=== PATIENT | female | born 1945 | race Caucasian/White ===

== ENCOUNTER 2019-12-10 08:24 | Outpatient (CLI) | payer MEDICARE, SELFPAY ==
--- NOTE | 2019-12-10 | XR_ITS ---
WS: [id number] SHOULDER LEFT TECHNIQUE: 3 views of the left shoulder CLINICAL INFORMATION: LEFT SHOULDER PAIN COMPARISON: None. FINDINGS: Postoperative changes left total shoulder arthroplasty. Normal AC joint. Osteopenia. Emphysematous ch anges left lung. Chronic healed left upper lateral rib fracture. XR/XR shoulder LT min 2V* [id number] IMPRESSION: Postoperative changes left total shoulder arthroplasty
== END 2019-12-10 08:25 | disposition home or self-care (01) ==
LOC: RADOUTREAD 09:12
PROVIDERS: Family Provider Internal Medicine; Visit Provider Internal Medicine
DX: Z01.89 Encounter for other specified special examinations (principal)

== ENCOUNTER 2020-10-14 10:13 | Inpatient (IN) | payer MEDICARE, SELFPAY ==
[2020-10-14] VITALS (7 sets, daily range): BP systolic 112–161; BP diastolic 71–100; PULSE 86–103; RESP 15–18; TEMP 37.1; O2SAT 89–98
--- NOTE | 2020-10-14 10:23 | CT_ITS ---
WS: [id number] CT CERVICAL SPINE HISTORY: fall, cervical spine point tenderness TECHNIQUE: Contiguous 2.5 mm axial imaging performed through the entire cervical spine. Sagittal and coronal reformats also performed. All CT scans at [facility] use at least one of these do se optimization techniques: automated exposure control; mA and/or kV adjustment per patient size (inc ludes targeted exams where dose is matched to clinical indication); or iterative reconstruction. DLP: 846.52 mGy.cm COMPARISON: No similar studies. Quality of this examination is limited by motion and body habitus. Age-indeterminate 50% burst fracture of C7 with retropulsion of the posterior superior endplate by 3 mm. Mild contact upon the ventral thecal sac. This is an age-indeterminate fracture. Odontoid is intact. Lateral masses of C1 and C2 are intact. Multilevel facet joint arthritis throughout the cervical spine. Lung apices are clear. CT/CT cervical spin wo con* [id number] IMPRESSION: 1. Age-indeterminate 50% fracture involving C7. 3 mm retropulsion of the poste rior superior endplate. Patient has numerous osteoporotic compression fractures throughout the thoracic spine. This cervical fracture has not been previously described are identified. 2. Multilevel facet joint arthritis. 3. Quality of this examination is limited by breathing and body habitus.
--- NOTE | 2020-10-14 10:23 | XR_ITS ---
WS: [id number] Portable AP upright chest, 10/14/2020 Clinical Data: syncope Comparison: PA and lateral chest, 07/12/2020. Findings: No nodules, masses or effusions are seen. The heart is normal. The pulmonary vascularity is not increased. No pneumonia or pneumothorax is seen. No new rib fractures are seen but there are old right rib fractures of the third through sixth ribs. There is an old fracture of the right humeral n luna. The aortic arch and descending aorta show tortuosity and calcification. There is a left shoulder prosthesis. XR/XR chest 1V portable [id number] Impression: 1. Atherosclerosis. 2. Negative for new right rib fractures.
--- NOTE | 2020-10-14 10:23 | CT_ITS ---
WS: [id number] CT HEAD NONCONTRAST HISTORY: syncope TECHNIQUE: Contiguous axial imaging performed through the brain in 2.5 mm imaging. Bone and soft tiss ue windows. Sagittal and coronal reformats reviewed. All CT scans at [facility] use at ast one of these dose optimization techniques: automated exposure control; mA and/or kV adjustment pe r patient size (includes targeted exams where dose is matched to clinical indication); or iterative r econstruction. DLP: 819.16 mGy.cm COMPARISON: 09/01/2019 No acute intracranial hemorrhage, midline shift or mass effect. Mild atrophy and mild chronic microvascular ischemic disease. Prior lacunar infarct in the anterior l imb of internal capsule on the LEFT. Ventricles: Normal size with no hydrocephalus. Extensive calcification and tortuosity involving the intracranial carotid arteries to the cavernous s inuses. Paranasal sinuses: As visualized are clear. Mastoid air cells: Well pneumatized. Calvarium and scalp: No skull fracture. There are numerous calvarial nodule with calcifications which are benign and present on prior studies. CT/CT head wo con* [id number] IMPRESSION: 1. No acute intracranial hemorrhage or edema. 2. Chronic small vessel ischemic disease and small lacunar infarct. No acute i nterval change.
--- NOTE | 2020-10-14 10:23 | XR_ITS ---
WS: [id number] Left shoulder, 3 views, 10/14/2020 Clinical Data: shoulder pain s/p fall Comparison: Left shoulder, 12/10/2019. Findings: There is a comminuted fracture of the distal left humerus adjacent to the distal tip of the long stem left shoulder prosthesis. The prosthesis is in good position. Soft tissues are not remarkable. XR/XR shoulder LT min 2V* [id number] Impression: Comminuted fracture of distal left humerus at the level of the distal tip of th e long stem left shoulder arthroplasty.
--- NOTE | 2020-10-14 10:24 | ECG_ITS ---
[facility] Test Date: 2020-10-14 Pat Name: Chip Guerrero Department: Room: Gender: Female Project Control Officer: : 1945 Requested By: Argelia Cuello Order Number: [id number] Charmaine MD: Esther Hampton M.D. Measurements Intervals [place] Rate: 92 P: 53 SD: 137 QRS: -37 QRSD: 103 T: 85 QT: 389 QTc: 482 Interpretive Statements SINUS RHYTHM LEFT AXIS DEVIATION [QRS AXIS < -30] PATTERN CONSISTENT WITH PULMONARY DISEASE NONSPECIFIC ST & T-WAVE ABNORMALITY Compared to ECG 10/14/2020 17:36:28 No significant changes Electronically Signed On 10-15-2020 13:47:55 APPLIED EXERCISE PHYSIOLOGIST by Esther Hampton M.D. [email or web address]
--- NOTE | 2020-10-14 10:33 | W.ED.FALL ---
Documented by User: ArgeliaARCELIA Oliva 10/16/20 19:56 HPI - Fall General: Chief Complaint: ER Hold Stated Complaint: FALL/ L HUMERUS DEFORMATION Time Seen by Provider: 10/14/20 10:14 Source: patient and EMS Mode of arrival: EMS Limitations: no limitations History of Present Illness: HPI Narrative: 74-year-old female patient presents to the emergency department status post fall. She was at home, experienced 3 falls today, she reports, blackout spells -reports became dizzy and fell, EMS states dresser was moved and suspects she hit the dresser. She is complaining of occipital head pain, neck pain and left shoulder pain. EMS reports deformity to the left shoulder. She reports history of dizzy spells that occur from time to time; however she has never fell. She was found lying on her back with her left arm externally rotated, previous ORIF with prosthesis placement to the left humerus in [facility] several years ago-previous fracture. MD complaint: fall Onset (ago): hour(s) (1) Fall from: standing Fall witnessed: no Place fall occurred: home Loss of consciousness: Unsure Prolonged down time: no Symptoms prior to fall: lightheadedness Location of injury: head Location of injury - extremities: Left: shoulder Severity: moderate Severity scale (1-10): 5 Quality: sharp and aching Associated symptoms-after fall: Reports headache(s), neck pain and weakness; Denies abdominal pain or chest pain Review of Systems General: Reports: 10 or more systems reviewed and unremarkable except in HPI and below Const: Denies: fever(s), chills or diaphoresis Eyes: Denies: blurry vision or eye redness ENMT: Denies: throat pain, dental pain or disequilibrium Card: Denies: chest pain, palpitations or irregular heart rhythm Resp: Denies: dyspnea, productive cough, non-productive cough or wheezing GI: Denies: abdominal pain, nausea, vomiting, heartburn, diarrhea or constipation : Denies: difficulty voiding or dysuria Musc: Reports: neck pain, joint pain and joint swelling; Denies: back pain Skin/Breast: Denies: rash or pruritus Neuro: Reports: headache(s), weakness in extremities, frequent falls (today) and dizziness; Denies: numbness in extremities, Slurred speech present or difficulty communicating thoughts Psych: Denies: anxiety or depression Chai/Lymph: Denies: easy bruising PFSH ED PFSH: Medical History Depression GERD (gastroesophageal reflux disease) Hypothyroidism Surgical History H/O rotator cuff surgery H/O: hysterectomy Family History Other No significant family history Social History Smoking and tobacco status: never smoked Alcohol intake: never Lives independently: Yes Household members: none Marital status: / Physical Exam Const: COMMON NORMALS: no acute distress, patient oriented x3, healthy appearing, alert and well nourished EXAM LIMITATIONS: no altered mental status GENERAL APPEARANCE: cooperative, well kempt, well developed, anxious and frail appearing NUTRITIONAL APPEARANCE: overweight ORIENTATION/CONSCIOUSNESS: Yes awake, Yes oriented to person, Yes oriented to place and Yes oriented to time; not confused and not patient obtunded HENMT: COMMON NORMALS: normocephalic, external ears normal, Normal external nose present and moist oral mucous membranes HEAD & SCALP: normal to inspection, normocephalic and scalp tenderness (Occipital); no Temporal artery tenderness present FACE & SINUS: normal facial exam, sinuses nontender and face symmetric; no erythema and no fluctuance NOSE: Normal external nose present and No nasal polyps present EXTERNAL EAR: Yes external ears normal Eye: COMMON NORMALS: Equal, round and reactive pupils present, EOMs intact bilaterally and conjunctivae normal GENERAL EYE: appearance normal, both eyes and all related structures EYELID: eyelids normal CONJUNCTIVA: Yes conjunctivae normal SCLERA: sclerae normal PUPIL: Yes Equal, round and reactive pupils present, Yes pupil size - right Right pupil size (mm): 3 and Yes pupil size - left Left pupil size (mm): 3 Neck/C-Spine: COMMON NORMALS: no lymphadenopathy and supple GENERAL: Yes normal visual inspection and Yes trachea midline CERVICAL SPINE: Yes cervical ROM normal, Yes Cervical spine tenderness C3, C4 and C5 and Yes collar present Lymph: LYMPHATIC: no lymphadenopathy noted Chest: COMMONS NORMALS: normal inspection of the chest and normal palpation of entire chest wall CHEST: Yes Symmetrical chest wall rise and No localized rib tenderness with anteroposterior compression Resp: COMMON NORMALS: normal respiratory effort, No retractions, No use of accessory muscles and clear to auscultation bilaterally EFFORT & INSPECTION: Yes able to speak in complete sentences AUSCULTATION: clear to auscultation bilaterally Cardio: COMMON NORMALS: regular rate, regular rhythm, S1 normal heart sound present, S2 normal heart sound present and Peripheral pulses 2+ throughout RATE: regular rate RHYTHM: regular rhythm HEART SOUNDS: S1 normal heart sound present and S2 normal heart sound present PERIPHERAL PULSES: Peripheral pulses 2+ throughout GI: COMMON NORMALS: Normal to inspection, nondistended, normoactive bowel sounds present, Soft to palpation and non-tender INSPECTION: Yes normal to inspection, No abdominal wall ecchymosis, No abdominal distension, Yes central obesity and No visible herniation PALPATION: Yes Soft to palpation : COMMON NORMALS: Yes no CVA tenderness BLADDER/KIDNEY EXAM: Yes no CVA tenderness Back/Pelvis: COMMON NORMALS: no CVA tenderness, thoracic and lumbar spine normal to inspection and no thoracic nor lumbar tenderness Extremity: COMMON NORMALS: normal to inspection, capillary refill normal, no clubbing, cyanosis or edema and no pedal edema GENERAL: Yes normal exam except as noted LEFT UPPER EXTREMITY: Yes shoulder joint Left shoulder joint: Yes inspection (deformity lateral, superior), Yes palpation (pain with palpation) and Yes neurovascular exam (distally intact) Neuro: COMMON NORMALS: patient oriented x3 and no focal motor deficits SENSORIUM/ORIENTATION: Yes alert, Yes oriented to person, Yes oriented to place and Yes oriented to time Psych: COMMON NORMALS: mental status grossly normal, Normal thought process present and cooperative APPEARANCE: Yes well kempt ACTIVITY/MOTOR BEHAVIOR: Yes appropriate eye contact THOUGHT PROCESS: Normal thought process present Skin: COMMON NORMALS: no rashes or lesions noted and turgor normal GENERAL SKIN EXAM: no rashes or lesions noted and turgor normal Procedures Orthopedic Splinting/Casting Injury #1: Side: left Upper Extremity Injury Location: upper arm Upper Extremity Immobilizer: sling/shoulder immobilizer, sugar tong splint and Refugio wrap Course Consultations: Consultation #1: Dr Cabrera - results of cervical spine CT discussed, advised need for MRI cervical spine without contrast to determine age of C7 burst fracture - if acute - will care for the patient - to call Dr Holt back with results of MRI - refers to Dr Castro regarding humerus fracture Time: 14:30 Consultation #2: Dr Castro - advised to place in sugar tong splint LUE with splint to the axilla - need additional views of elbow - pending discussion with Dr Cabrera in regards to cervical C7 - burst fracture, MRI results Dr. Barlow did call back and advised patient does not need hospitalization due to humeral fracture appreciated today. She reports will be happy to follow if she is admitted due to cervical spine findings. Time: 14:55 Vital Signs: Vital signs: Vital Signs Temperature 97.6 F 10/16/20 17:40 Pulse Rate 85 10/16/20 17:40 Respiratory Rate 16 10/16/20 17:40 Blood Pressure 129/76 10/16/20 17:40 Pulse Oximetry 92 10/16/20 17:40 MDM - Fall Lab Data: Labs: Lab Results 10/14/20 10/14/20 10/14/20 Range/Units 09:11 09:11 09:11 WBC 7.6 (4.0-10.0) 10^3/ uL RBC 4.08 L (4.1-5.3) 10^6/u L Hgb 11.9 (11.5-15.3) g/dL Hct 37.8 (37.0-47.0) % MCV 92.6 (81-99) fL MCH 29.2 (28.0-34.0) pg MCHC 31.5 (30.0-36.0) g/dL RDW 16.2 H (12.1-15.1) % Plt Count 303 (130-400) 10^3/c mm MPV 10.3 (7.4-10.4) fL Neut % (Auto) 80.4 % Lymph % (Auto) 12.2 % [place] % (Auto) 6.8 % Eos % (Auto) 0.1 % Baso % (Auto) 0.4 % Neut # (Auto) 6.10 (1.8-7.7) 10^3/u L Lymph # (Auto) 0.9 (0.8-4.8) 10^3/u L [place] # (Auto) 0.5 (0.2-0.9) 10^3/u L Eos # (Auto) 0.0 (0.0-0.8) 10^3/u L Baso # (Auto) 0.0 (0.0-0.1) 10^3/u L Nucleated RBC % (a uto) 0 % Nucleated RBCs # 0.0 /100WBC Sodium 140 (136-145) mmol/L Potassium 3.7 (3.5-5.1) mmol/L Chloride 102 (98-107) mmol/L Carbon Dioxide 22 (22-29) mmol/L Anion Gap 19.7 H (5-19) BUN 12 (8-23) mg/dL Creatinine 1.0 H (0.5-0.9) mg/dL GFR Calculation Not Reportable Glucose 127 H (65-115) mg/dL Calculated Osmolal ity 291 (285-295) mOsm/k g Calcium 9.5 (8.5-10.5) mg/dL Total Bilirubin 0.2 (0.15-1.2) mg/dL AST 10 (0-32) U/L ALT 6 (0-33) U/L Alkaline Phosphata se 106 H (35-105) IU/L Creatine Kinase (26-192) U/L Troponin T Baselin e 10 (0-10) ng/L Troponin T 120 Min [place] (0-10) ng/L Delta Troponin T (0-10) ABS# Troponin T Hi Sens 6Hr (0-10) ng/L Troponin T Hi Sens 6Hr Delta (0-12) ng/L Total Protein 7.5 (6.6-8.7) g/dL Albumin 4.6 (3.5-5.2) g/dL Globulin 2.9 (1.3-4.6) g/dL Vitamin B12 (232-1245) pg/mL Folate (4.8-37.3) ng/mL TSH (0.27-4.20) uIU/ mL SARS-CoV-2 Ag (Rap id) (Negative) 10/14/20 10/14/20 10/14/20 Range/Units 11:47 15:15 15:15 WBC (4.0-10.0) 10^3/ uL RBC (4.1-5.3) 10^6/u L Hgb (11.5-15.3) g/dL Hct (37.0-47.0) % MCV (81-99) fL MCH (28.0-34.0) pg MCHC (30.0-36.0) g/dL RDW (12.1-15.1) % Plt Count (130-400) 10^3/c mm MPV (7.4-10.4) fL Neut % (Auto) % Lymph % (Auto) % [place] % (Auto) % Eos % (Auto) % Baso % (Auto) % Neut # (Auto) (1.8-7.7) 10^3/u L Lymph # (Auto) (0.8-4.8) 10^3/u L [place] # (Auto) (0.2-0.9) 10^3/u L Eos # (Auto) (0.0-0.8) 10^3/u L Baso # (Auto) (0.0-0.1) 10^3/u L Nucleated RBC % (a uto) % Nucleated RBCs # /100WBC Sodium (136-145) mmol/L Potassium (3.5-5.1) mmol/L Chloride (98-107) mmol/L Carbon Dioxide (22-29) mmol/L Anion Gap (5-19) BUN (8-23) mg/dL Creatinine (0.5-0.9) mg/dL GFR Calculation Glucose (65-115) mg/dL Calculated Osmolal ity (285-295) mOsm/k g Calcium (8.5-10.5) mg/dL Total Bilirubin (0.15-1.2) mg/dL AST (0-32) U/L ALT (0-33) U/L Alkaline Phosphata se (35-105) IU/L Creatine Kinase 382 H* (26-192) U/L Troponin T Baselin e (0-10) ng/L Troponin T 120 Min [place] 9.19 (0-10) ng/L Delta Troponin T -0.81 L (0-10) ABS# Troponin T Hi Sens 6Hr 9.35 (0-10) ng/L Troponin T Hi Sens 6Hr Delta -0.65 L (0-12) ng/L Total Protein (6.6-8.7) g/dL Albumin (3.5-5.2) g/dL Globulin (1.3-4.6) g/dL Vitamin B12 (232-1245) pg/mL Folate (4.8-37.3) ng/mL TSH (0.27-4.20) uIU/ mL SARS-CoV-2 Ag (Rap id) (Negative) 10/14/20 10/15/20 10/15/20 Range/Units 22:38 05:00 05:00 WBC 5.9 (4.0-10.0) 10^3/ uL RBC 3.55 L (4.1-5.3) 10^6/u L Hgb 10.4 L (11.5-15.3) g/dL Hct 34.0 L (37.0-47.0) % MCV 95.8 (81-99) fL MCH 29.3 (28.0-34.0) pg MCHC 30.6 (30.0-36.0) g/dL RDW 16.6 H (12.1-15.1) % Plt Count 263 (130-400) 10^3/c mm MPV 10.0 (7.4-10.4) fL Neut % (Auto) 70.7 % Lymph % (Auto) 15.3 % [place] % (Auto) 13.1 % Eos % (Auto) 0.5 % Baso % (Auto) 0.2 % Neut # (Auto) 4.18 (1.8-7.7) 10^3/u L Lymph # (Auto) 0.9 (0.8-4.8) 10^3/u L [place] # (Auto) 0.8 (0.2-0.9) 10^3/u L Eos # (Auto) 0.0 (0.0-0.8) 10^3/u L Baso # (Auto) 0.0 (0.0-0.1) 10^3/u L Nucleated RBC % (a uto) 0 % Nucleated RBCs # 0.0 /100WBC Sodium 142 (136-145) mmol/L Potassium 3.5 (3.5-5.1) mmol/L Chloride 106 (98-107) mmol/L Carbon Dioxide 25 (22-29) mmol/L Anion Gap 14.5 (5-19) BUN 16 (8-23) mg/dL Creatinine 1.0 H (0.5-0.9) mg/dL GFR Calculation Not Reportable Glucose 114 (65-115) mg/dL Calculated Osmolal ity 296 H (285-295) mOsm/k g Calcium 8.9 (8.5-10.5) mg/dL Total Bilirubin 0.2 (0.15-1.2) mg/dL AST 13 (0-32) U/L ALT 6 (0-33) U/L Alkaline Phosphata se 91 (35-105) IU/L Creatine Kinase (26-192) U/L Troponin T Baselin e (0-10) ng/L Troponin T 120 Min [place] (0-10) ng/L Delta Troponin T (0-10) ABS# Troponin T Hi Sens 6Hr (0-10) ng/L Troponin T Hi Sens 6Hr Delta (0-12) ng/L Total Protein 7.0 (6.6-8.7) g/dL Albumin 4.1 (3.5-5.2) g/dL Globulin 2.9 (1.3-4.6) g/dL Vitamin B12 (232-1245) pg/mL Folate (4.8-37.3) ng/mL TSH 1.94 (0.27-4.20) uIU/ mL SARS-CoV-2 Ag (Rap id) Negative (Negative) 10/15/20 10/15/20 Range/Units 05:00 05:00 WBC (4.0-10.0) 10^3/ uL RBC (4.1-5.3) 10^6/u L Hgb (11.5-15.3) g/dL Hct (37.0-47.0) % MCV (81-99) fL MCH (28.0-34.0) pg MCHC (30.0-36.0) g/dL RDW (12.1-15.1) % Plt Count (130-400) 10^3/c mm MPV (7.4-10.4) fL Neut % (Auto) % Lymph % (Auto) % [place] % (Auto) % Eos % (Auto) % Baso % (Auto) % Neut # (Auto) (1.8-7.7) 10^3/u L Lymph # (Auto) (0.8-4.8) 10^3/u L [place] # (Auto) (0.2-0.9) 10^3/u L Eos # (Auto) (0.0-0.8) 10^3/u L Baso # (Auto) (0.0-0.1) 10^3/u L Nucleated RBC % (a uto) % Nucleated RBCs # /100WBC Sodium (136-145) mmol/L Potassium (3.5-5.1) mmol/L Chloride (98-107) mmol/L Carbon Dioxide (22-29) mmol/L Anion Gap (5-19) BUN (8-23) mg/dL Creatinine (0.5-0.9) mg/dL GFR Calculation Glucose (65-115) mg/dL Calculated Osmolal ity (285-295) mOsm/k g Calcium (8.5-10.5) mg/dL Total Bilirubin (0.15-1.2) mg/dL AST (0-32) U/L ALT (0-33) U/L Alkaline Phosphata se (35-105) IU/L Creatine Kinase (26-192) U/L Troponin T Baselin e (0-10) ng/L Troponin T 120 Min [place] (0-10) ng/L Delta Troponin T (0-10) ABS# Troponin T Hi Sens 6Hr (0-10) ng/L Troponin T Hi Sens 6Hr Delta (0-12) ng/L Total Protein (6.6-8.7) g/dL Albumin (3.5-5.2) g/dL Globulin (1.3-4.6) g/dL Vitamin B12 286 (232-1245) pg/mL Folate 6.0 (4.8-37.3) ng/mL TSH (0.27-4.20) uIU/ mL SARS-CoV-2 Ag (Rap id) (Negative) Imaging Data^: CT Head: Radiologist's impression: [address] [address] [address] Scan Report Signed Patient: Chip Guerrero Unit #: [id number] : 1945 Age/Sex: 74 / F ADM Date: 10/14/20 Loc: ER Room/Bed: Attending Dr: Ordering Provider/Ordering MD: Argelia Loo Date of Service: 10/14/20 Procedure(s): CT head wo con* [id number] Accession Number(s): [id number] Report Number: [id number] WS: [id number] CT HEAD NONCONTRAST HISTORY: syncope TECHNIQUE: Contiguous axial imaging performed through the brain in 2.5 mm imaging. Bone and soft tissue windows. Sagittal and coronal reformats reviewed. All CT scans at [facility] use at least one of these dose optimization techniques: automated exposure control; mA and/or kV adjustment per patient size (includes targeted exams where dose is matched to clinical indication); or iterative reconstruction. DLP: 819.16 mGy.cm COMPARISON: 09/01/2019 No acute intracranial hemorrhage, midline shift or mass effect. Mild atrophy and mild chronic microvascular ischemic disease. Prior lacunar infarct in the anterior limb of internal capsule on the LEFT. Ventricles: Normal size with no hydrocephalus. Extensive calcification and tortuosity involving the intracranial carotid arteries to the cavernous sinuses. Paranasal sinuses: As visualized are clear. Mastoid air cells: Well pneumatized. Calvarium and scalp: No skull fracture. There are numerous calvarial nodule with calcifications which are benign and present on prior studies. CT/CT head wo con* [id number] IMPRESSION: 1. No acute intracranial hemorrhage or edema. 2. Chronic small vessel ischemic disease and small lacunar infarct. No acute interval change. Dictated By: Kristi Waldron DO Signed By: Kristi Waldron DO Signed Date/Time: 10/14/20 1040 DD/ 1037 CXR: Radiologist's impression: [facility] [address] [place] [address] XRay Report Signed Patient: Chip Guerrero #: [id number] : 6Acct#:[id number] Age/Sex: 74 / FADM Date: 10/14/20 Loc: ERRoom/Bed: Attending Dr: Ordering Provider/Ordering MD: Argelia Loo Date of Service: 10/14/20 Procedure(s): XR chest 1V portable [id number] Accession Number(s): [id number] Report Number: [id number] WS: [id number] Portable AP upright chest, 10/14/2020 Clinical Data: syncope Comparison: PA and lateral chest, 07/12/2020. Findings: No nodules, masses or effusions are seen. The heart is normal. The pulmonary vascularity is not increased. No pneumonia or pneumothorax is seen. No new rib fractures are seen but there are old right rib fractures of the third through sixth ribs. There is an old fracture of the right humeral neck. The aortic arch and descending aorta show tortuosity and calcification. There is a left shoulder prosthesis. XR/XR chest 1V portable 10131 Impression: 1. Atherosclerosis. 2. Negative for new right rib fractures. Dictated By:Idania Luevano MD Signed By:Idania Luevanoigned Date/Time:10/14/205 DD/ 1043 Xray Ortho: Radiologist's impression: [address] [address] XRay Report Signed Patient: Chip Guerrero #: [id number] : 1946Acct#:[id number] Age/Sex: 74 / FADM Date: 10/14/20 Loc: ERRoom/Bed: Attending Dr: Ordering Provider/Ordering MD: Argelia Loo Date of Service: 10/14/20 Procedure(s): XR shoulder LT min 2V* [id number] Accession Number(s): [id number] Report Number: [id number] WS: [id number] Left shoulder, 3 views, 10/14/2020 Clinical Data: shoulder pain s/p fall Comparison: Left shoulder, 12/10/2019. Findings: There is a comminuted fracture of the distal left humerus adjacent to the distal tip of the long stem left shoulder prosthesis. The prosthesis is in good position. Soft tissues are not remarkable. XR/XR shoulder LT min 2V* [id number] Impression: Comminuted fracture of distal left humerus at the level of the distal tip of the long stem left shoulder arthroplasty. Dictated By:Idania Luevano MD Signed By:Bassem,Idania N MDSigned Date/Time:10/14/20 105 DD/ 1050 Other Imaging: Radiologist's impression: [facility] [address] [place] [address] CT Scan Report Signed Patient: Chip Guerrero #: [id number] : 1946Acct#:[id number] Age/Sex: 74 / FADM Date: 10/14/20 Loc: ERRoom/Bed: Attending Dr: Ordering Provider/Ordering MD: Argelia Loo Date of Service: 10/14/20 Procedure(s): CT cervical spin wo con* [id number] Accession Number(s): [id number] Report Number: [id number] WS: [id number] CT CERVICAL SPINE HISTORY: fall, cervical spine point tenderness TECHNIQUE: Contiguous 2.5 mm axial imaging performed through the entire cervical spine. Sagittal and coronal reformats also performed. All CT scans at [facility] use at least one of these dose optimization techniques: automated exposure control; mA and/or kV adjustment per patient size (includes targeted exams where dose is matched to clinical indication); or iterative reconstruction. DLP: 846.52 mGy.cm COMPARISON: No similar studies. Quality of this examination is limited by motion and body habitus. Age-indeterminate 50% burst fracture of C7 with retropulsion of the posterior superior endplate by 3 mm. Mild contact upon the ventral thecal sac. This is an age-indeterminate fracture. Odontoid is intact. Lateral masses of C1 and C2 are intact. Multilevel facet joint arthritis throughout the cervical spine. Lung apices are clear. CT/CT cervical spin wo con* [id number] IMPRESSION: 1. Age-indeterminate 50% fracture involving C7. 3 mm retropulsion of the posterior superior endplate. Patient has numerous osteoporotic compression fractures throughout the thoracic spine. This cervical fracture has not been previously described are identified. 2. Multilevel facet joint arthritis. 3. Quality of this examination is limited by breathing and body habitus. Dictated By:Kristi Waldron DO Signed By:Kristi Waldron DOSigned Date/Time:10/14/20 105 DD/ 1042 EKG Data^: EKG 2: EKG interpretation date: 10/14/20 EKG interpretation time: 14:25 Other EKG comments: Sinus rhythm, left ventricular hypertrophy, abnormal EKG Discharge Plan Discharge Patient Disposition: Placed in Observation Admit Provider: Raul Benavidez Clinical Impression: Syncope Qualifiers: Syncope type: unspecified Qualified Code(s): R55 - Syncope and collapse Fracture, humerus Qualifiers: Encounter type: initial encounter Humerus Location: distal Fracture type: closed Fracture morphology: other fracture Fracture alignment: displaced Laterality: unspecified laterality Qualified Code(s): S42.493A - Other displaced fracture of lower end of unspecified humerus, initial encounter for closed fracture C7 cervical fracture Qualifiers: Encounter type: initial encounter Fracture type: closed Fracture morphology: other fracture Fracture alignment: displaced Qualified Code(s): S12.690A - Other displaced fracture of seventh cervical vertebra, initial encounter for closed fracture Discharge Diet: Advance as tolerated and Regular Discharge Activity: Limit activity as instructed and As per PT/OT instructions Coding Level of Care Code ED Cottage Parent for Chg Fwd Exam Comprehensive Documented by User: Ganesh Segura MD 10/14/20 22:51 HPI - Fall General: Chief Complaint: ER Hold Stated Complaint: FALL/ L HUMERUS DEFORMATION Time Seen by Provider: 10/14/20 10:14 [facility] ED PFSH: Medical History Depression GERD (gastroesophageal reflux disease) Hypothyroidism Surgical History H/O rotator cuff surgery H/O: hysterectomy Family History Other No significant family history Social History Smoking and tobacco status: never smoked Alcohol intake: never Lives independently: Yes Household members: none Marital status: / Course Vital Signs: Vital signs: Vital Signs Temperature 97.6 F 10/16/20 17:40 Pulse Rate 85 10/16/20 17:40 Respiratory Rate 16 10/16/20 17:40 Blood Pressure 129/76 10/16/20 17:40 Pulse Oximetry 92 10/16/20 17:40 - Fall Lab Data: Labs: Lab Results 10/14/20 10/14/20 10/14/20 Range/Units 09:11 09:11 09:11 WBC 7.6 (4.0-10.0) 10^3/ uL RBC 4.08 L (4.1-5.3) 10^6/u L Hgb 11.9 (11.5-15.3) g/dL Hct 37.8 (37.0-47.0) % MCV 92.6 (81-99) fL MCH 29.2 (28.0-34.0) pg MCHC 31.5 (30.0-36.0) g/dL RDW 16.2 H (12.1-15.1) % Plt Count 303 (130-400) 10^3/c mm MPV 10.3 (7.4-10.4) fL Neut % (Auto) 80.4 % Lymph % (Auto) 12.2 % [place] % (Auto) 6.8 % Eos % (Auto) 0.1 % Baso % (Auto) 0.4 % Neut # (Auto) 6.10 (1.8-7.7) 10^3/u L Lymph # (Auto) 0.9 (0.8-4.8) 10^3/u L [place] # (Auto) 0.5 (0.2-0.9) 10^3/u L Eos # (Auto) 0.0 (0.0-0.8) 10^3/u L Baso # (Auto) 0.0 (0.0-0.1) 10^3/u L Nucleated RBC % (a uto) 0 % Nucleated RBCs # 0.0 /100WBC Sodium 140 (136-145) mmol/L Potassium 3.7 (3.5-5.1) mmol/L Chloride 102 (98-107) mmol/L Carbon Dioxide 22 (22-29) mmol/L Anion Gap 19.7 H (5-19) BUN 12 (8-23) mg/dL Creatinine 1.0 H (0.5-0.9) mg/dL GFR Calculation Not Reportable Glucose 127 H (65-115) mg/dL Calculated Osmolal ity 291 (285-295) mOsm/k g Calcium 9.5 (8.5-10.5) mg/dL Total Bilirubin 0.2 (0.15-1.2) mg/dL AST 10 (0-32) U/L ALT 6 (0-33) U/L Alkaline Phosphata se 106 H (35-105) IU/L Creatine Kinase (26-192) U/L Troponin T Baselin e 10 (0-10) ng/L Troponin T 120 Min [place] (0-10) ng/L Delta Troponin T (0-10) ABS# Troponin T Hi Sens 6Hr (0-10) ng/L Troponin T Hi Sens 6Hr Delta (0-12) ng/L Total Protein 7.5 (6.6-8.7) g/dL Albumin 4.6 (3.5-5.2) g/dL Globulin 2.9 (1.3-4.6) g/dL Vitamin B12 (232-1245) pg/mL Folate (4.8-37.3) ng/mL TSH (0.27-4.20) uIU/ mL SARS-CoV-2 Ag (Rap id) (Negative) 10/14/20 10/14/20 10/14/20 Range/Units 11:47 15:15 15:15 WBC (4.0-10.0) 10^3/ uL RBC (4.1-5.3) 10^6/u L Hgb (11.5-15.3) g/dL Hct (37.0-47.0) % MCV (81-99) fL MCH (28.0-34.0) pg MCHC (30.0-36.0) g/dL RDW (12.1-15.1) % Plt Count (130-400) 10^3/c mm MPV (7.4-10.4) fL Neut % (Auto) % Lymph % (Auto) % [place] % (Auto) % Eos % (Auto) % Baso % (Auto) % Neut # (Auto) (1.8-7.7) 10^3/u L Lymph # (Auto) (0.8-4.8) 10^3/u L [place] # (Auto) (0.2-0.9) 10^3/u L Eos # (Auto) (0.0-0.8) 10^3/u L Baso # (Auto) (0.0-0.1) 10^3/u L Nucleated RBC % (a uto) % Nucleated RBCs # /100WBC Sodium (136-145) mmol/L Potassium (3.5-5.1) mmol/L Chloride (98-107) mmol/L Carbon Dioxide (22-29) mmol/L Anion Gap (5-19) BUN (8-23) mg/dL Creatinine (0.5-0.9) mg/dL GFR Calculation Glucose (65-115) mg/dL Calculated Osmolal ity (285-295) mOsm/k g Calcium (8.5-10.5) mg/dL Total Bilirubin (0.15-1.2) mg/dL AST (0-32) U/L ALT (0-33) U/L Alkaline Phosphata se (35-105) IU/L Creatine Kinase 382 H* (26-192) U/L Troponin T Baselin e (0-10) ng/L Troponin T 120 Min [place] 9.19 (0-10) ng/L Delta Troponin T -0.81 L (0-10) ABS# Troponin T Hi Sens 6Hr 9.35 (0-10) ng/L Troponin T Hi Sens 6Hr Delta -0.65 L (0-12) ng/L Total Protein (6.6-8.7) g/dL Albumin (3.5-5.2) g/dL Globulin (1.3-4.6) g/dL Vitamin B12 (232-1245) pg/mL Folate (4.8-37.3) ng/mL TSH (0.27-4.20) uIU/ mL SARS-CoV-2 Ag (Rap id) (Negative) 10/14/20 10/15/20 10/15/20 Range/Units 22:38 05:00 05:00 WBC 5.9 (4.0-10.0) 10^3/ uL RBC 3.55 L (4.1-5.3) 10^6/u L Hgb 10.4 L (11.5-15.3) g/dL Hct 34.0 L (37.0-47.0) % MCV 95.8 (81-99) fL MCH 29.3 (28.0-34.0) pg MCHC 30.6 (30.0-36.0) g/dL RDW 16.6 H (12.1-15.1) % Plt Count 263 (130-400) 10^3/c mm MPV 10.0 (7.4-10.4) fL Neut % (Auto) 70.7 % Lymph % (Auto) 15.3 % [place] % (Auto) 13.1 % Eos % (Auto) 0.5 % Baso % (Auto) 0.2 % Neut # (Auto) 4.18 (1.8-7.7) 10^3/u L Lymph # (Auto) 0.9 (0.8-4.8) 10^3/u L [place] # (Auto) 0.8 (0.2-0.9) 10^3/u L Eos # (Auto) 0.0 (0.0-0.8) 10^3/u L Baso # (Auto) 0.0 (0.0-0.1) 10^3/u L Nucleated RBC % (a uto) 0 % Nucleated RBCs # 0.0 /100WBC Sodium 142 (136-145) mmol/L Potassium 3.5 (3.5-5.1) mmol/L Chloride 106 (98-107) mmol/L Carbon Dioxide 25 (22-29) mmol/L Anion Gap 14.5 (5-19) BUN 16 (8-23) mg/dL Creatinine 1.0 H (0.5-0.9) mg/dL GFR Calculation Not Reportable Glucose 114 (65-115) mg/dL Calculated Osmolal ity 296 H (285-295) mOsm/k g Calcium 8.9 (8.5-10.5) mg/dL Total Bilirubin 0.2 (0.15-1.2) mg/dL AST 13 (0-32) U/L ALT 6 (0-33) U/L Alkaline Phosphata se 91 (35-105) IU/L Creatine Kinase (26-192) U/L Troponin T Baselin e (0-10) ng/L Troponin T 120 Min [place] (0-10) ng/L Delta Troponin T (0-10) ABS# Troponin T Hi Sens 6Hr (0-10) ng/L Troponin T Hi Sens 6Hr Delta (0-12) ng/L Total Protein 7.0 (6.6-8.7) g/dL Albumin 4.1 (3.5-5.2) g/dL Globulin 2.9 (1.3-4.6) g/dL Vitamin B12 (232-1245) pg/mL Folate (4.8-37.3) ng/mL TSH 1.94 (0.27-4.20) uIU/ mL SARS-CoV-2 Ag (Rap id) Negative (Negative) 10/15/20 10/15/20 Range/Units 05:00 05:00 WBC (4.0-10.0) 10^3/ uL RBC (4.1-5.3) 10^6/u L Hgb (11.5-15.3) g/dL Hct (37.0-47.0) % MCV (81-99) fL MCH (28.0-34.0) pg MCHC (30.0-36.0) g/dL RDW (12.1-15.1) % Plt Count (130-400) 10^3/c mm MPV (7.4-10.4) fL Neut % (Auto) % Lymph % (Auto) % [place] % (Auto) % Eos % (Auto) % Baso % (Auto) % Neut # (Auto) (1.8-7.7) 10^3/u L Lymph # (Auto) (0.8-4.8) 10^3/u L [place] # (Auto) (0.2-0.9) 10^3/u L Eos # (Auto) (0.0-0.8) 10^3/u L Baso # (Auto) (0.0-0.1) 10^3/u L Nucleated RBC % (a uto) % Nucleated RBCs # /100WBC Sodium (136-145) mmol/L Potassium (3.5-5.1) mmol/L Chloride (98-107) mmol/L Carbon Dioxide (22-29) mmol/L Anion Gap (5-19) BUN (8-23) mg/dL Creatinine (0.5-0.9) mg/dL GFR Calculation Glucose (65-115) mg/dL Calculated Osmolal ity (285-295) mOsm/k g Calcium (8.5-10.5) mg/dL Total Bilirubin (0.15-1.2) mg/dL AST (0-32) U/L ALT (0-33) U/L Alkaline Phosphata se (35-105) IU/L Creatine Kinase (26-192) U/L Troponin T Baselin e (0-10) ng/L Troponin T 120 Min [place] (0-10) ng/L Delta Troponin T (0-10) ABS# Troponin T Hi Sens 6Hr (0-10) ng/L Troponin T Hi Sens 6Hr Delta (0-12) ng/L Total Protein (6.6-8.7) g/dL Albumin (3.5-5.2) g/dL Globulin (1.3-4.6) g/dL Vitamin B12 286 (232-1245) pg/mL Folate 6.0 (4.8-37.3) ng/mL TSH (0.27-4.20) uIU/ mL SARS-CoV-2 Ag (Rap id) (Negative) Discharge Plan Discharge Patient Disposition: Placed in Observation Admit Provider: Raul Benavidez Clinical Impression: Syncope Qualifiers: Syncope type: unspecified Qualified Code(s): R55 - Syncope and collapse Fracture, humerus Qualifiers: Encounter type: initial encounter Humerus Location: distal Fracture type: closed Fracture morphology: other fracture Fracture alignment: displaced Laterality: unspecified laterality Qualified Code(s): S42.493A - Other displaced fracture of lower end of unspecified humerus, initial encounter for closed fracture C7 cervical fracture Qualifiers: Encounter type: initial encounter Fracture type: closed Fracture morphology: other fracture Fracture alignment: displaced Qualified Code(s): S12.690A - Other displaced fracture of seventh cervical vertebra, initial encounter for closed fracture Discharge Diet: Advance as tolerated and Regular Discharge Activity: Limit activity as instructed and As per PT/OT instructions Coding Level of Care Code ED Cottage Parent for g Fwd Exam Comprehensive
[2020-10-14 10:59] LABS: Basophils % 0.4 %; Eosinophils % 0.1 %; Hematocrit 37.8 % (37.0-47.0); Hemoglobin 11.9 g/dL (11.5-15.3); Lymphocytes # 0.9 10^3/uL (0.8-4.8); Lymphocytes % 12.2 %; Mean Corpuscular HGB Conc 31.5 g/dL (30.0-36.0); Mean Corpuscular Hemoglobin 29.2 pg (28.0-34.0); Mean Corpuscular Volume 92.6 fL (81-99); Mean Platelet Volume 10.3 fL (7.4-10.4); Monocytes # 0.5 10^3/uL (0.2-0.9); Monocytes % 6.8 %; Neutrophils % 80.4 %; Nucleated Red Blood Cells % 0 %; Platelet Count 303 10^3/cmm (130-400); Red Blood Count 4.08 10^6/uL (4.1-5.3); Red Cell Distribution Width 16.2 % (12.1-15.1); White Blood Count 7.6 10^3/uL (4.0-10.0)
[2020-10-14 11:39] LABS: Alanine Aminotransferase 6 U/L (0-33); Albumin Level 4.6 g/dL (3.5-5.2); Alkaline Phosphatase 106 IU/L (35-105); Anion Gap 19.7 (5-19); Aspartate Amino Transferase 10 U/L (0-32); Blood Urea Nitrogen 12 mg/dL (8-23); Calcium 9.5 mg/dL (8.5-10.5); Carbon Dioxide 22 mmol/L (22-29); Chloride 102 mmol/L (98-107); Globulin 2.9 g/dL (1.3-4.6); Glucose 127 mg/dL (65-115); Osmolality Calculated 291 mOsm/kg (285-295); Potassium 3.7 mmol/L (3.5-5.1); Sodium 140 mmol/L (136-145); Total Bilirubin 0.2 mg/dL (0.15-1.2); Total Protein 7.5 g/dL (6.6-8.7)
[2020-10-14] MEDS: morphine 4 mg/mL SDV 1 mL IVP ×4 (11:40→19:16)
[2020-10-14 11:44] LABS: Troponin(5th) Baseline 10 ng/L (0-10)
--- NOTE | 2020-10-14 12:24 | ECG_ITS ---
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 Measurements Intervals [place] Rate: 97 P: 50 IL: 136 QRS: -27 QRSD: 101 T: 85 QT: 388 QTc: 494 Interpretive Statements SINUS RHYTHM LEFT VENTRICULAR HYPERTROPHY AND ST-T CHANGE [VOLTAGE CRITERIA PLUS ST/T ABNORMALITY] POSSIBLE ANTERIOR MYOCARDIAL INFARCTION , OF INDETERMINATE AGE [30 ms Q WAVE IN V3/V4, OR R < 0.2 mV IN V4] Compared to ECG 09/01/2019 14:34:17 ST (T wave) deviation now present Myocardial infarct finding now present Electronically Signed On 10-14-2020 20:56:49 SCRUM PROJECT MANAGER by Esther Hampton M.D. [id number]
--- NOTE | 2020-10-14 12:35 | PC.PHAR ---
pt states she takes care of her own medications-pt states she takes 200mcg po daily of euthyrox-last filled on 10/07/2020 to take with 88mcg daily to equal 288mcg-cassandra at dr longoria office states the last time they checked her blood for this medication was in april 2020 and they sent in 300mcg daily which was last filled on 05/16/2020 30d/s-mj states the rx they filled on 10/07/2020 was written on 01/01/2020
[2020-10-14] MEDS: sodium chloride 0.9% 1,000 ML 150 ML IV ×2 (12:42→19:16)
[2020-10-14 12:44] LABS: Troponin 5 2HR 9.19 ng/L (0-10)
[2020-10-14 12:46] LABS: Troponin 5 2HR Delta -0.81 ABS# (0-10)
--- NOTE | 2020-10-14 14:27 | MRR_ITS ---
PROCEDURE INFORMATION: Exam: MR Cervical Spine Without Contrast Exam date and time: 10/14/2020 4:10 PM Age: 74 years old Clinical indication: Injury or trauma; Fall; Blunt trauma; Additional info: C7 fracture TECHNIQUE: Imaging protocol: Multiplanar magnetic resonance images of the cervical spine without contrast. Total images: 311 COMPARISON: CT cervical spin wo con* [id number] 10/14/2020 10:26 AM FINDINGS: Vertebrae: Antecedent burst fracture C7 with approximately 60% anterior height loss and 40% posterior height loss. Retropulsion of the posterior column of the vertebral body approximately 4.2 mm. Old compression wedge superior endplate deformity T3. Spinal cord: No grossly visible evidence of cord edema, contusion, hemorrhage, demyelination, or myelomalacia. No evidence of cord effacement or compression. C2-C3: No significant disc disease. No significant spinal stenosis. C3-C4: No significant disc disease. No significant spinal stenosis. C4-C5: No significant disc disease. No significant spinal stenosis. C5-C6: No significant disc disease. No significant spinal stenosis. C6-C7: No significant disc disease. No significant spinal stenosis. C7-T1: No significant disc disease. No significant spinal stenosis. Vertebral arteries: Expected flow voids in the vertebral arteries. Soft tissues: Obesity. Other findings: Diminished signal to noise secondary to patient's body habitus which degrades image quality in detail. Wraparound artifact. MR/MR cervical spin wo con* [id number] IMPRESSION: 1. Antecedent burst fracture C7 with approximately 60% anterior height loss and 40% posterior height loss. Retropulsion of the posterior column of the vertebral body approximately 4.2 mm. 2. No grossly visible evidence of cord edema, contusion, hemorrhage, demyelination, or myelomalacia. 3. No evidence of cord effacement or compression. 4. Old compression wedge superior endplate deformity T3.
--- NOTE | 2020-10-14 14:38 | PC.NURSE ---
First EKG done at 1427, initial time was missed.
--- NOTE | 2020-10-14 14:52 | XR_ITS ---
WS: [id number] Left elbow, 3 views, 10/14/2020 Clinical Data: distal humeral fracture Comparison: None. Findings: There is a comminuted fracture of the distal left humerus at the level of the distal stem of the long intramedullary susanne. The distal portion humerus is displaced posteriorly. The elbow itself is intact. XR/XR elbow LT 2V [id number] Impression: Comminuted displaced fracture of distal left humerus.
--- NOTE | 2020-10-14 15:50 | PC.NURSE ---
pt to MRI by ambulance.
[2020-10-14 16:00] LABS: Troponin 5 6HR 9.35 ng/L (0-10)
[2020-10-14 16:11] LABS: Troponin 5 6HR Delta -0.65 ng/L (0-12)
--- NOTE | 2020-10-14 16:24 | ECG_ITS ---
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 Measurements Intervals [place] Rate: 89 P: 57 [place]: 138 QRS: -25 QRSD: 96 T: 79 QT: 397 QTc: 484 Interpretive Statements SINUS RHYTHM BORDERLINE LEFT AXIS DEVIATION [QRS AXIS < -20] NONSPECIFIC T-WAVE ABNORMALITY Compared to ECG 10/14/2020 14:25:22 T-wave abnormality now present Left ventricular hypertrophy no longer present ST (T wave) deviation no longer present Myocardial infarct finding no longer present Electronically Signed On 10-14-2020 20:52:04 TANK FARM OPERATOR by Esther Hampton M.D. [id number]
--- NOTE | 2020-10-14 18:05 | CTR_ITS ---
PROCEDURE INFORMATION: Exam: CT Lumbar Spine Without Contrast Exam date and time: 10/14/2020 6:18 PM Age: 74 years old Clinical indication: Injury or trauma; Fall; Blunt trauma (contusions or hematomas); Prior surgery; Additional info: Fall, lumbar spine pain TECHNIQUE: Imaging protocol: Computed tomography images of the lumbar spine without contrast. Total images: 399 Radiation optimization: All CT scans at this facility use at least one of these dose optimization techniques: automated exposure control; mA and/or kV adjustment per patient size (includes targeted exams where dose is matched to clinical indication); or iterative reconstruction. COMPARISON: No relevant prior studies available. RADIATION DOSE METRICS: Total DLP (mGy-cm): FINDINGS: Vertebrae: Bilateral spondylolysis L5/S1 with grade 1 spondylolisthesis. Old burst fracture L1. Mild 5 mm retropulsion fragment off the posterior column of the vertebral body without resulting significant central canal stenosis. Interpedicle screw and side bar fixation L4-L5. Osteopenia/osteoporosis. Discs/Spinal canal/Neural foramina: Mild central canal stenosis L3/L4 secondary to a mild posterior disc bulge but primarily secondary to ligamentum flavum hypertrophy and facet arthrosis. Degenerative disc disease L5/S1 with intervertebral disc prosthesis. 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 Kidneys and ureters: Parapelvic cyst left kidney measuring approximately 20 mm in diameter. Soft tissues: Paraspinal muscle atrophy distal to L5. Other findings: Obesity. Increased quantum mottle artifact which degrades image quality in detail. CT/CT lumbar spine wo con* [id number] IMPRESSION: Nonacute. COMMENTS: Consistent with the [place] [employer]'s Incidental Findings Committee white paper (J Am Jeremías Radiol 2018): Any incidental renal lesion less than 1 cm or classified as too small to characterize, or any incidental cystic renal lesion characterized as simple-appearing, is likely benign. No follow-up imaging is recommended for these lesions per consensus recommendations based on imaging criteria. Radiation Dose CTDIVOL = (mGy): DLP = 2013.7 (mGy-cm)
--- NOTE | 2020-10-14 18:05 | CTR_ITS ---
PROCEDURE INFORMATION: Exam: CT Thoracic Spine Without Contrast Exam date and time: 10/14/2020 6:18 PM Age: 74 years old Clinical indication: Injury or trauma; Fall; Fracture, traumatic; Closed; Additional info: C 7 FX TECHNIQUE: Imaging protocol: Computed tomography images of the thoracic spine without contrast. Total images: 498 Radiation optimization: All CT scans at this facility use at least one of these dose optimization techniques: automated exposure control; mA and/or kV adjustment per patient size (includes targeted exams where dose is matched to clinical indication); or iterative reconstruction. COMPARISON: CR Thoracic Spine 3+ views* [id number] 04/19/2018 10:26 AM RADIATION DOSE METRICS: Total DLP (mGy-cm): 2278.7 FINDINGS: Vertebrae: Dextroscoliosis. Old burst fractures of T10 and T12 which appear stable since 04/19/2018. Antecedent appearing superior endplate deformity T3. No definite visible evidence of acute osseous abnormality. Again note of the antecedent burst fracture C7. Please review separate MRIs cervical spine examination report. Discs/Spinal canal/Neural foramina: No significant disc protrusion. No severe spinal canal stenosis. No significant neural foraminal narrowing. Other bones/joints: Osteoporosis. Soft tissues: Unremarkable. Other findings: Obesity. Increased quantum mottle artifact which degrades image quality in detail. Motion artifact. CT/CT thoracic spin wo con* [id number] IMPRESSION: 1. No visible acute osseous abnormality. 2. Dextroscoliosis. 3. Old fractures as detailed in text above. Radiation Dose CTDIVOL = (mGy): DLP = 2278.7 (mGy-cm)
[2020-10-14 23:03] LABS: SARS Covid-2 Antigen Negative (Negative)
--- NOTE | 2020-10-14 23:13 | P.HP_ITS ---
Providers/Chief Complaint Admitting Physician: Raul Benavidez Chief Complaint: FALL/ L HUMERUS DEFORMATION S12.600A [id number] History of Present Illness Very pleasant 74-year-old lady who lives at home independently has been having some intermittent blackout spells over the last several years for which she says has had some work-up with her primary care provider. She says that he was not sure what the cause was. She reports that yesterday she blacked out 3 times, fell down. In ER she is noted with pain in her left upper extremity. Also has some chronic pain in the neck which currently has been worse. On imaging is noted to have prior burst fracture of C7 with approximately 60% anterior height loss and 40% posterior height loss, retropulsion of posterior column of the vertebral body approximately 4.2 mm. No grossly visible evidence of cord edema, contusion, hemorrhage, demyelination or myelomalacia. No evidence of cord effacement or compression. Old compression wedge superior endplate deformity T3. She reports a prior known cervical fracture. MRI was requested as per orthopedic surgery Dr. Cabrera who is going to see her in the morning. Orthopedic surgeon Dr. aSnches was also consulted for comminuted fracture of distal left humerus. Currently she is doing all right. She is in a soft neck collar. Dr. Castro recommended that left upper extremity be placed in splint. She cannot give a whole lot of information regarding her episodes of passing out. She does state that she has been somewhat more short of breath last several weeks. She denies any chronic lung condition, although transiently was requiring 4 L of oxygen in ER. Chest x-ray without suggestion of pneumonia. Negative for any rib fractures. Negative for pneumothorax. EKG with sinus rhythm. Troponin normal. She is afebrile, without leukocytosis. Creatinine is noted as 1. Alk phos 106. Rapid COVID-19 is negative. She reports having some fatigue chronically, but overall otherwise has not had any fever, chills, headache, nausea vomiting, diarrhea, or muscle aches. Review of Systems Const: Denies: fever(s), chills, body aches or malaise Eyes: Denies: change in vision or eye redness ENMT: Denies: throat pain, oral sores or ear or mastoid pain Card: Denies: chest pain, edema, pre-syncope or dyspnea on exertion Resp: Denies: dyspnea, productive cough, change in phlegm color or hemoptysis GI: Denies: abdominal pain, nausea, vomiting, diarrhea, constipation, hematochezia or melena : Denies: flank pain, urinary frequency or hematuria Musc: Reports: other (neck pain, LUE pain); Denies: joint swelling or joint redness Skin/Breast: Denies: rash, sores or new lesions Neuro: Reports: other ( blacking out episodes ); Denies: headache(s), numbness in extremities, weakness in extremities, dizziness, confusion or seizure-like activity Endo: Denies: polyuria or polydipsia Chai/Lymph: Denies: easy bleeding or purpura All/Imm: Denies: urticaria, throat swelling or tongue swelling Medications/Allergies Home Medications Medication Instructions Recorded Confirmed Last Taken Type atorvastatin 80 mg PO DAILY 10/14/20 10/14/20 10/13/20 History bupropion HCl 150 mg PO BEDTIME 10/14/20 10/14/20 10/13/20 History citalopram 20 mg PO BEDTIME 10/14/20 10/14/20 10/13/20 History fluticasone propionate 2 spray INTRANASAL DAILY 10/14/20 10/14/20 10/13/20 History levothyroxine [Euthyrox] 200 mcg PO QAM 10/14/20 10/14/20 10/14/20 History see pharmacy comment omeprazole 20 mg PO QPM 10/14/20 10/14/20 10/13/20 History Allergies Allergy/AdvReac Type Severity Reaction Status Date / Time No Known Allergies Allergy Verified 10/14/20 12:35 PFSH Acute PFSH: Medical History Depression GERD (gastroesophageal reflux disease) Hypothyroidism Surgical History H/O rotator cuff surgery H/O: hysterectomy Family History Other No significant family history Social History Smoking and tobacco status: never smoked Alcohol intake: never Substance/Drug Use: never Lives independently: Yes Household members: none Marital status: / Vitals/I&O/Wt Last Vital Signs Temp 98.7 F 10/14/20 10:57 Pulse 86 10/14/20 22:41 Resp 18 10/14/20 22:41 BP 142/78 10/14/20 22:41 Pulse Ox 98 10/14/20 22:41 10/14/20 10/14/20 10/15/20 14:59 22:59 06:59 Intake Total 985 / 985 Balance 985 / 985 Weight last 48 hrs Weight 79.379 kg Physical Exam Const: COMMON NORMALS: no acute distress and patient oriented x3 HENMT: COMMON NORMALS: oropharynx normal OTHER: Soft cervical collar Neck/C-Spine: COMMON NORMALS: no JVD Resp: COMMON NORMALS: normal respiratory effort and clear to auscultation bilaterally AUSCULTATION: clear to auscultation bilaterally Cardio: COMMON NORMALS: no JVD, regular rhythm, S1 normal heart sound present, S2 normal heart sound present and No murmurs present (Cardio) RHYTHM: regular rhythm HEART SOUNDS: S1 normal heart sound present and S2 normal heart sound present GI: COMMON NORMALS: Normal to inspection, nondistended, normoactive bowel sounds present, Soft to palpation and non-tender PALPATION: Yes Soft to palpation Extremity: COMMON NORMALS: no joint enlargement and no pedal edema OTHER: L arm in a sling Neuro: COMMON NORMALS: patient oriented x3 and moves all extremities Skin: COMMON NORMALS: no rashes or lesions noted GENERAL SKIN EXAM: no rashes or lesions noted Data : 10/14/20 09:11 10/14/20 09:11 A&P Assessment and plan (1) Syncope: Recurrent syncopal episodes she says episodically over several years. Had 3 episodes yesterday with resulting trauma. Denies significant prodromal symptoms. EKG unremarkable. Troponin normal. Denies that any of the episodes were witnessed. Denies history of seizures. At this time will monitor on telemetry. Assess TTE. TSH. B12, folic acid. MRI brain. Please assess for orthostasis when able to. Noted to have saturation down to 89% on room air. Does report some occasional shortness of breath. X-ray without pneumonia. Perhaps may have some undiagnosed chronically advancing lung disease/hypoxia contributing to the episodes. Please monitor for recurrence of hypoxia. Consider assessment for home O2 evaluation, PFT. Consider outpatient EEG. Consider contribution from medications, although does not appear to have signs of serotonin syndrome. Bupropion in some instances can lead to seizures, although would not necessarily have suspicion that that is what is going on here. Check CK. With multiple recent falls, with resulting trauma, with recurrent syncopal episodes, patient living alone, she may have difficulty managing things on her own currently. Will request case management to assist with disposition planning. PT, OT once safe per orthopedics. Status: Acute Qualifiers: Syncope type: unspecified Qualified Code(s): R55 - Syncope and collapse (2) C7 cervical fracture: Orthopedic consultation, will be seen in the morning (Dr. Francisco). At this time continue bedrest. Soft collar in place. Treat symptomatically. This appears perhaps not new fracture, but has been having some more pain there with 3 falls yesterday. No sign of cord compression at this time. Status: Acute Qualifiers: Encounter type: initial encounter Fracture alignment: displaced Fracture morphology: other fracture Fracture type: closed Qualified Code(s): S12.690A - Other displaced fracture of seventh cervical vertebra, initial encounter for closed fracture (3) Fracture, humerus: Pending assessment by orthopedics. Splint requested (Dr. Barlow). Status: Acute Qualifiers: Encounter type: initial encounter Fracture alignment: displaced Fracture morphology: other fracture Fracture type: closed Humerus Location: distal Laterality: unspecified laterality Qualified Code(s): S42.493A - Other displaced fracture of lower end of unspecified humerus, initial encounter for closed fracture Additional A&P Information Hypothyroidism GERD Depression Attestations Medical Necessity Statement*: Admission of over 2 midnights is needed for assessment of management of recurrent syncopal episodes with so far unsuccessful outpatient evaluation, resulting in multiple trauma including cervical vertebral fracture, humeral fracture in an elderly lady. Coding Level of Care Code Acute Admin Assistant for Chg Fwd Diagnoses Syncope R55 Syncope type: unspecified C7 cervical fracture S12.690A Encounter type: initial encounter Fracture alignment: displaced Fracture morphology: other fracture Fracture type: closed Fracture, humerus S42.493A Encounter type: initial encounter Fracture alignment: displaced Fracture morphology: other fracture Fracture type: closed Humerus Location: distal Laterality: unspecified laterality
[2020-10-15] VITALS (11 sets, daily range): BP systolic 106–144; BP diastolic 69–84; PULSE 84–96; RESP 13–20; TEMP 37.1–37.2; O2SAT 91–97
[2020-10-15 00:15] LABS: Creatine Phosphokinase 382 U/L (26-192)
[2020-10-15] MEDS: sodium chloride 0.9% 1,000 ML 150 ML IV ×2 (01:38→16:21)
[2020-10-15] MEDS: morphine 4 mg/mL SDV 1 mL 2 MG IVP ×3 (03:34→17:00)
[2020-10-15 05:10] LABS: Basophils % 0.2 %; Eosinophils % 0.5 %; Hemoglobin 10.4 g/dL (11.5-15.3); Lymphocytes # 0.9 10^3/uL (0.8-4.8); Lymphocytes % 15.3 %; Mean Corpuscular HGB Conc 30.6 g/dL (30.0-36.0); Mean Corpuscular Hemoglobin 29.3 pg (28.0-34.0); Mean Corpuscular Volume 95.8 fL (81-99); Monocytes # 0.8 10^3/uL (0.2-0.9); Monocytes % 13.1 %; Neutrophils # 4.18 10^3/uL (1.8-7.7); Neutrophils % 70.7 %; Nucleated Red Blood Cells % 0 %; Platelet Count 263 10^3/cmm (130-400); Red Blood Count 3.55 10^6/uL (4.1-5.3); Red Cell Distribution Width 16.6 % (12.1-15.1); White Blood Count 5.9 10^3/uL (4.0-10.0)
[2020-10-15] MEDS: levothyroxine 100 mcg Tablet 200 MCG PO (05:48)
[2020-10-15 05:55] LABS: Alanine Aminotransferase 6 U/L (0-33); Albumin Level 4.1 g/dL (3.5-5.2); Alkaline Phosphatase 91 IU/L (35-105); Aspartate Amino Transferase 13 U/L (0-32); Blood Urea Nitrogen 16 mg/dL (8-23); Calcium 8.9 mg/dL (8.5-10.5); Carbon Dioxide 25 mmol/L (22-29); Chloride 106 mmol/L (98-107); Globulin 2.9 g/dL (1.3-4.6); Glucose 114 mg/dL (65-115); Osmolality Calculated 296 mOsm/kg (285-295); Sodium 142 mmol/L (136-145); Thyroid Stimulating Hormone 1.94 uIU/mL (0.27-4.20); Total Bilirubin 0.2 mg/dL (0.15-1.2)
[2020-10-15 06:06] LABS: Anion Gap 14.5 (5-19); Potassium 3.5 mmol/L (3.5-5.1); Vitamin B12 286 pg/mL (232-1245)
--- NOTE | 2020-10-15 07:05 | PM.CONSULT ---
Providers/Reason For Consult Consulting Physican/Specialty*: spine Reason for Consult*: C7 fx Attending Physician: Raul Benavidez History of Present Illness History of Present Illness Chip Guerrero is a 74 year old female MRI reviewed of cervical spine. The MRI whitt not show an acute fracture. Will treat in cervical collar for now. Will evaluate when she gets to floor. full consult to follow when she gets to the floor. Meds/Allergies Home Medications and Allergies Home Medications Medication Instructions Recorded Confirmed Last Taken Type atorvastatin 80 mg PO DAILY 10/14/20 10/14/20 10/13/20 History bupropion HCl 150 mg PO BEDTIME 10/14/20 10/14/20 10/13/20 History citalopram 20 mg PO BEDTIME 10/14/20 10/14/20 10/13/20 History fluticasone propionate 2 spray INTRANASAL DAILY 10/14/20 10/14/20 10/13/20 History levothyroxine [Euthyrox] 200 mcg PO QAM 10/14/20 10/14/20 10/14/20 History see pharmacy comment omeprazole 20 mg PO QPM 10/14/20 10/14/20 10/13/20 History Allergies Allergy/AdvReac Type Severity Reaction Status Date / Time No Known Allergies Allergy Verified 10/14/20 12:35 Current Medications Current Medications Generic Name Dose Route Start Last Admin Trade Name Freq PRN Reason Stop Dose Admin Sodium Chloride 1,000 mls @ 150 mls/hr 10/14/20 12:00 10/15/20 01:38 Sodium Chloride 0.9% IV 150 mls/hr .[id number] JUAN ANTONIO Administration Levothyroxine Sodium 200 mcg 10/15/20 06:00 10/15/20 05:48 Levothyroxine 100 Mcg Tablet PO 200 mcg QAM JUAN ANTONIO Administration Morphine Sulfate 2 mg 10/15/20 01:56 10/15/20 03:34 Morphine 4 Mg/Ml Sdv 1 Ml IVP 2 mg Q4H PRN Administration PAIN PFSH Acute PFSH: Medical History Depression GERD (gastroesophageal reflux disease) Hypothyroidism Surgical History H/O rotator cuff surgery H/O: hysterectomy Family History Other No significant family history Social History Smoking and tobacco status: never smoked Alcohol intake: never Substance/Drug Use: never Lives independently: Yes Household members: none Marital status: / Vitals/I&O/Wt Last Vital Signs Temp 98.7 F 10/14/20 10:57 Pulse 96 10/15/20 00:20 Resp 16 10/15/20 00:20 BP 106/84 10/15/20 00:20 Pulse Ox 96 10/15/20 00:20 10/14/20 10/15/20 10/15/20 22:59 06:59 14:59 Intake Total 985 / 985 955 / 1940 Balance 985 / 985 955 / 1940 Weight last 48 hrs Weight 175 lb Coding Level of Care Code Acute Numerical Control Machine Machinist for Chg Debra
--- NOTE | 2020-10-15 08:46 | CT_ITS ---
WS: [id number] CT LEFT ELBOW with 3-D reconstructions. HISTORY: Fracture evaluation , distal humerus and intercondylar area Technique: All CT scans at [facility] use at least one of these dose optimization techniq ues: automated exposure control; mA and/or kV adjustment per patient size (includes targeted exams wh ere dose is matched to clinical indication); or iterative reconstruction. DLP: 2350.01 mGy.cm COMPARISON: LEFT elbow radiograph 10/14/2020. Status post LEFT humeral head replacement. There is a long intramedullary susanne extending to the juncti on of the middle and distal third of the humerus. There is an acute fracture with comminution involvi ng the humerus at the distal hardware. There is anterior and medial displacement of the distal fragme nt. The intramedullary susanne is posteriorly positioned by the width of the humerus. There are multiple small osseous fragments along the fracture site. No fracture fragments or displacement noted at the e lbow joint. There is no intracondylar fragments or fracture identified. Normal alignment of the radiu s and ulna with respect to the condyles. CT/CT elbow LT wo con* [id number] IMPRESSION: 1. No LEFT elbow fracture. There is no intercondylar fracture. 2. Comminuted fracture with displacement involving the junction of the mid and distal third of the humerus. Fracture is through the bone at the distal intram edullary susanne. There is anterior and medial displacement of the distal fracture fragment with respect to the intramedullary susanne.
--- NOTE | 2020-10-15 10:02 | PC.OT ---
OT EVALUATION ATTEMPTED. PER LAUREN WHO IS IN DISCUSSION WITH DR. AJ, HOLD AT THIS TIME; [facility] TO FIT WITH A SPECIALIZED HUMERAL BRACE. EVALUATION TO BE ATTEMPTED TOMORROW.
--- NOTE | 2020-10-15 10:15 | MR_ITS ---
WS: [id number] MRI BRAIN WITHOUT CONTRAST HISTORY: syncopal episodes COMPARISON: CT head 10/14/2020 TECHNIQUE: Diffusion imaging, multiplanar T1, T2 and FLAIR imaging obtained. No evidence for acute infarct or hemorrhage. Pete-white matter differentiation is normal. Moderate to severe T2 and FLAIR signal hyperintensities in the subcortical and deep white matter from prior microvascular disease. No prior large territory infarcts. Ventricles and extra-axial spaces are normal. No inferior displacement of cerebellar tonsils. The sella turcica and pituitary gland are unremarkabl e. Posterior fossa is also unremarkable. Dural venous sinuses and duck[place] of [place] demonstrate no abnormality on this unenhanced studies. Paranasal sinuses: Clear. Mastoid air cells: Normal. Calvarium and scalp: No fracture. There are numerous scalp nodules present bilaterally. These are pre dominantly low signal on all sequences and corresponding to chronic calcifications in the scalp as se en on prior studies. MR/MR head wo con* [id number] IMPRESSION: 1. No evidence for an acute infarct or hemorrhage. 2. Moderate chronic microvascular ischemic disease.
--- NOTE | 2020-10-15 11:00 | PC.NURSE ---
Telephone order from Dr. Lombardi to retime IV fluids when patient gets to floor from MRI
--- NOTE | 2020-10-15 12:42 | P.PN_ITS ---
Subjective Subjective: Interval history: Chart reviewed, case discussed briefly with Dr. Castro. Normotensive, afebrile, on 2 L NC. Labs reviewed. Soft neck collar in place but seems ill-fitting, LUE splinted. Seen after returning from MRI. Does not appear to be in any distress currently. Remains on isolation precautions pending COVID results. Medications: Reviewed: Yes Medication Review Details: Active Medications Generic Name Dose Route Start Last Admin Trade Name Freq PRN Reason Stop Dose Admin Acetaminophen 650 mg 10/14/20 23:57 Acetaminophen 32 5 Mg Tablet PO Q6H PRN Mild/Mod Pain Or Temp >/= 101 Atorvastatin Calci um 80 mg 10/15/20 09:00 10/15/20 08:41 Atorvastatin 40 Mg Tablet PO Not Given DAILY JUAN ANTONIO Bupropion HCl 150 mg 10/15/20 21:00 Bupropion Xl (24 Hr) 150 Mg Tablet PO BEDTIME JUAN ANTONIO Sodium Chloride 1,000 mls @ 150 m ls/hr 10/14/20 12:00 10/15/20 01:38 Sodium Chloride 0.9% IV 150 mls/hr .Q6H40M JUAN ANTONIO Administration Levothyroxine Sodi um 200 mcg 10/15/20 06:00 10/15/20 05:48 Levothyroxine 10 0 Mcg Tablet PO 200 mcg QAM JUAN ANTONIO Administration Morphine Sulfate 2 mg 10/15/20 01:56 10/15/20 12:29 Morphine 4 Mg/Ml Sdv 1 Ml IVP 2 mg Q4H PRN Administration PAIN Pantoprazole Sodiu m 40 mg 10/15/20 18:[address] 40 Mg Tablet PO QPM JUAN ANTONIO No Known Allergies Allergy (Verified 10/14/20 12:35) Vitals/I&O/Wt Last Vital Signs Temp 98.7 F 10/14/20 10:57 Pulse 96 10/15/20 00:20 Resp 18 10/15/20 12:29 BP 106/84 10/15/20 00:20 Pulse Ox 97 10/15/20 12:29 10/14/20 10/15/20 10/15/20 22:59 06:59 14:59 Intake Total 985 / 985 955 / 1940 Balance 985 / 985 955 / 1940 Weight last 48 hrs Weight 79.379 kg Physical Exam Const: COMMON NORMALS: no acute distress, patient oriented x3 and alert GENERAL APPEARANCE: cooperative and comfortable NUTRITIONAL APPEARANCE: obese ORIENTATION/CONSCIOUSNESS: Yes awake OTHER: -looks appropriate for age HENMT: COMMON NORMALS: normocephalic, atraumatic, hearing grossly normal bilaterally and moist oral mucous membranes HEAD & SCALP: normocephalic and atraumatic Eye: COMMON NORMALS: Equal, round and reactive pupils present, EOMs intact bilaterally and conjunctivae normal CONJUNCTIVA: Yes conjunctivae normal PUPIL: Yes Equal, round and reactive pupils present Neck/C-Spine: GENERAL: Yes trachea midline OTHER: -ill-fitting soft neck C- collar in place Resp: COMMON NORMALS: normal respiratory effort, No retractions, No use of accessory muscles and clear to auscultation bilaterally EFFORT & INSPECTION: Yes able to speak in complete sentences, Yes symmetric chest movement and No tachypneic AUSCULTATION: clear to auscultation bilaterally OTHER: -on RA Cardio: COMMON NORMALS: regular rate, regular rhythm, S1 normal heart sound present, S2 normal heart sound present and No murmurs present (Cardio) RATE: regular rate RHYTHM: regular rhythm HEART SOUNDS: S1 normal heart sound present and S2 normal heart sound present GI: COMMON NORMALS: Normal to inspection, nondistended, normoactive bowel sounds present, Soft to palpation and non-tender INSPECTION: Yes central obesity PALPATION: Yes Soft to palpation Extremity: COMMON NORMALS: no clubbing, cyanosis or edema; negative for no pedal edema NARRATIVE EXTREMITY EXAM: -LUE splinted; neurovascularly intact Neuro: COMMON NORMALS: patient oriented x3, moves all extremities, no focal motor deficits and no sensory deficits noted SENSORIUM/ORIENTATION: Yes alert Psych: COMMON NORMALS: mental status grossly normal, Normal thought process present, cooperative, normal affect and speech normal SPEECH: Yes normal speech THOUGHT PROCESS: Normal thought process present Skin: COMMON NORMALS: no rashes or lesions noted, no jaundice, no petechiae and no mottling GENERAL SKIN EXAM: no rashes or lesions noted Data : 10/15/20 05:00 10/15/20 05:00 A&P Assessment and plan (1) Humerus distal fracture: -Noted comminuted fracture with displacement involving the junction of the mid and distal third of the humerus on CT -splinted per Dr. Castro; custom splint and brace to be placed tomorrow -pain control as needed -PT/OT evaluations when appropriate -Ortho consult by Dr. Castro appreciated; non-surgical management Status: Acute Qualifiers: Encounter type: initial encounter Fracture alignment: displaced Fracture morphology: other fracture Fracture type: closed Laterality: left Qualified Code(s): S42.492A - Other displaced fracture of lower end of left humerus, initial encounter for closed fracture (2) Syncope: -appears to have had recurrent syncopal episodes, unclear etiology, unwitnessed -fall precautions -check orthostatics if possible -telemetry monitoring -CT head with no acute findings; MRI with noted chronic ischemic changes -close monitoring of vital signs -IVF hydration -cautions use of narcotics -Echo ordered -no overt neuro deficits -rapid COVID-19 negative, PCR pending -currently requiring supplemental oxygen, wean as tolerated; not oxygen dependent at baseline; no overt abnormalities on CXR Status: Acute Qualifiers: Syncope type: unspecified Qualified Code(s): R55 - Syncope and collapse (3) C7 cervical fracture: -soft C-collar in place -imaging reviewed including MRI showing C7 burst fracture with approximately 60% anterior height loss and 40% posterior height loss, retropulsion of the posterior column of the vertebral body approximately 4.2 mm. No gross evidence of edema, contusion, hemorrhage, demyelination, myelomalacia, cord effacement -consult by Dr. Cabrera appreciated -pain control as needed -neurologically intact Status: Acute Qualifiers: Encounter type: initial encounter Fracture alignment: displaced Fracture morphology: other fracture Fracture type: closed Qualified Code(s): S12.690A - Other displaced fracture of seventh cervical vertebra, initial encounter for closed fracture Additional A&P Information -hypothyroidism, TSH wnl, continue levothyroxine -dyslipidemia; continue statin, CPK wnl -depression, celexa on hold -diet when appropriate -GI ppx with PPI -DVT ppx with SCDs, pending surgical intervention -Dispo: patient prefers to return home, has family support; will need PT/OT -Code status: FULL code Attestations Medical Necessity Statement*: Patient requires hospitalization for continued management of acute displaced L humeral fracture, continued workup for syncope, pain control. Time Spent in Patient Care: 16 - 35 minutes (>than 50% of time spent in counselling and/or direct pt care on unit) . Coding Level of Care Code Acute Director Of Extension Work for Chg Fwd Exam Comprehensive Diagnoses Humerus distal fracture S42.492A Encounter type: initial encounter Fracture alignment: displaced Fracture morphology: other fracture Fracture type: closed Laterality: left Syncope R55 Syncope type: unspecified C7 cervical fracture S12.690A Encounter type: initial encounter Fracture alignment: displaced Fracture morphology: other fracture Fracture type: closed
--- NOTE | 2020-10-15 13:30 | PC.NURSE ---
Patient to CSU from ER. Patient A&Ox4. VSS. Patient reports pain to left arm 10/10. See physical assessment.
--- NOTE | 2020-10-15 14:35 | PC.NURSE ---
Patient to MRI at this time. VSS, A&Ox4
--- NOTE | 2020-10-15 16:50 | PM.CONSULT ---
Providers/Reason For Consult Consulting Physican/Specialty*: Dr. Marie Castro - Orthopedics Reason for Consult*: Left periprosthetic distal humerus fracture Requesting Physcian: Argelia Villa -emergency department Dr. Nat Lombardi -hospitalist Attending Physician: Nat Lombardi MD History of Present Illness History of Present Illness Chip Guerrero is a 74 year old female who was admitted through the emergency department late yesterday. By history, the patient lives at home independently, but over the past several years, she has had intermittent blackout spells . She states that this has been worked up by her primary care physician. She states, however, they were not able to determine the cause of her spells. The day prior to admission, reportedly, she blacked out 3 times and fell down. She then presented to the emergency room complaining of neck pain as well as pain in the left upper extremity. Chronically, she has neck pain but this is worsened recently. The neck will be evaluated by Dr. Rubio Cabrera, spine. The patient had a previous long humeral stem placed for a proximal and midshaft humerus fracture. This was done 6 to 7 years ago in [place]. Upon presentation, she was found to have a fracture but low this stem which was angulated. She was neurologically intact. Of increasing concern, the patient has been somewhat short of breath over the past several weeks, but she denies any chronic lung condition. At times, she requires up to 4 L of oxygen while in the emergency department. There was no evidence of rib fracture or pneumothorax. She was evaluated by the hospitalist team and admitted for telemetry monitoring. She was also admitted for definitive evaluation of her neck issues as well as the left humeral issues. Review of Systems General: Reports: 10 or more systems reviewed and unremarkable except in HPI and below Const: Denies: fever(s), chills, body aches, malaise or diaphoresis Eyes: Denies: change in vision, blurry vision or eye redness ENMT: Denies: throat pain, oral sores, dental pain, ear or mastoid pain or disequilibrium Card: Denies: chest pain, palpitations, irregular heart rhythm, edema, pre-syncope or dyspnea on exertion Resp: Denies: dyspnea, productive cough, non-productive cough, wheezing, change in phlegm color or hemoptysis GI: Denies: abdominal pain, nausea, vomiting, heartburn, diarrhea, constipation, hematochezia or melena : Denies: flank pain, difficulty voiding, dysuria, urinary frequency or hematuria Musc: Reports: neck pain, joint pain and other (neck pain, LUE pain); Denies: back pain, joint swelling or joint redness Skin/Breast: Denies: rash, pruritus, sores or new lesions Neuro: Reports: frequent falls (today) and other ( blacking out episodes ); Denies: headache(s), numbness in extremities, weakness in extremities, dizziness, confusion, Slurred speech present, difficulty communicating thoughts or seizure-like activity Psych: Denies: anxiety or depression Endo: Denies: polyuria or polydipsia Chai/Lymph: Denies: easy bruising, easy bleeding or purpura All/Imm: Denies: urticaria, throat swelling or tongue swelling Meds/Allergies Home Medications and Allergies Home Medications Medication Instructions Recorded Confirmed Last Taken Type atorvastatin 80 mg PO DAILY 10/14/20 10/14/20 10/13/20 History bupropion HCl 150 mg PO BEDTIME 10/14/20 10/14/20 10/13/20 History citalopram 20 mg PO BEDTIME 10/14/20 10/14/20 10/13/20 History fluticasone propionate 2 spray INTRANASAL DAILY 10/14/20 10/14/20 10/13/20 History levothyroxine [Euthyrox] 200 mcg PO QAM 10/14/20 10/14/20 10/14/20 History see pharmacy comment omeprazole 20 mg PO QPM 10/14/20 10/14/20 10/13/20 History Allergies Allergy/AdvReac Type Severity Reaction Status Date / Time No Known Allergies Allergy Verified 10/14/20 12:35 Current Medications Current Medications Generic Name Dose Route Start Last Admin Trade Name Freq PRN Reason Stop Dose Admin Atorvastatin Calcium 80 mg 10/15/20 09:00 10/15/20 08:41 Atorvastatin 40 Mg Tablet PO Not Given DAILY JUAN ANTONIO Sodium Chloride 1,000 mls @ 150 mls/hr 10/15/20 16:00 10/15/20 16:21 Sodium Chloride 0.9% IV 150 mls/hr .Q6H40M JUAN ANTONIO Administration Levothyroxine Sodium 200 mcg 10/15/20 06:00 10/15/20 05:48 Levothyroxine 100 Mcg Tablet PO 200 mcg QAM JUAN ANTONIO Administration Morphine Sulfate 2 mg 10/15/20 01:56 10/15/20 12:29 Morphine 4 Mg/Ml Sdv 1 Ml IVP 2 mg Q4H PRN Administration PAIN Additional Medication Information Active Medications Generic Name Dose Route Start Last Admin Trade Name Freq PRN Reason Stop Dose Admin Acetaminophen 650 mg 10/14/20 23:57 Acetaminophen 325 Mg Tablet PO Q6H PRN Mild/Mod Pain Or Temp >/= 101 Atorvastatin Calcium 80 mg 10/15/20 09:00 10/15/20 08:41 Atorvastatin 40 Mg Tablet PO Not Given DAILY JUAN ANTONIO Bupropion HCl 150 mg 10/15/20 21:00 Bupropion Xl (24 Hr) 150 Mg Tablet PO BEDTIME JUAN ANTONIO Sodium Chloride 1,000 mls @ 150 mls/hr 10/14/20 12:00 10/15/20 01:38 Sodium Chloride 0.9% IV 150 mls/hr .Q6H40M JUAN ANTONIO Administration Levothyroxine Sodium 200 mcg 10/15/20 06:00 10/15/20 05:48 Levothyroxine 100 Mcg Tablet PO 200 mcg QAM JUAN ANTONIO Administration Morphine Sulfate 2 mg 10/15/20 01:56 10/15/20 12:29 Morphine 4 Mg/Ml Sdv 1 Ml IVP 2 mg Q4H PRN Administration PAIN Pantoprazole Sodium 40 mg 10/15/20 18:[address] 40 Mg Tablet PO QPM JUAN ANTONIO No Known Allergies Allergy (Verified 10/14/20 12:35) PFSH Acute PFSH: Medical History Depression GERD (gastroesophageal reflux disease) Hypothyroidism Surgical History H/O rotator cuff surgery H/O: hysterectomy Family History Other No significant family history Social History Smoking and tobacco status: never smoked Alcohol intake: never Lives independently: Yes Household members: none Marital status: / Vitals/I&O/Wt Last Vital Signs Temp 98.7 F 10/14/20 10:57 Pulse 88 10/15/20 13:30 Resp 19 H 10/15/20 13:30 BP 135/73 10/15/20 13:30 Pulse Ox 96 10/15/20 13:30 10/15/20 10/15/20 10/15/20 06:59 14:59 22:59 Intake Total 955 / 1940 1000 / 1000 Balance 955 / 1940 1000 / 1000 Weight last 48 hrs Weight 175 lb Physical Exam Const: COMMON NORMALS: no acute distress, patient oriented x3 and alert GENERAL APPEARANCE: cooperative and comfortable NUTRITIONAL APPEARANCE: obese ORIENTATION/CONSCIOUSNESS: Yes awake HENMT: COMMON NORMALS: normocephalic and atraumatic HEAD & SCALP: normocephalic and atraumatic Eye: GENERAL EYE: appearance normal, both eyes and all related structures Chest: COMMONS NORMALS: normal inspection of the chest Resp: COMMON NORMALS: normal respiratory effort EFFORT & INSPECTION: Yes able to speak in complete sentences and Yes symmetric chest movement Extremity: LEFT UPPER EXTREMITY: Yes upper arm Left upper arm: Yes inspection (Patient is in a splint at this time.), Yes palpation (Not performed secondary to splint), Yes neurovascular exam (Radial nerve function is intact as is hand intrinsic function) and Yes other (Patient appears comfortable in her current splint) Neuro: COMMON NORMALS: patient oriented x3 SENSORIUM/ORIENTATION: Yes alert Psych: COMMON NORMALS: mental status grossly normal APPEARANCE: Yes grossly normal ATTITUDE: Yes calm and Yes engaged ATTENTION/CONCENTRATION: Yes attention grossly intact Skin: COMMON NORMALS: no rashes or lesions noted GENERAL SKIN EXAM: no rashes or lesions noted Data Imaging^: Other CT: I personally reviewed and interpreted this imaging study as follows: My impression: Elbow CT was obtained to determine whether or not there is intra-articular involvement of the distal humerus fracture. According to the CT scan with 3D reconstructions, there is no evidence of intra-articular involvement. The fracture of the distal third of the humerus is comminuted and is at the level of the distal portion of the prosthesis. There is angulation and displacement of the distal fragment. Xray Ortho: My impression: Patient has a periprosthetic distal humerus fracture. The fracture is at the tip of a longstem humeral prosthesis with angulation of the distal fragment with comminution. CT scan is evaluated to determine whether or not there is intra-articular involvement. A&P Assessment and plan (1) Periprosthetic fracture around internal prosthetic left elbow joint, initial encounter: I have evaluated the patient as well as her CT and imaging studies. The patient has a comminuted fracture which begins at the distal aspect of a long humeral prosthesis. There is comminution at the fracture site, but there is no extension into the elbow joint itself. Currently, the patient is in a splint placed in the emergency department. Consideration was given for open reduction internal fixation, hanging arm cast, and custom splint. Today, I contacted [employer] here in [place]. They will be custom making a splint which will have a clamshell for the humerus a clamshell for the forearm. This will include the wrist and a hinged at the elbow. After discussion with the patient, she is not particularly interested in surgery. She actually queried what would happen if she had no surgery. I advised her that we will attempt nonoperative intervention using a hinged elbow brace, custom made as noted above. She is advised that this may take some manipulation under x-ray to determine appropriate position for the fracture. She would prefer this over any sort of surgical intervention. I have advised her that I am not certain that if we did perform open reduction internal fixation that it would hold in her very osteopenic bone. She understands and agrees with the plan. Status: Acute (2) Humerus distal fracture: Status: Acute Qualifiers: Encounter type: initial encounter Fracture type: closed Fracture morphology: other fracture Fracture alignment: displaced Laterality: left Qualified Code(s): S42.492A - Other displaced fracture of lower end of left humerus, initial encounter for closed fracture (3) Osteopenia of left upper arm: Status: Acute Consult Attestations Medical Necessity Statement: Patient requires ongoing medical evaluation secondary to syncopal episodes. Coding Level of Care Code Acute Web User Experience Strategist for 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 Diagnoses Periprosthetic fracture around internal prosthetic left elbow joint, initial encounter M97.42XA Humerus distal fracture S42.492A Encounter type: initial encounter Fracture type: closed Fracture morphology: other fracture Fracture alignment: displaced Laterality: left Osteopenia of left upper arm M85.822
[2020-10-15] MEDS: pantoprazole DR 40 mg Tablet PO (17:01)
--- NOTE | 2020-10-15 17:05 | PM.CONSULT ---
Providers/Reason For Consult Consulting Physican/Specialty*: spine Reason for Consult*: C7 fracture Attending Physician: Nat Lombardi MD History of Present Illness History of Present Illness Chip Guerrero is a 74 year old female who was admitted through the emergency department late yesterday. By history, the patient lives at home independently, but over the past several years, she has had intermittent blackout spells . She states that this has been worked up by her primary care physician. She states, however, they were not able to determine the cause of her spells. The day prior to admission, reportedly, she blacked out 3 times and fell down. She then presented to the emergency room complaining of neck pain as well as pain in the left upper extremity. Chronically, she has neck pain but this is worsened recently. Patient stated she thought she had fractured her neck 4-6 months ago when she fell in bath tub. Review of Systems General: Reports: 10 or more systems reviewed and unremarkable except in HPI and below Const: Denies: fever(s), chills, body aches, malaise or diaphoresis Eyes: Denies: change in vision, blurry vision or eye redness ENMT: Denies: throat pain, oral sores, dental pain, ear or mastoid pain or disequilibrium Card: Denies: chest pain, palpitations, irregular heart rhythm, edema, pre-syncope or dyspnea on exertion Resp: Denies: dyspnea, productive cough, non-productive cough, wheezing, change in phlegm color or hemoptysis GI: Denies: abdominal pain, nausea, vomiting, heartburn, diarrhea, constipation, hematochezia or melena : Denies: flank pain, difficulty voiding, dysuria, urinary frequency or hematuria Musc: Reports: neck pain, joint pain and other (neck pain, LUE pain); Denies: back pain, joint swelling or joint redness Skin/Breast: Denies: rash, pruritus, sores or new lesions Neuro: Reports: frequent falls (today) and other ( blacking out episodes ); Denies: headache(s), numbness in extremities, weakness in extremities, dizziness, confusion, Slurred speech present, difficulty communicating thoughts or seizure-like activity Psych: Denies: anxiety or depression Endo: Denies: polyuria or polydipsia Chai/Lymph: Denies: easy bruising, easy bleeding or purpura All/Imm: Denies: urticaria, throat swelling or tongue swelling Meds/Allergies Home Medications and Allergies Home Medications Medication Instructions Recorded Confirmed Last Taken Type atorvastatin 80 mg PO DAILY 10/14/20 10/14/20 10/13/20 History bupropion HCl 150 mg PO BEDTIME 10/14/20 10/14/20 10/13/20 History citalopram 20 mg PO BEDTIME 10/14/20 10/14/20 10/13/20 History fluticasone propionate 2 spray INTRANASAL DAILY 10/14/20 10/14/20 10/13/20 History levothyroxine [Euthyrox] 200 mcg PO QAM 10/14/20 10/14/20 10/14/20 History see pharmacy comment omeprazole 20 mg PO QPM 10/14/20 10/14/20 10/13/20 History Allergies Allergy/AdvReac Type Severity Reaction Status Date / Time No Known Allergies Allergy Verified 10/14/20 12:35 Current Medications Current Medications Generic Name Dose Route Start Last Admin Trade Name Lula PRN Reason Stop Dose Admin Atorvastatin Calcium 80 mg 10/15/20 09:00 10/15/20 08:41 Atorvastatin 40 Mg Tablet PO Not Given DAILY JUAN ANTONIO Sodium Chloride 1,000 mls @ 150 mls/hr 10/15/20 16:00 10/15/20 16:21 Sodium Chloride 0.9% IV 150 mls/hr .Q6H40M JUAN ANTONIO Administration Levothyroxine Sodium 200 mcg 10/15/20 06:00 10/15/20 05:48 Levothyroxine 100 Mcg Tablet PO 200 mcg QAM JUAN ANTONIO Administration Morphine Sulfate 2 mg 10/15/20 01:56 10/15/20 17:00 Morphine 4 Mg/Ml Sdv 1 Ml IVP 2 mg Q4H PRN Administration PAIN Pantoprazole Sodium 40 mg 10/15/20 18:00 10/15/20 17:[address] 40 Mg Tablet PO 40 mg QPM JUAN ANTONIO Administration Additional Medication Information Active Medications Generic Name Dose Route Start Last Admin Trade Name Freq PRN Reason Stop Dose Admin Acetaminophen 650 mg 10/14/20 23:57 Acetaminophen 325 Mg Tablet PO Q6H PRN Mild/Mod Pain Or Temp >/= 101 Atorvastatin Calcium 80 mg 10/15/20 09:00 10/15/20 08:41 Atorvastatin 40 Mg Tablet PO Not Given DAILY JUAN ANTONIO Bupropion HCl 150 mg 10/15/20 21:00 Bupropion Xl (24 Hr) 150 Mg Tablet PO BEDTIME JUAN ANTONIO Sodium Chloride 1,000 mls @ 150 mls/hr 10/14/20 12:00 10/15/20 01:38 Sodium Chloride 0.9% IV 150 mls/hr .Q6H40M JUAN ANTONIO Administration Levothyroxine Sodium 200 mcg 10/15/20 06:00 10/15/20 05:48 Levothyroxine 100 Mcg Tablet PO 200 mcg QAM JUAN ANTONIO Administration Morphine Sulfate 2 mg 10/15/20 01:56 10/15/20 12:29 Morphine 4 Mg/Ml Sdv 1 Ml IVP 2 mg Q4H PRN Administration PAIN Pantoprazole Sodium 40 mg 10/15/20 18:[address] 40 Mg Tablet PO QPM JUAN ANTONIO No Known Allergies Allergy (Verified 10/14/20 12:35) PFSH Acute PFSH: Medical History Depression GERD (gastroesophageal reflux disease) Hypothyroidism Surgical History H/O rotator cuff surgery H/O: hysterectomy Family History Other No significant family history Social History Smoking and tobacco status: never smoked Alcohol intake: never Lives independently: Yes Household members: none Marital status: / Vitals/I&O/Wt Last Vital Signs Temp 98.7 F 10/14/20 10:57 Pulse 88 10/15/20 13:30 Resp 19 H 10/15/20 17:00 BP 135/73 10/15/20 13:30 Pulse Ox 96 10/15/20 13:30 10/15/20 10/15/20 10/15/20 06:59 14:59 22:59 Intake Total 955 / 1940 1000 / 1000 Balance 955 / 1940 1000 / 1000 Weight last 48 hrs Weight 175 lb Physical Exam Narrative: EXAM NARRATIVE: CONSTITUTIONAL: The patient is a normal appearing [] in no apparent distress. GENERAL: Patient in no acute distress. CARDIAC: Regular rate and rhythm. CHEST: Normal inspiratory effort, normal respiratory rate. ABDOMEN: Soft and nontender. SKIN: Clear, warm and intact. NEURO?PSYCH: The patient is alert and oriented to person, place and time. Sensorv /SILT Motor StrengthShoulder abduction C5 5/5Wrist extension C6 5/5Elbow extension C7 5/5Hand Channel Rougher C8 5/5Finger abduction T15/5 Radial/ Ulnar/ Median n intact LowerSensory (SILT)Motor StrengthHin flexion L2/3Ant/inner thigh 5/5Hip adduction L2/3 5/5Knee extension L4 Lat thigh, 5/5Toe dorsiflexion L5 5/5Ankle dorsiflexion L5/ D50Ncuunll flexion S1 5/5 DTRBleeps 2+Triceps 2+Brachioradialis 2+Patellar 2+Achilles 2+ MUSCULOSKELETAL: [] UPPEREXTREMITIES: The patient had full active ROM in fingers, wrist, elbow, and shoulder. The patient demonstrated ability to fully flex/extend/abduct/adduct fingers, make ok sign, cross 2nd/3rd digits, extend 1st digit fully.. Radial pulse 2+, CR<2 seconds. LOWER EXTREMITIES: Pt has full, active ROM of toes, ankle, knee, and hip. Dorsalis pedis/posterior tibialis pulses 2+, CR<2 seconds. SPINE: Skin warm, dry, intact. cervical spine arom minimal pain collar over her face. A&P Assessment and plan (1) Periprosthetic fracture around internal prosthetic left elbow joint, initial encounter: I have evaluated the patient as well as her CT and imaging studies. The patient has a comminuted fracture which begins at the distal aspect of a long humeral prosthesis. There is comminution at the fracture site, but there is no extension into the elbow joint itself. Currently, the patient is in a splint placed in the emergency department. Consideration was given for open reduction internal fixation, hanging arm cast, and custom splint. Today, I contacted [employer] here in [place]. They will be custom making a splint which will have a clamshell for the humerus a clamshell for the forearm. This will include the wrist and a hinged at the elbow. After discussion with the patient, she is not particularly interested in surgery. She actually queried what would happen if she had no surgery. I advised her that we will attempt nonoperative intervention using a hinged elbow brace, custom made as noted above. She is advised that this may take some manipulation under x-ray to determine appropriate position for the fracture. She would prefer this over any sort of surgical intervention. I have advised her that I am not certain that if we did perform open reduction internal fixation that it would hold in her very osteopenic bone. She understands and agrees with the plan. Status: Acute (2) Humerus distal fracture: Status: Acute Qualifiers: Encounter type: initial encounter Fracture type: closed Fracture morphology: other fracture Fracture alignment: displaced Laterality: left Qualified Code(s): S42.492A - Other displaced fracture of lower end of left humerus, initial encounter for closed fracture (3) Osteopenia of left upper arm: Status: Acute (4) C7 cervical fracture: Patient has a C7 burst fracture. It does not look acute in appearance on the MRI. Patient has no neurologic deficits at all. At this point I would like to get her fitted for a neck brace that fits. She can sit up in bed she can eat from my standpoint. 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
--- NOTE | 2020-10-15 18:38 | PC.NURSE ---
Custom c collar and arm brace to be placed tomorrow at [phone] by Tate from [facility]. confirmed via telephone. .
[2020-10-15] MEDS: enoxaparin 40 mg/0.4 mL Syringe SUBCUT (20:28)
[2020-10-15] MEDS: buPROPion XL (24 HR) 150 mg Tablet PO (20:29)
--- NOTE | 2020-10-15 22:56 | PC.NURSE ---
Patient laying in bed with eyes closed. Oxygen in use at 2 L per NC. VS WNL. Report called to Deidra [facility] on [facility]. Patient to be transported to room 258. Patient is Covid PCR rule out for surgery that patient has declined to have done. Patient to recieve special brace for neck due to C7 reinjury after break approx 7 months ago resulted from another fall. Patient also to be fitted for special Elbow hinge brace for L arm. Patient has extreme pain with movement so patient on bedrest at this time.
--- NOTE | 2020-10-15 23:57 | USCV_ITS ---
Chip Guerrero Age: 74 Gender: F : 1945 Exam Date: 10/15/2020 05:52 Ordering Phys: Raul Benavidez MD Technologist: Chyna Main Exam Location: [facility] [place] Indication: FX HUMERUS AND SYNCOPE EPISODE BP: 106 / 84 HR: 87 Rhythm: Sinus Technical Quality: TDS MEASUREMENTS (Male / Female) Normal Values 2D ECHO LV Chamber Size 3.6 cm RV Chamber Size 2.5 cm LVOT Diameter 2.0 cm LA Diameter 3.4 cm LA Width 3.8 cm LA Height 5.0 cm RA Width 3.0 cm RA Height 3.0 cm Aorta at Sinotubular Diameter 3.3 cm M-MODE Aortic Annulus Diameter 3.2 cm LA Ao Ratio MM 1.3 MV E Point Septal Separation 1.0 cm DOPPLER AV Peak Velocity 143.7 cm/s LVOT Peak Velocity 81.3 cm/s AV Area Cont Eq vti 2.1 cm squared AV Area Cont Eq pk 1.8 cm squared MV Area PHT 5.6 cm squared Mitral E to A Ratio 0.9 MV E' Velocity 54.0 cm/s Mitral E to MV E' Ratio 14.5 Mitral E to LV E' Lateral Ratio 16.9 Mitral E to LV E' Septal Ratio 12.9 TR Peak Velocity 109.0 cm/s TR Peak Gradient 4.8 mmHg TR Mean Velocity 43.1 cm/s TR Mean Gradient 1.3 mmHg TR Velocity Time Integral 17.9 cm TV Peak E Velocity 51.0 cm/s Right Atrial Pressure 5.0 mmHg Pulmonary Artery Systolic Pressu 9.8 mmHg PV Peak Velocity 84.3 cm/s RV Acceleration Time 0.1 s RV Ejection Time 0.3 s RV AcT/ET 0.4 FINDINGS Left Ventricle Possibly low normal left ventricular systolic function. This study is inadequate for estimation of regional wall motion abnormality. Right Ventricle Probably normal right ventricular systolic function. Right Atrium Right atrium not well visualized. Left Atrium Left atrium not well visualized. Mitral Valve Mild mitral annular calcification. Thickened mitral valve. Aortic Valve Aortic valve not well visualized. Tricuspid Valve Tricuspid valve not well visualized. Pulmonic Valve Pulmonic valve not well visualized. Pericardium No pericardial effusion. Aorta Aorta not well visualized. CONCLUSIONS 1. This is a technically very difficult study with poor windows. 2. Possibly low normal left ventricular systolic function. This study is inadequate for estimation of regional wall motion abnormality. 3. Probably normal right ventricular systolic function. Esther Hampton MD (Electronically Signed) Final Date: 18 October 2020 20:59 S
[2020-10-16] VITALS (9 sets, daily range): BP systolic 108–138; BP diastolic 68–76; PULSE 82–92; RESP 16–20; TEMP 35.9–37.3; O2SAT 92–95
[2020-10-16] MEDS: sodium chloride 0.9% 1,000 ML 150 ML IV (01:44)
[2020-10-16] MEDS: levothyroxine 100 mcg Tablet 200 MCG PO (05:49)
[2020-10-16 06:03] LABS: Basophils % 0.2 %; Eosinophils # 0.1 10^3/uL (0.0-0.8); Eosinophils % 1.4 %; Hematocrit 32.1 % (37.0-47.0); Hemoglobin 9.8 g/dL (11.5-15.3); Lymphocytes % 16.7 %; Mean Corpuscular HGB Conc 30.5 g/dL (30.0-36.0); Mean Corpuscular Hemoglobin 29.7 pg (28.0-34.0); Mean Corpuscular Volume 97.3 fL (81-99); Monocytes # 0.6 10^3/uL (0.2-0.9); Monocytes % 10.5 %; Neutrophils # 4.18 10^3/uL (1.8-7.7); Nucleated Red Blood Cells % 0 %; Platelet Count 211 10^3/cmm (130-400); Red Cell Distribution Width 16.5 % (12.1-15.1); White Blood Count 5.9 10^3/uL (4.0-10.0)
[2020-10-16 06:20] LABS: Alanine Aminotransferase 6 U/L (0-33); Albumin Level 3.4 g/dL (3.5-5.2); Alkaline Phosphatase 81 IU/L (35-105); Anion Gap 11.5 (5-19); Aspartate Amino Transferase 11 U/L (0-32); Blood Urea Nitrogen 15 mg/dL (8-23); Calcium 8.4 mg/dL (8.5-10.5); Carbon Dioxide 26 mmol/L (22-29); Chloride 106 mmol/L (98-107); Globulin 2.9 g/dL (1.3-4.6); Glucose 111 mg/dL (65-115); Osmolality Calculated 292 mOsm/kg (285-295); Potassium 3.5 mmol/L (3.5-5.1); Sodium 140 mmol/L (136-145); Total Bilirubin 0.2 mg/dL (0.15-1.2); Total Protein 6.3 g/dL (6.6-8.7)
[2020-10-16] MEDS: atorvastatin 40 mg Tablet 80 MG PO (10:41)
[2020-10-16] MEDS: pneumococcal (23 valent) SDV 0.5 mL IM (10:41)
[2020-10-16] MEDS: morphine 4 mg/mL SDV 1 mL 2 MG IVP ×2 (11:06→14:02)
--- NOTE | 2020-10-16 12:03 | P.DS_ITS ---
Discharge Providers Date of Admission: 10/15/20 08:05 Date of Discharge: October 16, 2020 Attending Provider at Admission: Raul Benavidez Attending Provider at Discharge: Nat Lombardi MD Consults: Orthopedic surgery, Ortho-spine surgery Primary Care Provider: Dr. Simons Diagnoses at Discharge Discharge Diagnosis (1) Humerus distal fracture: Status: Acute Permanent problem details: -Noted comminuted fracture with displacement involving the junction of the mid and distal third of the humerus on CT -splinted per Dr. Castro; custom splint and brace placed -pain control as needed -PT/OT evaluations when appropriate -Ortho consult by Dr. Castro appreciated; non-surgical management per patient preference Qualifiers: Encounter type: initial encounter Fracture alignment: displaced Fracture morphology: other fracture Fracture type: closed Laterality: left Qualified Code(s): S42.492A - Other displaced fracture of lower end of left humerus, initial encounter for closed fracture (2) Syncope: Status: Acute Permanent problem details: -appears to have had recurrent syncopal episodes, unclear etiology, unwitnessed -VSS -telemetry monitoring: no events -CT head with no acute findings; MRI with noted chronic ischemic changes -close monitoring of vital signs -IVF hydration -cautions use of narcotics -Echo pending report -no overt neuro deficits -rapid COVID-19 negative, PCR pending (done in case of need for surgery) -on RA, not oxygen dependent at baseline; no overt abnormalities on CXR Qualifiers: Syncope type: unspecified Qualified Code(s): R55 - Syncope and collapse (3) C7 cervical fracture: Status: Acute Permanent problem details: -imaging reviewed including MRI showing C7 burst fracture with approximately 60% anterior height loss and 40% posterior height loss, retropulsion of the posterior column of the vertebral body approximately 4.2 mm. No gross evidence of edema, contusion, hemorrhage, demyelination, myelomalacia, cord effacement -consult by Dr. Cabrera (Ortho-spine) appreciated -pain control as needed -neurologically intact Qualifiers: Encounter type: initial encounter Fracture alignment: displaced Fracture morphology: other fracture Fracture type: closed Qualified Code(s): S12.690A - Other displaced fracture of seventh cervical vertebra, initial encounter for closed fracture Other Information Additional DC diagnoses/information: -hypothyroidism, TSH wnl, continue levothyroxine -dyslipidemia; continue statin, CPK wnl -depression, celexa Reason for Visit Reason for Visit: FALL/ L HUMERUS DEFORMATION S12.600A [id number] Hospital Course Hospital Course Patient was admitted after having been found to have comminuted and displaced left humeral fracture as well as a C7 fracture on imaging sustained after multiple syncopal episodes. Work-up for syncope part of which had ready been done by her primary care provider was completed here with no apparent etiology. She was evaluated by orthopedic surgery (for humeral fracture) and orthopedic spine surgery (for C7 fracture), C7 fracture does not appear to be acute and she is currently not exhibiting any neurological deficits so does not require any intervention at this time other than a neck brace. Patient is opted for nonsurgical management of her left humeral fracture at this time and has been fitted with a custom made brace. She will need appropriate follow-up with orthopedics as an outpatient. She has opted to return home with home health services and additional support from family. She has not had any syncopal episodes while hospitalized. She was tested for COVID-19, as initial impression was that she would require surgical intervention. Rapid testing was negative and PCR is pending, she has been on isolation precautions; low suspicion overall clinically for infection. She did initially require some supplemental oxygen support and has not been weaned to room air. She has been hemodynamically stable and afebrile consistently during her hospital stay. She will also need to follow-up with her primary care physician within 1 week. Physical Exam Const: COMMON NORMALS: no acute distress, patient oriented x3 and alert GENERAL APPEARANCE: cooperative and comfortable NUTRITIONAL APPEARANCE: obese ORIENTATION/CONSCIOUSNESS: Yes awake OTHER: -looks appropriate for age HENMT: COMMON NORMALS: normocephalic, atraumatic, hearing grossly normal bilaterally and moist oral mucous membranes HEAD & SCALP: normocephalic and atraumatic Eye: COMMON NORMALS: Equal, round and reactive pupils present, EOMs intact bilaterally and conjunctivae normal CONJUNCTIVA: Yes conjunctivae normal PUPIL: Yes Equal, round and reactive pupils present Neck/C-Spine: COMMON NORMALS: full ROM GENERAL: Yes trachea midline OTHER: -ill-fitting soft neck C-collar in place Resp: COMMON NORMALS: normal respiratory effort, No retractions, No use of accessory muscles and clear to auscultation bilaterally EFFORT & INSPECTION: Yes able to speak in complete sentences, Yes symmetric chest movement and No tachypneic AUSCULTATION: clear to auscultation bilaterally OTHER: -on RA Cardio: COMMON NORMALS: regular rate, regular rhythm, S1 normal heart sound present, S2 normal heart sound present and No murmurs present (Cardio) RATE: regular rate RHYTHM: regular rhythm HEART SOUNDS: S1 normal heart sound present and S2 normal heart sound present GI: COMMON NORMALS: Normal to inspection, nondistended, normoactive bowel sounds present, Soft to palpation and non-tender INSPECTION: Yes central obesity PALPATION: Yes Soft to palpation Extremity: COMMON NORMALS: no clubbing, cyanosis or edema; negative for no pedal edema NARRATIVE EXTREMITY EXAM: -LUE splinted; neurovascularly intact Neuro: COMMON NORMALS: patient oriented x3, moves all extremities, no focal motor deficits and no sensory deficits noted SENSORIUM/ORIENTATION: Yes alert Psych: COMMON NORMALS: mental status grossly normal, Normal thought process present, cooperative, normal affect and speech normal SPEECH: Yes normal speech THOUGHT PROCESS: Normal thought process present Skin: COMMON NORMALS: no rashes or lesions noted, no jaundice, no petechiae and no mottling GENERAL SKIN EXAM: no rashes or lesions noted Discharge Data Data Completed and Pending: Completed Studies During Hospitalization Category Date Time Status CT cervical spin wo con* [id number] Urge nt Cat Scan 10/14/20 10:[address] elbow LT wo co n* [id number] Routine Cat Scan 10/15/20 08:[address] head wo con* 7 0450 Stat Cat Scan 10/14/20 10:[address] lumbar spine w o con* [id number] Urgen t Cat Scan 10/14/20 18:[address] thoracic spin wo con* [id number] Urge nt Cat Scan 10/14/20 18:05 Completed XR chest 1V nicole ble [id number] Stat Exams 10/14/20 10:23 Completed XR elbow LT 2V 73 070 Urgent Exams 10/14/20 14:52 Completed XR shoulder LT mi n 2V* [id number] Urgent Exams 10/14/20 10:23 Completed MR cervical spin wo con* [id number] Urge nt MRI 10/14/20 14:27 Completed MR head wo con* 7 0551 Routine MRI 10/15/20 10:15 Completed Pending at discharge Category Date Time Status Coronavirus Test [facility] Lab 10/15/20 09:37 Received Creatine Phosphok inase Routine Lab 10/16/20 11:57 [place] [address]/25 Routin e Ultrasound 10/15/20 23:57 Taken Labs from last 24 hours 10/16/20 10/16/20 04:53 04:53 WBC 5.9 RBC 3.30 L Hgb 9.8 L Hct 32.1 L MCV 97.3 MCH 29.7 MCHC 30.5 RDW 16.5 H Plt Count 211 MPV 10.0 Neut % (Auto) 71.0 Lymph % (Auto) 16.7 [place] % (Auto) 10.5 Eos % (Auto) 1.4 Baso % (Auto) 0.2 Neut # (Auto) 4.18 Lymph # (Auto) 1.0 [place] # (Auto) 0.6 Eos # (Auto) 0.1 Baso # (Auto) 0.0 Nucleated RBC % (a uto) 0 Nucleated RBCs # 0.0 Sodium 140 Potassium 3.5 Chloride 106 Carbon Dioxide 26 Anion Gap 11.5 BUN 15 Creatinine 0.8 GFR Calculation Not Reportable Glucose 111 Calculated Osmolal ity 292 Calcium 8.4 L Total Bilirubin 0.2 AST 11 ALT 6 Alkaline Phosphata se 81 Total Protein 6.3 L Albumin 3.4 L Globulin 2.9 Vitals: Last Vital Signs Temp 96.6 F L 10/16/20 11:08 Pulse 89 10/16/20 11:08 Resp 16 10/16/20 11:08 BP 123/74 10/16/20 11:08 Pulse Ox 93 10/16/20 11:08 Discharge Plan Discharge Patient Disposition: Home Health Service Condition: Stable Prescriptions: New hydrocodone-acetaminophen 5-325 mg tablet 1 tab PO Q6H PRN (Reason: pain, severe) Qty: 30 RF: 0 tramadol 50 mg tablet 50 mg PO Q12H PRN (Reason: mild to moderate pain) Qty: 30 RF: 0 Continued atorvastatin 80 mg tablet 80 mg PO DAILY RF: 0 citalopram 20 mg tablet 20 mg PO BEDTIME RF: 0 omeprazole 20 mg capsule,delayed release(DR/EC) 20 mg PO QPM RF: 0 Euthyrox 200 mcg tablet 200 mcg PO QAM RF: 0 fluticasone propionate 50 mcg/actuation spray,suspension 2 spray INTRANASAL DAILY RF: 0 bupropion HCl 150 mg tablet extended release 24 hr 150 mg PO BEDTIME RF: 0 Discharge Orders: Discharge Order (Routine); Ordered 10/16/20 Ordered By: Nat Lombardi Other Ambulatory Orders: DME: Miscellaneous (Order) Timeframe: 20201015 Location: None Selected Ordered By: Marie Castro Referrals: Marie Castro MD [Physician] - 1-3 days (Please follow up with Dr. Castro as discussed on Sunday (10/18/20) or Sunday (10/20/20) for x-rays and evaluation of brace. ) Chon Simons MD [Physician] - 4-7 days Discharge Diet: Advance as tolerated and Regular Discharge Activity: Limit activity as instructed and As per PT/OT instructions Discharge Attestations Time Spent in Discharge Care*: greater than 30 min Specific Discharge Activities: educating patient, discussing with outsole caser/social workers/dc planners, documenting/other paperwork and evaluating patient/reviewing data Status at Discharge: Cognitive status at discharge: cognitively intact , Behavioral status at discharge: cooperative and dependent in ADL's (because of recent humeral fracture) , Overall status at discharge: patient has a new baseline Quality Metrics Clinical Quality Measures During this hospital stay, did patient experience: None Coding Level of Care Code Acute Regional Production Manager for [facility] Fwd Exam Comprehensive Diagnoses Humerus distal fracture S42.492A Encounter type: initial encounter Fracture alignment: displaced Fracture morphology: other fracture Fracture type: closed Laterality: left Syncope R55 Syncope type: unspecified C7 cervical fracture S12.690A Encounter type: initial encounter Fracture alignment: displaced Fracture morphology: other fracture Fracture type: closed
--- NOTE | 2020-10-16 12:27 | PM.PN ---
Subjective Subjective: Interval history: Patient is comfortable, and she remains neurologically intact. She is ready for discharge. She states her neck pain has diminished. Medications: Reviewed: Yes Medication Review Details: Active Medications Generic Name Dose Route Start Last Admin Trade Name Freq PRN Reason Stop Dose Admin Acetaminophen 650 mg 10/14/20 23:57 Acetaminophen 32 5 Mg Tablet PO Q6H PRN Mild/Mod Pain Or Temp >/= 101 Atorvastatin Calci um 80 mg 10/15/20 09:00 10/15/20 08:41 Atorvastatin 40 Mg Tablet PO Not Given DAILY JUAN ANTONIO Bupropion HCl 150 mg 10/15/20 21:00 Bupropion Xl (24 Hr) 150 Mg Tablet PO BEDTIME JUAN ANTONIO Sodium Chloride 1,000 mls @ 150 m ls/hr 10/14/20 12:00 10/15/20 01:38 Sodium Chloride 0.9% IV 150 mls/hr .Q6H40M JUAN ANTONIO Administration Levothyroxine Sodi um 200 mcg 10/15/20 06:00 10/15/20 05:48 Levothyroxine 10 0 Mcg Tablet PO 200 mcg QAM JUAN ANTONIO Administration Morphine Sulfate 2 mg 10/15/20 01:56 10/15/20 12:29 Morphine 4 Mg/Ml Sdv 1 Ml IVP 2 mg Q4H PRN Administration PAIN Pantoprazole Sodiu m 40 mg 10/15/20 18:[address] 40 Mg Tablet PO QPM JUAN ANTONIO No Known Allergies Allergy (Verified 10/14/20 12:35) Vitals/I&O/Wt Last Vital Signs Temp 96.6 F L 10/16/20 11:08 Pulse 89 10/16/20 11:08 Resp 16 10/16/20 11:08 BP 123/74 10/16/20 11:08 Pulse Ox 93 10/16/20 11:08 10/15/20 10/16/20 10/16/20 22:59 06:59 14:59 Intake Total 1100 / 1100 1242.5 / 2342.5 120 / 120 Balance 1100 / 1100 1242.5 / 2342.5 120 / 120 Weight last 48 hrs Weight 197 lb 14.4 oz Physical Exam Const: COMMON NORMALS: no acute distress, patient oriented x3 and alert GENERAL APPEARANCE: cooperative and comfortable NUTRITIONAL APPEARANCE: obese ORIENTATION/CONSCIOUSNESS: Yes awake HENMT: COMMON NORMALS: normocephalic and atraumatic HEAD & SCALP: normocephalic and atraumatic Eye: GENERAL EYE: appearance normal, both eyes and all related structures Chest: COMMONS NORMALS: normal inspection of the chest Resp: COMMON NORMALS: normal respiratory effort EFFORT & INSPECTION: Yes able to speak in complete sentences and Yes symmetric chest movement Extremity: NARRATIVE EXTREMITY EXAM: Patient continues with active extension of the wrist and thumb consistent with intact radial nerve. She remains in her splint. According to the orthotic company, the patient's brace is in town and will be fitted this afternoon. Neuro: COMMON NORMALS: patient oriented x3 SENSORIUM/ORIENTATION: Yes alert Psych: COMMON NORMALS: mental status grossly normal APPEARANCE: Yes grossly normal ATTITUDE: Yes calm and Yes engaged ATTENTION/CONCENTRATION: Yes attention grossly intact Skin: COMMON NORMALS: no rashes or lesions noted GENERAL SKIN EXAM: no rashes or lesions noted Data : 10/16/20 04:53 10/16/20 04:53 A&P Assessment and plan (1) Periprosthetic fracture around internal prosthetic left elbow joint, initial encounter: Patient is seen today for evaluation of her periprosthetic left distal humerus fracture. The brace which was custom made for her is in town and will be placed today. She will be discharged after brace placement. Discussion with the patient and family regarding radial nerve function is undertaken in the room. I have asked them to come to my office next week either Sunday or Sunday so that we can obtain x-rays and change position of the brace if necessary. They understand and are agreement with the plan. Status: Acute (2) Humerus distal fracture: Status: Acute Qualifiers: Encounter type: initial encounter Fracture type: closed Fracture morphology: other fracture Fracture alignment: displaced Laterality: left Qualified Code(s): S42.492A - Other displaced fracture of lower end of left humerus, initial encounter for closed fracture (3) Osteopenia of left upper arm: Status: Acute (4) C7 cervical fracture: The patient has no pain with range of motion of her neck according to physical therapy. The physical therapist notes that he spoke with Dr. Cabrera and no neck brace is necessary. Status: Acute Qualifiers: Encounter type: initial encounter Fracture alignment: displaced Fracture morphology: other fracture Fracture type: closed Qualified Code(s): S12.690A - Other displaced fracture of seventh cervical vertebra, initial encounter for closed fracture Attestations Medical Necessity Statement*: No surgical intervention is planned at this time. Medical necessity per hospitalist team. Coding Level of Care Code Acute Property And Supply Officer for [facility] Fwd Diagnoses Periprosthetic fracture around internal prosthetic left elbow joint, initial encounter M97.42XA Humerus distal fracture S42.492A Encounter type: initial encounter Fracture type: closed Fracture morphology: other fracture Fracture alignment: displaced Laterality: left Osteopenia of left upper arm M85.822 C7 cervical fracture S12.690A Encounter type: initial encounter Fracture alignment: displaced Fracture morphology: other fracture Fracture type: closed
[2020-10-16 12:56] LABS: Creatine Phosphokinase 390 U/L (26-192)
[2020-10-16] MEDS: acetaminophen 325 mg Tablet 650 MG PO (13:10)
[2020-10-16 17:43] LABS: Coronavirus Test Green County Not Detected
== END 2020-10-16 17:45 | disposition home health service (06) | DRG 563 ==
LOC: ER 22:51 → ER IP 10-15 08:06 → CSU 10-15 12:04 → MEDSURG 10-16 12:03 → CSU 10-21 13:36
PROVIDERS: Family Medicine; Nurse Practitioner Family; Admitting Provider Internal Medicine; Emergency Provider Family Medicine; Visit Provider Family Medicine
DX: S42.492A Other displaced fracture of lower end of left humerus, initial encounter for closed fracture (principal); M97.42XA Periprosthetic fracture around internal prosthetic left elbow joint, initial encounter; R55 Syncope and collapse; G89.29 Other chronic pain; S12.690D Other displaced fracture of seventh cervical vertebra, subsequent encounter for fracture with routine healing; W19.XXXD Unspecified fall, subsequent encounter; F32.9 Major depressive disorder, single episode, unspecified; K21.9 Gastro-esophageal reflux disease without esophagitis; E03.9 Hypothyroidism, unspecified; R29.6 Repeated falls; M85.822 Other specified disorders of bone density and structure, left upper arm
CPT/HCPCS: 12345; 36415; 70450; 70551; 71045; 72125; 72128; 72131; 72141; 73030; 73070; 73080; 73200; 80053; 82550; 82607; 82746; 84443; 84484; 85025; 87426; 87635; 90471; 90686; 90732; 93005; 93308; 93325; 94664; 96372; 97161; 97166; 97535; 99283; J0131; J1650; J2270; J7030

== ENCOUNTER → 2021-01-26 08:23 | Outpatient (BNVA) | payer MEDICARE, SELFPAY | PROVIDERS: PCP Internal Medicine; Referring Provider Internal Medicine; Visit Provider Specialist | DX: M17.12 Unilateral primary osteoarthritis, left knee (principal) | CPT/HCPCS: 73560; 73565 ==

== ENCOUNTER → 2023-11-01 09:17 | Outpatient (BNVA) | payer MEDICARE, MEDICAID, SELFPAY | PROVIDERS: PCP Family Medicine; Visit Provider Family Medicine | DX: I10 Essential (primary) hypertension (principal); I25.10 Atherosclerotic heart disease of native coronary artery without angina pectoris; E78.5 Hyperlipidemia, unspecified; E03.9 Hypothyroidism, unspecified; R73.9 Hyperglycemia, unspecified | CPT/HCPCS: 80053; 80061; 83036; 84443; 85025 ==

== ENCOUNTER 2023-11-29 16:53 | Emergency (ER) | payer MEDICARE, MEDICAID, SELFPAY ==
[2023-11-29 16:55] VITALS: BP 134/111; PULSE 118; RESP 19; TEMP 37; O2SAT 95; BMI 30.4
--- NOTE | 2023-11-29 17:04 | XRR_ITS ---
PROCEDURE INFORMATION: Exam: XR Chest Exam date and time: 11/29/2023 5:34 PM Age: 77 years old Clinical indication: Injury or trauma; Fall; Other: Unknown TECHNIQUE: Imaging protocol: Radiologic exam of the chest. Views: 1 view. COMPARISON: CR XR chest 1V portable [id number] 10/14/2020 10:33 AM FINDINGS: Lungs: No focal consolidation. Atelectatic changes in the left lung base. Pleural spaces: Unremarkable. No pleural effusion. No pneumothorax. Heart/Mediastinum: Unremarkable. No cardiomegaly. Bones/joints: Old healed fracture deformity right femoral head. Abnormal widening of the right acromioclavicular joint measuring up to 25 mm consistent with prior surgical resection of the distal right clavicle versus bony remodeling status post trauma. Partially visualized total left shoulder arthroplasty. No acute fracture identified. XR/XR chest 1V portable [id number] IMPRESSION: 1. No acute fracture identified. 2. No focal consolidation.
--- NOTE | 2023-11-29 17:04 | XRR_ITS ---
PROCEDURE INFORMATION: Exam: XR Lumbosacral Spine Exam date and time: 11/29/2023 5:34 PM Age: 77 years old Clinical indication: Low back pain; Additional info: Fall pain TECHNIQUE: Imaging protocol: Radiologic exam of the lumbosacral spine. Views: 2 or 3 views. COMPARISON: CT lumbar spine wo con* [id number] 10/14/2020 6:46 PM FINDINGS: Bones/joints: This dictation will use the prior lumbar spine numbering to maintain continuity with the prior examination. Note that the L1 vertebral body -based on the prior numbering - contains bilateral ribs. Severe compression fracture of the L1 vertebral body is redemonstrated and similar. Prior posterior fusion at L5-S1 is redemonstrated without evidence of hardware failure or loosening. Soft tissues: Unremarkable. XR/XR lumbar spine 2-3V* [id number] IMPRESSION: 1. This dictation will use the prior lumbar spine numbering based on the lumbar spine CT dated 10/14/2020 to maintain continuity with the prior examination. Note that the L1 vertebral body - based on the prior numbering - contains bilateral ribs. 2. Severe compression fracture of the L1 vertebral body is redemonstrated and similar. 3. Prior posterior fusion at L5-S1 is redemonstrated without evidence of hardware failure or loosening.
--- NOTE | 2023-11-29 17:04 | XRR_ITS ---
PROCEDURE INFORMATION: Exam: XR Left Shoulder Exam date and time: 11/29/2023 5:34 PM Age: 77 years old Clinical indication: Injury or trauma; Fall; Swelling (edema); Shoulder; Left; Additional info: Fall shoulder TECHNIQUE: Imaging protocol: Radiologic exam of the left shoulder. Views: 2 or more views. COMPARISON: CR XR chest 1V portable [id number] 11/29/2023 5:34 PM FINDINGS: Bones/joints: Total left shoulder arthroplasty without evidence of hardware failure or loosening. Old healed fracture deformity of the distal left humerus. It is unclear on this study whether there is an acute on chronic fracture of the distal humerus. Soft tissues: Normal. XR/XR shoulder LT min 2V* [id number] IMPRESSION: 1. Total left shoulder arthroplasty without evidence of hardware failure or loosening. 2. Old healed fracture deformity of the distal left humerus. It is unclear on this study whether there is an acute on chronic fracture of the distal humerus.
--- NOTE | 2023-11-29 17:11 | CTR_ITS ---
PROCEDURE INFORMATION: Exam: CT Head Without Contrast Exam date and time: 11/29/2023 5:21 PM Age: 77 years old Clinical indication: Injury or trauma; Fall; Blunt trauma (contusions or hematomas); Additional info: Fall trauma TECHNIQUE: Imaging protocol: Computed tomography of the head without contrast. Radiation optimization: All CT scans at this facility use at least one of these dose optimization techniques: automated exposure control; mA and/or kV adjustment per patient size (includes targeted exams where dose is matched to clinical indication); or iterative reconstruction. COMPARISON: MR head wo con* [id number] 10/15/2020 2:48 PM RADIATION DOSE METRICS: Total DLP (mGy-cm): 1016 FINDINGS: Brain: No intracranial hemorrhage. There is global parenchymal volume loss. Periventricular white matter hypoattenuation is nonspecific but most likely due to small vessel disease. No evidence of acute territorial infarct or cerebral edema. No mass effect or midline shift. Cerebral ventricles: Prominent ventricles likely secondary to volume loss. Paranasal sinuses: Visualized sinuses are unremarkable. No fluid levels. Mastoid air cells: Visualized mastoid air cells are well aerated. Bones/joints: Unremarkable. No acute fracture. Soft tissues: Several calcified scalp nodules. CT/CT head wo con* [id number] IMPRESSION: No acute intracranial findings.
--- NOTE | 2023-11-29 17:11 | ED_ITS ---
HPI - Fall 2 General: Chief Complaint: Fall Stated Complaint: fall Time Seen by Provider: 11/29/23 17:00 History of Present Illness: Patient arrives to the ER by EMS with complaints of fall. Patient has fell multiple times in the past several weeks including twice today. Patient said there was no loss of consciousness but she did hit her head. Patient states she felt like her heart was racing she called EMS. Patient says she does have a cardiac history. Upon arrival to the EMS patient was tachycardic and hypertensive. Patient also reports dizziness when she gets up. She is complaining of low back sacral pain as well as left shoulder pain. Review of Systems 2 General: Reports: 10 or more systems reviewed and unremarkable except in HPI and below PFSH ED 2 PFSH: Medical History Hyperlipidemia Hypertension Coronary artery disease GERD (gastroesophageal reflux disease) Depression Hypothyroidism Syncope -appears to have had recurrent syncopal episodes, unclear etiology, unwitnessed -VSS -telemetry monitoring: no events -CT head with no acute findings; MRI with noted chronic ischemic changes -close monitoring of vital signs -IVF hydration -cautions use of narcotics -Echo pending report -no overt neuro deficits -rapid COVID-19 negative, PCR pending (done in case of need for surgery) -on RA, not oxygen dependent at baseline; no overt abnormalities on CXR Surgical History H/O rotator cuff surgery H/O: hysterectomy Family History Other No significant family history Social History Smoking and tobacco/nicotine status: never used tobacco/nicotine Alcohol intake: never Substance/Drug Use: never Lives independently: Yes Household members: none Marital status: / Physical Exam 2 Const: COMMON NORMALS: no acute distress, average body habitus, patient oriented x3, no limitations, healthy appearing, alert and well nourished HENMT: COMMON NORMALS: normocephalic, hearing grossly normal bilaterally, external ears normal, Normal external nose present, moist oral mucous membranes and oropharynx normal; head/scalp not atraumatic (Bruise on upper forehead area) HEAD & SCALP: n ormocephalic; not atraumatic (Bruise on upper forehead area) NOSE: Normal external nose present EXTERNAL EAR: Yes external ears normal Eye: COMMON NORMALS: Equal, round and reactive pupils present, EOMs intact bilaterally, conjunctivae normal and no scleral icterus CONJUNCTIVA: Yes conjunctivae normal PUPIL: Yes Equal, round and reactive pupils present Neck/C-Spine: COMMON NORMALS: full ROM, no lymphadenopathy, supple, no meningeal signs, no JVD and Thyroid normal THYROID: Thyroid normal Chest: COMMONS NORMALS: normal inspection of the chest and normal palpation of entire chest wall Resp: COMMON NORMALS: normal respiratory effort, No retractions, No use of accessory muscles and clear to auscultation bilaterally AUSCULTATION: clear to auscultation bilaterally Cardio: COMMON NORMALS: no JVD, regular rate, regular rhythm, S1 normal heart sound present, S2 normal heart sound present, No gallops present (Cardio), No clicks present (Cardio), No murmurs present (Cardio) and No rub (Cardio) R ATE: regular rate RHYTHM: regular rhythm HEART SOUNDS: S1 normal heart sound present and S2 normal heart sound present GI: COMMON NORMALS: Normal to inspection, nondistended, normoactive bowel sounds present, Soft to palpation, non-tender, No hepatosplenomegaly present and no masses PALPATION: Yes Soft to palpation and Yes No hepatosplenomegaly present Extremity: NARRATIVE EXTREMITY EXAM: Negative bilateral lower extremity edema, tenderness with palpation over left anterior shoulder region. Neuro: COMMON NORMALS: patient oriented x3 SENSORIUM/ORIENTATION: Yes alert MENINGEAL SIGNS: Yes no meningeal signs Course 2 Vital Signs: Vital signs: Vital Signs Temperature 98.6 F 11/29/23 16:55 Pulse Rate 103 H 11/29/23 20:05 Respiratory Rate 17 11/29/23 22:24 Blood Pressure 138/83 11/29/23 20:05 Pulse Oximetry 95 11/29/23 22:24 Oxygen Delivery Me thod Room Air 11/29/23 20:05 MDM - Fall Medical Decision Making Patient had lab work EKGs and multiple x-rays. X-rays initially showed a acute on chronic comminuted displaced angulated fracture of the left distal humerus otherwise the chest x-ray, lumbar spine x-ray head CT and other x-rays did not show any other acute findings. Patient had lab work done with serial EKGs EKGs showed nonspecific ST segment changes. Patient did not denied chest pain however her troponin was elevated initially at 82 and then 2-hour later at 95 [address] [place] of 13. [address] Flynn and Dr. IVAN were consulted and agreed that we probably do not have the hardware here to fix distal humerus fracture since she already had a shoulder replacement as needed and therefore she needs to be transferred out. Upon talk to the patient again she remembered she had her left shoulder repair done in [place] and has never been anywhere here local. Lo was consulted Ortho said they can take care of her fracture from an orthopedic standpoint however they want her admitted to the hospitalist. Dr. Pitts hospitalist was consulted who agreed to take the patient for further evaluation and treatment for her elevated troponin and tachycardia. Patient be transferred. Differential Diagnosis Unlikely syncope, dislocation of shoulder region, fracture of wrist, compression fracture, concussion with loss of consciousness or concussion without loss of consciousness Medical Records I reviewed the patient's medical records. Lab Data I reviewed the patient's lab results. 11/29/23 16:42 11/29/23 16:42 Radiology Impressions Chest X-Ray 11/29/23 17:04 IMPRESSION: 1. No acute fracture identified. 2. No focal consolidation. Lumbar Spine X-Ray 11/29/23 17:04 IMPRESSION: 1. This dictation will use the prior lumbar spine numbering based on the lumbar spine CT dated 10/14/2020 to maintain continuity with the prior examination. Note that the L1 vertebral body - based on the prior numbering - contains bilateral ribs. 2. Severe compression fracture of the L1 vertebral body is redemonstrated and similar. 3. Prior posterior fusion at L5-S1 is redemonstrated without evidence of hardware failure or loosening. Shoulder X-Ray 11/29/23 17:04 IMPRESSION: 1. Total left shoulder arthroplasty without evidence of hardware failure or loosening. 2. Old healed fracture deformity of the distal left humerus. It is unclear on this study whether there is an acute on chronic fracture of the distal humerus. Head CT 11/29/23 17:11 IMPRESSION: No acute intracranial findings. Elbow X-Ray 11/29/23 18:09 IMPRESSION: 1. Acute on chronic comminuted displaced and angulated fracture of the distal left humerus. 2. Partially visualized long stem left shoulder arthroplasty. Forearm X-Ray 11/29/23 18:59 IMPRESSION: 1. Acute on chronic comminuted displaced and angulated fracture of the distal left humerus. 2. No left forearm fracture. Laboratory Results WBC 8.92 10^3/uL (3.29-11.43) 11/29/23 16:42 RBC 3.30 10^6/uL (3.85-5.65) L 11/29/23 16:42 Hgb 9.90 g/dL (11.27-16.99) L 11/29/23 16:42 Hct 30.5 % (36-47) L 11/29/23 16:42 MCV 92.4 fl (85-98) 11/29/23 16:42 MCH 30.0 pg (27-33) 11/29/23 16:42 MCHC 32.5 g/dL (30-55) 11/29/23 16:42 RDW 16.1 % (12.1-15.1) H 11/29/23 16:42 Plt Count 304 10^3/cmm (157-399) 11/29/23 16:42 MPV 10.2 fL (7.4-10.4) 11/29/23 16:42 Neut % (Auto) 77.4 % 11/29/23 16:42 Lymph % (Auto) 10.3 % 11/29/23 16:42 Pepin % (Auto) 10.1 % 11/29/23 16:42 Eos % (Auto) 1.6 % 11/29/23 16:42 Baso % (Auto) 0.3 % 11/29/23 16:42 Neut # (Auto) 6.90 10^3/uL (1.8-7.7) 11/29/23 16:42 Lymph # (Auto) 0.9 10^3/uL (0.8-4.8) 11/29/23 16:42 Pepin # (Auto) 0.9 10^3/uL (0.2-0.9) 11/29/23 16:42 Eos # (Auto) 0.1 10^3/uL (0.0-0.8) 11/29/23 16:42 Baso # (Auto) 0.0 10^3/uL (0.0-0.1) 11/29/23 16:42 Nucleated RBC % (auto) 0 % 11/29/23 16:42 Nucleated RBCs # 0.0 /100WBC 11/29/23 16:42 Sodium 140 mmol/L (136-145) 11/29/23 16:42 Potassium 3.9 mmol/L (3.5-5.1) 11/29/23 16:42 Chloride 102 mmol/L (98-107) 11/29/23 16:42 Carbon Dioxide 26 mmol/L (22-29) 11/29/23 16:42 Anion Gap 15.9 (5-19) 11/29/23 16:42 BUN 17 mg/dL (8-23) 11/29/23 16:42 Creatinine 0.9 mg/dL (0.5-0.9) 11/29/23 16:42 GFR Calculation Not Reportable 11/29/23 16:42 Glucose 151 mg/dL (65-115) H 11/29/23 16:42 Calculated Osmolality 294 mOsm/kg (285-295) 11/29/23 16:42 Calcium 9.0 mg/dL (8.5-10.5) 11/29/23 16:42 Total Bilirubin 0.3 mg/dL (0.15-1.2) 11/29/23 16:42 AST 17 U/L (0-32) 11/29/23 16:42 ALT 10 U/L (0-33) 11/29/23 16:42 Alkaline Phosphatase 100 U/L (35-105) 11/29/23 16:42 Troponin T Baseline 82 ng/L (0-10) H 11/29/23 16:42 Troponin T 120 Minute 95.11 ng/L (0-10) H 11/29/23 19:04 Delta Troponin T 13.11 ABS# (0-10) H* 11/29/23 19:04 Total Protein 7.5 g/dL (6.6-8.7) 11/29/23 16:42 Albumin 4.2 g/dL (3.5-5.2) 11/29/23 16:42 Globulin 3.3 g/dL (1.3-4.6) 11/29/23 16:42 Urine Color Yellow (Yellow) 11/29/23 19:18 Urine Appearance Sl hazy (CLEAR) A 11/29/23 19:18 Urine pH 5 (5-7) 11/29/23 19:18 Ur Specific [place] 1.020 (1.005-1.030) 11/29/23 19:18 Urine Protein Neg (Negative) 11/29/23 19:18 Urine Glucose (UA) Norm (Normal) 11/29/23 19:18 Urine Ketones Negative (Negative) 11/29/23 19:18 Urine Blood Neg (Negative) 11/29/23 19:18 Urine Nitrate Positive (Negative) H 11/29/23 19:18 Urine Bilirubin Neg (Negative) 11/29/23 19:18 Urine Urobilinogen Norm mg/dL (Negative) 11/29/23 19:18 Ur Leukocyte Esterase Negative (Negative) 11/29/23 19:18 Urine RBC 0-4 /hpf (0-2) H 11/29/23 19:18 Urine WBC 5-10 /hpf (0-5) H 11/29/23 19:18 Ur Squamous Epith Cells 0-4 /hpf (0-5) H 11/29/23 19:18 Amorphous Sediment Not Reportable 11/29/23 19:18 Urine Bacteria 4+ /hpf (NONE) H 11/29/23 19:18 Urine Mucus None /hpf 11/29/23 19:18 All radiology interpretation(s) finalized by discharge Discharge Plan Discharge Patient Disposition: Xfer Short-Term Hosp Clinical Impression: Elevated troponin Closed fracture of distal end of left humerus Qualifiers: Encounter type: initial encounter Fracture morphology: unspecified fracture morphology Qualified Code(s): S42.402A - Unspecified fracture of lower end of left humerus, initial encounter for closed fracture Fall Qualifiers: Encounter type: initial encounter Qualified Code(s): W19.XXXA - Unspecified fall, initial encounter Condition: Stable Referrals: David Hannah MD [Primary Care Provider] - Coding Level of Care Code ED Flotation Tender Helper for 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
--- NOTE | 2023-11-29 17:17 | ECG_ITS ---
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 Measurements Intervals [place] Rate: 113 P: 70 KS: 141 QRS: -21 QRSD: 98 T: 83 QT: 340 QTc: 467 Interpretive Statements SINUS TACHYCARDIA BORDERLINE LEFT AXIS DEVIATION [QRS AXIS < -20] LOW QRS VOLTAGE IN PRECORDIAL LEADS [QRS DEFLECTION < 1.0 mV IN CHEST LEADS] NONSPECIFIC ST & T-WAVE ABNORMALITY ABNORMAL RHYTHM ECG Compared to ECG 10/14/2020 21:15:02 Low QRS voltage now present Sinus rhythm no longer present T-wave abnormality still present Electronically Signed On 11-29-2023 20:08:14 WEBSITE DESIGNER by Jesenia Fischer M.D. [id number]
[2023-11-29 17:24] LABS: Basophils % 0.3 %; Eosinophils # 0.1 10^3/uL (0.0-0.8); Eosinophils % 1.6 %; Hematocrit 30.5 % (36-47); Lymphocytes # 0.9 10^3/uL (0.8-4.8); Lymphocytes % 10.3 %; Mean Corpuscular HGB Conc 32.5 g/dL (30-55); Mean Corpuscular Volume 92.4 fl (85-98); Mean Platelet Volume 10.2 fL (7.4-10.4); Monocytes # 0.9 10^3/uL (0.2-0.9); Monocytes % 10.1 %; Neutrophils % 77.4 %; Nucleated Red Blood Cells % 0 %; Platelet Count 304 10^3/cmm (157-399); Red Cell Distribution Width 16.1 % (12.1-15.1); White Blood Count 8.92 10^3/uL (3.29-11.43)
[2023-11-29 17:41] LABS: Alanine Aminotransferase 10 U/L (0-33); Albumin Level 4.2 g/dL (3.5-5.2); Alkaline Phosphatase 100 U/L (35-105); Anion Gap 15.9 (5-19); Aspartate Amino Transferase 17 U/L (0-32); Blood Urea Nitrogen 17 mg/dL (8-23); Carbon Dioxide 26 mmol/L (22-29); Chloride 102 mmol/L (98-107); Globulin 3.3 g/dL (1.3-4.6); Glucose 151 mg/dL (65-115); Osmolality Calculated 294 mOsm/kg (285-295); Potassium 3.9 mmol/L (3.5-5.1); Sodium 140 mmol/L (136-145); Total Bilirubin 0.3 mg/dL (0.15-1.2); Total Protein 7.5 g/dL (6.6-8.7)
[2023-11-29 17:55] LABS: Troponin(5th) Baseline 82 ng/L (0-10)
[2023-11-29 18:00] VITALS: BP 146/91; PULSE 111; O2SAT 92
--- NOTE | 2023-11-29 18:09 | XRR_ITS ---
PROCEDURE INFORMATION: Exam: XR Left Elbow Exam date and time: 11/29/2023 6:46 PM Age: 77 years old Clinical indication: Injury or trauma; Fall; Other: Unknown TECHNIQUE: Imaging protocol: Radiologic exam of the left elbow. Views: 3 or more views. COMPARISON: CR (CHEST, ) 11/29/2023 5:34 PM FINDINGS: Bones/joints: Acute on chronic comminuted displaced and angulated fracture of the distal left humerus. Partially visualized long stem left shoulder arthroplasty. Soft tissues: Normal. XR/XR elbow LT min 3V* [id number] IMPRESSION: 1. Acute on chronic comminuted displaced and angulated fracture of the distal left humerus. 2. Partially visualized long stem left shoulder arthroplasty.
[2023-11-29 18:30] VITALS: BP 164/87; PULSE 108; O2SAT 92
--- NOTE | 2023-11-29 18:59 | XRR_ITS ---
PROCEDURE INFORMATION: Exam: XR Left Forearm Exam date and time: 11/29/2023 7:00 PM Age: 77 years old Clinical indication: Injury or trauma; Fall; Other: Unknown TECHNIQUE: Imaging protocol: Radiologic exam of the left forearm. Views: 2 views. COMPARISON: CR (UP EX, ) 11/29/2023 6:46 PM FINDINGS: Bones/joints: Acute on chronic comminuted displaced and angulated fracture of the distal left humerus. No left forearm fracture. Soft tissues: Soft tissue swelling along the distal aspect of the left humerus. XR/XR forearm LT 2V [id number] IMPRESSION: 1. Acute on chronic comminuted displaced and angulated fracture of the distal left humerus. 2. No left forearm fracture.
--- NOTE | 2023-11-29 19:12 | ECG_ITS ---
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 Measurements Intervals [place] Rate: 108 P: 79 AR: 148 QRS: -18 QRSD: 96 T: 82 QT: 339 QTc: 455 Interpretive Statements SINUS TACHYCARDIA SEPTAL MYOCARDIAL INFARCTION , PROBABLY OLD [40+ ms Q WAVE IN V1/V2] Compared to ECG 11/29/2023 17:17:36 Myocardial infarct finding now present T-wave abnormality no longer present Electronically Signed On 11-29-2023 20:26:22 MILLING MACHINE SET UP OPERATOR by Jesenia Fischer M.D. [id number]
[2023-11-29] MEDS: morphine 4 mg/mL SDV 1 mL 2 MG IVP ×2 (19:18→20:52)
[2023-11-29] MEDS: ondansetron 2 mg/ML SDV 2 mL 4 MG IVP (19:18)
[2023-11-29 19:38] LABS: Troponin 5 2HR 95.11 ng/L (0-10)
[2023-11-29 19:43] LABS: Troponin 5 2HR Delta 13.11 ABS# (0-10)
[2023-11-29 19:51] LABS: Urine Appearance SL Hazy (CLEAR); Urine Color Yellow (Yellow); pH Urine 5 (5-7)
[2023-11-29 19:52] LABS: Add Urine Microscopic? YES; Bilirubin Urine Neg (Negative); Blood Urine Neg (Negative); Glucose Urine UA Norm (Normal); Ketones Urine Negative (Negative); Leukocyte Esterase Urine Negative (Negative); Nitrate Urine Positive (Negative); Protein Urine Neg (Negative); Urobilinogen Urine Norm (Negative)
[2023-11-29 19:56] LABS: Add Urine Culture? Yes; Bacteria Urine 4+ /hpf; RBC Urine 0-4 /hpf (0-2); Squamous Epithelial Cell Urine 0-4 /hpf (0-5)
[2023-11-29 20:05] VITALS: BP 138/83; PULSE 103; RESP 16; O2SAT 91
[2023-11-29 22:24] VITALS: RESP 17; O2SAT 95
[2023-11-29] MEDS: morphine 4 mg/mL SDV 1 mL IVP (22:24)
[2023-11-29 22:52] LABS: Troponin 5 6HR 96.05 ng/L (0-10)
[2023-11-29 22:56] LABS: Troponin 5 6HR Delta 14.05 ng/L (0-12)
[2023-11-29] MEDS: diphenhydrAMINE 25 mg Capsule PO (23:13)
--- NOTE | 2023-11-29 23:26 | ECG_ITS ---
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 Measurements Intervals [place] Rate: 99 P: 59 NC: 136 QRS: -20 QRSD: 91 T: 71 QT: 363 QTc: 467 Interpretive Statements SINUS RHYTHM NONSPECIFIC T-WAVE ABNORMALITY Compared to ECG 11/29/2023 19:25:45 T-wave abnormality now present Sinus tachycardia no longer present Myocardial infarct finding no longer present Electronically Signed On 11-30-2023 10:48:21 NURSE LEADER by Phuc Moran M.D. [id number]
[2023-11-30 00:03] VITALS: BP 125/73; PULSE 94; RESP 16; O2SAT 95
[2023-11-30 01:16] VITALS: BP 125/73; PULSE 94; RESP 16; TEMP 37; O2SAT 95
== END 2023-11-30 01:10 | disposition short-term general hospital (02) ==
PROVIDERS: Emergency Provider Emergency Medicine; PCP Family Medicine
DX: S42.492A Other displaced fracture of lower end of left humerus, initial encounter for closed fracture (principal); R79.89 Other specified abnormal findings of blood chemistry; E78.5 Hyperlipidemia, unspecified; I10 Essential (primary) hypertension; I25.10 Atherosclerotic heart disease of native coronary artery without angina pectoris; W19.XXXA Unspecified fall, initial encounter
CPT/HCPCS: 36415; 70450; 71045; 72100; 73030; 73080; 73090; 80053; 81001; 84484; 85025; 87077; 87086; 87186; 93005; 96374; 96375; 96376; 99285; J2270; J2405

== ENCOUNTER 2024-01-21 16:46 | Inpatient (IN) | payer MEDICARE, MEDICAID, SELFPAY ==
[2024-01-21] VITALS (8 sets, daily range): BP systolic 125–152; BP diastolic 68–77; PULSE 85–98; RESP 16–20; TEMP 36.9–37.2; O2SAT 95–97
--- NOTE | 2024-01-21 16:49 | XRR_ITS ---
PROCEDURE INFORMATION: Exam: XR Chest Exam date and time: 01/21/2024 5:07 PM Age: 78 years old Clinical indication: Other: AMS TECHNIQUE: Imaging protocol: Radiologic exam of the chest. Views: 1 view. COMPARISON: CR XR chest 1V portable [id number] 11/29/2023 5:34 PM FINDINGS: Lungs: No focal consolidation. 8 mm opacity in the mid right lung, possibly a calcified granuloma. Consider correlation with CT to exclude a noncalcified nodule. Pleural spaces: No evidence of pneumothorax. No evidence of pleural effusion. Heart/Mediastinum: Cardiomediastinal silhouette is within normal limits. Bones/joints: No evidence of acute osseous abnormality. Left humeral prosthesis. Multiple chronic appearing right-sided rib fractures. XR/XR chest 1V portable [id number] IMPRESSION: 1. No acute cardiopulmonary abnormality. 2. 8 mm opacity in the mid right lung, possibly a calcified granuloma. Consider correlation with CT to exclude a noncalcified nodule.
--- NOTE | 2024-01-21 16:49 | CTR_ITS ---
PROCEDURE INFORMATION: Exam: CT Head Without Contrast Exam date and time: 01/21/2024 5:05 PM Age: 78 years old Clinical indication: Altered mental status/memory loss; Additional info: AMS TECHNIQUE: Imaging protocol: Computed tomography of the head without contrast. Radiation optimization: All CT scans at this facility use at least one of these dose optimization techniques: automated exposure control; mA and/or kV adjustment per patient size (includes targeted exams where dose is matched to clinical indication); or iterative reconstruction. COMPARISON: CT head wo con* [id number] 11/29/2023 5:21 PM RADIATION DOSE METRICS: Total DLP (mGy-cm): 1066.93 FINDINGS: Brain: Sequela of moderate chronic microvascular ischemic changes with periventricular and deep white matter hypoattenuation. There are multifocal subacute-chronic cerebellar infarcts, new since November 29, 2023. No evidence of intra-axial or extra-axial hemorrhage. No mass effect or midline shift. Basilar cisterns are patent. Cerebral ventricles: No hydrocephalus. Paranasal sinuses: The visualized paranasal sinuses are well aerated. Mastoid air cells: The visualized mastoids and middle ears are clear. Bones/joints: The visualized calvarium and bony orbits are intact. Soft tissues: No gross soft tissue abnormality. CT/CT head wo con* [id number] IMPRESSION: 1. Multiple subacute-chronic cerebellar infarcts, new since November 29, 2023. Consider correlation with MRI for further detail. 2 no intracranial hemorrhage.
--- NOTE | 2024-01-21 16:50 | ECG_ITS ---
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 Measurements Intervals [place] Rate: 92 P: 66 CT: 124 QRS: -26 QRSD: 90 T: 108 QT: 365 QTc: 453 Interpretive Statements SINUS RHYTHM BORDERLINE LEFT AXIS DEVIATION [QRS AXIS < -20] LEFT VENTRICULAR HYPERTROPHY AND ST-T CHANGE [VOLTAGE CRITERIA PLUS ST/T ABNORMALITY] Compared to ECG 11/29/2023 23:26:40 Left ventricular hypertrophy now present ST (T wave) deviation now present T-wave abnormality no longer present Electronically Signed On 01-21-2024 19:30:14 CDT by Jesenia Fischer M.D. [id number]
--- NOTE | 2024-01-21 16:55 | ED_ITS ---
HPI - Altered Mental Status 2 General: Chief Complaint: Altered Mental Status Stated Complaint: AMS Time Seen by Provider: 01/21/24 16:46 Source: patient and EMS Mode of arrival: EMS Limitations: altered mental status History of Present Illness: 78-year-old female who lives home alone neighbors had called EMS because she had increasing confusion over the last 4 days she had a possible fall 4 days ago but unsure EMS and the neighbor said that she usually is able answer questions properly but has been extremely confused and they have spoke to her recently here she is able to tell me her name but does appear confused and is not answering some questions appropriately does not know the year. She denies any pain at this time Review of Systems 2 General: Reports: ROS unobtainable due to mental status PFSH ED 2 PFSH: Medical History Hyperlipidemia Hypertension Coronary artery disease GERD (gastroesophageal reflux disease) Depression Hypothyroidism Syncope -appears to have had recurrent syncopal episodes, unclear etiology, unwitnessed -VSS -telemetry monitoring: no events -CT head with no acute findings; MRI with noted chronic ischemic changes -close monitoring of vital signs -IVF hydration -cautions use of narcotics -Echo pending report -no overt neuro deficits -rapid COVID-19 negative, PCR pending (done in case of need for surgery) -on RA, not oxygen dependent at baseline; no overt abnormalities on CXR Surgical History H/O rotator cuff surgery H/O: hysterectomy Family History Other No significant family history Social History Smoking and tobacco/nicotine status: never used tobacco/nicotine Alcohol intake: never Substance/Drug Use: never Lives independently: Yes Household members: none Marital status: / Physical Exam 2 Const: COMMON NORMALS: alert; negative for patient oriented x3 EXAM LIMITATIONS: altered mental status O RIENTATION/CONSCIOUSNESS: Yes oriented to person and Yes oriented to place; not oriented to time HENMT: COMMON NORMALS: normocephalic and atraumatic HEAD & SCALP: n ormocephalic and atraumatic Eye: COMMON NORMALS: Equal, round and reactive pupils present and EOMs intact bilaterally PUPIL: Yes Equal, round and reactive pupils present Neck/C-Spine: COMMON NORMALS: full ROM and supple Chest: COMMONS NORMALS: normal inspection of the chest and normal palpation of entire chest wall Resp: COMMON NORMALS: normal respiratory effort, No retractions, No use of accessory muscles and clear to auscultation bilaterally AUSCULTATION: clear to auscultation bilaterally Cardio: COMMON NORMALS: regular rate, regular rhythm and No murmurs present (Cardio) RATE: regular rate RHYTHM: regular rhythm GI: COMMON NORMALS: Normal to inspection, nondistended, normoactive bowel sounds present, Soft to palpation, non-tender and no masses PALPATION: Yes Soft to palpation Extremity: COMMON NORMALS: normal to inspection and full ROM Neuro: COMMON NORMALS: moves all extremities and no focal motor deficits; negative for patient oriented x3 SENSORIUM/ORIENTATION: Yes alert, Yes oriented to person, Yes oriented to place and No oriented to time Psych: COMMON NORMALS: cooperative Skin: COMMON NORMALS: no rashes or lesions noted and no wounds GENERAL SKIN EXAM: no rashes or lesions noted Course 2 Vital Signs: Vital signs: Vital Signs Temperature 98.9 F 01/21/24 16:48 Pulse Rate 90 01/21/24 16:48 Respiratory Rate 16 01/21/24 16:48 Blood Pressure 152/74 01/21/24 16:48 Pulse Oximetry 97 01/21/24 16:48 Oxygen Delivery Me thod Room Air 01/21/24 16:48 MDM - Altered Mental Status Medical Decision Making Patient presents here with confusion along with frequent falls over the last [address] here shows likely cerebellar infarcts she is not a tPA candidate last known normal was 4 days ago spoke to the hospitalist will admit at this time Medical Records I reviewed the patient's medical records. Lab Data I reviewed the patient's lab results. 01/21/24 16:58 01/21/24 16:58 Radiology Impressions Chest X-Ray 01/21/24 16:49 IMPRESSION: 1. No acute cardiopulmonary abnormality. 2. 8 mm opacity in the mid right lung, possibly a calcified granuloma. Consider correlation with CT to exclude a noncalcified nodule. Head CT 01/21/24 16:49 IMPRESSION: 1. Multiple subacute-chronic cerebellar infarcts, new since November 29, 2023. Consider correlation with MRI for further detail. 2 no intracranial hemorrhage. ADDENDUM: 01/21/24 [id number] The findings were verbally communicated by telephone with Dr. THOMAS at 5:28 PM CDT on 01/21/2024. Laboratory Results WBC 7.94 10^3/uL (3.29-11.43) 01/21/24 16:58 RBC 3.91 10^6/uL (3.85-5.65) 01/21/24 16:58 Hgb 11.10 g/dL (11.27-16.99) L 01/21/24 16:58 Hct 36.0 % (36-47) 01/21/24 16:58 MCV 92.1 fl (85-98) 01/21/24 16:58 MCH 28.4 pg (27-33) 01/21/24 16:58 MCHC 30.8 g/dL (30-55) 01/21/24 16:58 RDW 15.5 % (12.1-15.1) H 01/21/24 16:58 Plt Count 322 10^3/cmm (157-399) 01/21/24 16:58 MPV 9.8 fL (7.4-10.4) 01/21/24 16:58 Neut % (Auto) 75.8 % 01/21/24 16:58 Lymph % (Auto) 16.0 % 01/21/24 16:58 [place] % (Auto) 7.4 % 01/21/24 16:58 Eos % (Auto) 0.1 % 01/21/24 16:58 Baso % (Auto) 0.4 % 01/21/24 16:58 Neut # (Auto) 6.02 10^3/uL (1.8-7.7) 01/21/24 16:58 Lymph # (Auto) 1.3 10^3/uL (0.8-4.8) 01/21/24 16:58 [place] # (Auto) 0.6 10^3/uL (0.2-0.9) 01/21/24 16:58 Eos # (Auto) 0.0 10^3/uL (0.0-0.8) 01/21/24 16:58 Baso # (Auto) 0.0 10^3/uL (0.0-0.1) 01/21/24 16:58 Nucleated RBC % (auto) 0 % 01/21/24 16:58 Nucleated RBCs # 0.0 /100WBC 01/21/24 16:58 PT 13.80 SECONDS (12.1-14.9) 01/21/24 16:58 INR 1.03 (0.8-1.2) 01/21/24 16:58 Sodium 142 mmol/L (136-145) 01/21/24 16:58 Potassium 3.7 mmol/L (3.5-5.1) 01/21/24 16:58 Chloride 98 mmol/L (98-107) 01/21/24 16:58 Carbon Dioxide 30 mmol/L (22-29) H 01/21/24 16:58 Anion Gap 17.7 (5-19) 01/21/24 16:58 BUN 37 mg/dL (8-23) H 01/21/24 16:58 Creatinine 1.0 mg/dL (0.5-0.9) H 01/21/24 16:58 GFR Calculation Not Reportable 01/21/24 16:58 Glucose 131 mg/dL (65-115) H 01/21/24 16:58 Calculated Osmolality 304 mOsm/kg (285-295) H 01/21/24 16:58 Calcium 9.7 mg/dL (8.5-10.5) 01/21/24 16:58 Magnesium 2.5 mg/dL (1.7-2.3) H 01/21/24 16:58 Total Bilirubin 0.3 mg/dL (0.15-1.2) 01/21/24 16:58 AST 24 U/L (0-32) 01/21/24 16:58 ALT 11 U/L (0-33) 01/21/24 16:58 Alkaline Phosphatase 261 U/L (35-105) H 01/21/24 16:58 Creatine Kinase 162 U/L (26-192) 01/21/24 16:58 Total Protein 8.3 g/dL (6.6-8.7) 01/21/24 16:58 Albumin 4.6 g/dL (3.5-5.2) 01/21/24 16:58 Globulin 3.7 g/dL (1.3-4.6) 01/21/24 16:58 All radiology interpretation(s) finalized by discharge EKG Data EKG 1: I personally reviewed and interpreted this EKG as follows: EKG interpretation date: 01/21/24 EKG interpretation time: 17:31 Interpretation: nsr hr [address] or t wave abnormalities qrs 90 qtc 415 Discharge Plan Discharge Patient Disposition: Admitted As Inpatient Clinical Impression: CVA (cerebral vascular accident) Condition: Stable Prescriptions: No Action triamterene-hydrochlorothiazid [Maxzide-25mg] 37.5-25 mg tablet 1 tab PO DAILY Qty: 30 11RF meloxicam 15 mg tablet See Rx Instructions .ROUTE .COMPLEX Qty: 30 11RF Dose Instruction: Take 1 tablet by mouth once daily Rx Instructions: Take 1 tablet by mouth once daily- atorvastatin 80 mg tablet 80 mg PO DAILY Qty: 90 3RF bupropion HCl 150 mg tablet extended release 24 hr 150 mg PO BEDTIME Qty: 30 11RF citalopram 20 mg tablet 20 mg PO BEDTIME Qty: 30 11RF Euthyrox 200 mcg tablet 200 mcg PO QAM Qty: 30 11RF omeprazole 20 mg capsule,delayed release(DR/EC) 20 mg PO QPM Qty: 30 11RF fluticasone propionate 50 mcg/actuation spray,suspension 2 spray INTRANASAL DAILY Referrals: David Hannah MD [Primary Care Provider] - Patient Instructions: Altered Mental Status (ED) Coding Level of Care Code ED 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
[2024-01-21 17:04] LABS: Basophils % 0.4 %; Eosinophils % 0.1 %; Lymphocytes # 1.3 10^3/uL (0.8-4.8); Mean Corpuscular HGB Conc 30.8 g/dL (30-55); Mean Corpuscular Hemoglobin 28.4 pg (27-33); Mean Corpuscular Volume 92.1 fl (85-98); Mean Platelet Volume 9.8 fL (7.4-10.4); Monocytes # 0.6 10^3/uL (0.2-0.9); Monocytes % 7.4 %; Neutrophils # 6.02 10^3/uL (1.8-7.7); Neutrophils % 75.8 %; Nucleated Red Blood Cells % 0 %; Platelet Count 322 10^3/cmm (157-399); Red Blood Count 3.91 10^6/uL (3.85-5.65); Red Cell Distribution Width 15.5 % (12.1-15.1); White Blood Count 7.94 10^3/uL (3.29-11.43)
[2024-01-21 17:27] LABS: INR 1.03 (0.8-1.2)
[2024-01-21 17:28] LABS: Alanine Aminotransferase 11 U/L (0-33); Albumin Level 4.6 g/dL (3.5-5.2); Alkaline Phosphatase 261 U/L (35-105); Anion Gap 17.7 (5-19); Aspartate Amino Transferase 24 U/L (0-32); Blood Urea Nitrogen 37 mg/dL (8-23); Calcium 9.7 mg/dL (8.5-10.5); Carbon Dioxide 30 mmol/L (22-29); Chloride 98 mmol/L (98-107); Creatine Phosphokinase 162 U/L (26-192); Creatinine Clr Calc Pharmacy 47.3955; Globulin 3.7 g/dL (1.3-4.6); Glucose 131 mg/dL (65-115); Magnesium 2.5 mg/dL (1.7-2.3); Osmolality Calculated 304 mOsm/kg (285-295); Potassium 3.7 mmol/L (3.5-5.1); Sodium 142 mmol/L (136-145); Total Bilirubin 0.3 mg/dL (0.15-1.2); Total Protein 8.3 g/dL (6.6-8.7)
[2024-01-21 17:39] LABS: Glucose Point of Care 125 mg/dL (70-110)
--- NOTE | 2024-01-21 18:11 | ECG_ITS ---
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 Measurements Intervals [place] Rate: 87 P: 65 OR: 122 QRS: -26 QRSD: 94 T: 90 QT: 378 QTc: 455 Interpretive Statements SINUS RHYTHM BORDERLINE LEFT AXIS DEVIATION [QRS AXIS < -20] LEFT VENTRICULAR HYPERTROPHY AND ST-T CHANGE [VOLTAGE CRITERIA PLUS ST/T ABNORMALITY] Compared to ECG 01/21/2024 17:31:46 No significant changes Electronically Signed On 01-21-2024 19:32:21 CDT by Jesenia Fischer M.D. [id number]
--- NOTE | 2024-01-21 18:11 | XRR_ITS ---
PROCEDURE INFORMATION: Exam: XR Bilateral Hips Exam date and time: 01/21/2024 6:24 PM Age: 78 years old Clinical indication: Pelvic pain TECHNIQUE: Imaging protocol: Radiologic exam of the bilateral hips. Views: 2 views of hips with pelvis when performed. COMPARISON: CT abdomen pelvis w con* [id number] 04/20/2018 6:37 PM FINDINGS: Bones/joints: Mild osteoarthritis without evidence of fracture or subluxation of either hip. Subacute minimally displaced fractures of the inferior pubic ramus and left acetabulum. Correlation with CT is recommended. Sacrum and coccyx are partially obscured by bowel gas/stool. Bony demineralization compatible with osteopenia or osteoporosis. Lumbosacral fusion hardware noted. Soft tissues: No gross soft tissue abnormality. XR/XR hip BI 2V wo/w pel [id number] IMPRESSION: 1. Subacute minimally displaced fractures of the inferior pubic ramus and left acetabulum. Correlation with CT is recommended.
--- NOTE | 2024-01-21 18:11 | CTR_ITS ---
PROCEDURE INFORMATION: Exam: CT Cervical Spine Without Contrast Exam date and time: 01/21/2024 7:50 PM Age: 78 years old Clinical indication: Injury or trauma; Fall; Other: AMS; Additional info: Pain TECHNIQUE: Imaging protocol: Computed tomography of the cervical spine without contrast. Radiation optimization: All CT scans at this facility use at least one of these dose optimization techniques: automated exposure control; mA and/or kV adjustment per patient size (includes targeted exams where dose is matched to clinical indication); or iterative reconstruction. COMPARISON: MR cervical spin wo con* [id number] 10/14/2020 4:13 PM RADIATION DOSE METRICS: Total DLP (mGy-cm): 213 FINDINGS: Bones/joints: Chronic C7 vertebral body compression/burst fracture as previously described with 3-4 mm bony retropulsion. No evidence of acute fracture or subluxation of the cervical spine. 2 mm degenerative anterolisthesis of C3 on C4 and C4 on C5. The craniocervical junction including the atlantoaxial and atlantooccipital articulations are intact. C2-C3: No central or foraminal stenosis. C3-C4: Uncovertebral hypertrophy and facet arthrosis results in moderate right-sided foraminal stenosis. Posterior disc protrusion results in moderate central stenosis. C4-C5: Uncovertebral hypertrophy and facet arthrosis without central or foraminal stenosis. C5-C6: Uncovertebral hypertrophy and facet arthrosis results in moderate bilateral foraminal stenosis. No central stenosis. C6-C7: Chronic bony retropulsion of C7 results in moderate central stenosis. No foraminal stenosis. C7-T1: No central or foraminal stenosis. Lungs: The visualized lung apices are clear. Soft tissues: No gross soft tissue abnormality. No significant prevertebral edema. No evidence of fluid collection or hematoma. CT/CT cervical spin wo con* [id number] IMPRESSION: 1. No evidence of acute fracture or subluxation of the cervical spine. 2. Chronic C7 vertebral body compression/burst fracture.
--- NOTE | 2024-01-21 18:11 | USCV_ITS ---
Chip Guerrero Age: 78 Gender: F : 1945 Exam Date: 01/21/2024 20:34 Ordering Phys: Carlos Alberto [place] MD Technologist: AROLDO [place] [facility] [place]: cva Patient is confused, not oriented to time or place. BP: 130 / 68 HR: 85 Rhythm: Sinus Technical Quality: Adequate MEASUREMENTS (Male / Female) Normal Values 2D ECHO LV Diastolic Diameter PLAX 3.1 cm 4.2 - 5.9 / 3.9 - 5.3 cm IVS Diastolic Thickness 1.5 cm 0.6 - 1.0 / 0.6 - 0.9 cm IVS Systolic Thickness 1.3 cm LVPW Diastolic Thickness 1.2 cm 0.6 - 1.0 / 0.6 - 0.9 cm LVPW Systolic Thickness 1.5 cm LVOT Diameter 1.6 cm LV Ejection Fraction 2D Teich 57.7 % LV Ejection Fraction MOD 2C 51.8 % LV Ejection Fraction 2C AL 52.8 % LA Diameter 3.7 cm LA Sys Volume AL 25.4 cm cubed LA Sys Volume Index AL 13.2 cm cubed/m squared Aorta at Sinotubular Diameter 2.7 cm IVC Diameter 1.2 cm M-MODE LA Ao Ratio MM 1.2 AV Cusp Separation MM 1.8 cm DOPPLER MV Peak Velocity 124.0 cm/s MV Area PHT 2.6 cm squared Mitral E to A Ratio 0.6 TR Peak Velocity 229.0 cm/s TR Peak Gradient 21.0 mmHg TV Peak E Velocity 52.0 cm/s Right Atrial Pressure 3.0 mmHg Pulmonary Artery Systolic Pressu 24.0 mmHg PV Peak Velocity 107.0 cm/s FINDINGS Left Ventricle Left ventricle is normal size. LV systolic function is normal with EF of 55 to 60%. No regional wall motion abnormalities are seen. Grade 1 diastolic dysfunction. Right Ventricle Normal in size and function. Right Atrium Normal in size Left Atrium Normal in size Mitral Valve Moderate mitral annular calcification. Aortic Valve Not well visualized Tricuspid Valve Trace tricuspid regurgitation. Pulmonary artery systolic pressure is normal. Pulmonic Valve Not well-visualized. Pericardium Normal Aorta Normal in size IVC Appears to be normal CONCLUSIONS Technically limited quality echocardiogram. because of limited ultrasonic windows. Left ventricle is normal in size with EF 55 to 60%. Grade 1 diastolic dysfunction. Limited visualization of valvular stuctures. Phuc Moran MD (Electronically Signed) Final Date: 22 January 2024 07:16 S
--- NOTE | 2024-01-21 18:11 | USCV_ITS ---
Chip Guerrero Age: 78 Gender: F : 1945 Exam Date: 01/21/2024 20:05 Ordering Phys: Carlos Alberto [place] MD Technologist: AROLDO [place] [facility] [place]: cva confusion, not oriented to time or place. Risk Factors: unknown Previous Vascular Surgery: unknown Right Brachial BP: 130 / 68 Left Brachial BP: / Right Left Velocity (cm/s) Spectral Plaque Velocity (cm/s) Spectral Plaque Syst/Diast Broadening Syst/Diast Broadening 89.50/ 11.60 Min Homo Prox CCA 103.70/ 14.60 Min Homo 112.60/23.20 Min Homo Mid CCA 84.70 / 14.60 Mod Homo 90.60/ 19.30 Min Homo Distal CCA 78.30 / 10.40 Mod Hetro 69.80/ 19.30 Min Fernando Prox ICA 68.50 / 20.70 Mod Fernando 70.60/ 17.90 Min Hetro Mid ICA 64.00 / 19.80 Min Hetro 78.30/ 28.20 Min Hetro Distal ICA 51.00 / 16.40 Min Hetro 98.30 Min Hetro ECA 103.70 Mod Hetro 0.90 ICA/CCA 1.00 Antegrade Vertebral Antegrade 35.80/ 10.10 cm/s 21.00/ 6.20 cm/s Tri Subclavian Tri 142.7 147.7 0 0 CONCLUSIONS Right ICA stenosis <50%. Mild atheromatous plaque right carotid bulb/ICA. Left ICA stenosis <50%. Moderate calcified atheromatous plaque left carotid bulb/ICA. Normal antegrade Doppler flow noted in the right vertebral artery. Normal antegrade Doppler flow noted in the left vertebral artery. Nikolai Sterling MD (Electronically Signed) Final Date: 22 January 2024 09:18 S
--- NOTE | 2024-01-21 18:11 | XRR_ITS ---
PROCEDURE INFORMATION: Exam: XR Left Elbow Exam date and time: 01/21/2024 6:23 PM Age: 78 years old Clinical indication: Injury or trauma; Fall; Blunt trauma (contusions or hematomas); Elbow; Left; Additional info: Pain TECHNIQUE: Imaging protocol: Radiologic exam of the left elbow. Views: 1 or 2 views. COMPARISON: CR (CHEST, ) 01/21/2024 6:20 PM FINDINGS: Bones/joints: Deformity of the distal humerus, at least a component of which is chronic though an acute on chronic fracture is difficult to exclude. Soft tissues: Soft tissue edema of the upper arm. XR/XR elbow LT 2V [id number] IMPRESSION: 1. Deformity of the distal humerus, at least a component of which is chronic though an acute on chronic fracture is difficult to exclude. Consider correlation with CT for further detail.
--- NOTE | 2024-01-21 18:11 | XRR_ITS ---
PROCEDURE INFORMATION: Exam: XR Left Shoulder Exam date and time: 01/21/2024 6:20 PM Age: 78 years old Clinical indication: Injury or trauma; Fall; Blunt trauma (contusions or hematomas); Shoulder; Left; Prior surgery; Surgery date: 6+ months; Surgery type: Lt humerus TECHNIQUE: Imaging protocol: Radiologic exam of the left shoulder. Views: 2 or more views. COMPARISON: CR (CHEST, ) 01/21/2024 5:07 PM FINDINGS: Bones/joints: Acute comminuted displaced fracture of the distal left humerus. Multiple left-sided rib fractures. Left humeral prosthesis noted. Soft tissues: No gross soft tissue abnormality. XR/XR shoulder LT min 2V* [id number] IMPRESSION: 1. Acute comminuted displaced fracture of the distal left humerus. 2. Multiple left-sided rib fractures, age-indeterminate. Acute fractures would be difficult to exclude.
--- NOTE | 2024-01-21 18:14 | P.HP_ITS ---
Providers/Chief Complaint 2 Primary Care Provider: David Hannah MD Chief Complaint: AMS History of Present Illness Chip Guerrero is a 78 year old female With a past medical history of hypertension hyperlipidemia hypothyroidism, who presents to [facility] status, current falls due to altered altered mental status, recurrent falls, currently patient is alert to person, not to place, to time she can follow commands I cannot see any facial droop no slurring her words she does not have any focal neurologic deficits no focal weakness but does have gross positive cerebellar signs and has a significant bruising and hematoma over the left shoulder. When asked her why she is here in the hospital she tells me because her neighbor brought her in here, because she fell 4 days ago. She does not remember the events of the last few days, but tells me she fell 4 days ago does not remember how she fell or why she fell she does not think she hit her head but denies any headache, no blurry vision no neck pain her left shoulder and left elbow do as hurt her. No neck pain, no back pain no hip pain. positive cerbellar sign on left, she prefers not to move left elbow and shoulder due to pain She tells me that she is fallen a lot, her neighbor Leti, checked up on her and found her on the floor she tells me. She does not have any family, her daughter lives in [facility], and they have not talked in years, I cannot notice any slurring of words, no facial droop, she does at times have word finding difficulty, her NIH stroke scale is 2, she is out of the tPA window her last known well normal is unknown potentially 4 days ago she has received aspirin in the emergency room, she denies any dysuria, she denies a prior history of strokes, patient did present to the emergency room in November with complaints of multiple falls had a humeral fracture which was medically managed, Review of Systems 2 Const: Denies: fever(s) Card: Denies: chest pain Resp: Denies: dyspnea GI: Denies: abdominal pain : Denies: flank pain Neuro: Denies: headache(s) Medications/Allergies Home Medications Medication Instructions Recorded Confirmed Last Taken Type fluticasone propionate 50 2 spray intranasal DAILY 10/14/20 11/01/23 10/13/20 History mcg/actuation nasal spray,suspension atorvastatin 80 mg tablet 80 mg PO DAILY #90 tabs 08/02/23 11/01/23 Unknown Rx bupropion HCl 150 mg 24 hr tablet, 150 mg PO BEDTIME #30 tabs 08/02/23 11/01/23 Unknown Rx extended release citalopram 20 mg tablet 20 mg PO BEDTIME #30 tabs 08/02/23 11/01/23 Unknown Rx levothyroxine 200 mcg tablet 200 mcg PO QAM #30 tabs 08/02/23 11/01/23 Unknown Rx (Euthyrox) meloxicam 15 mg tablet See Rx Instructions .Route 08/02/23 11/01/23 Unknown Rx .COMPLEX #30 tabs omeprazole 20 mg capsule,delayed 20 mg PO QPM #30 caps 08/02/23 11/01/23 Unknown Rx release triamterene 37.5 1 tab PO DAILY #30 tabs 11/01/23 11/01/23 Unknown Rx mg-hydrochlorothiazide 25 mg tablet (Maxzide-25mg) Allergies Allergy/AdvReac Type Severity Reaction Status Date / Time No Known Allergies Allergy Verified 01/26/21 08:36 PFSH Acute 2 PFSH: Medical History Hyperlipidemia Hypertension Coronary artery disease GERD (gastroesophageal reflux disease) Depression Hypothyroidism Syncope -appears to have had recurrent syncopal episodes, unclear etiology, unwitnessed -VSS -telemetry monitoring: no events -CT head with no acute findings; MRI with noted chronic ischemic changes -close monitoring of vital signs -IVF hydration -cautions use of narcotics -Echo pending report -no overt neuro deficits -rapid COVID-19 negative, PCR pending (done in case of need for surgery) -on RA, not oxygen dependent at baseline; no overt abnormalities on CXR Surgical History H/O rotator cuff surgery H/O: hysterectomy Family History Other No significant family history Social History Smoking and tobacco/nicotine status: never used tobacco/nicotine Alcohol intake: never Substance/Drug Use: never Lives independently: Yes Household members: none Marital status: / Vitals/I&O/Wt Last Vital Signs Temp 98.9 F 01/21/24 16:48 Pulse 90 01/21/24 16:48 Resp 16 01/21/24 16:48 BP 152/74 01/21/24 16:48 Pulse Ox 97 01/21/24 16:48 O2 Del Method Room Air 01/21/24 16:48 Weight last 48 hrs Weight 79.832 kg Physical Exam 2 Const: COMMON NORMALS: no acute distress EXAM LIMITATIONS: altered mental status ORIENTATION/CONSCIOUSNESS: Yes awake, Yes oriented to person and Yes confused; not oriented to place and not oriented to time HENMT: COMMON NORMALS: normocephalic HEAD & SCALP: normocephalic Eye: COMMON NORMALS: Equal, round and reactive pupils present and EOMs intact bilaterally Neck/C-Spine: COMMON NORMALS: no JVD CERVICAL SPINE: No Cervical spine tenderness, No Paracervical muscle tenderness and No Paracervical spasm Lymph: LYMPHATIC: no lymphadenopathy noted Resp: COMMON NORMALS: normal respiratory effort, No retractions, No use of accessory muscles and clear to auscultation bilaterally AUSCULTATION: clear to auscultation bilaterally Cardio: COMMON NORMALS: no JVD, regular rate, regular rhythm, S1 normal heart sound present and S2 normal heart sound present RATE: regular rate RHYTHM: regular rhythm HEART SOUNDS: S1 normal heart sound present and S2 normal heart sound present GI: COMMON NORMALS: Normal to inspection, nondistended, normoactive bowel sounds present, Soft to palpation and non-tender Extremity: COMMON NORMALS: no calf tenderness and no pedal edema Neuro: COMMON NORMALS: CN's II-XII intact bilaterally, moves all extremities and no focal motor deficits OTHER: positive cerbellar sign on left, she prefers not to move left elbow and shoulder due to pain Has evidence of muscle wasting bilateral temporal muscle wasting, bilateral arms, Psych: COMMON NORMALS: mental status grossly normal Data 01/21/24 16:58 01/21/24 16:58 A&P Assessment and plan (1) Acute encephalopathy: (2) Acute CVA (cerebrovascular accident): (3) Left shoulder pain: (4) Left elbow pain: (5) CHRISTIANO (acute kidney injury): (6) Physical deconditioning: (7) Multiple falls: (8) Muscle wasting: (9) Protein calorie malnutrition: Plan Acute CVA, posterior circulation CT/CT head wo con* [id number] IMPRESSION: 1. Multiple subacute-chronic cerebellar infarcts, new since November 29, 2023. Consider correlation with MRI for further detail. 2 no intracranial hemorrhage. -NIH stroke scale 2, last known well normal potentially 4 days ago, out of window for tPA, ? Reviewed prior history she has had multiple falls in the last few months, recent ER visit in November for multiple falls and fracture of distal left humerus ? Positive cerebellar signs, multiple falls ? Plan ? Aspirin, Plavix, statin ? Telemetry monitoring ? Will allow for permissive hypertension monitor blood pressure closely ? Carotid artery ultrasound ? Cardiac echo ? Troponin series ivf Full code ? Lovenox for DVT prophylaxis Acute encephalopathy ? Obtain UA, ammonia levels Left shoulder bruising, left elbow pain ? History of left distal humeral fracture, placed in a sling will repeat x-ray, left shoulder x-ray Multiple unwitnessed falls ? CT cervical spine, x-ray of bilateral hips Multiple falls ? PT OT, speech therapy eval, dietary eval, will keep n.p.o. until nurse dysphagia eval or speech therapy eval ? Will keep n.p.o. Hypothyroidism check TSH levothyroxine Protein calorie malnutrition, muscle wasting, physical deconditioning, PT OT likely will require nursing placement next Full code Lovenox for DVT prophylaxis Attestations 2 Medical Necessity Statement*: patient requires hospitalization, inpatient, greater than 2 midnights, for multiple falls, acute encephalopathy, acute CVA, CHRISTIANO, Diagnoses Acute encephalopathy G93.40 Acute CVA (cerebrovascular accident) I63.9 Left shoulder pain M25.512 Left elbow pain M25.522 CHRISTIANO (acute kidney injury) N17.9 Physical deconditioning R53.81 Multiple falls R29.6 Muscle wasting M62.50 Protein calorie malnutrition E46
[2024-01-21 18:25] LABS: Add Urine Culture? Yes; Add Urine Microscopic? YES; Bacteria Urine 3+ /hpf; Bilirubin Urine Neg (Negative); Blood Urine Neg (Negative); Glucose Urine UA Norm (Normal); Ketones Urine 1+ (Negative); Leukocyte Esterase Urine Negative (Negative); Nitrate Urine Positive (Negative); Protein Urine Neg (Negative); Urine Appearance SL Hazy (CLEAR); Urine Color Straw (Yellow); Urobilinogen Urine Norm (Negative); pH Urine 5 (5-7)
[2024-01-21] MEDS: aspirin 81 mg Chew Tablet 324 MG PO (18:32)
--- NOTE | 2024-01-21 19:25 | PC.NURSE ---
attempted to call report to darby at 1925, told nurse will call back for report.
--- NOTE | 2024-01-21 20:08 | ECG_ITS ---
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 Measurements Intervals [place] Rate: 80 P: 53 UT: 104 QRS: -24 QRSD: 109 T: 93 QT: 398 QTc: 460 Interpretive Statements SINUS RHYTHM WITH SHORT UT INTERVAL BORDERLINE LEFT AXIS DEVIATION [QRS AXIS < -20] LEFT VENTRICULAR HYPERTROPHY AND ST-T CHANGE [VOLTAGE CRITERIA PLUS ST/T ABNORMALITY] Compared to ECG 01/21/2024 19:07:27 Short UT interval now present ST (T wave) deviation still present Electronically Signed On 01-22-2024 12:31:31 CDT by Phuc Moran M.D. [id number]
[2024-01-21 20:16] LABS: Ammonia 19 umol/L (11-51)
[2024-01-21 20:23] LABS: Troponin(5th) Baseline 115 ng/L (0-10)
[2024-01-21 20:30] LABS: NT Pro B Type Natriuretic Pept 371 pg/mL (0-450); Procalcitonin 0.06 ng/mL (0-0.5); Thyroid Stimulating Hormone 1.71 uIU/mL (0.27-4.20)
[2024-01-21 21:46] LABS: Glucose Point of Care 110 mg/dL (70-110)
--- NOTE | 2024-01-21 22:30 | PC.NURSE ---
Unable to complete parts of admission assessment. Patient is only oriented to person. Patient is able to tell me that she is at the hospital, but says the name of the [facility] is [facility]. Patient states the year is 1978.
--- NOTE | 2024-01-21 22:48 | PC.NURSE ---
Patient has pain to left arm upon movement. Difficult to assess left arm drift on stroke scale. Patient is able to almond blancher hand with left hand well. Bruise noted to left shoulder.
[2024-01-21] MEDS: sodium chloride 0.9% 1,000 ML 75 ML IV (22:56)
[2024-01-21] MEDS: pantoprazole 40 mg SDV IVP (22:56)
[2024-01-21] MEDS: buPROPion XL (24 HR) 150 mg Tablet PO (22:57)
[2024-01-21] MEDS: citalopram 20 mg Tablet PO (22:57)
[2024-01-21] MEDS: enoxaparin 40 mg/0.4 mL Syringe SUBCUT (22:57)
[2024-01-22] VITALS (9 sets, daily range): BP systolic 99–135; BP diastolic 62–74; PULSE 69–93; RESP 17–20; TEMP 36.4–36.9; O2SAT 94–97
--- NOTE | 2024-01-22 00:08 | ECG_ITS ---
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 Measurements Intervals [place] Rate: 70 P: 86 NV: 122 QRS: -15 QRSD: 111 T: 120 QT: 422 QTc: 457 Interpretive Statements SINUS RHYTHM MODERATE INTRAVENTRICULAR CONDUCTION DELAY [110+ ms QRS DURATION] NONSPECIFIC ST & T-WAVE ABNORMALITY Compared to ECG 01/21/2024 21:33:13 Intraventricular conduction delay now present T-wave abnormality now present Short NV interval no longer present Left ventricular hypertrophy no longer present ST (T wave) deviation no longer present Electronically Signed On 01-22-2024 12:30:25 CDT by Phuc Moran M.D. [id number]
[2024-01-22 01:44] LABS: Basophils % 0.4 %; Eosinophils % 0.6 %; Hematocrit 32.4 % (36-47); Lymphocytes # 1.5 10^3/uL (0.8-4.8); Lymphocytes % 20.5 %; Mean Corpuscular HGB Conc 31.5 g/dL (30-55); Mean Corpuscular Hemoglobin 28.8 pg (27-33); Mean Corpuscular Volume 91.5 fl (85-98); Mean Platelet Volume 10.3 fL (7.4-10.4); Monocytes # 0.7 10^3/uL (0.2-0.9); Monocytes % 9.3 %; Neutrophils # 4.91 10^3/uL (1.8-7.7); Neutrophils % 68.9 %; Nucleated Red Blood Cells % 0 %; Platelet Count 276 10^3/cmm (157-399); Red Blood Count 3.54 10^6/uL (3.85-5.65); Red Cell Distribution Width 15.4 % (12.1-15.1); White Blood Count 7.12 10^3/uL (3.29-11.43)
[2024-01-22 01:55] LABS: Estmated Average Glucose 131; Hemoglobin A1C 6.2 % (4.0-6.0)
[2024-01-22 01:56] LABS: INR 1.03 (0.8-1.2)
[2024-01-22 02:03] LABS: Alanine Aminotransferase 11 U/L (0-33); Albumin Level 4.2 g/dL (3.5-5.2); Alkaline Phosphatase 222 U/L (35-105); Anion Gap 17.9 (5-19); Aspartate Amino Transferase 17 U/L (0-32); Blood Urea Nitrogen 33 mg/dL (8-23); Carbon Dioxide 28 mmol/L (22-29); Chloride 96 mmol/L (98-107); Cholesterol 198 mg/dL (0-200); Creatinine Clr Calc Pharmacy 49.0097; Globulin 3.3 g/dL (1.3-4.6); Glucose 102 mg/dL (65-115); HDL Cholesterol 36 mg/dL (60-100); LDL Cholesterol Calculated 121 mg/dL (50-129); LDL HDL Ratio 3.36 RATIO (0.00-3.22); Magnesium 2.2 mg/dL (1.7-2.3); Osmolality Calculated 295 mOsm/kg (285-295); Phosphorus 3.7 mg/dL (2.5-4.5); Sodium 139 mmol/L (136-145); Total Bilirubin 0.3 mg/dL (0.15-1.2); Total Protein 7.5 g/dL (6.6-8.7); Triglycerides 205 mg/dL (0-150)
[2024-01-22 02:20] LABS: Potassium 2.9 mmol/L (3.5-5.1); Troponin 5 6HR 130.8 ng/L (0-10); Troponin 5 6HR Delta 15.8 ng/L (0-12)
[2024-01-22] MEDS: lidocaine 1% 5 ML in potassium chloride premix 100 ML 50 ML IV (03:23)
--- NOTE | 2024-01-22 04:42 | PC.NURSE ---
pt is incontinent was not able to get output on her. but pt did void in brief and pt was changed and clean brief put on
[2024-01-22] MEDS: levothyroxine 200 mcg Tablet PO (05:09)
[2024-01-22] MEDS: lidocaine 1% 5 ML in potassium chloride premix 100 ML 52.5 ML IV (05:09)
[2024-01-22 06:27] LABS: Glucose Point of Care 103 mg/dL (70-110)
[2024-01-22] MEDS: atorvastatin 40 mg Tablet 80 MG PO (08:44)
[2024-01-22] MEDS: aspirin 81 mg EC Tablet PO (08:44)
[2024-01-22] MEDS: clopidogrel 75 mg Tablet PO (08:44)
--- NOTE | 2024-01-22 09:07 | CT_ITS ---
WS: [id number] CT pelvis TECHNIQUE: Noncontrast CT of the pelvis with coronal and sagittal reformatted images. CLINICAL INFORMATION: pubic ramus fracture COMPARISON: None. DLP: 341.[address] scans at [facility] use at least one of these dose optimization techniques: automated e xposure control; mA and/or kV adjustment per patient size (includes targeted exams where dose is matc hed to clinical indication); or iterative reconstruction. FINDINGS: LEFT inferior pubic ramus fracture with some evidence of callus formation. This appears subacute. Add itional subacute appearing fractures involving the anterior acetabulum with some evidence of healing. Additional tiny subacute fracture at the pubic symphysis. Chronic appearing LEFT greater than RIGHT sacral sufficiency fractures with sclerosis. Osteopenia. Postoperative changes pedicle screw fixation lower lumbar spine. 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 Bilateral spondylolysis. Normal sacrococcygeal juncti on. IMPRESSION: 1. LEFT inferior pubic ramus fracture with some evidence of callus formation. This appears subacut e. 2. Additional subacute appearing fractures involving the anterior acetabulum with some evidence of h ealing. Additional tiny subacute fracture at the pubic symphysis. 3. Chronic appearing LEFT greater than RIGHT sacral sufficiency fractures with sclerosis.
[2024-01-22] MEDS: cefTRIAXone 1,000 MG in sodium chloride 0.9% (plus) 50 ML 100 MG IV (09:33)
--- NOTE | 2024-01-22 09:33 | PC.CHAP ---
Pastoral Care Encounter/Spiritual Assessment Type of Contact [] Declined diamond selector visit [] Patient/Family/Request visit [] Outpatient visit [] Follow-up visit [] Physician referral [] Code/Alert [] Routine visit [] Staff referral [] Actively dying [x] Patient sleeping [] Family support [] [] Out of room [] Palliative care [] [] Receiving care in room [] Pre-surgical visit [] Trauma [] Long length of stay [] ICU visit [] Other: Relational/Emotional Strength [] Patient feels connected with others/family/visitors/staff [] Distress [] Loneliness/isolation [] Abandonment Spirituality of Patient [] Person of Ciara [] Attends Shinto of their Ciara [] Believes in Prayer [] Reads Bible or Methodist materials [] There are Spiritual issues to be addressed Lab Aid Interventions [] Prayer [] Active listening [] Non-anxious presence [] Spiritual/emotional support [] Crisis/trauma care [] Spiritual counseling [] Bereavement support [] Provided bereavement packet [] Provided Bible/devotional materials [] Provided toy/stuffed animal, coloring book to patient or family member [] Provided Communion [] Anointing/[place] [] Salvation [] Completed spiritual assessment [] Other: Impact on Illness or Injury [] Angry [] Fearful [] Anxious [] Often cries [] Exhaustion [] Unable to work [] Unable to attend jehovah's witness [] Unable to walk/stand [] Unable to read [] Unable to drive [] Unable to eat/drink [] Unable to sleep [] Unable to be with family [] Patient intubated [] Other: Summary Time spent with patient
[2024-01-22 11:20] LABS: Glucose Point of Care 108 mg/dL (70-110)
[2024-01-22] MEDS: sodium chloride 0.9% 1,000 ML 75 ML IV (13:17)
--- NOTE | 2024-01-22 14:22 | P.PN_ITS ---
Subjective 2 Subjective: Patient was seen this morning, she is alert to person, place, not to time she does have word finding difficulty, continues to have unsteadiness on her feet, positive cerebellar signs, no facial droop no slurring of her words, she continues to have current plaints of pain in her left shoulder left elbow, denies any pain in her bottom, no hip pain, I did detailed discussion with her about her fracture her left humeral fracture she was transferred up to [facility] 2 months ago she is not exactly sure what happened there, we discussed her sacral insufficiency fractures, her pubic rami fracture, also involving the left acetabulum will do a CT of the pelvis to make sure that the left hip joint is not involved, we also discussed her elevated troponins, she denies any chest pain, discussed her stroke will continue PT OT, blood pressure management now and monitor closely she also has a UTI Vitals/I&O/Wt Last Vital Signs Temp 97.5 F L 01/22/24 12:12 Pulse 69 01/22/24 12:12 Resp 17 01/22/24 12:12 BP 118/64 01/22/24 12:12 Pulse Ox 94 01/22/24 12:12 O2 Del Method Room Air 01/22/24 12:12 01/21/24 01/22/24 01/22/24 22:59 06:59 14:59 Intake Total 60 / 60 450 / 510 1050 / 1050 Balance 60 / 60 450 / 510 1050 / 1050 Weight last 48 hrs Weight 76.742 kg Weight 68.606 kg Weight 79.832 kg Physical Exam 2 Const: COMMON NORMALS: no acute distress EXAM LIMITATIONS: altered mental status ORIENTATION/CONSCIOUSNESS: Yes awake, Yes oriented to person, Yes oriented to place and Yes confused; not oriented to time Resp: COMMON NORMALS: normal respiratory effort, No retractions, No use of accessory muscles and clear to auscultation bilaterally AUSCULTATION: clear to auscultation bilaterally Cardio: COMMON NORMALS: regular rate, regular rhythm, S1 normal heart sound present and S2 normal heart sound present RATE: regular rate RHYTHM: r egular rhythm HEART SOUNDS: S1 normal heart sound present and S2 normal heart sound present GI: COMMON NORMALS: Normal to inspection, nondistended, normoactive bowel sounds present and non-tender Extremity: COMMON NORMALS: no pedal edema Neuro: SENSORIUM/ORIENTATION: Yes oriented to person, Yes oriented to place and No oriented to time Psych: COMMON NORMALS: mental status grossly normal Skin: NARRATIVE SKIN EXAM: Left shoulder bruising Data 01/22/24 01:10 01/22/24 01:10 A&P Assessment and plan (1) Acute encephalopathy: (2) Acute CVA (cerebrovascular accident): (3) Left shoulder pain: (4) Left elbow pain: (5) CHRISTIANO (acute kidney injury): (6) Physical deconditioning: (7) Multiple falls: (8) Muscle wasting: (9) Protein calorie malnutrition: (10) NSTEMI (non-ST elevated myocardial infarction): (11) Hypokalemia: (12) UTI (urinary tract infection): (13) Humerus distal fracture: Qualifiers: Encounter type: initial encounter Fracture type: closed Fracture morphology: other fracture Fracture alignment: displaced Laterality: left Qualified Code(s): S42.492A - Other displaced fracture of lower end of left humerus, initial encounter for closed fracture (14) Pubic ramus fracture: (15) Sacral insufficiency fracture: (16) Closed fracture of symphysis pubis: (17) Fracture of anterior column of acetabulum: (18) Coronary artery disease: (19) Hypothyroidism: Plan Acute CVA, posterior circulation CT/CT head wo con* [id number] IMPRESSION: 1. Multiple subacute-chronic cerebellar infarcts, new since November 29, 2023. Consider correlation with MRI for further detail. 2 no intracranial hemorrhage. -NIH stroke scale 2, last known well normal potentially 4 days ago, out of window for tPA, ? Reviewed prior history she has had multiple falls in the last few months, recent ER visit in November for multiple falls and fracture of distal left humerus ? Positive cerebellar signs, multiple falls ? Plan ? Aspirin, Plavix, statin ? Telemetry monitoring ? Will allow for permissive hypertension monitor blood pressure closely ? Carotid artery ultrasound ? Does have a UTI, Rocephin ? Troponin series ivf Full code ? Lovenox for DVT prophylaxis Acute encephalopathy ? Secondary to acute CVA as above, also has UTI continue Rocephin Left shoulder bruising, left elbow pain ? History of left distal humeral fracture, back in November 2023, she was transferred to [facility] for surgical consideration after she sustained a fall, but I do not see that it was ever fixed or hardware was placed ? Spoke to Dr. Castro, continue medical management placed in a sling next?will request records from [facility] Multiple unwitnessed falls ? IMPRESSION: 1. LEFT inferior pubic ramus fracture with some evidence of callus formation. This appears subacute. 2. Additional subacute appearing fractures involving the anterior acetabulum with some evidence of healing. Additional tiny subacute fracture at the pubic symphysis. 3. Chronic appearing LEFT greater than RIGHT sacral sufficiency fractures with sclerosis. -Multiple fractures as above ? Plan ? PT OT ? Morphine for pain control Multiple falls ? PT OT, speech therapy eval, dietary eval, will keep n.p.o. until nurse dysphagia eval or speech therapy eval ? Will keep n.p.o. Hypothyroidism check TSH levothyroxine Protein calorie malnutrition, muscle wasting, physical deconditioning, PT OT likely will require nursing placement next Full code Lovenox for DVT prophylaxis Plan for today, ordered CT of the pelvis to rule out fracture involving the left hip, spoke to Dr. Barlow, spoke to nursing staff, spoke to patient, allowing for permissive hypertension, aspirin, Plavix, statin UTI on Rocephin Attestations 2 Medical Necessity Statement*: Patient requires hospitalization for acute CVA, cerebellar CVA, multiple falls multiple fractures sacral insufficiency fracture pubic rami fracture, pubic symphysis fracture, left distal humeral fracture acute encephalopathy UTI Diagnoses Acute encephalopathy G93.40 Acute CVA (cerebrovascular accident) I63.9 Left shoulder pain M25.512 Left elbow pain M25.522 CHRISTIANO (acute kidney injury) N17.9 Physical deconditioning R53.81 Multiple falls R29.6 Muscle wasting M62.50 Protein calorie malnutrition E46 NSTEMI (non-ST elevated myocardial infarction) I21.4 Hypokalemia E87.6 UTI (urinary tract infection) N39.0 Other closed displaced fracture of distal end of left humerus, initial encounter S42.492A Encounter type: initial encounter Fracture type: closed Fracture morphology: other fracture Fracture alignment: displaced Laterality: left Pubic ramus fracture S32.599A Sacral insufficiency fracture M84.48XA Closed fracture of symphysis pubis S32.599A Fracture of anterior column of acetabulum S32.433A Coronary artery disease I25.10 Hypothyroidism E03.9
[2024-01-22] MEDS: enoxaparin 40 mg/0.4 mL Syringe SUBCUT (20:27)
[2024-01-22] MEDS: pantoprazole 40 mg SDV IVP (20:28)
[2024-01-22] MEDS: citalopram 20 mg Tablet PO (20:30)
[2024-01-22] MEDS: buPROPion XL (24 HR) 150 mg Tablet PO (20:30)
[2024-01-22 20:38] LABS: Glucose Point of Care 128 mg/dL (70-110)
[2024-01-23] VITALS (10 sets, daily range): BP systolic 110–137; BP diastolic 60–72; PULSE 66–96; RESP 16–19; TEMP 36.6–36.8; O2SAT 92–97
[2024-01-23] MEDS: sodium chloride 0.9% 1,000 ML 75 ML IV ×2 (02:20→16:42)
--- NOTE | 2024-01-23 02:27 | PC.NURSE ---
Patient has removed arm sling x2. Arm sling has been reapplied. Patient educated to leave arm sling on.
[2024-01-23] MEDS: morphine 4 mg/mL SDV 1 mL 2 MG IVP (02:30)
[2024-01-23] MEDS: acetaminophen 325 mg Tablet 650 MG PO ×2 (03:34→16:45)
[2024-01-23 05:36] LABS: Anion Gap 16.6 (5-19); Blood Urea Nitrogen 20 mg/dL (8-23); Calcium 8.3 mg/dL (8.5-10.5); Carbon Dioxide 26 mmol/L (22-29); Chloride 99 mmol/L (98-107); Creatinine Clr Calc Pharmacy 58.3001; Glucose 114 mg/dL (65-115); Osmolality Calculated 289 mOsm/kg (285-295); Potassium 3.6 mmol/L (3.5-5.1); Sodium 138 mmol/L (136-145)
[2024-01-23] MEDS: levothyroxine 200 mcg Tablet PO (06:17)
[2024-01-23 06:27] LABS: Glucose Point of Care 107 mg/dL (70-110)
--- NOTE | 2024-01-23 08:21 | PC.SOCIAL ---
Pg 2 IMM. Explained to pt Pg 2 IMM. No questions voiced. Provided pt a copy. Initialed, dated, & timed a copy & placed in chart.
[2024-01-23] MEDS: cefTRIAXone 1,000 MG in sodium chloride 0.9% (plus) 50 ML 100 MG IV (08:41)
[2024-01-23] MEDS: clopidogrel 75 mg Tablet PO (08:42)
[2024-01-23] MEDS: aspirin 81 mg EC Tablet PO (08:42)
[2024-01-23] MEDS: atorvastatin 40 mg Tablet 80 MG PO (08:42)
[2024-01-23 11:10] LABS: Glucose Point of Care 129 mg/dL (70-110)
--- NOTE | 2024-01-23 13:27 | P.PN_ITS ---
Subjective 2 Subjective: Patient was seen this morning she is alert to person, to place and not to time, we discussed going to a prison facility she is agreeable, however she is worried about her cats at home, she continues to be very unsteady on her feet continues to have intermittent word finding difficulty but does follow commands, today cannot discern any focal weakness, no slurring words no facial droop Vitals/I&O/Wt Last Vital Signs Temp 98.1 F 01/23/24 11:54 Pulse 84 01/23/24 11:54 Resp 16 01/23/24 11:54 BP 121/60 01/23/24 11:54 Pulse Ox 96 01/23/24 11:54 O2 Del Method Room Air 01/23/24 11:54 01/22/24 01/23/24 01/23/24 22:59 06:59 14:59 Intake Total 1218.75 / 2268.75 50 / 50 Balance 1218.75 / 2268.75 50 / 50 Weight last 48 hrs Weight 77.252 kg Weight 76.742 kg Weight 68.606 kg Weight 79.832 kg Physical Exam 2 Const: COMMON NORMALS: no acute distress ORIENTATION/CONSCIOUSNESS: Yes awake, Yes oriented to person and Yes oriented to place; not oriented to time Resp: COMMON NORMALS: normal respiratory effort, No retractions, No use of accessory muscles and clear to auscultation bilaterally AUSCULTATION: clear to auscultation bilaterally Cardio: COMMON NORMALS: regular rate, regular rhythm, S1 normal heart sound present and S2 normal heart sound present RATE: regular rate RHYTHM: r egular rhythm HEART SOUNDS: S1 normal heart sound present and S2 normal heart sound present GI: COMMON NORMALS: Normal to inspection, nondistended, normoactive bowel sounds present and non-tender Extremity: COMMON NORMALS: no pedal edema Neuro: SENSORIUM/ORIENTATION: Yes oriented to person, Yes oriented to place and No oriented to time Data 01/22/24 01:10 01/23/24 04:48 Micro: Microbiology 01/21/24 17:50 Urine Culture - Preliminary Urine,Clean Catch Gram Negative Rods A&P Assessment and plan (1) Acute encephalopathy: (2) Acute CVA (cerebrovascular accident): (3) Left shoulder pain: (4) Left elbow pain: (5) CHRISTIANO (acute kidney injury): (6) Physical deconditioning: (7) Multiple falls: (8) Muscle wasting: (9) Protein calorie malnutrition: (10) NSTEMI (non-ST elevated myocardial infarction): (11) Hypokalemia: (12) UTI (urinary tract infection): (13) Humerus distal fracture: Qualifiers: Encounter type: initial encounter Fracture type: closed Fracture morphology: other fracture Fracture alignment: displaced Laterality: left Qualified Code(s): S42.492A - Other displaced fracture of lower end of left humerus, initial encounter for closed fracture (14) Pubic ramus fracture: (15) Sacral insufficiency fracture: (16) Closed fracture of symphysis pubis: (17) Fracture of anterior column of acetabulum: (18) Coronary artery disease: (19) Hypothyroidism: Plan Acute CVA, posterior circulation CT/CT head wo con* [id number] IMPRESSION: 1. Multiple subacute-chronic cerebellar infarcts, new since November 29, 2023. Consider correlation with MRI for further detail. 2 no intracranial hemorrhage. -NIH stroke scale 2, last known well normal potentially 4 days ago, out of window for tPA, ? Reviewed prior history she has had multiple falls in the last few months, recent ER visit in November for multiple falls and fracture of distal left humerus ? Positive cerebellar signs, multiple falls ? Plan ? Aspirin, Plavix, statin ? Telemetry monitoring ? monitor blood pressure closely ? Carotid artery ultrasound within normal limits ? Does have a UTI, Rocephin Full code ? Lovenox for DVT prophylaxis Acute encephalopathy ? Secondary to acute CVA as above, also has UTI continue Rocephin Left shoulder bruising, left elbow pain ? History of left distal humeral fracture, back in November 2023, she was transferred to [facility] for surgical consideration after she sustained a fall, but I do not see that it was ever fixed or hardware was placed ? Spoke to Dr. Castro, continue medical management placed in a sling next?will request records from [facility] Multiple unwitnessed falls ? IMPRESSION: 1. LEFT inferior pubic ramus fracture with some evidence of callus formation. This appears subacute. 2. Additional subacute appearing fractures involving the anterior acetabulum with some evidence of healing. Additional tiny subacute fracture at the pubic symphysis. 3. Chronic appearing LEFT greater than RIGHT sacral sufficiency fractures with sclerosis. -Multiple fractures as above ? Plan ? PT OT ? Morphine for pain control Multiple falls ? PT OT, speech therapy eval, dietary eval, will keep n.p.o. until nurse dysphagia eval or speech therapy eval ? Will keep n.p.o. Hypothyroidism check TSH levothyroxine Protein calorie malnutrition, muscle wasting, physical deconditioning, PT OT likely will require nursing placement next Full code Lovenox for DVT prophylaxis Plan for today, continue PT OT, continue to monitor clinically, aspirin, statin, Plavix, continue Rocephin for UTI, pain control Attestations 2 Medical Necessity Statement*: Patient requires hospitalization for acute CVA cerebellar stroke with multiple fractures, UTI severe deconditioning Diagnoses Acute encephalopathy G93.40 Acute CVA (cerebrovascular accident) I63.9 Left shoulder pain M25.512 Left elbow pain M25.522 CHRISTIANO (acute kidney injury) N17.9 Physical deconditioning R53.81 Multiple falls R29.6 Muscle wasting M62.50 Protein calorie malnutrition E46 NSTEMI (non-ST elevated myocardial infarction) I21.4 Hypokalemia E87.6 UTI (urinary tract infection) N39.0 Other closed displaced fracture of distal end of left humerus, initial encounter S42.492A Encounter type: initial encounter Fracture type: closed Fracture morphology: other fracture Fracture alignment: displaced Laterality: left Pubic ramus fracture S32.599A Sacral insufficiency fracture M84.48XA Closed fracture of symphysis pubis S32.599A Fracture of anterior column of acetabulum S32.433A Coronary artery disease I25.10 Hypothyroidism E03.9
[2024-01-23 17:02] LABS: Glucose Point of Care 124 mg/dL (70-110)
[2024-01-23 20:28] LABS: Glucose Point of Care 140 mg/dL (70-110)
[2024-01-23] MEDS: citalopram 20 mg Tablet PO (20:43)
[2024-01-23] MEDS: enoxaparin 40 mg/0.4 mL Syringe SUBCUT (20:43)
[2024-01-23] MEDS: buPROPion XL (24 HR) 150 mg Tablet PO (20:43)
[2024-01-23] MEDS: pantoprazole 40 mg SDV IVP (20:43)
[2024-01-24 04:00] VITALS: BP 127/81; PULSE 72; RESP 18; TEMP 36.7; O2SAT 96
[2024-01-24 05:35] LABS: Anion Gap 13.9 (5-19); Blood Urea Nitrogen 14 mg/dL (8-23); Calcium 8.2 mg/dL (8.5-10.5); Carbon Dioxide 25 mmol/L (22-29); Chloride 104 mmol/L (98-107); Creatinine Clr Calc Pharmacy 58.3001; Glucose 118 mg/dL (65-115); Osmolality Calculated 292 mOsm/kg (285-295); Sodium 140 mmol/L (136-145)
[2024-01-24 05:46] LABS: Potassium 2.9 mmol/L (3.5-5.1)
[2024-01-24] MEDS: sodium chloride 0.9% 1,000 ML 75 ML IV (05:59)
[2024-01-24] MEDS: levothyroxine 200 mcg Tablet PO (06:00)
[2024-01-24] MEDS: potassium chloride ER 20 mEq Tablet 60 MEQ PO (06:30)
[2024-01-24 06:32] LABS: Glucose Point of Care 126 mg/dL (70-110)
[2024-01-24 08:00] VITALS: BP 156/66; PULSE 80; RESP 16; TEMP 36.9; O2SAT 94
[2024-01-24] MEDS: aspirin 81 mg EC Tablet PO (08:15)
[2024-01-24] MEDS: clopidogrel 75 mg Tablet PO (08:15)
[2024-01-24] MEDS: acetaminophen 325 mg Tablet 650 MG PO (08:15)
[2024-01-24] MEDS: atorvastatin 40 mg Tablet 80 MG PO (08:15)
[2024-01-24 09:02] LABS: SARS Covid-2 Antigen negative (Negative)
[2024-01-24] MEDS: cefTRIAXone 1,000 MG in sodium chloride 0.9% (plus) 50 ML 100 MG IV (09:04)
--- NOTE | 2024-01-24 10:34 | CT_ITS ---
WS: [id number] CT HEAD TECHNIQUE: Noncontrast CT of the head obtained from the skullbase to the vertex. CLINICAL INFORMATION: recent cva COMPARISON: CT 01/21/2024 DLP: 1047.[address] scans at [facility] use at least one of these dose optimization techniques: automated e xposure control; mA and/or kV adjustment per patient size (includes targeted exams where dose is matc hed to clinical indication); or iterative reconstruction. FINDINGS: No evidence of intracranial hemorrhage. Multiple subacute to chronic bilateral cerebellar infarcts wi th low-attenuation changes similar in appearance to 01/21/2024 without significant change. Fourth vent ricle remains patent. Mild small vessel changes. Mild parenchymal volume loss. Intracranial vascular calcification. Mucosal thickening in the ethmoid air cells. No other significant changes. IMPRESSION: 1. No evidence of intracranial hemorrhage. 2. Similar-appearing numerous subacute to early chronic bilateral cerebellar infarcts appear stable compared to previous. This could be followed up with MRI. 3. Mild small vessel changes. Mild parenchymal volume loss. 4. Intracranial vascular calcification..
[2024-01-24 11:18] LABS: Glucose Point of Care 113 mg/dL (70-110)
[2024-01-24 12:00] VITALS: BP 134/75; PULSE 87; RESP 18; TEMP 36.6; O2SAT 98
--- NOTE | 2024-01-24 14:34 | P.PN_ITS ---
Subjective 2 Subjective: Patient was seen this morning, she is alert to person, to place, not to time, at times she does have word finding difficulty, intermittent slurring her words, slightly more pronounced today, she can answer most questions appropriately she is worried about her cats at home, if she goes to halfway facility, on examination I cannot discern any focal weakness, her left hand is in a sling, [id number] is about the same compared to when she came in, pupils equal round reactive to light, no facial droop no facial numbness no lower extremity or upper extremity numbness, Vitals/I&O/Wt Last Vital Signs Temp 97.8 F 01/24/24 12:00 Pulse 87 01/24/24 12:00 Resp 18 01/24/24 12:00 BP 134/75 01/24/24 12:00 Pulse Ox 98 01/24/24 12:00 O2 Del Method Room Air 01/24/24 04:00 01/23/24 01/24/24 01/24/24 22:59 06:59 14:59 Intake Total 1000 / 1050 996.25 / 2046.25 980 / 980 Balance 1000 / 1050 996.25 / 2046.25 980 / 980 Weight last 48 hrs Weight 79.407 kg Weight 77.252 kg Physical Exam 2 Const: COMMON NORMALS: no acute distress ORIENTATION/CONSCIOUSNESS: Yes awake, Yes oriented to person and Yes oriented to place; not oriented to time Resp: COMMON NORMALS: normal respiratory effort, No retractions, No use of accessory muscles and clear to auscultation bilaterally AUSCULTATION: clear to auscultation bilaterally Cardio: COMMON NORMALS: regular rate, regular rhythm, S1 normal heart sound present and S2 normal heart sound present RATE: regular rate RHYTHM: r egular rhythm HEART SOUNDS: S1 normal heart sound present and S2 normal heart sound present GI: COMMON NORMALS: Normal to inspection, nondistended, normoactive bowel sounds present and non-tender Extremity: COMMON NORMALS: no pedal edema Neuro: COMMON NORMALS: CN's II-XII intact bilaterally, moves all extremities and no focal motor deficits SENSORIUM/ORIENTATION: Yes oriented to person, Yes oriented to place and No oriented to time OTHER: No facial droop, does have word finding difficulty at times, intermittent slurring of words, does have positive cerebellar signs, Psych: COMMON NORMALS: mental status grossly normal Data 01/22/24 01:10 01/24/24 04:47 Micro: Microbiology 01/21/24 17:50 Urine Culture - Preliminary Urine,Clean Catch Escherichia coli A&P Assessment and plan (1) Acute encephalopathy: (2) Acute CVA (cerebrovascular accident): (3) Left shoulder pain: (4) Left elbow pain: (5) CHRISTIANO (acute kidney injury): (6) Physical deconditioning: (7) Multiple falls: (8) Muscle wasting: (9) Protein calorie malnutrition: (10) NSTEMI (non-ST elevated myocardial infarction): (11) Hypokalemia: (12) UTI (urinary tract infection): (13) Humerus distal fracture: Qualifiers: Encounter type: initial encounter Fracture type: closed Fracture morphology: other fracture Fracture alignment: displaced Laterality: left Qualified Code(s): S42.492A - Other displaced fracture of lower end of left humerus, initial encounter for closed fracture (14) Pubic ramus fracture: (15) Sacral insufficiency fracture: (16) Closed fracture of symphysis pubis: (17) Fracture of anterior column of acetabulum: (18) Coronary artery disease: (19) Hypothyroidism: Plan Acute CVA, posterior circulation CT/CT head wo con* [id number] IMPRESSION: 1. Multiple subacute-chronic cerebellar infarcts, new since November 29, 2023. Consider correlation with MRI for further detail. 2 no intracranial hemorrhage. -NIH stroke scale 2, last known well normal potentially 4 days ago, out of window for tPA, ? Reviewed prior history she has had multiple falls in the last few months, recent ER visit in November for multiple falls and fracture of distal left humerus ? Positive cerebellar signs, multiple falls ? Plan ? Aspirin, Plavix, statin ? Telemetry monitoring ? monitor blood pressure closely ? Carotid artery ultrasound within normal limits ? Does have a UTI, Rocephin -Today has more word finding difficulties, slight slurring of words, no facial droop, no focal weakness, will repeat head CT order MRI of the brain Full code ? Lovenox for DVT prophylaxis Acute encephalopathy ? Secondary to acute CVA as above, also has UTI continue Rocephin Left shoulder bruising, left elbow pain ? History of left distal humeral fracture, back in November 2023, she was transferred to [facility] for surgical consideration after she sustained a fall, but I do not see that it was ever fixed or hardware was placed ? Spoke to Dr. Castro, continue medical management placed in a sling next?will request records from [facility] Multiple unwitnessed falls ? IMPRESSION: 1. LEFT inferior pubic ramus fracture with some evidence of callus formation. This appears subacute. 2. Additional subacute appearing fractures involving the anterior acetabulum with some evidence of healing. Additional tiny subacute fracture at the pubic symphysis. 3. Chronic appearing LEFT greater than RIGHT sacral sufficiency fractures with sclerosis. -Multiple fractures as above ? Plan ? PT OT ? Morphine for pain control Multiple falls ? PT OT, speech therapy eval, dietary eval, will keep n.p.o. until nurse dysphagia eval or speech therapy eval ? Will keep n.p.o. Hypothyroidism check TSH levothyroxine Protein calorie malnutrition, muscle wasting, physical deconditioning, PT OT likely will require nursing placement next Full code Lovenox for DVT prophylaxis Plan for today, patient does have more word finding difficulty, slight slurring of her words, no facial droop or focal weakness, continues to have cerebellar signs, her NIH stroke scale compared to prior would probably be 1 today, does not meet criteria for tPA, but will do repeat head CT, MRI of the brain Attestations 2 Medical Necessity Statement*: Patient requires hospitalization for CVA, worsening of some of her stroke symptoms, requiring further head CT, MRI of the brain, inpatient monitoring Diagnoses Acute encephalopathy G93.40 Acute CVA (cerebrovascular accident) I63.9 Left shoulder pain M25.512 Left elbow pain M25.522 CHRISTIANO (acute kidney injury) N17.9 Physical deconditioning R53.81 Multiple falls R29.6 Muscle wasting M62.50 Protein calorie malnutrition E46 NSTEMI (non-ST elevated myocardial infarction) I21.4 Hypokalemia E87.6 UTI (urinary tract infection) N39.0 Other closed displaced fracture of distal end of left humerus, initial encounter S42.492A Encounter type: initial encounter Fracture type: closed Fracture morphology: other fracture Fracture alignment: displaced Laterality: left Pubic ramus fracture S32.599A Sacral insufficiency fracture M84.48XA Closed fracture of symphysis pubis S32.599A Fracture of anterior column of acetabulum S32.433A Coronary artery disease I25.10 Hypothyroidism E03.9
[2024-01-24 16:00] VITALS: BP 131/75; PULSE 78; RESP 16; TEMP 36.8; O2SAT 94
[2024-01-24 16:38] LABS: Glucose Point of Care 136 mg/dL (70-110)
[2024-01-24 20:00] VITALS: BP 132/74; PULSE 77; RESP 17; TEMP 36.9; O2SAT 96
[2024-01-24] MEDS: enoxaparin 40 mg/0.4 mL Syringe SUBCUT (20:07)
[2024-01-24] MEDS: citalopram 20 mg Tablet PO (20:07)
[2024-01-24] MEDS: pantoprazole 40 mg SDV IVP (20:07)
[2024-01-24] MEDS: buPROPion XL (24 HR) 150 mg Tablet PO (20:07)
[2024-01-24 21:13] LABS: Glucose Point of Care 139 mg/dL (70-110)
[2024-01-24 22:29] VITALS: PULSE 75
[2024-01-25] VITALS: BP 134/73; PULSE 76; RESP 18; TEMP 36.8; O2SAT 96
[2024-01-25 04:00] VITALS: BP 134/66; PULSE 70; RESP 17; TEMP 36.8; O2SAT 97
[2024-01-25 05:10] VITALS: PULSE 67
[2024-01-25] MEDS: levothyroxine 200 mcg Tablet PO (05:44)
[2024-01-25 06:02] LABS: Anion Gap 13.9 (5-19); Blood Urea Nitrogen 8 mg/dL (8-23); Calcium 8.5 mg/dL (8.5-10.5); Carbon Dioxide 25 mmol/L (22-29); Chloride 106 mmol/L (98-107); Creatinine Clr Calc Pharmacy 58.8191; Glucose 118 mg/dL (65-115); Osmolality Calculated 293 mOsm/kg (285-295); Sodium 142 mmol/L (136-145)
[2024-01-25 06:21] LABS: Potassium 2.9 mmol/L (3.5-5.1)
[2024-01-25 06:31] LABS: Glucose Point of Care 135 mg/dL (70-110)
[2024-01-25] MEDS: haloperidol inj 5 mg/mL INJ 1 mL 1 MG IM (08:06)
[2024-01-25] MEDS: cefTRIAXone 1,000 MG in sodium chloride 0.9% (plus) 50 ML 100 MG IV (09:10)
--- NOTE | 2024-01-25 09:24 | PC.SOCIAL ---
IMM Updated Updated pt on IMM. No questions voiced. Provided pt a copy. Initialed, dated, & timed copy in chart.
--- NOTE | 2024-01-25 09:25 | PC.CHAP ---
Pastoral Care Encounter/Spiritual Assessment Type of Contact [] Declined manager leadership development visit [] Patient/Family/Request visit [] Outpatient visit [] Follow-up visit [] Physician referral [] Code/Alert [x] Routine visit [] Staff referral [] Actively dying [] Patient sleeping [] Family support [] [] Out of room [] Palliative care [] [] Receiving care in room [] Pre-surgical visit [] Trauma [] Long length of stay [] ICU visit [] Other: Relational/Emotional Strength [] Patient feels connected with others/family/visitors/staff [x] Distress [x] Loneliness/isolation [] Abandonment Spirituality of Patient [] Person of Ciara [] Attends Moravian of their Ciara [x] Believes in Prayer [] Reads Bible or Jew materials [] There are Spiritual issues to be addressed Draw String Knotter Interventions [x] Prayer [x] Active listening [x] Non-anxious presence x[x] Spiritual/emotional support [] Crisis/trauma care [] Spiritual counseling [] Bereavement support [] Provided bereavement packet [] Provided Bible/devotional materials [] Provided toy/stuffed animal, coloring book to patient or family member [] Provided Communion [] Anointing/[place] [] Salvation [x] Completed spiritual assessment [] Other: Impact on Illness or Injury [] Angry [] Fearful [] Anxious [] Often cries [] Exhaustion [] Unable to work [] Unable to attend nondenominational [] Unable to walk/stand [] Unable to read [] Unable to drive [] Unable to eat/drink [] Unable to sleep [] Unable to be with family [] Patient intubated [] Other: Summary Time spent with patient 5 min
[2024-01-25] MEDS: lidocaine 1% 5 ML in potassium chloride premix 100 ML 22 ML IV (10:33)
[2024-01-25] MEDS: quetiapine 25 mg Tablet 50 MG PO (10:34)
[2024-01-25 11:14] LABS: Glucose Point of Care 130 mg/dL (70-110)
--- NOTE | 2024-01-25 11:37 | PM.DCS ---
Discharge Providers Date of Admission: 01/21/24 19:46 Date of Discharge: January 25, 2024 Attending Provider at Admission: Carlos Alberto Birmingham MD Attending Provider at Discharge: Carlos Alberto Birmingham MD Primary Care Provider: David Hannah MD Diagnoses at Discharge Discharge Diagnosis (1) Acute encephalopathy: Status: Acute (2) Acute CVA (cerebrovascular accident): Status: Acute (3) Left shoulder pain: Status: Acute (4) Left elbow pain: Status: Acute (5) CHRISTIANO (acute kidney injury): Status: Acute (6) Physical deconditioning: Status: Acute (7) Multiple falls: Status: Acute (8) Muscle wasting: Status: Acute (9) Protein calorie malnutrition: Status: Acute (10) NSTEMI (non-ST elevated myocardial infarction): Status: Acute (11) Hypokalemia: Status: Acute (12) UTI (urinary tract infection): Status: Acute (13) Humerus distal fracture: Status: Acute Qualifiers: Encounter type: initial encounter Fracture alignment: displaced Fracture morphology: other fracture Fracture type: closed Laterality: left Qualified Code(s): S42.492A - Other displaced fracture of lower end of left humerus, initial encounter for closed fracture Permanent problem details: -Noted comminuted fracture with displacement involving the junction of the mid and distal third of the humerus on CT -splinted per Dr. Castro; custom splint and brace placed -pain control as needed -PT/OT evaluations when appropriate -Ortho consult by Dr. Castro appreciated; non-surgical management per patient preference (14) Pubic ramus fracture: Status: Acute (15) Sacral insufficiency fracture: Status: Acute (16) Closed fracture of symphysis pubis: Status: Acute (17) Fracture of anterior column of acetabulum: Status: Acute (18) Coronary artery disease: Status: Acute (19) Hypothyroidism: Status: Acute Reason for Visit Reason for Visit: AMS Hospital Course Hospital Course Chip Guerrero is a 78 year old female With a past medical history of hypertension hyperlipidemia hypothyroidism, who presents to [facility] status, current falls due to altered altered mental status, recurrent falls, currently patient is alert to person, not to place, to time she can follow commands I cannot see any facial droop no slurring her words she does not have any focal neurologic deficits no focal weakness but does have gross positive cerebellar signs and has a significant bruising and hematoma over the left shoulder. When asked her why she is here in the hospital she tells me because her neighbor brought her in here, because she fell 4 days ago. She does not remember the events of the last few days, but tells me she fell 4 days ago does not remember how she fell or why she fell she does not think she hit her head but denies any headache, no blurry vision no neck pain her left shoulder and left elbow do as hurt her. No neck pain, no back pain no hip pain. positive cerbellar sign on left, she prefers not to move left elbow and shoulder due to pain She tells me that she is fallen a lot, her neighbor Leti, checked up on her and found her on the floor she tells me. She does not have any family, her daughter lives in [facility], and they have not talked in years, I cannot notice any slurring of words, no facial droop, she does at times have word finding difficulty, her NIH stroke scale is 2, she is out of the tPA window her last known well normal is unknown potentially 4 days ago she has received aspirin in the emergency room, she denies any dysuria, she denies a prior history of strokes, patient did present to the emergency room in November with complaints of multiple falls had a humeral fracture which was medically managed, Patient was admitted to [facility] for acute CVA, posterior circulation stroke, with multiple subacute to chronic cerebellar infarcts, NIH stroke scale 2, out of tPA window, she patient has had multiple ER visits for multiple falls, on examination multiple cerebellar signs, multiple to pull fall history, with intermittent word finding difficulty admitted for acute CVA status post aspirin, Plavix, statin, carotid artery ultrasound within normal limits, during her hospitalization her word finding difficulty did worsen at times she had intermittent slurring of her words, repeat head CT was within normal limits. She will be discharged to alf facility on aspirin, Plavix, statin, on discharge she is alert to person, to place, not to time she follows all commands has intermittent word finding difficulty, continues to have significant unsteadiness on her feet, can ambulate 5 steps, discharged with close follow-up with neurology On discharge patient is alert to person, to place, not to time she follows all commands no focal neurologic deficits, no visual field deficits, no facial droop, continues to have positive cerebellar signs bilaterally, intermittent word finding difficulty, no slurring of words that I can ascertain Acute encephalopathy multifactorial from acute CVA UTI completed Rocephin as inpatient Patient had multiple unwitnessed falls Left shoulder bruising, left elbow pain ? History of left distal humeral fracture, back in November 2023, she was transferred to [facility] for surgical consideration after she sustained a fall, but I do not see that it was ever fixed or hardware was placed, placed in a sling ? Spoke to Dr. Castro, continue medical management placed in a sling next ?will request records from [facility],Patient did not have the capacity to sign for medical release for records from [facility], no immediate family members, I also spoke to [facility] to see if they were willing to at least tell me what had happened or the orthopedic physician that patient saw wall she was hospitalized in [place] in November however he would not release that information to me thus for now I will just continue to medically manage, keep patient in a sling until patient can give us consent to release medical records so we can get some information from [facility] Multiple unwitnessed falls ? IMPRESSION: 1. LEFT inferior pubic ramus fracture with some evidence of callus formation. This appears subacute. 2. Additional subacute appearing fractures involving the anterior acetabulum with some evidence of healing. Additional tiny subacute fracture at the pubic symphysis. 3. Chronic appearing LEFT greater than RIGHT sacral sufficiency fractures with sclerosis. -Multiple fractures as above -Continue PT OT, hydrocodone for pain control, discharge to alf facility Physical Exam Const: COMMON NORMALS: no acute distress and patient oriented x3 Resp: COMMON NORMALS: normal respiratory effort, No retractions, No use of accessory muscles and clear to auscultation bilaterally AUSCULTATION: clear to auscultation bilaterally Cardio: COMMON NORMALS: regular rate, regular rhythm, S1 normal heart sound present and S2 normal heart sound present RATE: regular rate RHYTHM: regular rhythm HEART SOUNDS: S1 normal heart sound present and S2 normal heart sound present GI: COMMON NORMALS: Normal to inspection, nondistended, normoactive bowel sounds present and non-tender Extremity: COMMON NORMALS: no pedal edema Neuro: COMMON NORMALS: patient oriented x3 Psych: COMMON NORMALS: mental status grossly normal Discharge Data Studies Completed and Pending Completed Studies During Hospitalization Category Date Time Status CT cervical spin wo con* [id number] Stat Cat Scan 01/21/24 18:[address] head wo con* [id number] Stat Cat Scan 01/21/24 16:[address] head wo con* [id number] Stat Cat Scan 01/24/24 10:[address] pelvis wo con [id number] Routine Cat Scan 01/22/24 09:07 Completed XR chest 1V portable [id number] Stat Exams 01/21/24 16:49 Completed XR elbow LT 2V [id number] Stat Exams 01/21/24 18:11 Completed XR hip BI 2V wo/w pel [id number] Stat Exams 01/21/24 18:11 Completed XR shoulder LT min 2V* [id number] Stat Exams 01/21/24 18:11 Completed CV carotid duplex BI* [id number] Stat Ultrasound 01/21/24 18:11 Completed CV. echo complete* [id number] Stat Ultrasound 01/21/24 18:11 Completed Pending at discharge Category Date Time Status MR head wo con* [id number] Routine MRI 01/25/24 09:30 Ordered Radiology Impressions Chest X-Ray 01/21/24 16:49 IMPRESSION: 1. No acute cardiopulmonary abnormality. 2. 8 mm opacity in the mid right lung, possibly a calcified granuloma. Consider correlation with CT to exclude a noncalcified nodule. Cervical Spine CT 01/21/24 18:11 IMPRESSION: 1. No evidence of acute fracture or subluxation of the cervical spine. 2. Chronic C7 vertebral body compression/burst fracture. Elbow X-Ray 01/21/24 18:11 IMPRESSION: 1. Deformity of the distal humerus, at least a component of which is chronic though an acute on chronic fracture is difficult to exclude. Consider correlation with CT for further detail. Hip/Pelvis X-Ray 01/21/24 18:11 IMPRESSION: 1. Subacute minimally displaced fractures of the inferior pubic ramus and left acetabulum. Correlation with CT is recommended. Shoulder X-Ray 01/21/24 18:11 IMPRESSION: 1. Acute comminuted displaced fracture of the distal left humerus. 2. Multiple left-sided rib fractures, age-indeterminate. Acute fractures would be difficult to exclude. Laboratory Results WBC 7.12 10^3/uL (3.29-11.43) 01/22/24 01:10 RBC 3.54 10^6/uL (3.85-5.65) L 01/22/24 01:10 Hgb 10.20 g/dL (11.27-16.99) L 01/22/24 01:10 Hct 32.4 % (36-47) L 01/22/24 01:10 MCV 91.5 fl (85-98) 01/22/24 01:10 MCH 28.8 pg (27-33) 01/22/24 01:10 MCHC 31.5 g/dL (30-55) 01/22/24 01:10 RDW 15.4 % (12.1-15.1) H 01/22/24 01:10 Plt Count 276 10^3/cmm (157-399) 01/22/24 01:10 MPV 10.3 fL (7.4-10.4) 01/22/24 01:10 Neut % (Auto) 68.9 % 01/22/24 01:10 Lymph % (Auto) 20.5 % 01/22/24 01:10 [place] % (Auto) 9.3 % 01/22/24 01:10 Eos % (Auto) 0.6 % 01/22/24 01:10 Baso % (Auto) 0.4 % 01/22/24 01:10 Neut # (Auto) 4.91 10^3/uL (1.8-7.7) 01/22/24 01:10 Lymph # (Auto) 1.5 10^3/uL (0.8-4.8) 01/22/24 01:10 [place] # (Auto) 0.7 10^3/uL (0.2-0.9) 01/22/24 01:10 Eos # (Auto) 0.0 10^3/uL (0.0-0.8) 01/22/24 01:10 Baso # (Auto) 0.0 10^3/uL (0.0-0.1) 01/22/24 01:10 Nucleated RBC % (auto) 0 % 01/22/24 01:10 Nucleated RBCs # 0.0 /100WBC 01/22/24 01:10 PT 13.80 SECONDS (12.1-14.9) 01/22/24 01:10 INR 1.03 (0.8-1.2) 01/22/24 01:10 Sodium 142 mmol/L (136-145) 01/25/24 04:50 Potassium 2.9 mmol/L (3.5-5.1) L 01/25/24 04:50 Chloride 106 mmol/L (98-107) 01/25/24 04:50 Carbon Dioxide 25 mmol/L (22-29) 01/25/24 04:50 Anion Gap 13.9 (5-19) 01/25/24 04:50 BUN 8 mg/dL (8-23) 01/25/24 04:50 Creatinine 0.7 mg/dL (0.5-0.9) 01/25/24 04:50 GFR Calculation Not Reportable 01/25/24 04:50 Glucose 118 mg/dL (65-115) H 01/25/24 04:50 POC Glucose 130 mg/dL (70-110) H 01/25/24 11:08 Estimat Average Glucose 131 01/22/24 01:10 Hemoglobin A1c 6.2 % (4.0-6.0) H 01/22/24 01:10 Calculated Osmolality 293 mOsm/kg (285-295) 01/25/24 04:50 Calcium 8.5 mg/dL (8.5-10.5) 01/25/24 04:50 Phosphorus 3.7 mg/dL (2.5-4.5) 01/22/24 01:10 Magnesium 2.2 mg/dL (1.7-2.3) 01/22/24 01:10 Total Bilirubin 0.3 mg/dL (0.15-1.2) 01/22/24 01:10 AST 17 U/L (0-32) 01/22/24 01:10 ALT 11 U/L (0-33) 01/22/24 01:10 Alkaline Phosphatase 222 U/L (35-105) H 01/22/24 01:10 Ammonia 19 umol/L (11-51) 01/21/24 19:43 Creatine Kinase 162 U/L (26-192) 01/21/24 16:58 Troponin T Baseline 115 ng/L (0-10) H* 01/21/24 19:43 Troponin T 120 Minute 125.0 ng/L (0-10) H 01/21/24 20:50 Delta Troponin T 10.0 ABS# (0-10) 01/21/24 20:50 Troponin T Hi Sens 6Hr 130.8 ng/L (0-10) H 01/22/24 01:10 Troponin T Hi Sens 6Hr Delta 15.8 ng/L (0-12) H* 01/22/24 01:10 NT-Pro-B Natriuret Pep 371 pg/mL (0-450) 01/21/24 19:43 Total Protein 7.5 g/dL (6.6-8.7) 01/22/24 01:10 Albumin 4.2 g/dL (3.5-5.2) 01/22/24 01:10 Globulin 3.3 g/dL (1.3-4.6) 01/22/24 01:10 Triglycerides 205 mg/dL (0-150) H 01/22/24 01:10 Cholesterol 198 mg/dL (0-200) 01/22/24 01:10 LDL Cholesterol, Calc 121 mg/dL (50-129) 01/22/24 01:10 HDL Cholesterol 36 mg/dL (60-100) L 01/22/24 01:10 LDL/HDL Ratio 3.36 RATIO (0.00-3.22) H 01/22/24 01:10 Cholesterol/HDL Ratio 5.50 mg/dL (0.0-4.40) H 01/22/24 01:10 Procalcitonin 0.06 ng/mL (0-0.5) 01/21/24 19:43 TSH 1.71 uIU/mL (0.27-4.20) 01/21/24 19:43 Urine Color Straw (Yellow) 01/21/24 17:50 Urine Appearance Sl hazy (CLEAR) A 01/21/24 17:50 Urine pH 5 (5-7) 01/21/24 17:50 Ur Specific [place] 1.020 (1.005-1.030) 01/21/24 17:50 Urine Protein Neg (Negative) 01/21/24 17:50 Urine Glucose (UA) Norm (Normal) 01/21/24 17:50 Urine Ketones 1+ (Negative) H 01/21/24 17:50 Urine Blood Neg (Negative) 01/21/24 17:50 Urine Nitrate Positive (Negative) H 01/21/24 17:50 Urine Bilirubin Neg (Negative) 01/21/24 17:50 Urine Urobilinogen Norm mg/dL (Negative) 01/21/24 17:50 Ur Leukocyte Esterase Negative (Negative) 01/21/24 17:50 Urine RBC None /hpf (0-2) 01/21/24 17:50 Urine WBC 5-10 /hpf (0-5) H 01/21/24 17:50 Ur Squamous Epith Cells 5-10 /hpf (0-5) H 01/21/24 17:50 Amorphous Sediment Not Reportable 01/21/24 17:50 Urine Bacteria 3+ /hpf (NONE) H 01/21/24 17:50 SARS-CoV-2 Ag (Rapid) negative (Negative) 01/24/24 08:35 Vitals Last Vital Signs Temp 98.2 F 01/25/24 04:00 Pulse 67 01/25/24 05:10 Resp 17 01/25/24 04:00 BP 134/66 01/25/24 04:00 Pulse Ox 97 01/25/24 04:00 O2 Del Method Room Air 01/25/24 04:00 Discharge Plan Discharge Patient Disposition: Xfer SNF Condition: Stable Prescriptions: New aspirin 81 mg Tablet,Delayed Release (Dr/Ec) 81 mg PO DAILY 30 Days Qty: 30 0RF quetiapine 25 mg Tablet 25 mg PO BID 30 Days Qty: 60 0RF clopidogrel 75 mg Tablet 75 mg PO DAILY 21 Days Qty: 21 0RF hydrocodone-acetaminophen 5-325 mg tablet 1 tab PO Q8H PRN (Reason: pain) 7 Days Qty: 21 0RF Continued triamterene-hydrochlorothiazid [Maxzide-25mg] 37.5-25 mg tablet 1 tab PO DAILY Qty: 30 11RF bupropion HCl 150 mg tablet extended release 24 hr 150 mg PO BEDTIME Qty: 30 11RF citalopram 20 mg tablet 20 mg PO BEDTIME Qty: 30 11RF Euthyrox 200 mcg tablet 200 mcg PO QAM Qty: 30 11RF omeprazole 20 mg capsule,delayed release(DR/EC) 20 mg PO QPM Qty: 30 11RF fluticasone propionate 50 mcg/actuation spray,suspension 2 spray INTRANASAL DAILY atorvastatin 40 mg tablet 40 mg PO BEDTIME lisinopril 2.5 mg tablet 2.5 mg PO DAILY Discontinued meloxicam 15 mg tablet See Rx Instructions .ROUTE .COMPLEX Qty: 30 11RF Dose Instruction: Take 1 tablet by mouth once daily Rx Instructions: Take 1 tablet by mouth once daily- atenolol 25 mg tablet 25 mg PO DAILY Discharge Orders: Discharge Order (Routine); Ordered 01/25/24 Ordered By: Carlos Alberto Birmingham Referrals: [facility] [Outside] Justino Celestin MD [Physician] - 1 week (We have notified your physician's clinic of the need for a follow-up appointment to be scheduled. If you have not heard from them within the next 2 business days, please call them directly. ) Marie Castro MD [Physician] - 2 weeks (We have notified your physician's clinic of the need for a follow-up appointment to be scheduled. If you have not heard from them within the next 2 business days, please call them directly. ) David Hannah MD [Primary Care Provider] - Discharge Diet: Cardiac Discharge Activity: Increase activity as tolerated Patient Instructions: Altered Mental Status (ED), Opioid Safety Activity Restrictions/Additional Instructions: - Continue in the sling for left elbow Discharge Attestations Time Spent in Discharge Care*: greater than 30 min Status at Discharge: Cognitive status at discharge: cognitively intact, Behavioral status at discharge: cooperative and dependent in ADL's (because of recent humeral fracture), Quality Metrics Clinical Quality Measures [ Cerebrovascular Accident { Contraindication to Antithrombotic: None; antithrombotic prescribed; Contraindication to Anticoagulation: Overlap treatment not indicated; Contraindication to Statin: None; Statin prescribed;}] Coding Level of Care Code 40948 Total time (in minutes) for Discharge: 45 Diagnoses Acute encephalopathy G93.40 Acute CVA (cerebrovascular accident) I63.9 Left shoulder pain M25.512 Left elbow pain M25.522 CHRISTIANO (acute kidney injury) N17.9 Physical deconditioning R53.81 Multiple falls R29.6 Muscle wasting M62.50 Protein calorie malnutrition E46 NSTEMI (non-ST elevated myocardial infarction) I21.4 Hypokalemia E87.6 UTI (urinary tract infection) N39.0 Other closed displaced fracture of distal end of left humerus, initial encounter S42.492A Encounter type: initial encounter Fracture alignment: displaced Fracture morphology: other fracture Fracture type: closed Laterality: left Pubic ramus fracture S32.599A Sacral insufficiency fracture M84.48XA Closed fracture of symphysis pubis S32.599A Fracture of anterior column of acetabulum S32.433A Coronary artery disease I25.10 Hypothyroidism E03.9
[2024-01-25 12:00] VITALS: BP 128/69; PULSE 79; RESP 18; TEMP 36.8; O2SAT 95
[2024-01-25] MEDS: potassium chloride ER 20 mEq Tablet PO (12:15)
[2024-01-25 14:11] VITALS: BP 128/69; PULSE 79; RESP 18; TEMP 36.8; O2SAT 95
== END 2024-01-25 14:11 | disposition skilled nursing facility (03) | DRG 64 ==
LOC: ER 18:11 → MEDSURG 01-22 04:16
PROVIDERS: Admitting Provider Family Medicine; Emergency Provider Emergency Medicine; PCP Family Medicine; Visit Provider Family Medicine
DX: I63.9 Cerebral infarction, unspecified (principal); S32.432A Displaced fracture of anterior column [iliopubic] of left acetabulum, initial encounter for closed fracture; S42.492A Other displaced fracture of lower end of left humerus, initial encounter for closed fracture; S32.502A Unspecified fracture of left pubis, initial encounter for closed fracture; S32.19XA Other fracture of sacrum, initial encounter for closed fracture; E46 Unspecified protein-calorie malnutrition; G93.49 Other encephalopathy; N17.9 Acute kidney failure, unspecified; N39.0 Urinary tract infection, site not specified; R53.81 Other malaise; R29.6 Repeated falls; M62.50 Muscle wasting and atrophy, not elsewhere classified, unspecified site; E87.6 Hypokalemia; E78.5 Hyperlipidemia, unspecified; E03.9 Hypothyroidism, unspecified; K21.9 Gastro-esophageal reflux disease without esophagitis; F32.A Depression, unspecified; S40.012A Contusion of left shoulder, initial encounter; W19.XXXA Unspecified fall, initial encounter; M25.522 Pain in left elbow
CPT/HCPCS: 36415; 36416; 70450; 71045; 72125; 72192; 73030; 73070; 73521; 80048; 80053; 80061; 81001; 82140; 82550; 82962; 83036; 83735; 83880; 84100; 84145; 84443; 84484; 85025; 85610; 87077; 87086; 87186; 87426; 92507; 92523; 92610; 93005; 93306; 93880; 94664; 96372; 97116; 97162; 97167; 97530; 97535; 99285; A4565; C9113; J0696; J1630; J1650; J2270; J3480; J7030

== ENCOUNTER 2024-02-25 10:34 | Inpatient (IN) | payer MEDICARE, MEDICAID, SELFPAY ==
[2024-02-25] VITALS (88 sets, daily range): BP systolic 70–142; BP diastolic 37–121; PULSE 104–170; RESP 16–47; TEMP 34.4–37; O2SAT 86–100; BMI 29.5
--- NOTE | 2024-02-25 10:43 | XRR_ITS ---
PROCEDURE INFORMATION: Exam: XR Chest Exam date and time: 02/25/2024 10:58 AM Age: 78 years old Clinical indication: Cough and dyspnea; Patient HX: AMS; Additional info: Dyspnea/cough TECHNIQUE: Imaging protocol: Radiologic exam of the chest. Views: 1 view. COMPARISON: CR (CHEST, ) 01/21/2024 5:07 PM FINDINGS: Lungs: There is a calcified granuloma in the right midlung zone. There is scarring and/or atelectasis in the left lung base without definite infiltrate. There is chronic left lateral pleural thickening Pleural spaces: Unremarkable. No pleural effusion. No pneumothorax. Heart/Mediastinum: The heart size is within normal limits. Vasculature: There are atherosclerotic changes in the aorta. Bones/joints: There is an old fracture deformity of the right humeral head. The distal aspect of the right clavicle appears to have been resected. There is a left shoulder prosthesis in place. XR/XR chest 1V portable [id number] IMPRESSION: 1. Calcified granuloma right lung 2. Scarring left lung without acute infiltrate.
--- NOTE | 2024-02-25 10:44 | ECG_ITS ---
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 Measurements Intervals [place] Rate: 109 P: 80 NV: 114 QRS: -37 QRSD: 106 T: 98 QT: 315 QTc: 425 Interpretive Statements SINUS TACHYCARDIA WITH SHORT NV INTERVAL WITH OCCASIONAL SUPRAVENTRICULAR PREMATURE COMPLEXES LEFT AXIS DEVIATION [QRS AXIS < -30] NONSPECIFIC T-WAVE ABNORMALITY Compared to ECG 01/22/2024 02:15:48 Short NV interval now present Left-axis deviation now present Sinus rhythm no longer present Intraventricular conduction delay no longer present T-wave abnormality still present Electronically Signed On 02-25-2024 12:51:11 CDT by Phuc Moran M.D. [email or web address]
--- NOTE | 2024-02-25 10:47 | ED_ITS ---
HPI - Altered Mental Status 2 General: Chief Complaint: Altered Mental Status Stated Complaint: ams Time Seen by Provider: 02/25/24 10:41 Source: patient Mode of arrival: ambulatory History of Present Illness: 78-year-old female brought in by EMS fro m [facility] reportedly woke up this morning with altered poorly responsive. On arrival here is hypotensive tachypneic is on 15 L. She is unable to give any verbal response does not follow any simple commands. She does not appear to be in severe respiratory distress based on initial observation and brief exam of the bedside suspect that she is in septic shock MD complaint: altered mental status Onset (ago): unknown Timing confirmed by: caregiver Severity: severe Consistency of symptoms: Getting Worse Treatments prior to arrival: oxygen Review of Systems 2 General: Reports: ROS unobtainable due to mental status PFSH ED 2 PFSH: Medical History Hyperlipidemia Hypertension Coronary artery disease GERD (gastroesophageal reflux disease) Depression Hypothyroidism Syncope Surgical History H/O rotator cuff surgery H/O: hysterectomy Family History Other No significant family history Social History Smoking and tobacco/nicotine status: never used tobacco/nicotine Alcohol intake: never Substance/Drug Use: never Housing: Long-Term Marital status: / Physical Exam 2 Const: NUTRITIONAL APPEARANCE: obese ORIENTATION/CONSCIOUSNESS: Yes patient obtunded HENMT: COMMON NORMALS: normocephalic, atraumatic and hearing grossly normal bilaterally HEAD & SCALP: normocephalic and atraumatic Resp: COMMON NORMALS: normal respiratory effort, No retractions and No use of accessory muscles AUSCULTATION: diminished lung sounds Cardio: COMMON NORMALS: regular rhythm and No murmurs present (Cardio) R ATE: tachycardic RHYTHM: regular rhythm GI: COMMON NORMALS: Soft to palpation and No hepatosplenomegaly present A USCULTATION: Yes normoactive bowel sounds PALPATION: Yes Soft to palpation, No Tenderness to palpation present (GI), No Guarding due to palpation present (GI) and Yes No hepatosplenomegaly present Extremity: COMMON NORMALS: normal to inspection, capillary refill normal, no clubbing, cyanosis or edema, no calf tenderness and no pedal edema Skin: COMMON NORMALS: no rashes or lesions noted GENERAL SKIN EXAM: no rashes or lesions noted Procedures Central Line Placement Right IJ: Time Out Performed: Yes Patient Placed on Monitor/Pulse Ox: Yes MD Prep: mask, gown and gloves Central Line Prep: Chlorhexidine scrub Local Anesthetic: lidocaine 1% Amount of anesthesia used (mL): 5 Ultrasound Used for Placement: Yes Central Line Lumen Inserted: triple Post Procedure: sutured in place, good blood return, all ports aspirated, flushed, capped and sterile dressing applied Post Procedure X-Ray: tip of catheter in good position and no pneumothorax seen Patient Tolerated Procedure: well Complications: none Additional Comments: Central line placed with assistance of sterile nurse to restrain patient she is obtunded but still actively grabbing out at things. We did get good blood return and the wire had advance but when he tried to advance the catheter we did not get blood return after the wire was pulled catheter was removed. Reintroduced the needle into the right IJ second attempt point without complication. Course 2 Vital Signs: Vital signs: Vital Signs Temperature 96.0 F L 02/25/24 13:20 Pulse Rate 170 H 02/25/24 13:20 Respiratory Rate 20 H 02/25/24 13:20 Blood Pressure 84/50 02/25/24 13:20 Pulse Oximetry 96 02/25/24 13:20 Oxygen Delivery Me thod Room Air 02/25/24 13:03 Oxygen Flow Rate 15 02/25/24 11:11 MDM - Altered Mental Status Medical Decision Making Patient in septic shock. Patient is a Do Not Recussitate I talked with her daughter who is listed as her first contact she is from [place] she was okay with us treating with IV antibiotics placing a central line and giving Levophed but did not want any aggressive treatments beyond that. She did wanted to remain a Do Not Recussitate. Central line was placed patient had been given initially 2 L fluid bolus which was just below her actual weight 30 mL/kg bolus she did not have much improvement with that. We did rebolus at a full 30 to 30 mL/kg she is admitted empirically started on Vanco and Zosyn. Suspect urinary as the source of her infection chest x-ray was normal. Central line was placed see the note within the body of the report. Will admit to the ICU. We have also initiated treatments for hypernatremia including calcium chloride IV sodium bicarb albuterol and insulin. Also have initiated baseline fluids including D5W to support her blood sugars. Discussed with hospitalist orders written Medical Records I reviewed the patient's medical records. Lab Data I reviewed the patient's lab results. 02/25/24 10:40 02/25/24 10:40 Laboratory Results WBC 22.04 10^3/uL (3.29-11.43) H 02/25/24 10:40 RBC 4.09 10^6/uL (3.85-5.65) 02/25/24 10:40 Hgb 11.10 g/dL (11.27-16.99) L 02/25/24 10:40 Hct 36.7 % (36-47) 02/25/24 10:40 MCV 89.7 fl (85-98) 02/25/24 10:40 MCH 27.1 pg (27-33) 02/25/24 10:40 MCHC 30.2 g/dL (30-55) 02/25/24 10:40 RDW 17.1 % (12.1-15.1) H 02/25/24 10:40 Plt Count 247 10^3/cmm (157-399) 02/25/24 10:40 MPV 14.4 fL (7.4-10.4) H 02/25/24 10:40 Neut % (Auto) 91.8 % 02/25/24 10:40 Lymph % (Auto) 2.8 % 02/25/24 10:40 [place] % (Auto) 4.7 % 02/25/24 10:40 Eos % (Auto) 0.0 % 02/25/24 10:40 Baso % (Auto) 0.1 % 02/25/24 10:40 Neut # (Auto) 20.23 10^3/uL (1.8-7.7) H 02/25/24 10:40 Lymph # (Auto) 0.6 10^3/uL (0.8-4.8) L 02/25/24 10:40 [place] # (Auto) 1.0 10^3/uL (0.2-0.9) H 02/25/24 10:40 Eos # (Auto) 0.0 10^3/uL (0.0-0.8) 02/25/24 10:40 Baso # (Auto) 0.0 10^3/uL (0.0-0.1) 02/25/24 10:40 Nucleated RBC % (auto) 0 % 02/25/24 10:40 Nucleated RBCs # 0.0 /100WBC 02/25/24 10:40 Specimen Type Arterial 02/25/24 11:12 Sample Site Radial, right 02/25/24 11:12 ABG pH 7.27 (7.35-7.45) L 02/25/24 11:12 ABG pCO2 27.5 mmHg (35-45) L 02/25/24 11:12 ABG pO2 284.0 mmHg (80.0-100.0) H 02/25/24 11:12 ABG HCO3 12.5 mmol/L (22-26) L 02/25/24 11:12 ABG O2 Saturation > 100.0 02/25/24 11:12 ABG Base Excess -13.1 mmol/L (-2.0-2.0) L 02/25/24 11:12 Ruben Test Pos 02/25/24 11:12 A-a O2 Gradient Not Reportable 02/25/24 11:12 Hematocrit 30.1 % (37-47) L 02/25/24 11:12 Hgb O2 Saturation 98.8 % (95-100) 02/25/24 11:12 Carboxyhemoglobin 0.7 %THgb (0.4-20.1) 02/25/24 11:12 Methemoglobin 0.8 % (0.4-1.5) 02/25/24 11:12 Total Hemoglobin 9.8 g/dL (12-16) L 02/25/24 11:12 Sodium 158.0 mmol/L (131-143) H 02/25/24 11:12 Potassium 5.5 mmol/L (3.5-5.0) H 02/25/24 11:12 Glucose 186.0 mg/dL (70-115) H 02/25/24 11:12 Ionized Calcium 1.2 mmol/L (1.1-1.4) 02/25/24 11:12 O2 Delivery Device Nrb 02/25/24 11:12 O2 Liters/Min 14.0 % 02/25/24 11:12 Orchestra Conductor ID Tolu 02/25/24 11:12 Sodium 154 mmol/L (136-145) H 02/25/24 10:40 Potassium 7.2 mmol/L (3.5-5.1) H* 02/25/24 10:40 Chloride 113 mmol/L (98-107) H 02/25/24 10:40 Carbon Dioxide 12 mmol/L (22-29) L 02/25/24 10:40 Anion Gap 36.2 (5-19) H 02/25/24 10:40 BUN 212 mg/dL (8-23) H* D 02/25/24 10:40 Creatinine 8.8 mg/dL (0.5-0.9) H* 02/25/24 10:40 GFR Calculation Not Reportable 02/25/24 10:40 Glucose 195 mg/dL (65-115) H 02/25/24 10:40 Calculated Osmolality 395 mOsm/kg (285-295) H 02/25/24 10:40 Lactic Acid 4.5 mmol/L (0.5-2.2) H* 02/25/24 10:40 Calcium 10.2 mg/dL (8.5-10.5) 02/25/24 10:40 Magnesium 3.0 mg/dL (1.7-2.3) H 02/25/24 10:40 Total Bilirubin 0.4 mg/dL (0.15-1.2) 02/25/24 10:40 AST 50 U/L (0-32) H 02/25/24 10:40 ALT 48 U/L (0-33) H 02/25/24 10:40 Alkaline Phosphatase 226 U/L (35-105) H 02/25/24 10:40 Ammonia 26 umol/L (11-51) 02/25/24 10:40 Creatine Kinase 210 U/L (26-192) H 02/25/24 10:40 Troponin T Baseline 107 ng/L (0-10) H* 02/25/24 10:40 Troponin T 120 Minute 98.31 ng/L (0-10) H 02/25/24 12:32 Delta Troponin T -8.69 ABS# (0-10) L 02/25/24 12:32 NT-Pro-B Natriuret Pep 2719 pg/mL (0-450) H 02/25/24 10:40 Total Protein 7.5 g/dL (6.6-8.7) 02/25/24 10:40 Albumin 4.0 g/dL (3.5-5.2) 02/25/24 10:40 Globulin 3.5 g/dL (1.3-4.6) 02/25/24 10:40 Lipase 93 U/L (13-60) H 02/25/24 10:40 All radiology interpretation(s) finalized by discharge Critical Care Time 2 Critical Care Time: Critical Care Time: Yes Total Critical Care Time: 45 Attestation: The high probability of a clinically significant, sudden or life threatening deterioration of the patient's cardiovascular renal system(s) required my full and direct attention, intervention and personal management. The critical care time is as shown. 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
[2024-02-25 11:00] LABS: Basophils % 0.1 %; Hematocrit 36.7 % (36-47); Lymphocytes # 0.6 10^3/uL (0.8-4.8); Lymphocytes % 2.8 %; Mean Corpuscular HGB Conc 30.2 g/dL (30-55); Mean Corpuscular Hemoglobin 27.1 pg (27-33); Mean Corpuscular Volume 89.7 fl (85-98); Mean Platelet Volume 14.4 fL (7.4-10.4); Monocytes % 4.7 %; Neutrophils # 20.23 10^3/uL (1.8-7.7); Neutrophils % 91.8 %; Nucleated Red Blood Cells % 0 %; Platelet Count 247 10^3/cmm (157-399); Red Blood Count 4.09 10^6/uL (3.85-5.65); Red Cell Distribution Width 17.1 % (12.1-15.1); White Blood Count 22.04 10^3/uL (3.29-11.43)
--- NOTE | 2024-02-25 11:09 | PC.NURSE ---
reported BP of 84/[address] parry. patient is DNR. per dr. parry, verbalized to continue pressure bags 2 L sepsis bolus for patient.
[2024-02-25] MEDS: sodium chloride 0.9% 1,000 ML 999 ML IV ×4 (11:12→16:41)
[2024-02-25 11:21] LABS: Ammonia 26 umol/L (11-51)
--- NOTE | 2024-02-25 11:22 | PC.PHAR ---
PT IS FROM [facility]
[2024-02-25 11:23] LABS: ABG PCO2 27.5 mmHg (35-45); ABG PH Result 7.27 (7.35-7.45); Arterial Blood Gas Hematocrit 30.1 % (37-47); Base Excess ABG -13.1 mmol/L (-2.0-2.0); Blood Gas Allen Test Pos; Blood Gas Operator Identificat WALCI; Blood Gas Sample Site Radial, right; Blood Gas Sample Type Arterial; Carboxyhemoglobin 0.7 %THgb (0.4-20.1); HCO3 ABG 12.5 mmol/L (22-26); HGB O2 Sat 98.8 % (95-100); Ionized Calcium Level - ABG 1.2 mmol/L (1.1-1.4); Methemoglobin 0.8 % (0.4-1.5); Oxygen Device NRB; Oxygen Saturation ABG > 100.0; Potassium Level - ABG 5.5 mmol/L (3.5-5.0); Total Hemoglobin 9.8 g/dL (12-16)
[2024-02-25 11:37] LABS: Alanine Aminotransferase 48 U/L (0-33); Alkaline Phosphatase 226 U/L (35-105); Calcium 10.2 mg/dL (8.5-10.5); Carbon Dioxide 12 mmol/L (22-29); Chloride 113 mmol/L (98-107); Creatine Phosphokinase 210 U/L (26-192); Creatinine Clr Calc Pharmacy 5.3255; Globulin 3.5 g/dL (1.3-4.6); Glucose 195 mg/dL (65-115); Lipase 93 U/L (13-60); NT Pro B Type Natriuretic Pept 2719 pg/mL (0-450); Sodium 154 mmol/L (136-145); Total Bilirubin 0.4 mg/dL (0.15-1.2); Total Protein 7.5 g/dL (6.6-8.7)
[2024-02-25 11:46] LABS: Lactic Sepsis W/Reflex 4.5 mmol/L (0.5-2.2); Troponin(5th) Baseline 107 ng/L (0-10)
[2024-02-25 11:47] LABS: Blood Urea Nitrogen 212 mg/dL (8-23); Osmolality Calculated 395 mOsm/kg (285-295)
[2024-02-25 11:48] LABS: Anion Gap 36.2 (5-19); Aspartate Amino Transferase 50 U/L (0-32); Potassium 7.2 mmol/L (3.5-5.1)
--- NOTE | 2024-02-25 12:39 | XRR_ITS ---
PROCEDURE INFORMATION: Exam: XR Chest Exam date and time: 02/25/2024 12:46 PM Age: 78 years old Clinical indication: Device placement; Other: Central line placement TECHNIQUE: Imaging protocol: Radiologic exam of the chest. Views: 1 view. COMPARISON: CR XR chest 1V portable [id number] 02/25/2024 10:58 AM FINDINGS: Tubes, catheters and devices: There is a right jugular central venous catheter with its tip projecting in the region of the right atrium. Recommend retracting this catheter 4-5 cm. Lungs: There are no acute infiltrates detected. There is a calcified granuloma in the right lung. Pleural spaces: There is no detectable pneumothorax Heart/Mediastinum: Unremarkable. No cardiomegaly. Bones/joints: There is a left shoulder prosthesis. There is an old fracture deformity involving the right humerus. There is an old fracture deformity of the distal right clavicle. There are old healed rib fractures. XR/XR chest 1V portable [id number] IMPRESSION: 1. Central venous catheter. No pneumothorax. Tip of the catheter appears to be in the right atrium. Recommend retracting this catheter 4-5 cm 2. No acute infiltrates.
--- NOTE | 2024-02-25 12:44 | ECG_ITS ---
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 Measurements Intervals [place] Rate: 158 P: 0 ME: 0 QRS: -42 QRSD: 100 T: 120 QT: 275 QTc: 447 Interpretive Statements ATRIAL FIBRILLATION WITH RAPID VENTRICULAR RESPONSE LEFT AXIS DEVIATION [QRS AXIS < -30] ST DEVIATION AND MODERATE T-WAVE ABNORMALITY, CONSIDER LATERAL ISCHEMIA [-0.1+ mV T-WAVE IN I/aVL/V5/V6] Compared to ECG 02/25/2024 10:40:29 Possible ischemia now present Sinus tachycardia no longer present Short ME interval no longer present T-wave abnormality still present Electronically Signed On 02-25-2024 18:11:07 CDT by Phuc Moarn M.D. [email or web address]
[2024-02-25 12:53] LABS: Reflex Lactate Order REFLEX LACTIC ORDERD
[2024-02-25] MEDS: piperacillin-tazobactam 3.375 GM in sodium chloride 0.9% (plus) 50 ML IV (12:53)
[2024-02-25] MEDS: vancomycin 1,000 MG in sodium chloride 0.9% 250 ML 250 MG IV (12:53)
--- NOTE | 2024-02-25 12:56 | P.HP_ITS ---
Providers/Chief Complaint 2 Admitting Physician: Samia Gutierrez MD Primary Care Provider: David Hannah MD Chief Complaint: ams History of Present Illness Chip Guerrero is a 78 year old female who presented from senior living facility today with alteration of mental status. I am unable to get any information from her due to obtundation. According to the facility she was in her usual state of health yesterday. Vital signs from last evening showed a temperature of 97.3, pulse 84, respirations 17, blood pressure 122/66 with oxygen saturation of 93%. She was on a dysphagia 1 with nectar thick liquid diet. Medications were administered last evening as scheduled. On arrival to the emergency room today, she was hypothermic with a temperature of 96, tachycardic with pulse of 110, hypotensive with blood pressure 70/40. She was on a nonrebreather with oxygen saturation 100%. Respirations were in the mid 20s. Mrs. Guerrero was here a few weeks ago also with alteration of mental status. At that time she was found to have an acute CVA, posterior circulation stroke. There were multiple subacute and chronic cerebellar infarcts also noted. She presented outside of the tPA window. She had some word finding difficulty in addition to gait instability associated with her stroke according to available records. She had had multiple falls prior to admission and was found to have several fractures. These appeared to be subacute or chronic rather than acute including an inferior pubic rami fracture with some evidence of callus formation, an anterior acetabulum fracture with some evidence of healing, a tiny subacute fracture at the pubic symphysis and chronic appearing left greater than right sacral insufficiency fractures with sclerosis. She had a UTI with E. coli resistant to ampicillin and intermediate to ampicillin/sulbactam but sensitive to other antibiotics. She was treated with Rocephin while in the hospital. Baseline troponin at that admission was also found to be elevated at 115 without a significant elevation on second check. At discharge on January 24 (or within a couple of days of that date) patient had a BUN and creatinine of 8/0.7, low potassium at 2.9 , a normal white blood count and a hemoglobin of 10. She was discharged with addition of daily aspirin and Plavix, hydrocodone for pain control and addition of Seroquel. Further home medications to note that may have contributed to current abnormalities include lisinopril and triamterene/hydrochlorothiazide. Today, in addition to hypotension that has improved some initially with fluids, she has significant acute kidney injury associated with hyperkalemia, elevation in liver enzymes, elevation in lipase, white count with left shift. Presumptive source of infection is urinary at this time based on prior history. Dr. Walton spoke with Mrs. Guerrero's daughter Jenae Avalos who lives in [place] ([phone]) regarding clinical condition at presentation. Mrs. Guerrero has an out of hospital DO NOT RESUSCITATE order but currently okay with ICU admission, central line placement and pressor support. Central line was placed in the emergency room by Dr. Walton. He did move the line back 2 to 3 cm after reviewing chest x-ray. 30 mill per KG fluid bolus has already been administered in the ER. Vancomycin and Zosyn were initiated empirically. Blood cultures were collected. An order is written for urinalysis pending urine production. Patient is being admitted to the intensive care unit in critical condition. Review of Systems 2 General: Reports: ROS unobtainable due to medical condition Medications/Allergies Home Medications Medication Instructions Recorded Confirmed Last Taken Type fluticasone propionate 50 2 spray intranasal DAILY 10/14/20 02/25/24 02/24/24 History mcg/actuation nasal spray,suspension bupropion HCl 150 mg 24 hr tablet, 150 mg PO BEDTIME #30 tabs 08/02/23 02/25/24 02/23/24 Rx extended release citalopram 20 mg tablet 20 mg PO BEDTIME #30 tabs 08/02/23 02/25/24 02/23/24 Rx levothyroxine 200 mcg tablet 200 mcg PO QAM #30 tabs 08/02/23 02/25/24 02/24/24 Rx (Euthyrox) omeprazole 20 mg capsule,delayed 20 mg PO QPM #30 caps 08/02/23 02/25/24 02/24/24 Rx release triamterene 37.5 1 tab PO DAILY #30 tabs 11/01/23 02/25/24 02/24/24 Rx mg-hydrochlorothiazide 25 mg tablet (Maxzide-25mg) atorvastatin 40 mg tablet 40 mg PO BEDTIME 01/23/24 02/25/24 02/23/24 History lisinopril 2.5 mg tablet 2.5 mg PO DAILY 01/23/24 02/25/24 02/24/24 History aspirin 81 mg tablet,delayed 81 mg PO DAILY 02/25/24 02/25/24 02/24/24 History release bisacodyl 10 mg rectal suppository 10 mg [place] DAILY PRN Constipation 02/25/24 02/25/24 01/29/24 History hydrocodone 5 mg-acetaminophen 325 1 tab PO Q8H PRN Pain 02/25/24 02/25/24 02/16/24 History mg tablet lactobacillus combination no.4 3 3,000 mmu cells PO DAILY PRN 02/25/24 02/25/24 Unknown History billion cell capsule (Probiotic) ANTIBIOTICS loperamide 2 mg tablet (Imodium 2 mg PO ONCE PRN Loose Stool 02/25/24 02/25/24 Unknown History A-D) magnesium hydroxide 400 mg/5 mL 30 ml PO DAILY PRN Constipation 02/25/24 02/25/24 Unknown History oral suspension (Milk of Magnesia) quetiapine 25 mg tablet 25 mg PO BID 02/25/24 02/25/24 02/24/24 History sodium phosphates 19 gram-7 118 ml [place] DAILY PRN Constipation 02/25/24 02/25/24 Unknown History gram/118 mL enema (Fleet Enema) Allergies Allergy/AdvReac Type Severity Reaction Status Date / Time No Known Allergies Allergy Verified 01/26/21 08:36 PFSH Acute 2 PFSH: Medical History (Updated 02/25/24 @ 15:20 by Samia Gutierrez MD) C7 cervical fracture (10/2020) CVA (cerebral vascular accident) 01/2024 Hyperlipidemia Hypertension Coronary artery disease GERD (gastroesophageal reflux disease) Depression Hypothyroidism Syncope Surgical History H/O rotator cuff surgery H/O: hysterectomy Family History Other No significant family history Social History (Updated 02/25/24 @ 13:24 by Samia Gutierrez MD) Smoking and tobacco/nicotine status: never used tobacco/nicotine Alcohol intake: never Substance/Drug Use: never Housing: [facility] Marital status: / Vitals/I&O/Wt Last Vital Signs Temp 96.0 F L 05/20/24 10:45 Pulse 141 H 02/25/24 12:13 BP 84/50 02/25/24 11:11 Pulse Ox 86 L 02/25/24 12:13 O2 Del Method Non-Rebreather 02/25/24 11:11 O2 Flow Rate 15 02/25/24 11:11 02/24/24 02/25/24 02/25/24 22:59 06:59 14:59 Intake Total 1999 Balance 1999 Weight last 48 hrs Weight 78.018 kg Physical Exam 2 Quick SOFA Score: Respiratory Rate: 19 Blood Pressure: 122/42 [place] Coma Scale: 6 qSOFA Score: 1 If qSOFA score 2 or greater, continue: PaO2/FiO2 Ratio (mmHg): 1 Blood Pressure Mean: 68 Norepinephrine Current Rate (?g/kg/min): 20 Bilirubin (mg/dl): 0.4 Platelets (x10?/ml): 247 Creatinine (mg/dl): 8.8 SOFA Score: 15 Evaluation: Current stage of sepsis: septic shock Sepsis stage criteria used: CMS Sep-1 and Sepsis-3 Crystalloid fluids: 30 mL/kg crystalloid fluids ordered and initiated within 3 hours Blood cultures ordered: Yes Possible source: GI tract/intra-abdominal, genitourinary, unknown and other Focused Exam: Vital signs: Temp Pulse BP Pulse Ox O2 Del Method O2 Flow Rate 02/25/24 12:13 141 H 86 L 02/25/24 11:11 104 H 84/50 100 Non-Rebreather 15 02/25/24 11:02 105 H 77/37 100 02/25/24 10:45 96.0 F L 110 H 70/40 100 Non-Rebreather 15 Respiratory exam: Yes diminished lung sounds and Yes uses accessory muscles Cardiovascular exam: Yes tachycardic Capillary refill: > 3 Seconds P eripheral pulse strength: 1+ Faint Peripheral pulse location: Radial and Pedal Skin exam: Yes pallor and Yes mottling (feet and knees, shins spared) Details: Initial qSOFA score was 3 with my initial sofa score being 11 at 13:26. Repeat sofa score at 15:47 is 15 despite sepsis management initiated. Date exam was performed: 02/25/24 Time exam was performed: 15:44 2 Sepsis Screen No Definite Risk 02/25/24 12:13 Respiratory Rate 19 breaths/min H (12 - 18) 02/25/24 13:50 Blood Pressure 122/42 mmHg 02/25/24 13:50 [place] Coma Scale Score 6 02/25/24 13:55 Quick SOFA Score 3 02/25/24 13:26 SOFA Score: 2 Luci Coma Scale Score 6 02/25/24 13:55 Blood Pressure Mean 68 mmHg 02/25/24 13:50 Total Bilirubin 0.4 mg/dL (0.15-1.2) 02/25/24 10:40 Platelet Count 247 10^3/cmm (157-399) 02/25/24 10:40 Creatinine 8.8 mg/dL (0.5-0.9) H* 02/25/24 10:40 SOFA Score 11 02/25/24 13:26 Data 02/25/24 10:40 02/25/24 10:40 Other Labs: Laboratory Results WBC 22.04 10^3/uL (3.29-11.43) H 02/25/24 10:40 RBC 4.09 10^6/uL (3.85-5.65) 02/25/24 10:40 Hgb 11.10 g/dL (11.27-16.99) L 02/25/24 10:40 Hct 36.7 % (36-47) 02/25/24 10:40 MCV 89.7 fl (85-98) 02/25/24 10:40 MCH 27.1 pg (27-33) 02/25/24 10:40 MCHC 30.2 g/dL (30-55) 02/25/24 10:40 RDW 17.1 % (12.1-15.1) H 02/25/24 10:40 Plt Count 247 10^3/cmm (157-399) 02/25/24 10:40 MPV 14.4 fL (7.4-10.4) H 02/25/24 10:40 Neut % (Auto) 91.8 % 02/25/24 10:40 Lymph % (Auto) 2.8 % 02/25/24 10:40 [place] % (Auto) 4.7 % 02/25/24 10:40 Eos % (Auto) 0.0 % 02/25/24 10:40 Baso % (Auto) 0.1 % 02/25/24 10:40 Neut # (Auto) 20.23 10^3/uL (1.8-7.7) H 02/25/24 10:40 Lymph # (Auto) 0.6 10^3/uL (0.8-4.8) L 02/25/24 10:40 [place] # (Auto) 1.0 10^3/uL (0.2-0.9) H 02/25/24 10:40 Eos # (Auto) 0.0 10^3/uL (0.0-0.8) 02/25/24 10:40 Baso # (Auto) 0.0 10^3/uL (0.0-0.1) 02/25/24 10:40 Nucleated RBC % (auto) 0 % 02/25/24 10:40 Nucleated RBCs # 0.0 /100WBC 02/25/24 10:40 Specimen Type Arterial 02/25/24 11:12 Sample Site Radial, right 02/25/24 11:12 ABG pH 7.27 (7.35-7.45) L 02/25/24 11:12 ABG pCO2 27.5 mmHg (35-45) L 02/25/24 11:12 ABG pO2 284.0 mmHg (80.0-100.0) H 02/25/24 11:12 ABG HCO3 12.5 mmol/L (22-26) L 02/25/24 11:12 ABG O2 Saturation > 100.0 02/25/24 11:12 ABG Base Excess -13.1 mmol/L (-2.0-2.0) L 02/25/24 11:12 Ruben Test Pos 02/25/24 11:12 A-a O2 Gradient Not Reportable 02/25/24 11:12 Hematocrit 30.1 % (37-47) L 02/25/24 11:12 Hgb O2 Saturation 98.8 % (95-100) 02/25/24 11:12 Carboxyhemoglobin 0.7 %THgb (0.4-20.1) 02/25/24 11:12 Methemoglobin 0.8 % (0.4-1.5) 02/25/24 11:12 Total Hemoglobin 9.8 g/dL (12-16) L 02/25/24 11:12 Sodium 158.0 mmol/L (131-143) H 02/25/24 11:12 Potassium 5.5 mmol/L (3.5-5.0) H 02/25/24 11:12 Glucose 186.0 mg/dL (70-115) H 02/25/24 11:12 Ionized Calcium 1.2 mmol/L (1.1-1.4) 02/25/24 11:12 O2 Delivery Device Nrb 02/25/24 11:12 O2 Liters/Min 14.0 % 02/25/24 11:12 [employer] ID [employer] 02/25/24 11:12 Sodium 154 mmol/L (136-145) H 02/25/24 10:40 Potassium 7.2 mmol/L (3.5-5.1) H* 02/25/24 10:40 Chloride 113 mmol/L (98-107) H 02/25/24 10:40 Carbon Dioxide 12 mmol/L (22-29) L 02/25/24 10:40 Anion Gap 36.2 (5-19) H 02/25/24 10:40 BUN 212 mg/dL (8-23) H* D 02/25/24 10:40 Creatinine 8.8 mg/dL (0.5-0.9) H* 02/25/24 10:40 GFR Calculation Not Reportable 02/25/24 10:40 Glucose 195 mg/dL (65-115) H 02/25/24 10:40 Calculated Osmolality 395 mOsm/kg (285-295) H 02/25/24 10:40 Lactic Acid 4.5 mmol/L (0.5-2.2) H* 02/25/24 10:40 Calcium 10.2 mg/dL (8.5-10.5) 02/25/24 10:40 Magnesium 3.0 mg/dL (1.7-2.3) H 02/25/24 10:40 Total Bilirubin 0.4 mg/dL (0.15-1.2) 02/25/24 10:40 AST 50 U/L (0-32) H 02/25/24 10:40 ALT 48 U/L (0-33) H 02/25/24 10:40 Alkaline Phosphatase 226 U/L (35-105) H 02/25/24 10:40 Ammonia 26 umol/L (11-51) 02/25/24 10:40 Creatine Kinase 210 U/L (26-192) H 02/25/24 10:40 Troponin T Baseline 107 ng/L (0-10) H* 02/25/24 10:40 NT-Pro-B Natriuret Pep 2719 pg/mL (0-450) H 02/25/24 10:40 Total Protein 7.5 g/dL (6.6-8.7) 02/25/24 10:40 Albumin 4.0 g/dL (3.5-5.2) 02/25/24 10:40 Globulin 3.5 g/dL (1.3-4.6) 02/25/24 10:40 Lipase 93 U/L (13-60) H 02/25/24 10:40 XR chest 1V portable [id number] Exam date and time: 02/25/2024 10:58 AM FINDINGS: Lungs: There is a calcified granuloma in the right midlung zone. There is scarring and/or atelectasis in the left lung base without definite infiltrate. There is chronic left lateral pleural thickening Pleural spaces: Unremarkable. No pleural effusion. No pneumothorax. Heart/Mediastinum: The heart size is within normal limits. Vasculature: There are atherosclerotic changes in the aorta. Bones/joints: There is an old fracture deformity of the right humeral head. The distal aspect of the right clavicle appears to have been resected. There is a left shoulder prosthesis in place. IMPRESSION: 1. Calcified granuloma right lung 2. Scarring left lung without acute infiltrate. Micro: Microbiology 02/25/24 12:45 Blood Culture - Preliminary Blood SPECIMEN COLLECTED 02/25/24 12:32 Blood Culture - Preliminary Blood SPECIMEN COLLECTED A&P Assessment and plan (1) Septic shock: Severe sepsis with septic shock. Initially responded to fluids but has more recently required initiation of pressor support. Has multiorgan involvement. She is hypothermic with leukocytosis and left shift. Lactic acidosis noted. She has acute kidney injury, elevation in liver enzymes, acute encephalopathy, significant tachycardia with arrhythmia, elevation in troponin, elevation in blood sugars without a known diagnosis of diabetes, hypernatremia and hyperkalemia, among other abnormalities. Current source felt to likely be urinary in nature based on recent available history but other foci of infection could also be contributing. No gross wounds noted. No obvious abnormalities on chest x-ray. She has started to have some loose stools, but no reports of GI issues noted and available information. Was recently on antibiotics for UTI. Cannot completely rule out at this exact moment in time a vascular component to shock but seems less likely based on available information. Patient is not currently cooperative for performance of noninvasive hemodynamics that might offer more focused information. (2) Acute kidney injury: Severe currently with oliguria. Has associated hyperkalemia. CK of 210 noted. Home medications include joanne inhibitor and diuretic. Combination of pre-renal acute kidney injury and ATN at this time. Cannot fully rule out an obstructive process but not stable enough in the ER for more focused imaging. (3) Atrial fibrillation with rapid ventricular response: New finding, currently feel secondary to effects of severe sepsis and septic shock. No known to have prior arrhythmia, though I did fins where she had previously been on atenolol, though specifics of when and why are not known. Was started on amiodarone in the ER. (4) Elevated troponin: Baseline troponin at 107. This is in fact lower than baseline troponin last hospital stay which was 115. She did not have a significant 2 hour delta last stay. Known to have CAD diagnosis from records, though details not known. Echo last hospital stay showed EF 55-60%. With significant tachycardia and current arrhythmia a type 2 process probable. 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 Recovery hindered by multiple fractures related to recurrent falls. (6) Multiple fractures: Multiple fractures were identified at last hospital stay including a left inferior pubic rami fracture with callus formation, subacute appearing anterior acetabulum fracture, tiny fracture of the pubic symphysis and a chronic appearing left greater than right sacral insufficiency fractures with sclerosis. Also identified was a left distal humeral fracture. This fracture originally occurred in October 2020 and was refractured in November 2023. Managed with splinting/sling and nonsurgical management. Pain medication was added for pain control at last hospital stay. No reported repeat falls since she was last here though information limited. (7) Hypertension: Currently with significant hypotension related to severe sepsis and septic shock. Chronically on lisinopril and triamterene/hydrochlorothiazide. May have previously been on atenolol but looks to have been discontinued last hospital stay versus correction to home medication list. (8) Hyperlipidemia: Chronically on statin therapy with atorvastatin. Lipid panel in January showed triglycerides of 205, cholesterol 198, LDL 121 and HDL of 36. (9) Coronary artery disease: Chronic diagnosis, details unknown (10) Hypothyroidism: Acquired hypothyroidism, chronically on levothyroxine. TSH in January was 1.71. (11) Depression: Chronically on citalopram and bupropion Plan ICU admission Continue IV fluids, adjusting as indicated based on chemistries and clinical status Will add pressors initially with Levophed and vasopressin, monitoring response Broad-spectrum antibiotics to include vancomycin and cefepime Blood cultures were collected Check coagulation studies Will send stool studies for C. difficile and Hemoccult Urinalysis has been ordered pending production of urine Harper catheter for close monitoring of urine output Received insulin and glucose, calcium chloride and bicarbonate for hyperkalemia Will repeat laboratory studies in a couple of hours Did discuss with patient's daughter severity of kidney dysfunction and hyperkalemia including management options such as medical management, dialysis if she could tolerate and nephrology felt there would be benefit and at this time we will see how she responds to above measures before considering any alternatives Second lactic acid has improved to 3.0 For now we will continue amiodarone drip initiated in the emergency room If at any point in time we are able to do bedside hemodynamics with patient cooperating with procedure will attempt Patient is not to be resuscitated, no CPR, no emergency ACLS protocols, no intubation or mechanical ventilation per discussion with daughter. Management in the ICU with fluids, pressors and close monitoring along with antibiotics and other focus treatment as ordered or okay at this time. Continue serial cardiac enzymes though patient is not an ideal candidate for any form of intervention currently given severe sepsis Neuroexams given patient's recent stroke that involve posterior circulation; at recent baseline has had word finding difficulties/dysarthria/dysphasia along with gait instability and frequent falls Currently holding pain control Currently holding home antihypertensives of lisinopril and triamterene/hydrochlorothiazide Currently holding home atorvastatin, aspirin, Plavix Currently holding home levothyroxine Currently not continuing home quetiapine Currently holding home bupropion and citalopram If survives will need to restart citalopram when able to decrease risk of additional symptoms from withdrawal All home as needed medications presently held as is scheduled PPI and Flonase VTE prophylaxis: Subcu heparin at renal dosing GI Prophylaxis: PPI IV currently secondary to clinical condition Antibiotics: Status post Zosyn x 1 dose on 02/24; cefepime and vancomycin initiated 02/25/2024 for empiric coverage of sepsis Pending studies: Blood cultures, urinalysis, C. difficile, Hemoccult, repeat labs this evening and tomorrow morning Telemetry: Ordered for monitoring of critically ill patient Harper: Ordered for monitoring of critically ill patient with acute kidney injury Line(s): Central venous line in the right IJ placed on 02/25/2024 from the ED Disposition plan: Will ultimately depend on clinical course. If she survives anticipate disposition back to skilled facility. Daughter has expressed desire to get her mother to [place] to be closer to her if possible. Code Status: Patient is to be allowed natural . Okay for ICU admission, pressor support, critical care monitoring and fluid administration, antibiotics. Patient is not to be intubated or mechanically ventilated. She is not to receive chest compressions, defibrillation or emergency ACLS protocol management. Patient is currently in critical condition with a very high risk of continued clinical decline up to and including the possibility of even with care as outlined Findings, concerns and plans were discussed with patient's daughter Jenae and she was given an opportunity to ask questions. I will update her as future labs come back and clinical condition changes. Attestations 2 Medical Necessity Statement*: Anticipated stay greater than 2 midnights in this critically ill patient presenting with severe sepsis/septic shock currently requiring high-volume IV fluids, pressor support, antibiotics and other care as outlined. She has multiple comorbidities both acutely and chronically as described. Coding Level of Care Code 79033 High MDM includes number and complexity of problems actively addressed during encounter, amount and/or complexity of data reviewed/ordered [ previous or external records, resulted lab(s)/test(s), ordered lab(s)/test(s), independent historian (Daughter) and other healthcare professional discussion (ER provider several times along with nursing staff)] and described risk of complication, morbidity or mortality of management (Discussion around CODE STATUS and goals of care in critically ill patient) as documented Diagnoses Septic shock A41.9; R65.21 Hypertension I10 Acute kidney injury N17.9 Atrial fibrillation with rapid ventricular response I48.91 Elevated troponin R79.89 CVA (cerebral vascular accident) I63.9 Hyperlipidemia E78.5 Coronary artery disease I25.10 Depression F32.9 Hypothyroidism E03.9 Multiple fractures T07.XXXA
[2024-02-25] MEDS: sodium bicarbonate 150 MEQ in dextrose 5% 250 ML 500 MEQ IV (13:02)
[2024-02-25] MEDS: insulin regular-human 100 units/1 mL 10 UNIT IVP (13:03)
[2024-02-25] MEDS: SODIUM CHLORIDE 0.9% 2340.53999999999996 ML IV (13:04)
[2024-02-25 13:09] LABS: Troponin 5 2HR 98.31 ng/L (0-10)
[2024-02-25] MEDS: albuterol 2.5 mg/3 mL Neb 10 MG INHALATION (13:09)
[2024-02-25 13:10] LABS: Troponin 5 2HR Delta -8.69 ABS# (0-10)
[2024-02-25] MEDS: calcium chloride 10% Syr 10 mL 1 GM IVP (13:17)
[2024-02-25] MEDS: dextrose 5%-sod chloride 0.9% 1,000 ML 125 ML IV (13:17)
[2024-02-25] MEDS: amiodarone 150 MG/100 ML PREMIX 400 MG IV (13:44)
[2024-02-25] MEDS: sodium chloride 0.9% 1,000 ML 100 ML IV (14:06)
[2024-02-25] MEDS: heparin 5,000 unit/mL INJ 1 mL 5000 UNIT SUBCUT (14:11)
[2024-02-25] MEDS: norepinephrine 4 MG/250 ML BAG 30 MG IV (14:18)
--- NOTE | 2024-02-25 14:45 | XRR_ITS ---
PROCEDURE INFORMATION: Exam: XR Chest Exam date and time: 02/25/2024 2:53 PM Age: 78 years old Clinical indication: Device placement; Other: Central line adjustment TECHNIQUE: Imaging protocol: Radiologic exam of the chest. Views: 1 view. COMPARISON: CR XR chest 1V portable [id number] 02/25/2024 12:46 PM FINDINGS: Tubes, catheters and devices: Right central line is in the SVC. This line has been retracted since prior examination. Lungs: Low lung volumes seen. The lungs are otherwise clear No consolidation. Pleural spaces: Unremarkable. No pleural effusion. No pneumothorax. Heart/Mediastinum: Unremarkable. No cardiomegaly. Bones/joints: Metallic arthroplasty is seen in the left shoulder. Multiple left rib fractures XR/XR chest 1V portable [id number] IMPRESSION: 1. No acute findings. 2. Right central line in the SVC 3. Left shoulder arthroplasty in good position 4. No lung volumes. 5. Multiple left rib fractures
[2024-02-25] MEDS: vasopressin 40 UNIT/100 ML PREMIX 0.0299999999999999989 UNIT IV (15:01)
[2024-02-25] MEDS: cefepime 1,000 MG in sodium chloride 0.9% (plus) 50 ML 100 MG IV (15:20)
[2024-02-25 15:25] LABS: Blood Urine 3+ (Negative); Glucose Urine UA 1+ (Normal); Ketones Urine 1+ (Negative); Nitrate Urine Negative (Negative); Protein Urine 1+ (Negative); Urine Appearance Cloudy (CLEAR); Urine Color Yellow (Yellow); pH Urine 5 (5-7)
[2024-02-25 15:26] LABS: Add Urine Microscopic? YES; Bacteria Urine 3+ /hpf; Bilirubin Urine 2+ (Negative); Leukocyte Esterase Urine Trace (Negative); RBC Urine 15-25 /hpf (0-2); Squamous Epithelial Cell Urine 25-40 /hpf (0-5); Urobilinogen Urine Neg (Negative); WBC Urine 15-25 /hpf (0-5)
[2024-02-25 15:27] LABS: Add Urine Culture? No
--- NOTE | 2024-02-25 15:52 | W.SEPSIS ---
Sepsis Event Note Inpt Quick SOFA Score Sepsis Screen No Definite Risk 02/25/24 12:13 Respiratory Rate 19 breaths/min H (12 - 18) 02/25/24 13:50 Blood Pressure 122/42 mmHg 02/25/24 13:50 Luci Coma Scale Score 6 02/25/24 13:55 Quick SOFA Score 1 02/25/24 15:52 Respiratory Rate: 19 Blood Pressure: 122/42 Luci Coma Scale: 6 qSOFA Score: 1 If qSOFA score 2 or greater, continue SOFA Score: Luci Coma Scale Score 6 02/25/24 13:55 Blood Pressure Mean 68 mmHg 02/25/24 13:50 Norepinephrine Current Rate 20 02/25/24 15:52 Total Bilirubin 0.4 mg/dL (0.15-1.2) 02/25/24 10:40 Platelet Count 247 10^3/cmm (157-399) 02/25/24 10:40 Creatinine 8.8 mg/dL (0.5-0.9) H* 02/25/24 10:40 SOFA Score 15 02/25/24 15:52 PaO2/FiO2 Ratio (mmHg): 1 Blood Pressure Mean: 68 Norepinephrine Current Rate (?g/kg/min): 20 Bilirubin (mg/dl): 0.4 Platelets (x10?/ml): 247 Creatinine (mg/dl): 8.8 SOFA Score: 15 Evaluation Current stage of sepsis: septic shock Sepsis stage criteria used: [facility] Sep-1 and Sepsis-3 Crystalloid fluids: 30 mL/kg crystalloid fluids ordered and initiated within 3 hours Blood cultures ordered: Yes Possible source: genitourinary, unknown and other Focused Exam Vital signs: Temp Pulse Resp BP Pulse Ox O2 Del Method O2 Flow Rate 02/25/24 13:50 160 H 19 H 122/42 100 02/25/24 13:45 161 H 32 H 105/39 100 02/25/24 13:40 143 H 35 H 105/39 96 02/25/24 13:35 94.0 F L 152 H 21 H 105/39 94 02/25/24 13:31 155 H 35 H 100 02/25/24 13:20 96.0 F L 170 H 20 H 84/50 96 02/25/24 13:03 170 H 20 H 96 Room Air 02/25/24 12:13 141 H 86 L 02/25/24 11:11 104 H 84/50 100 Non-Rebreather 15 02/25/24 11:02 105 H 77/37 100 02/25/24 10:45 96.0 F L 110 H 70/40 100 Non-Rebreather 15 Respiratory exam: Yes diminished lung sounds and Yes uses accessory muscles Cardiovascular exam: Yes tachycardic Capillary refill: > 3 Seconds Peripheral pulse strength: 1+ Faint Peripheral pulse location: Radial and Pedal Skin exam: Yes mottling (feet) Details: Patient restless, tries to pull at lines and moves around at times. Not still enough to be able to perform noninvasive hemodynamic evalution. Currently on 20 levophed and 0.03 vasopression. Additional fluid bolus given. We have a small amount of urine now that has been sent to lab as well. Date exam was performed: 02/25/24 Time exam was performed: 15:54 Problem List (1) Septic shock: (2) Acute kidney injury: (3) Atrial fibrillation with rapid ventricular response: (4) Elevated troponin: (5) CVA (cerebral vascular accident): (6) Multiple fractures: (7) Hypertension: (8) Hyperlipidemia: (9) Coronary artery disease: (10) Hypothyroidism: (11) Depression:
--- NOTE | 2024-02-25 16:21 | PC.NURSE ---
Late entry admission: Patient arrived from ER approximately 1330, AMS, Patient attempting to pull out R side central line needed for life saving intervention, restraints applied. Dr. Gutierrez to bedside. Urine sample collected and sent. Stool sample collected and sent, patient is having frequent loose stool, small amount of blood visible. See documented vitals, See MAR for administered medications. Patients family member, Ann updated on condition. Patient wearing gold colored ring on right hand, no other belongings arrived from ER.
--- NOTE | 2024-02-25 16:44 | ECG_ITS ---
[facility] Test Date: 2024-02-25 Pat Name: Chip Guerrero Department: Room: ICU11 Gender: Female Pmo Lead: : 1945 Requested By: Bill Enamorado Order Number: [id number] Reading MD: Phuc Moran M.D. Measurements Intervals [place] Rate: 143 P: 0 TX: 0 QRS: -21 QRSD: 94 T: 111 QT: 306 QTc: 472 Interpretive Statements ATRIAL FIBRILLATION WITH RAPID VENTRICULAR RESPONSE BORDERLINE LEFT AXIS DEVIATION [QRS AXIS < -20] MODERATE ST DEPRESSION [0.05+ mV ST DEPRESSION] ABNORMAL QRS-T ANGLE [QRS-T AXIS DIFFERENCE > 60] Compared to ECG 02/25/2024 12:59:33 ST (T wave) deviation now present T-wave abnormality no longer present Possible ischemia no longer present Electronically Signed On 02-25-2024 18:09:25 CDT by Phuc Moran M.D. [id number]
[2024-02-25 17:07] LABS: ABG PCO2 26.6 mmHg (35-45); ABG PH Result 7.24 (7.35-7.45); Arterial Blood Gas Hematocrit 32.1 % (37-47); Base Excess ABG -14.5 mmol/L (-2.0-2.0); Blood Gas Allen Test Pos; Blood Gas Operator Identificat GD; Blood Gas Sample Site Radial, right; Blood Gas Sample Type Arterial; HCO3 ABG 11.4 mmol/L (22-26); Oxygen Device ROOM AIR; PO2 ABG 98.4 mmHg (80.0-100.0); PO2 FiO2 Ratio Arterial Blood 0
[2024-02-25 17:23] LABS: Glucose Point of Care 397 mg/dL (70-110)
[2024-02-25 17:35] LABS: Basophils % 0.2 %; Hematocrit 28.9 % (36-47); Lymphocytes # 0.4 10^3/uL (0.8-4.8); Mean Corpuscular HGB Conc 29.1 g/dL (30-55); Mean Corpuscular Volume 96.3 fl (85-98); Mean Platelet Volume 14.1 fL (7.4-10.4); Monocytes # 1.3 10^3/uL (0.2-0.9); Monocytes % 6.2 %; Neutrophils # 19.85 10^3/uL (1.8-7.7); Neutrophils % 91.1 %; Nucleated Red Blood Cells % 0 %; Platelet Count 167 10^3/cmm (157-399); Red Cell Distribution Width 17.2 % (12.1-15.1); White Blood Count 21.77 10^3/uL (3.29-11.43)
[2024-02-25] MEDS: norepinephrine 4 MG/250 ML BAG 75 MG IV ×2 (17:37→20:53)
[2024-02-25 17:57] LABS: Anion Gap 33.3 (5-19); Calcium 8.1 mg/dL (8.5-10.5); Carbon Dioxide 11 mmol/L (22-29); Chloride 118 mmol/L (98-107); Creatinine Clr Calc Pharmacy 6.9947; Glucose 463 mg/dL (65-115); Phosphorus 7.4 mg/dL (2.5-4.5); Potassium 5.3 mmol/L (3.5-5.1); Sodium 157 mmol/L (136-145)
[2024-02-25] MEDS: insulin lispro 100 unit/1 mL SUBCUT ×2 (18:03→20:57)
[2024-02-25 18:07] LABS: Osmolality Calculated 402 mOsm/kg (285-295)
[2024-02-25 18:08] LABS: Troponin 5 6HR Delta -6.3 ng/L (0-12)
[2024-02-25 18:09] LABS: Blood Urea Nitrogen 174 mg/dL (8-23); Troponin 5 6HR 100.7 ng/L (0-10)
[2024-02-25 18:11] LABS: C.Diff PCR (Lab) NEGATIVE (Negative)
[2024-02-25 18:23] LABS: INR 1.34 (0.8-1.2); Partial Thromboplastin Time 30.8 SECONDS (23.9-36.7)
--- NOTE | 2024-02-25 18:40 | PM.MISC ---
Miscellaneous Note Note: Laboratory Last Values WBC 21.77 10^3/uL (3. 29-11.43) H 02/25/24 17:22 RBC 3.00 10^6/uL (3.8 5-5.65) L 02/25/24 17:22 Hgb 8.40 g/dL (11.27- 16.99) L 02/25/24 17:22 Hct 28.9 % (36-47) L 02/25/24 17:22 MCV 96.3 fl (85-98) D 02/25/24 17:22 MCH 28.0 pg (27-33) 02/25/24 17:22 MCHC 29.1 g/dL (30-55) L 02/25/24 17:22 RDW 17.2 % (12.1-15.1 ) H 02/25/24 17:22 Plt Count 167 10^3/cmm (157 -399) D 02/25/24 17:22 MPV 14.1 fL (7.4-10.4 ) H 02/25/24 17:22 Neut % (Auto) 91.1 % 02/25/24 17:22 Lymph % (Auto) 2.0 % 02/25/24 17:22 [place] % (Auto) 6.2 % 02/25/24 17:22 Eos % (Auto) 0.0 % 02/25/24 17:22 Baso % (Auto) 0.2 % 02/25/24 17:22 Neut # (Auto) 19.85 10^3/uL (1. 8-7.7) H 02/25/24 17:22 Lymph # (Auto) 0.4 10^3/uL (0.8- 4.8) L 02/25/24 17:22 [place] # (Auto) 1.3 10^3/uL (0.2- 0.9) H 02/25/24 17:22 Eos # (Auto) 0.0 10^3/uL (0.0- 0.8) 02/25/24 17:22 Baso # (Auto) 0.0 10^3/uL (0.0- 0.1) 02/25/24 17:22 Nucleated RBC % (a uto) 0 % 02/25/24 17: Nucleated RBCs # 0.0 /100WBC 02/25/24 17:22 PT 17.00 SECONDS (12 .1-14.9) H 02/25/24 17:22 INR 1.34 (0.8-1.2) H 02/25/24 17:22 APTT 30.8 SECONDS (23. 9-36.7) 02/25/24 17:22 Specimen Type Arterial 02/25/24 16:51 Sample Site Radial, right 02/25/24 16:51 ABG pH 7.24 (7.35-7.45) L 02/25/24 16:51 ABG pCO2 26.6 mmHg (35-45) L 02/25/24 16:51 ABG pO2 98.4 mmHg (80.0-1 00.0) 02/25/24 16:51 ABG PO2/FiO2 Ratio 0 02/25/24 16:51 ABG HCO3 11.4 mmol/L (22-2 6) L 02/25/24 16:51 ABG Base Excess -14.5 mmol/L (-2. 0-2.0) L 02/25/24 16:51 Ruben Test Pos 02/25/24 16:51 Hematocrit 32.1 % (37-47) L 02/25/24 16:51 O2 Delivery Device Room air 02/25/24 16:51 FiO2 21.0 % 02/25/24 16:51 Molder Floor ID Gd 02/25/24 16:51 Sodium 157 mmol/L (136-1 45) H 02/25/24 17:22 Potassium 5.3 mmol/L (3.5-5 .1) H 02/25/24 17:22 Chloride 118 mmol/L (98-10 7) H 02/25/24 17:22 Carbon Dioxide 11 mmol/L (22-29) L 02/25/24 17:22 Anion Gap 33.3 (5-19) H 02/25/24 17:22 BUN 174 mg/dL (8-23) H* 02/25/24 17:22 Creatinine 6.7 mg/dL (0.5-0. 9) H* 02/25/24 17:22 GFR Calculation Not Reportable 02/25/24 17:22 Glucose 463 mg/dL (65-115 ) H 02/25/24 17:22 POC Glucose 397 mg/dL (70-110 ) H 02/25/24 17:21 Calculated Osmolal ity 402 mOsm/kg (285- 295) H 02/25/24 17:22 Calcium 8.1 mg/dL (8.5-10 .5) L 02/25/24 17:22 Phosphorus 7.4 mg/dL (2.5-4. 5) H 02/25/24 17:22 Magnesium 2.0 mg/dL (1.7-2. 3) 02/25/24 17:22 Troponin T Hi Sens 6Hr 100.7 ng/L (0-10) H 02/25/24 17:22 Troponin T Hi Sens 6Hr Delta -6.3 ng/L (0-12) L 02/25/24 17:22 C. difficile (PCR) Negative (Negati ve) 02/25/24 15:57 Has had 450ml UOP 4L fluid boluses with total intake ~5500 ml today CK is nearly double from prior values. BUN/Cr and potassium are improved though still critical. Sodium is higher. Blood sugars however are increased over 400, even when checked at a peripheral site. Amiodarone is infusion in D5 in central line. With high anion gap acidosis present on admission, metabolic acidosis from lactic acidosis and acute renal failure/severe uremia primary consideration. Could have a component of ketoacidosis as a contributing factor evolving. Not a known diabetic. A1c last month was 6.2. Insulin naive. Will start with low dose insulin, checked ketones. Current blood pressure 113/63 on 20 levophed and 0.03 vasopressin, HR remains 130s-140s. Sats are still stable but breath sounds with more prominent upper airway noise presently, maybe with some rales at bases. Breathing remains tachypneic and shallow with some accessory muscle use. Color overall is better. With drop in hemoglobin with fluids, will add a type and screen to labs. Coags are up some. Had bloody tinged mucus mixed in stool noted earlier. For now will continue to the sq heparin bid but if further drop or signs of gross bleeding will need to hold. SCDs are on. C diff was checked an negative 6hr troponin delta remains negative With above findings, changing fluids to 0.45% NS with 2 amps bicarb for potassium protection x one more liter. Hopefully potassium continue to improve. THis shold also help with increasing CK level, although values not Will recheck lytes in a few hours. Her urine is more yellow. Updated Jenae, patients daughter regarding slight improvement or lack of worsening and labs and that blood pressures have been stable on current pressor regimen for the last couple of hours. Jenae is aware of the continued critical nature of Mrs. Guerrero illness and potential that she may not survive. Continuing with care as outlined to include ICU care and monitoring, IV fluids, pressor support, antibiotics. Not considering more invasive management at this time. She is not to be resuscitated for acute cardiopulmonary arrest. Spoke with oncoming physician Dr. Canchola as well as night nurse Sherlyn regarding plan of care for this evening. Additional care 45 minutes following up clinical condition, laboratory studies, updating orders and discussing with family, nursing staff and overnight physician. This is on top of 95 minutes of care performed earlier during performance of admission history and physical exam.
[2024-02-25 18:45] LABS: Creatine Phosphokinase 405 U/L (26-192)
[2024-02-25 19:49] LABS: Ketone (Acetest) Serum Negative (Negative)
[2024-02-25 20:31] LABS: Glucose Point of Care 364 mg/dL (70-110)
[2024-02-25 20:57] LABS: Anion Gap 28.6 (5-19); Carbon Dioxide 12 mmol/L (22-29); Chloride 117 mmol/L (98-107); Glucose 407 mg/dL (65-115); Magnesium 2.1 mg/dL (1.7-2.3); Potassium 4.6 mmol/L (3.5-5.1); Sodium 153 mmol/L (136-145)
[2024-02-25 21:03] LABS: Osmolality Calculated 389 mOsm/kg (285-295)
[2024-02-25 21:05] LABS: Blood Urea Nitrogen 168 mg/dL (8-23); Creatinine Clr Calc Pharmacy 7.5588
[2024-02-25 21:06] LABS: Lactate (Lactic Acid level) 6.3 mmol/L (0.5-2.2)
--- NOTE | 2024-02-25 22:00 | PC.NURSE ---
Patient has had 2 liquid dark brown stools. Patient cleansed. moisture management.
[2024-02-26] VITALS (88 sets, daily range): BP systolic 83–160; BP diastolic 40–109; PULSE 87–143; RESP 15–31; TEMP 36.1–37.7; O2SAT 89–100
[2024-02-26 00:12] LABS: Glucose Point of Care 187 mg/dL (70-110)
[2024-02-26] MEDS: norepinephrine 4 MG/250 ML BAG 75 MG IV (00:21)
[2024-02-26] MEDS: heparin 5,000 unit/mL INJ 1 mL 5000 UNIT SUBCUT ×2 (02:19→12:50)
[2024-02-26] MEDS: cefepime 1,000 MG in sodium chloride 0.9% (plus) 50 ML 100 MG IV ×2 (02:23→15:30)
[2024-02-26] MEDS: norepinephrine 4 MG/250 ML BAG 52.5 MG IV (04:02)
[2024-02-26 04:06] LABS: ABG PCO2 28.4 mmHg (35-45); ABG PH Result 7.42 (7.35-7.45); Arterial Blood Gas Hematocrit 29.1 % (37-47); Blood Gas Allen Test Pos; Blood Gas Sample Site Radial, left; Blood Gas Sample Type Arterial; HCO3 ABG 18.5 mmol/L (22-26); PO2 ABG 68.3 mmHg (80.0-100.0); PO2 FiO2 Ratio Arterial Blood 0
[2024-02-26] MEDS: morphine 4 mg/mL SDV 1 mL 2 MG IVP ×3 (05:41→15:11)
[2024-02-26 05:43] LABS: Basophils % 0.2 %; Eosinophils % 0.1 %; Hematocrit 27.5 % (36-47); Lymphocytes # 0.9 10^3/uL (0.8-4.8); Lymphocytes % 6.4 %; Mean Corpuscular HGB Conc 30.9 g/dL (30-55); Mean Corpuscular Hemoglobin 27.5 pg (27-33); Monocytes # 1.2 10^3/uL (0.2-0.9); Monocytes % 9.2 %; Neutrophils # 11.13 10^3/uL (1.8-7.7); Neutrophils % 83.7 %; Nucleated Red Blood Cells % 0 %; Platelet Count 169 10^3/cmm (157-399); Red Blood Count 3.09 10^6/uL (3.85-5.65); Red Cell Distribution Width 17.2 % (12.1-15.1); White Blood Count 13.29 10^3/uL (3.29-11.43)
[2024-02-26 06:05] LABS: Alanine Aminotransferase 77 U/L (0-33); Albumin Level 2.8 g/dL (3.5-5.2); Alkaline Phosphatase 156 U/L (35-105); Anion Gap 22.2 (5-19); Aspartate Amino Transferase 74 U/L (0-32); Calcium 8.3 mg/dL (8.5-10.5); Carbon Dioxide 19 mmol/L (22-29); Chloride 116 mmol/L (98-107); Globulin 3.1 g/dL (1.3-4.6); Glucose 361 mg/dL (65-115); Lipase 24 U/L (13-60); Magnesium 1.7 mg/dL (1.7-2.3); Phosphorus 4.5 mg/dL (2.5-4.5); Potassium 4.2 mmol/L (3.5-5.1); Sodium 153 mmol/L (136-145); Total Bilirubin 0.2 mg/dL (0.15-1.2); Total Protein 5.9 g/dL (6.6-8.7)
[2024-02-26 06:06] LABS: Lactate (Lactic Acid level) 1.8 mmol/L (0.5-2.2)
[2024-02-26 06:10] LABS: Uric Acid 11.8 mg/dL (2.4-5.7)
[2024-02-26 06:14] LABS: Slide Review Slide Review Perform
[2024-02-26 06:22] LABS: Creatinine Clr Calc Pharmacy 9.5642; Osmolality Calculated 378 mOsm/kg (285-295)
[2024-02-26 06:25] LABS: Blood Urea Nitrogen 145 mg/dL (8-23); Creatine Phosphokinase 693 U/L (26-192)
[2024-02-26 07:27] LABS: Glucose Point of Care 313 mg/dL (70-110)
--- NOTE | 2024-02-26 07:28 | PC.NURSE ---
Patient has received muliple fluid boluses and continues to received more fluids for treatment of uti and acidosis. Due to concern for future swelling, nurse removed ring from right hand, placed in bio bag with patient label and put into the pyxis.
[2024-02-26] MEDS: vasopressin 40 UNIT/100 ML PREMIX 0.0299999999999999989 UNIT IV (07:34)
[2024-02-26] MEDS: norepinephrine 4 MG/250 ML BAG 37.5 MG IV (07:35)
[2024-02-26] MEDS: insulin lispro 100 unit/1 mL SUBCUT ×2 (07:42→12:50)
[2024-02-26] MEDS: pantoprazole 40 mg SDV IVP (08:52)
--- NOTE | 2024-02-26 09:52 | CT_ITS ---
WS: [id number] CT ABDOMEN AND PELVIS NONCONTRAST HISTORY: CHRISTIANO, recurrent UTI TECHNIQUE: Imaging performed through the abdomen and pelvis. Coronal and sagittal reformats are submi tted. All CT scans at [facility] use at least one of these dose optimization techniques: auto mated exposure control; mA and/or kV adjustment per patient size (includes targeted exams where dose is matched to clinical indication); or iterative reconstruction. DLP: 810.44 mGy.cm COMPARISON: 04/20/2018 Study is limited by significant breathing motion artifact. Lower thorax: Dependent changes and pleural thickening at the lung bases. Normal size heart. Liver: Limited evaluation of the liver due to the motion artifact. Liver is normal size. Small masses would be easily obscured. Granulomata. Gallbladder: Minimally hydropic gallbladder with no adjacent inflammation. Pancreas: Moderate atrophy. Spleen: Normal size with granulomata. Adrenal glands: Normal. No mass. Right kidney: Normal size kidney with no mass or hydronephrosis. Left kidney: Normal size kidney with no mass or hydronephrosis. Aorta: Mild atherosclerosis abdominal aorta with no aneurysm. Focal area of fluid in the central mesentery. Small amount of fluid in the pelvis. No adenopathy. GI tract: Nondistended stomach. Increased fluid in the small bowel. Small bowel loops measure just ov er 3 cm in the mid abdomen. No obstructive pattern. There is additional wall thickening involving the distal colon towards the rectum. The remaining colon mucosa appears prominent also but more difficul t to evaluate due to motion and lack of IV contrast. No obstructive pattern. Abdominal wall: Negative. No hernia. Pelvis: Small amount of free fluid in the pelvis. No adenopathy. Harper catheter in the urinary bladde r. Osseous structures: Prior fusion L5-S1 with L5 anterolisthesis. T11 and L1 severe compression fractur es are stable. Bones are osteopenic. LEFT pubic rami fractures are unchanged. CT/CT kidney stone [id number] IMPRESSION: 1. Mild diffuse fluid throughout the small bowel and colon. Suspect there is m ild colonic wall thickening. There is no obstructive pattern. These findings ar e probably related to colitis or mild ileus. 2. There is a small amount of free fluid in the central mesentery and pelvis. 3. No free air. 4. Very minimally hydropic gallbladder with no changes of acute cholecystitis. 5. Remote, unchanged T11 and L1 compression fractures and LEFT pubic rami frac tures.
[2024-02-26] MEDS: sodium chloride 0.9% 1,000 ML 75 ML IV ×2 (09:59→23:08)
--- NOTE | 2024-02-26 10:43 | CT_ITS ---
WS: [id number] CT HEAD NONCONTRAST HISTORY: AMS TECHNIQUE: Contiguous axial imaging performed through the brain in 2.5 mm imaging. Bone and soft tiss ue windows. Sagittal and coronal reformats reviewed. All CT scans at [facility] use at least one of these dose optimization techniques: automated exposure control; mA and/or kV adjustment per pa tient size (includes targeted exams where dose is matched to clinical indication); or iterative recon struction. DLP: 1085.97 mGy.cm COMPARISON: 01/24/2024 No acute intracranial hemorrhage, midline shift or mass effect. Moderate volume loss and small vessel ischemic disease. Several bilateral cerebellar infarcts are lamont dentified. These are very similar to the prior study without obvious progression. Ventricles: Normal size with no hydrocephalus. No inferior displacement of the cerebellar tonsils. Paranasal sinuses: Mild ethmoid air cell disease. No air-fluid levels. Mastoid air cells: Well pneumatized. Calvarium and scalp: Numerous small partially calcified scalp masses towards the vertex. CT/CT head wo con* [id number] IMPRESSION: 1. No acute intracranial hemorrhage or edema. 2. Stable noncontrast head CT since 01/24/2024. 3. Numerous remote bilateral cerebellar infarcts.
[2024-02-26 12:46] LABS: Glucose Point of Care 181 mg/dL (70-110)
[2024-02-26 17:42] LABS: Glucose Point of Care 101 mg/dL (70-110)
--- NOTE | 2024-02-26 17:46 | P.PN_ITS ---
Subjective 2 Subjective: patient continues to be obtunded. Attempts to squeeze fingers, but overall remains non verbal. Pressor requirements coming down, on vasopressin 0.03 and levophed at 4mcg . had diarrheal BM overnight with blood streaking Medications: Reviewed: Yes Vitals/I&O/Wt Last Vital Signs Temp 98.5 F 02/26/24 12:15 Pulse 96 02/26/24 14:45 Resp 22 H 02/26/24 15:11 BP 101/54 02/26/24 14:45 Pulse Ox 97 02/26/24 15:11 O2 Del Method Nasal Cannula 02/26/24 14:45 O2 Flow Rate 2 02/26/24 14:45 02/26/24 02/26/24 02/26/24 06:59 14:59 22:59 Intake Total 1544.750 / 8120.750 3856.988 / 3856.988 50 / 3906.988 Output Total 1050 / 1500 1400 / 1400 Balance 494.750 / 6620.750 2456.988 / 2456.988 50 / 2506.988 Weight last 48 hrs Weight 74.48 kg Weight 78.018 kg Weight 78.018 kg Physical Exam 2 Narrative: General: lethargic, non verbal HEENT: PERRLA, pupils bilaterally equal and reactive, pallors not present Chest: Normal vesicular breath sounds, no added sounds, equal good air entry bilaterally CVS: S1-S2 regular, no murmurs, no tachycardia, no gallops, no rubs Abdomen: Soft, nontender, no organomegaly, bowel sounds present Neuro: non tender Urinary Catheter Management: Harper: Cath Placed During This Visit: yes Reason for Continuing Indwelling Catheter: Accurate Measurement of Urinary Output in Critically Ill Patients Urinary Catheter Date of Insertion: 02/25/24 Urinary Catheter Time of Insertion: 12:00 Data 02/26/24 05:30 02/26/24 05:30 Micro: Microbiology 02/25/24 12:45 Blood Culture - Preliminary Blood NEGATIVE TO DATE 02/25/24 12:32 Blood Culture - Preliminary Blood NEGATIVE TO DATE 02/25/24 15:57 Occult Blood (FIT) - Final Stool A&P Assessment and plan (1) Septic shock: Severe sepsis with septic shock. Initially responded to fluids but has more recently required initiation of pressor support. Has multiorgan involvement. She is hypothermic with leukocytosis and left shift. Lactic acidosis noted. She has acute kidney injury, elevation in liver enzymes, acute encephalopathy, significant tachycardia with arrhythmia, elevation in troponin, elevation in blood sugars without a known diagnosis of diabetes, hypernatremia and hyperkalemia, among other abnormalities. Current source felt to likely be urinary in nature based on recent available history but other foci of infection could also be contributing. No gross wounds noted. No obvious abnormalities on chest x-ray. She has started to have some loose stools, but no reports of GI issues noted and available information. Was recently on antibiotics for UTI. Cannot completely rule out at this exact moment in time a vascular component to shock but seems less likely based on available information. Patient is not currently cooperative for performance of noninvasive hemodynamics that might offer more focused information. (2) Acute kidney injury: Severe currently with oliguria. Has associated hyperkalemia. CK of 210 noted. Home medications include joanne inhibitor and diuretic. Combination of pre-renal acute kidney injury and ATN at this time. Cannot fully rule out an obstructive process but not stable enough in the ER for more focused imaging. (3) Atrial fibrillation with rapid ventricular response: New finding, currently feel secondary to effects of severe sepsis and septic shock. No known to have prior arrhythmia, though I did fins where she had previously been on atenolol, though specifics of when and why are not known. Was started on amiodarone in the ER. (4) Elevated troponin: Baseline troponin at 107. This is in fact lower than baseline troponin last hospital stay which was 115. She did not have a significant 2 hour delta last stay. Known to have CAD diagnosis from records, though details not known. Echo last hospital stay showed EF 55-60%. With significant tachycardia and current arrhythmia a type 2 process probable. 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 Recovery hindered by multiple fractures related to recurrent falls. (6) Multiple fractures: Multiple fractures were identified at last hospital stay including a left inferior pubic rami fracture with callus formation, subacute appearing anterior acetabulum fracture, tiny fracture of the pubic symphysis and a chronic appearing left greater than right sacral insufficiency fractures with sclerosis. Also identified was a left distal humeral fracture. This fracture originally occurred in October 2020 and was refractured in November 2023. Managed with splinting/sling and nonsurgical management. Pain medication was added for pain control at last hospital stay. No reported repeat falls since she was last here though information limited. (7) Hypertension: Currently with significant hypotension related to severe sepsis and septic shock. Chronically on lisinopril and triamterene/hydrochlorothiazide. May have previously been on atenolol but looks to have been discontinued last hospital stay versus correction to home medication list. (8) Hyperlipidemia: Chronically on statin therapy with atorvastatin. Lipid panel in January showed triglycerides of 205, cholesterol 198, LDL 121 and HDL of 36. (9) Coronary artery disease: Chronic diagnosis, details unknown (10) Hypothyroidism: Acquired hypothyroidism, chronically on levothyroxine. TSH in January was 1.71. (11) Depression: Chronically on citalopram and bupropion Plan ICU admission Continue IV fluids, adjusting as indicated based on chemistries and clinical status Will add pressors initially with Levophed and vasopressin, monitoring response Broad-spectrum antibiotics to include vancomycin and cefepime Blood cultures were collected Check coagulation studies Will send stool studies for C. difficile and Hemoccult Urinalysis has been ordered pending production of urine Harper catheter for close monitoring of urine output Received insulin and glucose, calcium chloride and bicarbonate for hyperkalemia Will repeat laboratory studies in a couple of hours Did discuss with patient's daughter severity of kidney dysfunction and hyperkalemia including management options such as medical management, dialysis if she could tolerate and nephrology felt there would be benefit and at this time we will see how she responds to above measures before considering any alternatives Second lactic acid has improved to 3.0 For now we will continue amiodarone drip initiated in the emergency room If at any point in time we are able to do bedside hemodynamics with patient cooperating with procedure will attempt Patient is not to be resuscitated, no CPR, no emergency ACLS protocols, no intubation or mechanical ventilation per discussion with daughter. Management in the ICU with fluids, pressors and close monitoring along with antibiotics and other focus treatment as ordered or okay at this time. Continue serial cardiac enzymes though patient is not an ideal candidate for any form of intervention currently given severe sepsis Neuroexams given patient's recent stroke that involve posterior circulation; at recent baseline has had word finding difficulties/dysarthria/dysphasia along with gait instability and frequent falls Currently holding pain control Currently holding home antihypertensives of lisinopril and triamterene/hydrochlorothiazide Currently holding home atorvastatin, aspirin, Plavix Currently holding home levothyroxine Currently not continuing home quetiapine Currently holding home bupropion and citalopram If survives will need to restart citalopram when able to decrease risk of additional symptoms from withdrawal All home as needed medications presently held as is scheduled PPI and Flonase VTE prophylaxis: Subcu heparin at renal dosing GI Prophylaxis: PPI IV currently secondary to clinical condition Antibiotics: Status post Zosyn x 1 dose on 02/24; cefepime and vancomycin initiated 02/25/2024 for empiric coverage of sepsis Pending studies: Blood cultures, urinalysis, C. difficile, Hemoccult, repeat labs this evening and tomorrow morning Telemetry: Ordered for monitoring of critically ill patient Harper: Ordered for monitoring of critically ill patient with acute kidney injury Line(s): Central venous line in the right IJ placed on 02/25/2024 from the ED Disposition plan: Will ultimately depend on clinical course. If she survives anticipate disposition back to skilled facility. Daughter has expressed desire to get her mother to [place] to be closer to her if possible. Code Status: Patient is to be allowed natural . Okay for ICU admission, pressor support, critical care monitoring and fluid administration, antibiotics. Patient is not to be intubated or mechanically ventilated. She is not to receive chest compressions, defibrillation or emergency ACLS protocol management. Patient is currently in critical condition with a very high risk of continued clinical decline up to and including the possibility of even with care as outlined Findings, concerns and plans were discussed with patient's daughter Jenae and she was given an opportunity to ask questions. I will update her as future labs come back and clinical condition changes. Plan for today: February 26, 2024 Patient continues to be lethargic, encephalopathic. Leukocytosis and pressor requirement coming down today. Plan to titrate off vasopressin today, maintain levohphed to maintain MAP > 65. Ct head completed today. Chronic cerebellar infarcts noted, no acute findings. Additionally ordered CT KUB - no renal or ureteral obstruction. Possible colitis vs mild ileus. Change cefepime to Zosyn to add anaerobic coverage with possible colitis . C diff PCR negative. Cr improving. Urine output 800cc thus far. Trend Hb, no major bleeding or pam noted thus far. Continue amiodarone infusion at 0.5 mg/hr until can be awake enough to overlap with oral amiodarone. discontinue bicarb infusion as bicarb now at 19. Change fluids to NS @ 75 cc/hr. Monitor closely for development of hypervolemia. Blood cx negative thus fra, urine cx pending. Attestations 2 Medical Necessity Statement*: continued ICU admission for iv abx, pressor support Critical Care Time: The high probability of a clinically significant, sudden or life threatening deterioration of the patient's [circulatory, neuro, ID ] system(s) required my full and direct attention, intervention and personal management. The critical care time is as shown. This time is in addition to time spent performing any reported procedures but includes the following: [x] Data and vital sign review and interpretation [x] Patient assessment, examination and intervention [x] Documentation [x] Medication orders and management Critical Care Time (min): 50 Coding Level of Care Code Critical Care >/= 30 minutes Diagnoses Septic shock A41.9; R65.21 Acute kidney injury N17.9 Atrial fibrillation with rapid ventricular response I48.91 Elevated troponin R79.89 CVA (cerebral vascular accident) I63.9 Multiple fractures T07.XXXA Hypertension I10 Hyperlipidemia E78.5 Coronary artery disease I25.10 Hypothyroidism E03.9 Depression F32.9
--- NOTE | 2024-02-26 17:55 | PC.NURSE ---
SHift Summary: Taken for abdomen/pelvis and head CT, results listed in reports tab. Weaned off of vasopressin. Levophed requirements variable between 2 to 6 MCG/min. Patient will follow simple commands such as Squeeze fingers , will mumble in response to questions, speech unintelligible. Crepitus felt in left upper arm, left radial pulses palpable, phyiscian aware, no orders to adres the preexisting humerus fracture at this time. TOtal urine output: 1700mL.
[2024-02-26] MEDS: piperacillin-tazobactam 3.375 GM in sodium chloride 0.9% (plus) 50 ML IV (19:15)
[2024-02-26 20:24] LABS: Glucose Point of Care 86 mg/dL (70-110)
--- NOTE | 2024-02-26 20:44 | PC.NURSE ---
Dr. Canchola made aware of Amiodarone drip running at 0.5 mg/min for [address] Canchola said to continue Amiodarone drip at the same rate.
[2024-02-27] VITALS (53 sets, daily range): BP systolic 85–135; BP diastolic 42–82; PULSE 83–96; RESP 12–25; TEMP 36.1–37.2; O2SAT 93–100; BMI 28.1
[2024-02-27] MEDS: heparin 5,000 unit/mL INJ 1 mL 5000 UNIT SUBCUT ×2 (01:24→13:48)
[2024-02-27] MEDS: norepinephrine 4 MG/250 ML BAG 7.5 MG IV (01:55)
[2024-02-27 04:49] LABS: Hematocrit 26.1 % (36-47); Mean Corpuscular HGB Conc 29.5 g/dL (30-55); Mean Corpuscular Hemoglobin 26.9 pg (27-33); Mean Corpuscular Volume 91.3 fl (85-98); Mean Platelet Volume 13.4 fL (7.4-10.4); Platelet Count 113 10^3/cmm (157-399); Red Blood Count 2.86 10^6/uL (3.85-5.65); Red Cell Distribution Width 17.2 % (12.1-15.1); White Blood Count 10.53 10^3/uL (3.29-11.43)
[2024-02-27 05:15] LABS: Alanine Aminotransferase 68 U/L (0-33); Albumin Level 2.7 g/dL (3.5-5.2); Alkaline Phosphatase 185 U/L (35-105); Anion Gap 14.6 (5-19); Aspartate Amino Transferase 67 U/L (0-32); Calcium 8.1 mg/dL (8.5-10.5); Carbon Dioxide 25 mmol/L (22-29); Chloride 122 mmol/L (98-107); Globulin 2.9 g/dL (1.3-4.6); Glucose 162 mg/dL (65-115); Osmolality Calculated 359 mOsm/kg (285-295); Potassium 3.6 mmol/L (3.5-5.1); Sodium 158 mmol/L (136-145); Total Bilirubin 0.2 mg/dL (0.15-1.2); Total Protein 5.6 g/dL (6.6-8.7)
[2024-02-27 05:31] LABS: Absolute Neutrophil 8.2 10^3/cmm (1.4-6.5); Absolute Segmented Neutrophil 6.1 10/cmm (1.6-7.1); Band Neutrophils Absolute 2.1 10^3/cmm (0.0-1.2); Eosinophils 0 %; Lymphocytes 8 %; Monocytes Absolute 0.7 10^3/cmm (0.1-0.6); Platelet Estimate Decreased (Normal); Segmented Neutrophils 58 %; Slide Review Slide Review Perform; Total Cells Counted 100 (0-100)
[2024-02-27 05:46] LABS: Creatinine Clr Calc Pharmacy 17.6257
[2024-02-27 05:48] LABS: Blood Urea Nitrogen 95 mg/dL (8-23)
[2024-02-27] MEDS: piperacillin-tazobactam 3.375 GM in sodium chloride 0.9% (plus) 50 ML IV ×2 (06:13→17:59)
[2024-02-27 08:07] LABS: Glucose Point of Care 185 mg/dL (70-110)
[2024-02-27] MEDS: insulin lispro 100 unit/1 mL SUBCUT (08:39)
[2024-02-27] MEDS: pantoprazole 40 mg SDV IVP (08:40)
[2024-02-27 11:58] LABS: Glucose Point of Care 87 mg/dL (70-110)
[2024-02-27] MEDS: sodium chloride 0.9% 1,000 ML 75 ML IV (13:34)
--- NOTE | 2024-02-27 15:25 | P.PN_ITS ---
Subjective 2 Subjective: Appears to be more alert today, attempts to nod head and blink eyes in response to questions. moves fingers. Asks for water - no definite conversation. Off vasopressin, levophed down to 1mcg. No further diarrhea or bloody BM. Medications: Reviewed: Yes Vitals/I&O/Wt Last Vital Signs Temp 97.0 F L 02/27/24 06:00 Pulse 93 02/27/24 14:00 Resp 21 H 02/27/24 14:00 BP 98/51 02/27/24 14:00 Pulse Ox 99 02/27/24 08:30 O2 Del Method Nasal Cannula 02/27/24 06:00 O2 Flow Rate 2 02/27/24 06:00 02/27/24 02/27/24 02/27/24 06:59 14:59 22:59 Intake Total 1087.625 / 5305.613 1200 / 1200 Output Total 650 / 3250 Balance 437.625 / 2055.613 1200 / 1200 Weight last 48 hrs Weight 74.474 kg Weight 74.474 kg Weight 74.48 kg Physical Exam 2 Narrative: General: lethargic, non verbal HEENT: PERRLA, pupils bilaterally equal and reactive, pallors not present Chest: Normal vesicular breath sounds, no added sounds, equal good air entry bilaterally CVS: S1-S2 regular, no murmurs, no tachycardia, no gallops, no rubs Abdomen: Soft, nontender, no organomegaly, bowel sounds present Neuro: non tender Urinary Catheter Management: Harper: Cath Placed During This Visit: yes Reason for Continuing Indwelling Catheter: Accurate Measurement of Urinary Output in Critically Ill Patients Urinary Catheter Date of Insertion: 02/25/24 Urinary Catheter Time of Insertion: 12:00 Data 02/27/24 04:04 02/27/24 04:04 Micro: Microbiology 02/25/24 12:45 Blood Culture - Preliminary Blood NEGATIVE TO DATE 02/25/24 12:32 Blood Culture - Preliminary Blood NEGATIVE TO DATE A&P Assessment and plan (1) Septic shock: Severe sepsis with septic shock. Initially responded to fluids but has more recently required initiation of pressor support. Has multiorgan involvement. She is hypothermic with leukocytosis and left shift. Lactic acidosis noted. She has acute kidney injury, elevation in liver enzymes, acute encephalopathy, significant tachycardia with arrhythmia, elevation in troponin, elevation in blood sugars without a known diagnosis of diabetes, hypernatremia and hyperkalemia, among other abnormalities. Current source felt to likely be urinary in nature based on recent available history but other foci of infection could also be contributing. No gross wounds noted. No obvious abnormalities on chest x-ray. She has started to have some loose stools, but no reports of GI issues noted and available information. Was recently on antibiotics for UTI. Cannot completely rule out at this exact moment in time a vascular component to shock but seems less likely based on available information. Patient is not currently cooperative for performance of noninvasive hemodynamics that might offer more focused information. (2) Acute kidney injury: Severe currently with oliguria. Has associated hyperkalemia. CK of 210 noted. Home medications include joanne inhibitor and diuretic. Combination of pre-renal acute kidney injury and ATN at this time. Cannot fully rule out an obstructive process but not stable enough in the ER for more focused imaging. (3) Atrial fibrillation with rapid ventricular response: New finding, currently feel secondary to effects of severe sepsis and septic shock. No known to have prior arrhythmia, though I did fins where she had previously been on atenolol, though specifics of when and why are not known. Was started on amiodarone in the ER. (4) Elevated troponin: Baseline troponin at 107. This is in fact lower than baseline troponin last hospital stay which was 115. She did not have a significant 2 hour delta last stay. Known to have CAD diagnosis from records, though details not known. Echo last hospital stay showed EF 55-60%. With significant tachycardia and current arrhythmia a type 2 process probable. 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 Recovery hindered by multiple fractures related to recurrent falls. (6) Multiple fractures: Multiple fractures were identified at last hospital stay including a left inferior pubic rami fracture with callus formation, subacute appearing anterior acetabulum fracture, tiny fracture of the pubic symphysis and a chronic appearing left greater than right sacral insufficiency fractures with sclerosis. Also identified was a left distal humeral fracture. This fracture originally occurred in October 2020 and was refractured in November 2023. Managed with splinting/sling and nonsurgical management. Pain medication was added for pain control at last hospital stay. No reported repeat falls since she was last here though information limited. (7) Hypertension: Currently with significant hypotension related to severe sepsis and septic shock. Chronically on lisinopril and triamterene/hydrochlorothiazide. May have previously been on atenolol but looks to have been discontinued last hospital stay versus correction to home medication list. (8) Hyperlipidemia: Chronically on statin therapy with atorvastatin. Lipid panel in January showed triglycerides of 205, cholesterol 198, LDL 121 and HDL of 36. (9) Coronary artery disease: Chronic diagnosis, details unknown (10) Hypothyroidism: Acquired hypothyroidism, chronically on levothyroxine. TSH in January was 1.71. (11) Depression: Chronically on citalopram and bupropion Plan ICU admission Continue IV fluids, adjusting as indicated based on chemistries and clinical status Will add pressors initially with Levophed and vasopressin, monitoring response Broad-spectrum antibiotics to include vancomycin and cefepime Blood cultures were collected Check coagulation studies Will send stool studies for C. difficile and Hemoccult Urinalysis has been ordered pending production of urine Harper catheter for close monitoring of urine output Received insulin and glucose, calcium chloride and bicarbonate for hyperkalemia Will repeat laboratory studies in a couple of hours Did discuss with patient's daughter severity of kidney dysfunction and hyperkalemia including management options such as medical management, dialysis if she could tolerate and nephrology felt there would be benefit and at this time we will see how she responds to above measures before considering any alternatives Second lactic acid has improved to 3.0 For now we will continue amiodarone drip initiated in the emergency room If at any point in time we are able to do bedside hemodynamics with patient cooperating with procedure will attempt Patient is not to be resuscitated, no CPR, no emergency ACLS protocols, no intubation or mechanical ventilation per discussion with daughter. Management in the ICU with fluids, pressors and close monitoring along with antibiotics and other focus treatment as ordered or okay at this time. Continue serial cardiac enzymes though patient is not an ideal candidate for any form of intervention currently given severe sepsis Neuroexams given patient's recent stroke that involve posterior circulation; at recent baseline has had word finding difficulties/dysarthria/dysphasia along with gait instability and frequent falls Currently holding pain control Currently holding home antihypertensives of lisinopril and triamterene/hydrochlorothiazide Currently holding home atorvastatin, aspirin, Plavix Currently holding home levothyroxine Currently not continuing home quetiapine Currently holding home bupropion and citalopram If survives will need to restart citalopram when able to decrease risk of additional symptoms from withdrawal All home as needed medications presently held as is scheduled PPI and Flonase VTE prophylaxis: Subcu heparin at renal dosing GI Prophylaxis: PPI IV currently secondary to clinical condition Antibiotics: Status post Zosyn x 1 dose on 02/24; cefepime and vancomycin initiated 02/25/2024 for empiric coverage of sepsis Pending studies: Blood cultures, urinalysis, C. difficile, Hemoccult, repeat labs this evening and tomorrow morning Telemetry: Ordered for monitoring of critically ill patient Harper: Ordered for monitoring of critically ill patient with acute kidney injury Line(s): Central venous line in the right IJ placed on 02/25/2024 from the ED Disposition plan: Will ultimately depend on clinical course. If she survives anticipate disposition back to skilled facility. Daughter has expressed desire to get her mother to [place] to be closer to her if possible. Code Status: Patient is to be allowed natural . Okay for ICU admission, pressor support, critical care monitoring and fluid administration, antibiotics. Patient is not to be intubated or mechanically ventilated. She is not to receive chest compressions, defibrillation or emergency ACLS protocol management. Patient is currently in critical condition with a very high risk of continued clinical decline up to and including the possibility of even with care as outlined Findings, concerns and plans were discussed with patient's daughter Jenae and she was given an opportunity to ask questions. I will update her as future labs come back and clinical condition changes. Plan for today: February 26, 2024 Patient continues to be lethargic, encephalopathic. Leukocytosis and pressor requirement coming down today. Plan to titrate off vasopressin today, maintain levohphed to maintain MAP > 65. Ct head completed today. Chronic cerebellar infarcts noted, no acute findings. Additionally ordered CT KUB - no renal or ureteral obstruction. Possible colitis vs mild ileus. Change cefepime to Zosyn to add anaerobic coverage with possible colitis . C diff PCR negative. Cr improving. Urine output 800cc thus far. Trend Hb, no major bleeding or pam noted thus far. Continue amiodarone infusion at 0.5 mg/hr until can be awake enough to overlap with oral amiodarone. discontinue bicarb infusion as bicarb now at 19. Change fluids to NS @ 75 cc/hr. Monitor closely for development of hypervolemia. Blood cx negative thus fra, urine cx pending. February 27, 2024: Appears more alert today however still non verbal. Ppressor requirements improving. CX data remains pending. Diarrhea resolved. A fib remains resolved. continued amio infusion until able to transition to oral medications. Attempt few sips of water and ice chips today. Continue empiric abx with zosyn and vancomycin. Attestations 2 Medical Necessity Statement*: Continued ICU admission in view of septic shock, pending cx data, need for iv abx, continued attempts to titrate down pressors. Critical Care Time: The high probability of a clinically significant, sudden or life threatening deterioration of the patient's [cardiac, respiratory, ID ] system(s) required my full and direct attention, intervention and personal management. The critical care time is as shown. This time is in addition to time spent performing any reported procedures but includes the following: [x] Data and vital sign review and interpretation [x] Patient assessment, examination and intervention [x] Documentation [x] Medication orders and management Critical Care Time (min): 45 Coding Level of Care Code Critical Care >/= 30 minutes Diagnoses Septic shock A41.9; R65.21 Acute kidney injury N17.9 Atrial fibrillation with rapid ventricular response I48.91 Elevated troponin R79.89 CVA (cerebral vascular accident) I63.9 Multiple fractures T07.XXXA Hypertension I10 Hyperlipidemia E78.5 Coronary artery disease I25.10 Hypothyroidism E03.9 Depression F32.9
[2024-02-27 17:06] LABS: Glucose Point of Care 92 mg/dL (70-110)
[2024-02-27 20:30] LABS: Glucose Point of Care 102 mg/dL (70-110)
[2024-02-28] VITALS (35 sets, daily range): BP systolic 107–155; BP diastolic 54–98; PULSE 77–97; RESP 13–25; TEMP 36.4–37.1; O2SAT 85–99; BMI 28.1
[2024-02-28] MEDS: heparin 5,000 unit/mL INJ 1 mL 5000 UNIT SUBCUT ×2 (01:22→13:00)
[2024-02-28] MEDS: sodium chloride 0.9% 1,000 ML 75 ML IV (03:25)
[2024-02-28 06:28] LABS: Alanine Aminotransferase 55 U/L (0-33); Albumin Level 2.7 g/dL (3.5-5.2); Alkaline Phosphatase 130 U/L (35-105); Anion Gap 15.5 (5-19); Aspartate Amino Transferase 47 U/L (0-32); Blood Urea Nitrogen 59 mg/dL (8-23); Carbon Dioxide 24 mmol/L (22-29); Chloride 125 mmol/L (98-107); Creatinine Clr Calc Pharmacy 30.5512; Glucose 117 mg/dL (65-115); Osmolality Calculated 350 mOsm/kg (285-295); Potassium 3.5 mmol/L (3.5-5.1); Total Bilirubin 0.3 mg/dL (0.15-1.2); Total Protein 5.7 g/dL (6.6-8.7)
[2024-02-28] MEDS: piperacillin-tazobactam 3.375 GM in sodium chloride 0.9% (plus) 50 ML IV ×2 (06:29→18:39)
[2024-02-28 06:35] LABS: Sodium 161 mmol/L (136-145)
[2024-02-28 07:34] LABS: Glucose Point of Care 66 mg/dL (70-110)
[2024-02-28] MEDS: dextrose 10% 125 ML 750 ML IV (07:36)
--- NOTE | 2024-02-28 07:42 | PC.NURSE ---
glucose 66, Dextrose administered per MAR
[2024-02-28] MEDS: pantoprazole 40 mg SDV IVP (07:59)
[2024-02-28] MEDS: dextrose 5% 1,000 ML 75 ML IV ×2 (07:59→20:10)
--- NOTE | 2024-02-28 08:21 | P.PN_ITS ---
Subjective 2 Subjective: Patient did well overnight. She had 7 loose stools 1 yesterday and 1 today but no blood. She has been off Levophed since yesterday. She is also been on room air since yesterday. Glucose was 66 this morning and she received half an amp of D50. She continues to have expressive aphasia but did say that she was cold and wanted to eat something. Medications: Reviewed: Yes Vitals/I&O/Wt Last Vital Signs Temp 98.0 F 02/27/24 20:00 Pulse 93 02/28/24 08:00 Resp 18 02/28/24 08:00 BP 140/81 02/28/24 08:00 Pulse Ox 98 02/28/24 08:00 O2 Del Method Room Air 02/28/24 06:00 O2 Flow Rate 2 02/28/24 04:00 02/27/24 02/28/24 02/28/24 22:59 06:59 14:59 Intake Total 400 / 1650 1450 / 3100 268.75 / 268.75 Output Total 1550 / 1550 450 / 2000 Balance -1150 / 100 1000 / 1100 268.75 / 268.75 Weight last 48 hrs Weight 74.474 kg Weight 74.474 kg Weight 74.474 kg Weight 74.474 kg Physical Exam 2 Const: OTHER: Patient was alert this morning. Oriented to person and place. No acute distress noted. HENMT: OTHER: Normocephalic atraumatic Eye: OTHER: PERRLA Neck/C-Spine: OTHER: Supple Resp: COMMON NORMALS: normal respiratory effort and clear to auscultation bilaterally AUSCULTATION: clear to auscultation bilaterally Cardio: COMMON NORMALS: regular rate, regular rhythm, S1 normal heart sound present, S2 normal heart sound present and Peripheral pulses 2+ throughout R ATE: regular rate RHYTHM: regular rhythm HEART SOUNDS: S1 normal heart sound present and S2 normal heart sound present PERIPHERAL PULSES: Peripheral pulses 2+ throughout GI: COMMON NORMALS: Normal to inspection, nondistended, normoactive bowel sounds present, Soft to palpation and non-tender PALPATION: Yes Soft to palpation Extremity: OTHER: Right arm swollen with gross deformity from fracture. Trace edema bilaterally Neuro: COMMON NORMALS: moves all extremities OTHER: Residual aphasia from stroke. Psych: COMMON NORMALS: mental status grossly normal Skin: COMMON NORMALS: no rashes or lesions noted GENERAL SKIN EXAM: no rashes or lesions noted Urinary Catheter Management: Harper: Cath Placed During This Visit: yes Reason for Continuing Indwelling Catheter: Accurate Measurement of Urinary Output in Critically Ill Patients Urinary Catheter Date of Insertion: 02/25/24 Urinary Catheter Time of Insertion: 12:00 Data 02/27/24 22:54 02/28/24 05:32 A&P Assessment and plan (1) Septic shock: Severe sepsis with septic shock. Now resolved. Hemodynamically stable off of IV pressors. Initially responded to fluids but has more recently required initiation of pressor support. Has multiorgan involvement. She had hypothermic with leukocytosis and left shift. Lactic acidosis noted. She has acute kidney injury, elevation in liver enzymes, acute encephalopathy, significant tachycardia with arrhythmia, elevation in troponin, elevation in blood sugars without a known diagnosis of diabetes, hypernatremia and hyperkalemia, among other abnormalities. Source appears to be colitis. C. difficile was negative on 02/24. She has occasional loose stools but no blood. Currently on IV Zosyn (02/24?current) (2) Acute kidney injury: Initially severe with oliguria with hypokalemia. She now has good urine output. Severe currently with oliguria. Has associated hyperkalemia. Creatinine today is down to 1.5 mg/dL; baseline creatinine runs 0.7-1.0. Combination of pre-renal acute kidney injury and ATN at this time. She was on RAMO inhibitor and diuretic at home. Will DC Harper today. (3) Atrial fibrillation with rapid ventricular response: New finding, currently feel secondary to effects of severe sepsis and septic shock. No known to have prior arrhythmia, but she was previously on atenolol, though specifics of when and why are not known. Was started on amiodarone in the ER. Currently on an amiodarone infusion. Will transition to oral amiodarone once able to take p.o. (4) Elevated troponin: Baseline troponin at 107. This is in fact lower than baseline troponin last hospital stay which was 115. She did not have a significant 2 hour delta last stay. Known to have CAD diagnosis from records, though details not known. Echo last hospital stay showed EF 55-60%. With significant tachycardia and current arrhythmia a type 2 process probable. 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 Recovery hindered by multiple fractures related to recurrent falls. Currently not taking oral meds. Will restart meds when she is cleared to by [employer]. (6) Multiple fractures: Multiple fractures were identified at last hospital stay including a left inferior pubic rami fracture with callus formation, subacute appearing anterior acetabulum fracture, tiny fracture of the pubic symphysis and a chronic appearing left greater than right sacral insufficiency fractures with sclerosis. Also identified was a left distal humeral fracture. This fracture originally occurred in October 2020 and was refractured in November 2023. Managed with splinting/sling and nonsurgical management. Pain medication was added for pain control at last hospital stay. No reported repeat falls since she was last here though information limited. (7) Hypertension: She was hypotensive with septic shock. Blood pressure now stable off of IV pressors. Chronically on lisinopril and triamterene/hydrochlorothiazide. May have previously been on atenolol but looks to have been discontinued last hospital stay versus correction to home medication list. (8) Hyperlipidemia: Chronically on statin therapy with atorvastatin. Lipid panel in January showed triglycerides of 205, cholesterol 198, LDL 121 and HDL of 36. (9) Coronary artery disease: Chronic diagnosis, details unknown (10) Hypothyroidism: Acquired hypothyroidism, chronically on levothyroxine. TSH in January was 1.71. Restart oral levothyroxine once able to take meds. (11) Depression: Chronically on citalopram and bupropion (12) Acute hypernatremia: She has been hyponatremic since admission with initial sodium of 154 mmol/L. Sodium is 151 mmol/L today. Discontinued her normal saline infusion and started her on D5 W. Will recheck serum sodium level at noon today. Encourage free water intake once cleared by [employer]. Plan ICU admission Septic shock has resolved; stable off of IV pressors for 24 hours Continue IV fluids, adjusting as indicated based on chemistries and clinical status Will add pressors initially with Levophed and vasopressin, monitoring response Broad-spectrum antibiotics to include vancomycin and cefepime Blood cultures were collected Check coagulation studies Will send stool studies for C. difficile and Hemoccult Urinalysis has been ordered pending production of urine Harper catheter for close monitoring of urine output Received insulin and glucose, calcium chloride and bicarbonate for hyperkalemia Will repeat laboratory studies in a couple of hours Did discuss with patient's daughter severity of kidney dysfunction and hyperkalemia including management options such as medical management, dialysis if she could tolerate and nephrology felt there would be benefit and at this time we will see how she responds to above measures before considering any alternatives Second lactic acid has improved to 3.0 For now we will continue amiodarone drip initiated in the emergency room If at any point in time we are able to do bedside hemodynamics with patient cooperating with procedure will attempt Patient is not to be resuscitated, no CPR, no emergency ACLS protocols, no intubation or mechanical ventilation per discussion with daughter. Management in the ICU with fluids, pressors and close monitoring along with antibiotics and other focus treatment as ordered or okay at this time. Continue serial cardiac enzymes though patient is not an ideal candidate for any form of intervention currently given severe sepsis Neuroexams given patient's recent stroke that involve posterior circulation; at recent baseline has had word finding difficulties/dysarthria/dysphasia along with gait instability and frequent falls Currently holding pain control Currently holding home antihypertensives of lisinopril and triamterene/hydrochlorothiazide Currently holding home atorvastatin, aspirin, Plavix Currently holding home levothyroxine Currently not continuing home quetiapine Currently holding home bupropion and citalopram If survives will need to restart citalopram when able to decrease risk of additional symptoms from withdrawal All home as needed medications presently held as is scheduled PPI and Flonase VTE prophylaxis: Subcu heparin at renal dosing GI Prophylaxis: PPI IV currently secondary to clinical condition Antibiotics: Status post Zosyn x 1 dose on 02/24 Pending studies: Blood cultures, urinalysis, C. difficile, Hemoccult, repeat labs this evening and tomorrow morning Telemetry: Ordered for monitoring of critically ill patient Harper: Ordered for monitoring of critically ill patient with acute kidney injury Line(s): Central venous line in the right IJ placed on 02/25/2024 from the ED Disposition plan: Will ultimately depend on clinical course. If she survives anticipate disposition back to skilled facility. Daughter has expressed desire to get her mother to [place] to be closer to her if possible. Code Status: Patient is to be allowed natural . Okay for ICU admission, pressor support, critical care monitoring and fluid administration, antibiotics. Patient is not to be intubated or mechanically ventilated. She is not to receive chest compressions, defibrillation or emergency ACLS protocol management. Patient is no longer in critical condition. Will downgrade from the ICU this afternoon if sodium is improved. Findings, concerns and plans were discussed with patient's daughter Jenae and she was given an opportunity to ask questions. I will update her as future labs come back and clinical condition changes. Plan for today: February 28, 2024: Patient is alert today still has residual aphasia from her old stroke but is able to state that she is cold and wants to eat. She is stable off of IV pressors. Her serum sodium today is elevated at 161. Discontinued her normal saline and started D5W. Will discontinue Harper catheter. Will recheck sodium level at noon and downgrade from the ICU if improving. Will DC IV vancomycin and continue IV Zosyn.. Attestations 2 Medical Necessity Statement*: Patient with improving medical condition. She continues to need inpatient hospitalization but likely no longer needs to be ICU. She has hyponatremia which needs to be improved. She will need assessment by [employer], PT, and OT. Time Spent in Patient Care: Greater than 35 minutes (>than 50% of time spent in counselling and/or direct pt care on unit) . Coding Level of Care Code 64498 Diagnoses Septic shock A41.9; R65.21 Acute kidney injury N17.9 Atrial fibrillation with rapid ventricular response I48.91 Elevated troponin R79.89 CVA (cerebral vascular accident) I63.9 Multiple fractures T07.XXXA Hypertension I10 Hyperlipidemia E78.5 Coronary artery disease I25.10 Hypothyroidism E03.9 Depression F32.9 Acute hypernatremia E87.0
[2024-02-28 08:44] LABS: Basophils % 0.1 %; Eosinophils # 0.2 10^3/uL (0.0-0.8); Eosinophils % 2.1 %; Hematocrit 34.6 % (36-47); Lymphocytes # 0.6 10^3/uL (0.8-4.8); Lymphocytes % 7.3 %; Mean Corpuscular HGB Conc 29.8 g/dL (30-55); Mean Corpuscular Hemoglobin 28.1 pg (27-33); Mean Corpuscular Volume 94.5 fl (85-98); Mean Platelet Volume 12.8 fL (7.4-10.4); Monocytes # 0.5 10^3/uL (0.2-0.9); Monocytes % 6.1 %; Neutrophils # 7.12 10^3/uL (1.8-7.7); Neutrophils % 83.5 %; Nucleated Red Blood Cells % 0 %; Platelet Count 120 10^3/cmm (157-399); Red Blood Count 3.66 10^6/uL (3.85-5.65); White Blood Count 8.53 10^3/uL (3.29-11.43)
[2024-02-28 09:04] LABS: Alanine Aminotransferase 55 U/L (0-33); Albumin Level 2.8 g/dL (3.5-5.2); Alkaline Phosphatase 136 U/L (35-105); Anion Gap 15.9 (5-19); Aspartate Amino Transferase 49 U/L (0-32); Blood Urea Nitrogen 58 mg/dL (8-23); Calcium 8.3 mg/dL (8.5-10.5); Carbon Dioxide 24 mmol/L (22-29); Chloride 122 mmol/L (98-107); Creatinine Clr Calc Pharmacy 28.6417; Globulin 3.2 g/dL (1.3-4.6); Glucose 190 mg/dL (65-115); Osmolality Calculated 347 mOsm/kg (285-295); Potassium 3.9 mmol/L (3.5-5.1); Sodium 158 mmol/L (136-145); Total Bilirubin 0.3 mg/dL (0.15-1.2)
[2024-02-28 09:18] LABS: Creatine Phosphokinase 627 U/L (26-192)
[2024-02-28 11:14] LABS: Glucose Point of Care 150 mg/dL (70-110)
[2024-02-28] MEDS: insulin lispro 100 unit/1 mL SUBCUT (11:23)
[2024-02-28 12:36] LABS: Sodium 156 mmol/L (136-145)
[2024-02-28 17:04] LABS: Glucose Point of Care 117 mg/dL (70-110)
[2024-02-28] MEDS: pantoprazole DR 40 mg Tablet PO (18:39)
[2024-02-28] MEDS: quetiapine 25 mg Tablet PO (18:39)
[2024-02-28] MEDS: citalopram 20 mg Tablet PO (20:10)
[2024-02-28] MEDS: buPROPion XL (24 HR) 150 mg Tablet PO (20:10)
[2024-02-28] MEDS: atorvastatin 40 mg Tablet PO (20:10)
[2024-02-28 20:21] LABS: Glucose Point of Care 123 mg/dL (70-110)
--- NOTE | 2024-02-28 20:25 | PC.NURSE ---
Unable to assess patient's orientation status, as I am not able to understand patient's speech.
[2024-02-29] VITALS (7 sets, daily range): BP systolic 99–129; BP diastolic 59–74; PULSE 70–91; RESP 17–19; TEMP 36.4–37.1; O2SAT 93–96
[2024-02-29] MEDS: heparin 5,000 unit/mL INJ 1 mL 5000 UNIT SUBCUT ×2 (00:20→14:31)
--- NOTE | 2024-02-29 04:31 | PC.NURSE ---
Dr. Canchola notified of patient having frequent liquid BMs. Ordered to test stool for c-diff. Also notified that patient has not voided all shift. Bladder scan shows 557 ml. Patient placed on bedpan and told to attempt to go pee. Patient did not void. Harper ordered.
[2024-02-29 05:28] LABS: C.Diff PCR (Lab) NEGATIVE (Negative)
[2024-02-29] MEDS: levothyroxine 200 mcg Tablet PO (05:51)
[2024-02-29] MEDS: piperacillin-tazobactam 3.375 GM in sodium chloride 0.9% (plus) 50 ML IV ×2 (05:51→17:15)
[2024-02-29 05:57] LABS: Basophils % 0.3 %; Eosinophils # 0.2 10^3/uL (0.0-0.8); Eosinophils % 2.2 %; Hematocrit 31.1 % (36-47); Lymphocytes # 0.9 10^3/uL (0.8-4.8); Lymphocytes % 12.8 %; Mean Corpuscular HGB Conc 30.2 g/dL (30-55); Mean Corpuscular Hemoglobin 28.1 pg (27-33); Mean Corpuscular Volume 92.8 fl (85-98); Mean Platelet Volume 12.7 fL (7.4-10.4); Monocytes # 0.6 10^3/uL (0.2-0.9); Monocytes % 8.5 %; Neutrophils # 5.47 10^3/uL (1.8-7.7); Neutrophils % 74.7 %; Nucleated Red Blood Cells % 0 %; Platelet Count 143 10^3/cmm (157-399); Red Blood Count 3.35 10^6/uL (3.85-5.65); White Blood Count 7.32 10^3/uL (3.29-11.43)
--- NOTE | 2024-02-29 06:11 | PC.NURSE ---
Addendum entered by Saumya Haile RN 02/29/24 06:43: Imodium x1 ordered. Addendum entered by Saumya Haile RN 02/29/24 06:41: Ordered to collect another stool sample and test it for c-diff again. Original Note: Dr. Canchola and Dr. Whitney notified that patient's c-diff resulted negative this morning. Notified that patient's bowel movements are very frequent and liquid and that she is requiring to be cleaned up approximately every hour due to being incontinent of bowel.
[2024-02-29 06:15] LABS: Alanine Aminotransferase 37 U/L (0-33); Albumin Level 2.5 g/dL (3.5-5.2); Alkaline Phosphatase 126 U/L (35-105); Aspartate Amino Transferase 33 U/L (0-32); Blood Urea Nitrogen 38 mg/dL (8-23); Calcium 7.7 mg/dL (8.5-10.5); Carbon Dioxide 23 mmol/L (22-29); Chloride 122 mmol/L (98-107); Globulin 3.3 g/dL (1.3-4.6); Glucose 165 mg/dL (65-115); Osmolality Calculated 333 mOsm/kg (285-295); Sodium 155 mmol/L (136-145); Total Bilirubin 0.3 mg/dL (0.15-1.2); Total Protein 5.8 g/dL (6.6-8.7)
[2024-02-29 06:22] LABS: Glucose Point of Care 168 mg/dL (70-110)
[2024-02-29 06:23] LABS: Creatinine Clr Calc Pharmacy 37.0505
[2024-02-29 06:24] LABS: Anion Gap 12.9 (5-19)
[2024-02-29 06:27] LABS: Potassium 2.9 mmol/L (3.5-5.1)
--- NOTE | 2024-02-29 06:34 | PC.NURSE ---
Addendum entered by Saumya Haile RN 02/29/24 06:44: IV and PO potassium ordered. Original Note: Dr. Canchola notified of potassium of 2.9. She stated she would put in order.
[2024-02-29] MEDS: loperamide 2 mg Capsule PO (07:13)
[2024-02-29] MEDS: potassium chloride oral liq 20 mEq/15 mL UDC 40 MEQ PO ×2 (07:13→08:45)
[2024-02-29] MEDS: lidocaine 1% 5 ML in potassium chloride premix 100 ML 52.5 ML IV (07:13)
[2024-02-29] MEDS: aspirin 81 mg EC Tablet PO (08:45)
[2024-02-29] MEDS: quetiapine 25 mg Tablet PO ×2 (08:45→17:14)
[2024-02-29] MEDS: lisinopril 2.5 mg Tablet PO (08:45)
[2024-02-29] MEDS: insulin lispro 100 unit/1 mL SUBCUT ×2 (08:46→11:58)
[2024-02-29] MEDS: dextrose 5% 1,000 ML 75 ML IV ×2 (08:46→22:56)
[2024-02-29 08:53] LABS: Magnesium 1.4 mg/dL (1.7-2.3); Phosphorus 1.7 mg/dL (2.5-4.5)
[2024-02-29 11:28] LABS: Glucose Point of Care 183 mg/dL (70-110)
--- NOTE | 2024-02-29 14:17 | PC.SOCIAL ---
IMM Update pg 2 of IMM updated and reviewed w/ patient. Attempted to call patients daughter to review, no answer, left message. Copy dated, initialed and placed in chart.
[2024-02-29] MEDS: tamsulosin 0.4 mg Capsule 0.400000000000000022 MG PO (14:32)
[2024-02-29 17:06] LABS: Glucose Point of Care 118 mg/dL (70-110)
[2024-02-29] MEDS: pantoprazole DR 40 mg Tablet PO (17:14)
--- NOTE | 2024-02-29 18:59 | P.PN_ITS ---
Subjective 2 Subjective: She was started on a diet yesterday. She did not have any significant overnight events. Vitals were reviewed. She is on D5W for hypernatremia. Harper catheter was removed yesterday which she was retaining urine and it was replaced. Medications: Reviewed: Yes Vitals/I&O/Wt Last Vital Signs Temp 98.2 F 02/29/24 12:00 Pulse 83 02/29/24 12:00 Resp 19 H 02/29/24 12:00 BP 99/62 02/29/24 12:00 Pulse Ox 94 02/29/24 12:00 O2 Del Method Room Air 02/29/24 12:00 O2 Flow Rate 2 02/28/24 04:00 02/29/24 02/29/24 02/29/24 06:59 14:59 22:59 Intake Total 50 / 1407.50 1100 / 1100 Output Total 600 / 600 Balance -550 / 807.50 1100 / 1100 Weight last 48 hrs Weight 69.808 kg Weight 74.474 kg Weight 74.474 kg Physical Exam 2 HENMT: OTHER: Normocephalic atraumatic Eye: OTHER: PERRLA Neck/C-Spine: OTHER: Supple Chest: COMMONS NORMALS: normal inspection of the chest Resp: COMMON NORMALS: normal respiratory effort and clear to auscultation bilaterally AUSCULTATION: clear to auscultation bilaterally Cardio: COMMON NORMALS: regular rate, regular rhythm, S1 normal heart sound present, S2 normal heart sound present and Peripheral pulses 2+ throughout R ATE: regular rate RHYTHM: regular rhythm HEART SOUNDS: S1 normal heart sound present and S2 normal heart sound present PERIPHERAL PULSES: Peripheral pulses 2+ throughout GI: COMMON NORMALS: Normal to inspection, nondistended, normoactive bowel sounds present, Soft to palpation and non-tender PALPATION: Yes Soft to palpation Extremity: OTHER: Left arm swollen with gross deformity from fracture. Trace edema bilaterally Neuro: OTHER: Expressive aphasia. Motor weakness right upper and lower extremities. Residual from her stroke Psych: COMMON NORMALS: mental status grossly normal and Normal thought process present THOUGHT PROCESS: Normal thought process present Skin: COMMON NORMALS: no rashes or lesions noted GENERAL SKIN EXAM: no rashes or lesions noted Urinary Catheter Management: Harper: Cath Placed During This Visit: yes Reason for Continuing Indwelling Catheter: Acute Urinary Retention or Obstruction Urinary Catheter Date of Insertion: 02/29/24 Urinary Catheter Time of Insertion: 04:51 Data 02/29/24 05:11 02/29/24 05:11 Micro: Microbiology 02/27/24 20:14 Urine Culture - Preliminary Urine Catheterized A&P Assessment and plan (1) Septic shock: Severe sepsis with septic shock. Now resolved. Hemodynamically stable off of IV pressors. Source appears to be colitis. C. difficile was negative on 02/24 and today. She continues to have loose stools Currently on IV Zosyn (02/24?current) (2) Acute kidney injury: Initially severe with oliguria with hypokalemia. Combination of pre-renal acute kidney injury and ATN She was on RAMO inhibitor and diuretic at home She now has good urine output. Creatinine continues to improve (1.2 mg/dL today); baseline creatinine runs 0.7- 1.0. (3) Atrial fibrillation with rapid ventricular response: New finding, currently feel secondary to effects of severe sepsis and septic shock. No known to have prior arrhythmia, but she was previously on atenolol, though specifics of when and why are not known. She was on the amiodarone drip but this has been discontinued and she is rate controlled. (4) Elevated troponin: Baseline troponin at 107. This is in fact lower than baseline troponin last hospital stay which was 115. She did not have a significant 2 hour delta last stay. Known to have CAD diagnosis from records, though details not known. Echo last hospital stay showed EF 55-60%. With significant tachycardia and current arrhythmia a type 2 process probable. 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 Recovery hindered by multiple fractures related to recurrent falls. Cleared by [employer] for diet. (6) Multiple fractures: Multiple fractures were identified at last hospital stay including a left inferior pubic rami fracture with callus formation, subacute appearing anterior acetabulum fracture, tiny fracture of the pubic symphysis and a chronic appearing left greater than right sacral insufficiency fractures with sclerosis. Also identified was a left distal humeral fracture. This fracture originally occurred in October 2020 and was refractured in November 2023. Managed with splinting/sling and nonsurgical management. Pain medication was added for pain control at last hospital stay. No reported repeat falls since she was last here though information limited. (7) Hypertension: She was hypotensive with septic shock. Blood pressure now stable off of IV pressors. Chronically on lisinopril and triamterene/hydrochlorothiazide. May have previously been on atenolol but looks to have been discontinued last hospital stay versus correction to home medication list. (8) Hyperlipidemia: Chronically on statin therapy with atorvastatin. Lipid panel in January showed triglycerides of 205, cholesterol 198, LDL 121 and HDL of 36. (9) Coronary artery disease: Chronic diagnosis, details unknown (10) Hypothyroidism: Acquired hypothyroidism, chronically on levothyroxine. TSH in January was 1.71. Continue levothyroxine. (11) Depression: Continue citalopram and bupropion (12) Acute hypernatremia: Current her serum sodium was high as 161 mg/dL but is improving with D5W. Encourage free water intake. Plan Patient was transferred from the ICU yesterday. Her serum sodium is improving with D5W but remains elevated. Anticipate I will be able to discharge her to SNF tomorrow. She had urinary retention after Harper was removed yesterday. Started on tamsulosin. Attestations 2 Medical Necessity Statement*: Continued hospital stay for hyponatremia requiring D5W. Coding Level of Care Code 16378 Diagnoses Septic shock A41.9; R65.21 Acute kidney injury N17.9 Atrial fibrillation with rapid ventricular response I48.91 Elevated troponin R79.89 CVA (cerebral vascular accident) I63.9 Multiple fractures T07.XXXA Hypertension I10 Hyperlipidemia E78.5 Coronary artery disease I25.10 Hypothyroidism E03.9 Depression F32.9 Acute hypernatremia E87.0
[2024-02-29] MEDS: citalopram 20 mg Tablet PO (20:52)
[2024-02-29] MEDS: buPROPion XL (24 HR) 150 mg Tablet PO (20:52)
[2024-02-29] MEDS: atorvastatin 40 mg Tablet PO (20:52)
[2024-02-29 21:19] LABS: Glucose Point of Care 118 mg/dL (70-110)
[2024-03-01] VITALS (7 sets, daily range): BP systolic 118–132; BP diastolic 56–77; PULSE 76–83; RESP 15–20; TEMP 36.6–36.9; O2SAT 92–98
[2024-03-01] MEDS: heparin 5,000 unit/mL INJ 1 mL 5000 UNIT SUBCUT (02:08)
[2024-03-01] MEDS: levothyroxine 200 mcg Tablet PO (05:57)
[2024-03-01 06:32] LABS: Glucose Point of Care 137 mg/dL (70-110)
[2024-03-01 06:45] LABS: Albumin Level 2.5 g/dL (3.5-5.2); Anion Gap 11.2 (5-19); Blood Urea Nitrogen 21 mg/dL (8-23); Calcium 7.5 mg/dL (8.5-10.5); Carbon Dioxide 24 mmol/L (22-29); Chloride 117 mmol/L (98-107); Glucose 141 mg/dL (65-115); Magnesium 1.3 mg/dL (1.7-2.3); Phosphorus 1.7 mg/dL (2.5-4.5); Potassium 3.2 mmol/L (3.5-5.1); Sodium 149 mmol/L (136-145)
[2024-03-01 06:52] LABS: Creatinine Clr Calc Pharmacy 45.1247
[2024-03-01] MEDS: piperacillin-tazobactam 3.375 GM in sodium chloride 0.9% (plus) 50 ML IV ×2 (07:22→18:08)
[2024-03-01] MEDS: tamsulosin 0.4 mg Capsule 0.400000000000000022 MG PO (09:15)
[2024-03-01] MEDS: aspirin 81 mg EC Tablet PO (09:15)
[2024-03-01] MEDS: lisinopril 2.5 mg Tablet PO (09:15)
[2024-03-01] MEDS: quetiapine 25 mg Tablet PO ×2 (09:15→18:07)
[2024-03-01] MEDS: magnesium sulfate premix 1 GM/100 ML PIGGYBACK IV (09:29)
[2024-03-01 11:20] LABS: Glucose Point of Care 318 mg/dL (70-110)
[2024-03-01] MEDS: dextrose 5% 1,000 ML 75 ML IV (11:51)
[2024-03-01] MEDS: potassium phosphate (mMol PO4) 30 MMOL in sodium chloride 0.9% (100 ml) 100 ML 23.1600000000000001 MMOL IV (11:51)
[2024-03-01] MEDS: insulin lispro 100 unit/1 mL SUBCUT ×2 (12:04→18:07)
--- NOTE | 2024-03-01 13:07 | P.PN_ITS ---
Subjective 2 Subjective: She continues to have significant expressive aphasia which makes her speech difficult to understand. She is unable to write very well. She says she wanted ice water and was very insistent on it. She spit up her meds this morning but was willing to take them a bit later after she drank a water. She pulled out her right IJ central line this morning and a peripheral IV was placed. Medications: Reviewed: Yes Vitals/I&O/Wt Last Vital Signs Temp 98.5 F 03/01/24 12:00 Pulse 80 03/01/24 12:00 Resp 17 03/01/24 12:00 BP 122/71 03/01/24 12:00 Pulse Ox 92 03/01/24 12:00 O2 Del Method Room Air 03/01/24 07:47 O2 Flow Rate 2 02/28/24 04:00 02/29/24 03/01/24 03/01/24 22:59 06:59 14:59 Intake Total 1050 / 2150 1238.75 / 1238.75 Output Total 575 / 575 350 / 925 Balance 475 / 1575 -350 / 1225 1238.75 / 1238.75 Weight last 48 hrs Weight 72.076 kg Weight 69.808 kg Physical Exam 2 Narrative: GEN: Alert, oriented to person and place Neuro: Flaccid paralysis on the left upper and lower extremity from her prior stroke, expressive aphasia HEENT: Normocephalic and atraumatic, PERRLA, EOMI Neck: Supple, no JVD Cardio: S1, S2, regular rate and rhythm, no murmur, rubs or gallops Abdomen: Soft, nontender, nondistended, normal bowel sounds Extremity: Left upper extremity with deformity from humerus fracture, no edema Skin: No lesions Urinary Catheter Management: Harper: Cath Placed During This Visit: yes Reason for Continuing Indwelling Catheter: Acute Urinary Retention or Obstruction Urinary Catheter Date of Insertion: 02/29/24 Urinary Catheter Time of Insertion: 04:51 Data 02/29/24 05:11 03/01/24 05:51 Micro: Microbiology 02/25/24 12:45 Blood Culture - Final Blood NO GROWTH AFTER 5 DAYS 02/25/24 12:32 Blood Culture - Final Blood NO GROWTH AFTER 5 DAYS 02/27/24 20:14 Urine Culture - Final Urine Catheterized A&P Assessment and plan (1) Septic shock: Severe sepsis with septic shock, resolved ? She was admitted to the ICU on 02/24 and transferred to Med-Surg on 02/27 ? Source appears to be colitis. C. difficile was negative on 02/24 and 02/28 ?She has been having loose stools ?Currently on IV Zosyn (02/24?current); plan for 14 days total antibiotics (2) Acute kidney injury: Initially severe with oliguria with hyperkalemia; creatinine was elevated to 8.8 Combination of pre-renal acute kidney injury and ATN She was on RAMO inhibitor and diuretic at home She now has good urine output Creatinine continues to improve (1.0 mg/dL today); baseline creatinine runs 0.7- 1.0. (3) Atrial fibrillation with rapid ventricular response: Atrial fibrillation is new diagnosis no known to have prior arrhythmia She was previously on atenolol for unclear reasons She was in RVR in the setting of septic shock; now in normal sinus rhythm She was on the amiodarone drip but this has been discontinued [id number] score at least 6 and she had a recent stroke Will start her on apixaban (4) Elevated troponin: Baseline troponin at 107. This is in fact lower than baseline troponin last hospital stay which was 115. She did not have a significant 2 hour delta last stay. Known to have CAD diagnosis from records, though details not known. Echo last hospital stay showed EF 55-60%. With significant tachycardia and current arrhythmia a type 2 process probable. 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 Recovery hindered by multiple fractures related to recurrent falls. Cleared by [employer] DIRECTOR for diet. (6) Multiple fractures: Multiple fractures were identified at last hospital stay including a left inferior pubic rami fracture with callus formation, subacute appearing anterior acetabulum fracture, tiny fracture of the pubic symphysis and a chronic appearing left greater than right sacral insufficiency fractures with sclerosis. Also identified was a left distal humeral fracture. This fracture originally occurred in October 2020 and was refractured in November 2023. Managed with splinting/sling and nonsurgical management. Pain medication was added for pain control at last hospital stay. No reported repeat falls since she was last here though information limited. (7) Hypertension: She was hypotensive with septic shock. Blood pressure now stable off of IV pressors. Chronically on lisinopril and triamterene/hydrochlorothiazide. May have previously been on atenolol but looks to have been discontinued last hospital stay versus correction to home medication list. (8) Hyperlipidemia: Chronically on statin therapy with atorvastatin. Lipid panel in January showed triglycerides of 205, cholesterol 198, LDL 121 and HDL of 36. (9) Coronary artery disease: Chronic diagnosis, details unknown (10) Hypothyroidism: Acquired hypothyroidism, chronically on levothyroxine. TSH in January was 1.71. Continue levothyroxine. (11) Depression: Continue citalopram and bupropion (12) Acute hypernatremia: Current her serum sodium was high as 161 mg/dL but is improving with D5W. Encourage free water intake. (13) Urinary retention: Harper was placed on admission and was removed on 02/28 Noted to have urinary retention and Harper was reinserted Started on tamsulosin; will do voiding trial later today Plan Problems as detailed above Labs today shows improving hyponatremia with serum sodium of 149 mmol/L today. She also has hypokalemia, hypophosphatemia, and hypomagnesemia. This is likely from refeeding. Continuing D5W and replete electrolytes. Attestations 2 Medical Necessity Statement*: Patient requires continued hospitalization for electrolyte replacement and monitoring. Anticipate discharge back to SNF tomorrow. Coding Level of Care Code 30388 Diagnoses Septic shock A41.9; R65.21 Acute kidney injury N17.9 Atrial fibrillation with rapid ventricular response I48.91 Elevated troponin R79.89 CVA (cerebral vascular accident) I63.9 Multiple fractures T07.XXXA Hypertension I10 Hyperlipidemia E78.5 Coronary artery disease I25.10 Hypothyroidism E03.9 Depression F32.9 Acute hypernatremia E87.0 Urinary retention R33.9
[2024-03-01 16:39] LABS: Glucose Point of Care 151 mg/dL (70-110)
[2024-03-01] MEDS: pantoprazole DR 40 mg Tablet PO (18:07)
[2024-03-01 20:58] LABS: Glucose Point of Care 112 mg/dL (70-110)
[2024-03-01] MEDS: citalopram 20 mg Tablet PO (23:03)
[2024-03-01] MEDS: apixaban 5 mg Tablet PO (23:03)
[2024-03-01] MEDS: atorvastatin 40 mg Tablet PO (23:04)
[2024-03-01] MEDS: buPROPion XL (24 HR) 150 mg Tablet PO (23:04)
[2024-03-02] VITALS (7 sets, daily range): BP systolic 113–136; BP diastolic 55–80; PULSE 76–92; RESP 16–17; TEMP 36.6–36.8; O2SAT 93–97; BMI 27.3
[2024-03-02] MEDS: morphine 4 mg/mL SDV 1 mL 2 MG IVP (03:01)
[2024-03-02] MEDS: dextrose 5% 1,000 ML 75 ML IV (03:02)
[2024-03-02 06:20] LABS: Glucose Point of Care 124 mg/dL (70-110)
[2024-03-02] MEDS: levothyroxine 200 mcg Tablet PO (06:32)
[2024-03-02 06:38] LABS: Albumin Level 2.8 g/dL (3.5-5.2); Anion Gap 13.1 (5-19); Blood Urea Nitrogen 12 mg/dL (8-23); Calcium 7.4 mg/dL (8.5-10.5); Carbon Dioxide 23 mmol/L (22-29); Chloride 111 mmol/L (98-107); Creatinine Clr Calc Pharmacy 50.1681; Glucose 120 mg/dL (65-115); Magnesium 1.3 mg/dL (1.7-2.3); Phosphorus 2.3 mg/dL (2.5-4.5); Potassium 3.1 mmol/L (3.5-5.1); Sodium 144 mmol/L (136-145)
[2024-03-02] MEDS: piperacillin-tazobactam 3.375 GM in sodium chloride 0.9% (plus) 50 ML IV (07:40)
[2024-03-02] MEDS: magnesium sulfate premix 1 GM/100 ML PIGGYBACK IV (09:10)
[2024-03-02] MEDS: aspirin 81 mg EC Tablet PO (09:11)
[2024-03-02] MEDS: tamsulosin 0.4 mg Capsule 0.400000000000000022 MG PO (09:11)
[2024-03-02] MEDS: potassium phosphate (mMol PO4) 15 MMOL in sodium chloride 0.9% (100 ml) 100 ML 42 MMOL IV (09:11)
[2024-03-02] MEDS: quetiapine 25 mg Tablet PO (09:11)
[2024-03-02] MEDS: lisinopril 2.5 mg Tablet PO (09:12)
[2024-03-02] MEDS: apixaban 5 mg Tablet PO (09:17)
--- NOTE | 2024-03-02 10:30 | P.DS_ITS ---
Discharge Providers Date of Admission: 02/25/24 12:54 Date of Discharge: March 02, 2024 Attending Provider at Admission: Samia Gutierrez MD Attending Provider at Discharge: Cally Whitney MD Primary Care Provider: David Hannah MD Diagnoses at Discharge Discharge Diagnosis (1) Septic shock: Status: Resolved (2) Acute kidney injury: Status: Resolved (3) Atrial fibrillation with rapid ventricular response: Status: Acute (4) Elevated troponin: Status: Acute (5) CVA (cerebral vascular accident): Status: Chronic Permanent problem details: 01/2024 (6) Multiple fractures: Status: Chronic (7) Hypertension: Status: Chronic (8) Hyperlipidemia: Status: Chronic (9) Coronary artery disease: Status: Chronic (10) Hypothyroidism: Status: Chronic (11) Depression: Status: Chronic (12) Acute hypernatremia: Status: Acute (13) Urinary retention: Status: Acute Reason for Visit Reason for Visit: ams Brief History: Please see H&P for full details of presenting condition and initial treatment. Hospital Course Hospital Course This is a 78-year-old female with history of posterior circulation CVA (January 2024) with residual left hemiplegia and aphasia, hypertension, hyperlipidemia, CAD, depression, recurrent falls with multiple old fractures who was admitted for septic shock, CHRISTIANO with hyperkalemia, and atrial fibrillation with RVR. Her hospital course was complicated by electrolyte abnormalities including hype rnatremia, hypokalemia, hypophosphatemia, and hypomagnesemia. Her sodium has normalized and the rest of her electrolytes have been repleted. #Severe sepsis with septic shock, resolved She was admitted to the ICU on 02/24 and transferred to Med-Surg on 02/27 Source appears to be colitis. C. difficile was negative on 02/24 and 02/28 She was having loose stools but this has resolved Discharged on cefuroxime and metronidazole (14 days total antibiotics) #Acute kidney injury: Initially severe with oliguria with hyperkalemia; creatinine was elevated to 8.8 Combination of pre-renal acute kidney injury and ATN Her lisinopril has been restarted but stopped her triamterene/hydrochlorothiazide She now has good urine output and her creatinine has normalized #Atrial fibrillation with rapid ventricular response: Atrial fibrillation is new diagnosis no known to have prior arrhythmia She was previously on atenolol for unclear reasons She was in RVR in the setting of septic shock; now in normal sinus rhythm She was on the amiodarone drip but this has been discontinued [id number] score at least 6 and she had a posterior circulation stroke in January 2024 Started her on apixaban; monitor for bleeding. Start beta-mitchell if she becomes tachycardic. #Elevated troponin: Baseline troponin at 107. This is in fact lower than baseline troponin last hospital stay which was 115. She did not have a significant 2 hour delta last stay. Known to have CAD diagnosis from records, though details not known. Echo last hospital stay showed EF 55-60%. Likely type II process given her RVR on admission. #History of CVA (cerebral vascular accident): Posterior circulation acute stroke in January 2024 with residual word finding difficulties and left hemiplegia. Currently on aspirin and started apixaban because of A-fib. She is on a dysphagia level 4 diet. #Acute hypernatremia: Her serum sodium was high as 161 mg/dL normal lites with D5W.. Encourage free water intake. #Hypokalemia, hypophosphatemia, and hypomagnesemia Her electrolytes have been repleted. Repeat renal function panel and magnesium in 1 week. #Urinary retention: Noted to have urinary retention after removal of indwelling Harper catheter. Harper was reinserted but removed on discharge. She was started on tamsulosin. #Recurrent falls with history of multiple fractures: Multiple fractures were identified at last hospital stay including a left inferior pubic rami fracture with callus formation, subacute appearing anterior acetabulum fracture, tiny fracture of the pubic symphysis and a chronic appearing left greater than right sacral insufficiency fractures with sclerosis. Also identified was a left distal humeral fracture. This fracture originally occurred in October 2020 and was refractured in November 2023. Managed with splinting/sling and nonsurgical management. Pain medication was added for pain control at last hospital stay. No reported repeat falls since she was last here though information limited. No falls during this admission. #Hypertension: She was hypotensive with septic shock on admission. Blood pressure has been stable. Restarted her lisinopril but stopped her triamterene/hydrochlo rothiazide. #Hyperlipidemia: Chronically on statin therapy with atorvastatin. Lipid panel in January showed triglycerides of 205, cholesterol 198, LDL 121 and HDL of 36. #Coronary artery disease: Chronic diagnosis, details unknown #Hypothyroidism: Acquired hypothyroidism, chronically on levothyroxine. TSH in January was 1.71. Continue levothyroxine. #Depression: Continue citalopram and bupropion Physical Exam Narrative: GEN: Alert, oriented to person and place Neuro: Flaccid paralysis on the left upper and lower extremity from her prior stroke, expressive aphasia HEENT: Normocephalic and atraumatic, PERRLA, EOMI Neck: Supple, no JVD Cardio: S1, S2, regular rate and rhythm, no murmur, rubs or gallops Abdomen: Soft, nontender, nondistended, normal bowel sounds Extremity: Left upper extremity with deformity from humerus fracture, no edema Skin: No lesions Discharge Data Studies Completed and Pending Completed Studies During Hospitalization Category Date Time Status CT abdomen renal stone [CT kidney stone [id number]] Routine Cat Scan 02/26/24 09:[address] head wo con* [id number] Stat Cat Scan 02/26/24 10:43 Completed CXRP [XR chest 1V portable [id number]] Stat Exams 02/25/24 14:45 Completed XR chest 1V portable [id number] Stat Exams 02/25/24 10:43 Completed XR chest 1V portable [id number] Stat Exams 02/25/24 12:39 Completed Pending at discharge Category Date Time Status C.Diff PCR (Lab) Stat Lab 02/29/24 06:33 Uncollected Radiology Impressions Chest X-Ray 02/25/24 14:45 IMPRESSION: 1. No acute findings. 2. Right central line in the SVC 3. Left shoulder arthroplasty in good position 4. No lung volumes. 5. Multiple left rib fractures Abdomen/Pelvis CT 02/26/24 09:52 IMPRESSION: 1. Mild diffuse fluid throughout the small bowel and colon. Suspect there is mild colonic wall thickening. There is no obstructive pattern. These findings are probably related to colitis or mild ileus. 2. There is a small amount of free fluid in the central mesentery and pelvis. 3. No free air. 4. Very minimally hydropic gallbladder with no changes of acute cholecystitis. 5. Remote, unchanged T11 and L1 compression fractures and LEFT pubic rami fractures. Head CT 02/26/24 10:43 IMPRESSION: 1. No acute intracranial hemorrhage or edema. 2. Stable noncontrast head CT since 01/24/2024. 3. Numerous remote bilateral cerebellar infarcts. Laboratory Results WBC 7.32 10^3/uL (3.29-11.43) 02/29/24 05:11 Corrected WBC Cancelled 02/28/24 05:32 RBC 3.35 10^6/uL (3.85-5.65) L 02/29/24 05:11 Hgb 9.40 g/dL (11.27-16.99) L 02/29/24 05:11 Hct 31.1 % (36-47) L 02/29/24 05:11 MCV 92.8 fl (85-98) 02/29/24 05:11 MCH 28.1 pg (27-33) 02/29/24 05:11 MCHC 30.2 g/dL (30-55) 02/29/24 05:11 RDW 17.0 % (12.1-15.1) H 02/29/24 05:11 Plt Count 143 10^3/cmm (157-399) L 02/29/24 05:11 MPV 12.7 fL (7.4-10.4) H 02/29/24 05:11 Gran % Cancelled 02/28/24 05:32 Neut % (Auto) 74.7 % 02/29/24 05:11 Lymph % (Auto) 12.8 % 02/29/24 05:11 [place] % (Auto) 8.5 % 02/29/24 05:11 Eos % (Auto) 2.2 % 02/29/24 05:11 Baso % (Auto) 0.3 % 02/29/24 05:11 Neut # (Auto) 5.47 10^3/uL (1.8-7.7) 02/29/24 05:11 Lymph # (Auto) 0.9 10^3/uL (0.8-4.8) 02/29/24 05:11 [place] # (Auto) 0.6 10^3/uL (0.2-0.9) 02/29/24 05:11 Eos # (Auto) 0.2 10^3/uL (0.0-0.8) 02/29/24 05:11 Baso # (Auto) 0.0 10^3/uL (0.0-0.1) 02/29/24 05:11 Absolute Gran (auto) Cancelled 02/28/24 05:32 Nucleated RBC % (auto) 0 % 02/29/24 05:11 Total Counted 100 (0-100) 02/27/24 04:04 Atypical Lymphs % Not Reportable 02/27/24 04:04 Absolute Neutrophils 8.2 10^3/cmm (1.4-6.5) H 02/27/24 04:04 Segmented Neutrophils 58 % 02/27/24 04:04 Abs Segm Neuts (Man) 6.1 10/cmm (1.6-7.1) 02/27/24 04:04 Band Neutrophils 20.0 % 02/27/24 04:04 Abs Band Neuts (Man) 2.1 10^3/cmm (0.0-1.2) H 02/27/24 04:04 Lymphocytes (Manual) 8 % 02/27/24 04:04 Monocytes (Manual) 7.0 % 02/27/24 04:04 Absolute Monocytes 0.7 10^3/cmm (0.1-0.6) H 02/27/24 04:04 Eosinophils (Manual) 0 % 02/27/24 04:04 Absolute Eosinophils 0.0 10^3/cmm (0.0-0.7) 02/27/24 04:04 Basophils (Manual) 0.0 % 02/27/24 04:04 Absolute Basophils 0.0 10^3/cmm (0.0-0.2) 02/27/24 04:04 Nucleated RBCs # 0.0 /100WBC 02/29/24 05:11 Platelet Estimate Decreased (Normal) L 02/27/24 04:04 PT 17.00 SECONDS (12.1-14.9) H 02/25/24 17:22 INR 1.34 (0.8-1.2) H 02/25/24 17:22 APTT 30.8 SECONDS (23.9-36.7) 02/25/24 17:22 Specimen Type Arterial 02/26/24 04:00 Sample Site Radial, left 02/26/24 04:00 ABG pH 7.42 (7.35-7.45) 02/26/24 04:00 ABG pCO2 28.4 mmHg (35-45) L 02/26/24 04:00 ABG pO2 68.3 mmHg (80.0-100.0) L 02/26/24 04:00 ABG PO2/FiO2 Ratio 0 02/26/24 04:00 ABG HCO3 18.5 mmol/L (22-26) L 02/26/24 04:00 ABG O2 Saturation > 100.0 02/25/24 11:12 ABG Base Excess -5.0 mmol/L (-2.0-2.0) L 02/26/24 04:00 Ruben Test Pos 02/26/24 04:00 A-a O2 Gradient Not Reportable 02/25/24 11:12 Hematocrit 29.1 % (37-47) L 02/26/24 04:00 Hgb O2 Saturation 98.8 % (95-100) 02/25/24 11:12 Carboxyhemoglobin 0.7 %THgb (0.4-20.1) 02/25/24 11:12 Methemoglobin 0.8 % (0.4-1.5) 02/25/24 11:12 Total Hemoglobin 9.8 g/dL (12-16) L 02/25/24 11:12 Sodium 158.0 mmol/L (131-143) H 02/25/24 11:12 Potassium 5.5 mmol/L (3.5-5.0) H 02/25/24 11:12 Glucose 186.0 mg/dL (70-115) H 02/25/24 11:12 Ionized Calcium 1.2 mmol/L (1.1-1.4) 02/25/24 11:12 O2 Delivery Device None 02/26/24 04:00 O2 Liters/Min 14.0 % 02/25/24 11:12 FiO2 21.0 % 02/26/24 04:00 Sales Service Assistant ID Utewe 02/26/24 04:00 Sodium 144 mmol/L (136-145) 03/02/24 05:54 Potassium 3.1 mmol/L (3.5-5.1) L 03/02/24 05:54 Chloride 111 mmol/L (98-107) H 03/02/24 05:54 Carbon Dioxide 23 mmol/L (22-29) 03/02/24 05:54 Anion Gap 13.1 (5-19) 03/02/24 05:54 BUN 12 mg/dL (8-23) 03/02/24 05:54 Creatinine 0.9 mg/dL (0.5-0.9) 03/02/24 05:54 GFR Calculation Not Reportable 03/02/24 05:54 Glucose 120 mg/dL (65-115) H 03/02/24 05:54 POC Glucose 124 mg/dL (70-110) H 03/02/24 06:14 Calculated Osmolality 333 mOsm/kg (285-295) H 02/29/24 05:11 Lactic Acid 4.5 mmol/L (0.5-2.2) H* 02/25/24 10:40 Lactic Acid (Sepsis) 3.0 mmol/L (0.5-2.2) H 02/25/24 13:30 Lactate 1.0 mmol/L (0.5-2.2) 02/27/24 04:04 Uric Acid 11.8 mg/dL (2.4-5.7) H 02/26/24 05:30 Calcium 7.4 mg/dL (8.5-10.5) L 03/02/24 05:54 Phosphorus 2.3 mg/dL (2.5-4.5) L 03/02/24 05:54 Magnesium 1.3 mg/dL (1.7-2.3) L 03/02/24 05:54 Total Bilirubin 0.3 mg/dL (0.15-1.2) 02/29/24 05:11 AST 33 U/L (0-32) H 02/29/24 05:11 ALT 37 U/L (0-33) H 02/29/24 05:11 Alkaline Phosphatase 126 U/L (35-105) H 02/29/24 05:11 Ammonia 26 umol/L (11-51) 02/25/24 10:40 Creatine Kinase 627 U/L (26-192) H* 02/28/24 08:33 Troponin T Baseline 107 ng/L (0-10) H* 02/25/24 10:40 Troponin T 120 Minute 98.31 ng/L (0-10) H 02/25/24 12:32 Delta Troponin T -8.69 ABS# (0-10) L 02/25/24 12:32 Troponin T Hi Sens 6Hr 100.7 ng/L (0-10) H 02/25/24 17:22 Troponin T Hi Sens 6Hr Delta -6.3 ng/L (0-12) L 02/25/24 17:22 NT-Pro-B Natriuret Pep 2719 pg/mL (0-450) H 02/25/24 10:40 Total Protein 5.8 g/dL (6.6-8.7) L 02/29/24 05:11 Albumin 2.8 g/dL (3.5-5.2) L 03/02/24 05:54 Globulin 3.3 g/dL (1.3-4.6) 02/29/24 05:11 Lipase 24 U/L (13-60) 02/26/24 05:30 Urine Color Yellow (Yellow) 02/25/24 14:53 Urine Appearance Cloudy (CLEAR) A 02/25/24 14:53 Urine pH 5 (5-7) 02/25/24 14:53 Ur Specific [place] 1.020 (1.005-1.030) 02/25/24 14:53 Urine Protein 1+ (Negative) H 02/25/24 14:53 Urine Glucose (UA) 1+ (Normal) H 02/25/24 14:53 Urine Ketones 1+ (Negative) H 02/25/24 14:53 Urine Blood 3+ (Negative) H 02/25/24 14:53 Urine Nitrate Negative (Negative) 02/25/24 14:53 Urine Bilirubin 2+ (Negative) H 02/25/24 14:53 Urine Urobilinogen Neg mg/dL (Negative) 02/25/24 14:53 Ur Leukocyte Esterase Trace (Negative) H 02/25/24 14:53 Urine RBC 15-25 /hpf (0-2) H 02/25/24 14:53 Urine WBC 15-25 /hpf (0-5) H 02/25/24 14:53 Ur Squamous Epith Cells 25-40 /hpf (0-5) H 02/25/24 14:53 Amorphous Sediment Not Reportable 02/25/24 14:53 Urine Bacteria 3+ /hpf (NONE) H 02/25/24 14:53 Serum Ketones Negative (Negative) 02/25/24 13:30 C. difficile (PCR) Negative (Negative) 02/29/24 03:45 Blood Type A Negative 05/20/24 20:25 Rho(D) Type Rh negative 02/25/24 20:25 Antibody Screen Negative 02/25/24 20:25 Crossmatch See Detail 02/25/24 20:25 Vitals Last Vital Signs Temp 98 F 03/02/24 08:00 Pulse 82 03/02/24 08:00 Resp 17 03/02/24 08:00 BP 132/80 03/02/24 08:00 Pulse Ox 95 03/02/24 08:00 O2 Del Method Room Air 03/02/24 04:00 O2 Flow Rate 2 02/28/24 04:00 Discharge Plan Discharge Patient Disposition: [facility] w Plan Readm Condition: Stable Prescriptions: New Eliquis 5 mg Tablet 5 mg PO BID@0900,2100 30 Days Qty: 60 0RF cefuroxime axetil 500 mg tablet 500 mg PO BID 7 Days Qty: 14 0RF metronidazole 500 mg tablet 500 mg PO BID 7 Days Qty: 14 0RF tamsulosin 0.4 mg Capsule 0.4 mg PO DAILY Qty: 30 0RF Continued bupropion HCl 150 mg tablet extended release 24 hr 150 mg PO BEDTIME Qty: 30 11RF citalopram 20 mg tablet 20 mg PO BEDTIME Qty: 30 11RF Euthyrox 200 mcg tablet 200 mcg PO QAM Qty: 30 11RF omeprazole 20 mg capsule,delayed release(DR/EC) 20 mg PO QPM Qty: 30 11RF fluticasone propionate 50 mcg/actuation spray,suspension 2 spray INTRANASAL DAILY atorvastatin 40 mg tablet 40 mg PO BEDTIME lisinopril 2.5 mg tablet 2.5 mg PO DAILY quetiapine 25 mg Tablet 25 mg PO BID hydrocodone-acetaminophen 5-325 mg tablet 1 tab PO Q8H PRN (Reason: Pain) aspirin 81 mg Tablet,Delayed Release (Dr/Ec) 81 mg PO DAILY Milk of Magnesia 400 mg/5 mL Suspension 30 ml PO DAILY PRN (Reason: Constipation) bisacodyl 10 mg Suppository 10 mg [place] DAILY PRN (Reason: Constipation) Fleet Enema 19-7 gram/118 mL Enema 118 ml [place] DAILY PRN (Reason: Constipation) Probiotic 3 billion cell Capsule 3,000 mmu cells PO DAILY PRN (Reason: ANTIBIOTICS) Rx Instructions: administer with a meal Changed Imodium A-D 2 mg Tablet 2 mg PO QID PRN (Reason: Loose Stool) Qty: 30 0RF Discontinued triamterene-hydrochlorothiazid [Maxzide-25mg] 37.5-25 mg tablet 1 tab PO DAILY Qty: 30 11RF Discharge Orders: Discharge Order (Routine); Ordered 03/02/24 Ordered By: Cally Whitney Other Ambulatory Orders: Magnesium (Routine) Timeframe: 1 Week Facility: [facility] - Location: Lab - Main Lab Ordered By: Cally Whitney Renal Function Panel (Routine) Timeframe: 1 Week Facility: [facility] - Location: Lab - Main Lab Ordered By: Cally Whitney Referrals: David Hannah MD [Primary Care Provider] - Discharge Diet: As Directed Discharge Activity: As per PT/OT instructions Activity Restrictions/Additional Instructions: Dysphagia Lvl 4 diet- Extremely Thick/Pureed Discharge Attestations Time Spent in Discharge Care*: greater than 30 min Status at Discharge: Cognitive status at discharge: cognitively intact , Behavioral status at discharge: cooperative and dependent in ADL's (because of recent humeral fracture) , Quality Metrics Clinical Quality Measures [ No reported AMI, CVA or VTE this stay] Coding Level of Care Code 03006 Diagnoses Septic shock A41.9; R65.21 Acute kidney injury N17.9 Atrial fibrillation with rapid ventricular response I48.91 Elevated troponin R79.89 CVA (cerebral vascular accident) I63.9 Multiple fractures T07.XXXA Hypertension I10 Hyperlipidemia E78.5 Coronary artery disease I25.10 Hypothyroidism E03.9 Depression F32.9 Acute hypernatremia E87.0 Urinary retention R33.9
--- NOTE | 2024-03-02 15:19 | PC.NURSE ---
report called to DEEPTHI hernandez at [facility].
--- NOTE | 2024-03-02 15:59 | DCPLANNER ---
recovery unit operator called [facility] to set up a ride for discharge. spoke with selwyn at [facility] stated everything went though with insurance provided trip #[id number].
[2024-03-02 16:47] LABS: Glucose Point of Care 123 mg/dL (70-110)
--- NOTE | 2024-03-02 18:18 | PC.NURSE ---
[facility] to arrive to transport pt to [facility]. [place] to administer evening medication
== END 2024-03-02 18:35 | disposition skilled nursing facility (03) | DRG 871 ==
LOC: ER 11:56 → ICU 12:55 → MEDSURG 02-28 17:14
PROVIDERS: Internal Medicine; Student in an Organized Health Care Education/Training Program; Admitting Provider Hospitalist; Emergency Provider Family Medicine; PCP Family Medicine; Visit Provider Student in an Organized Health Care Education/Training Program
DX: A41.9 Sepsis, unspecified organism (principal); G93.41 Metabolic encephalopathy; R65.21 Severe sepsis with septic shock; N17.9 Acute kidney failure, unspecified; E87.0 Hyperosmolality and hypernatremia; I48.91 Unspecified atrial fibrillation; I10 Essential (primary) hypertension; E78.5 Hyperlipidemia, unspecified; I25.10 Atherosclerotic heart disease of native coronary artery without angina pectoris; E03.9 Hypothyroidism, unspecified; E87.5 Hyperkalemia; E87.6 Hypokalemia; E83.39 Other disorders of phosphorus metabolism; E83.42 Hypomagnesemia; Z66 Do not resuscitate; R29.6 Repeated falls; R33.9 Retention of urine, unspecified; Z79.82 Long term (current) use of aspirin; Z79.02 Long term (current) use of antithrombotics/antiplatelets; I69.920 Aphasia following unspecified cerebrovascular disease; K52.9 Noninfective gastroenteritis and colitis, unspecified; F32.A Depression, unspecified; S32.502D Unspecified fracture of left pubis, subsequent encounter for fracture with routine healing; S32.409D Unspecified fracture of unspecified acetabulum, subsequent encounter for fracture with routine healing; S32.509D Unspecified fracture of unspecified pubis, subsequent encounter for fracture with routine healing; S32.10XD Unspecified fracture of sacrum, subsequent encounter for fracture with routine healing; S42.402D Unspecified fracture of lower end of left humerus, subsequent encounter for fracture with routine healing; W19.XXXD Unspecified fall, subsequent encounter
CPT/HCPCS: 36415; 36416; 36430; 36556; 36592; 36600; 51702; 51798; 70450; 71045; 74176; 80048; 80051; 80053; 80069; 81001; 82009; 82140; 82274; 82330; 82550; 82803; 82805; 82962; 83605; 83690; 83735; 83880; 84100; 84295; 84484; 84550; 85007; 85014; 85018; 85025; 85610; 85730; 86850; 86900; 86920; 87040; 87086; 87493; 92507; 92523; 92526; 92610; 93005; 94640; 96365; 96367; 96372; 96374; 96375; 96376; 97110; 97162; 97165; 97535; 99291; 99292; A4222; A4570; C9113; J0283; J0692; J1644; J1815; J2270; J2543; J2598; J3370; J3475; J3480; J3490; J7030; J7042; J7050; J7060; J7070; J7613; J7799; P9016

== ENCOUNTER 2024-03-05 10:39 | Outpatient (CLI) | payer MEDICARE, MEDICAID, SELFPAY ==
--- NOTE | 2024-03-05 10:43 | FL_ITS ---
WS: [id number] Exam: FL barium swallow modifd [id number] Date/Time of Exam: 03/05/2024 10:44 AM Reason For Exam: Other dysphagia Fluoroscopy time: 1min [id number] minutes # of spot films: 0 Modified barium swallow test was performed in conjunction with the speech therapy service. The patient experienced significant aspiration of thin liquid barium into the upper trachea. The mamta ent tolerated the remaining barium mixture foodstuffs without aspiration or penetration. The patient ingested a barium tablet without difficulty. FL/FL barium swallow modifd [id number] IMPRESSION: 1. Modified barium swallow test positive for aspiration of thin liquid barium i nto the upper trachea. 2. The patient tolerated the remaining barium mixture foodstuffs without aspira tion or penetration. A separate report and recommendations will follow from the speech therapy servi ce.
== END 2024-03-05 10:40 | disposition home or self-care (01) ==
LOC: RAD 10:39
PROVIDERS: PCP Family Medicine; Visit Provider Nurse Practitioner Family
DX: R13.10 Dysphagia, unspecified (principal)
CPT/HCPCS: 74230; 92611

== ENCOUNTER → 2024-03-27 10:00 | Outpatient (BNVA) | payer MEDICARE, MEDICAID, SELFPAY | PROVIDERS: PCP Family Medicine; Visit Provider Specialist | DX: Z86.73 Personal history of transient ischemic attack (TIA), and cerebral infarction without residual deficits (principal); I48.91 Unspecified atrial fibrillation; F01.50 Vascular dementia, unspecified severity, without behavioral disturbance, psychotic disturbance, mood disturbance, and anxiety; Z79.01 Long term (current) use of anticoagulants | CPT/HCPCS: 99203; 99205 ==

== ENCOUNTER 2024-05-05 06:00 | Outpatient (CLI) | payer MEDICARE, MEDICAID, SELFPAY | END 2024-05-05 23:59 | disposition home or self-care (01) | PROVIDERS: PCP Family Medicine; Visit Provider Specialist | DX: Z46.89 Encounter for fitting and adjustment of other specified devices (principal); S62.306D Unspecified fracture of fifth metacarpal bone, right hand, subsequent encounter for fracture with routine healing; X58.XXXD Exposure to other specified factors, subsequent encounter | CPT/HCPCS: 99214; L3984 ==

== ENCOUNTER → 2024-05-05 09:00 | Outpatient (BNVA) | payer MEDICARE, MEDICAID, SELFPAY | PROVIDERS: PCP Family Medicine; Referring Provider Family Medicine; Visit Provider Specialist | DX: S62.616A Displaced fracture of proximal phalanx of right little finger, initial encounter for closed fracture; W19.XXXA Unspecified fall, initial encounter | CPT/HCPCS: 73130 ==

== ENCOUNTER 2024-05-10 17:48 | Emergency (ER) | payer MEDICARE, MEDICAID, SELFPAY ==
[2024-05-10] VITALS (12 sets, daily range): BP systolic 101–148; BP diastolic 42–70; PULSE 62–91; RESP 12–33; TEMP 36.6; O2SAT 91–100
--- NOTE | 2024-05-10 18:04 | ECG_ITS ---
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 Measurements Intervals [place] Rate: 87 P: 49 KS: 119 QRS: -25 QRSD: 97 T: 113 QT: 375 QTc: 453 Interpretive Statements SINUS RHYTHM WITH SHORT [place] INTERVAL WITH OCCASIONAL VENTRICULAR PREMATURE COMPLEXES BORDERLINE LEFT AXIS DEVIATION [QRS AXIS < -20] ST DEVIATION AND MODERATE T-WAVE ABNORMALITY, CONSIDER LATERAL ISCHEMIA [-0.1+ mV T-WAVE IN I/aVL/V5/V6] Compared to ECG 02/25/2024 16:49:39 Short KS interval now present T-wave abnormality now present Possible ischemia now present Atrial fibrillation no longer present ST (T wave) deviation no longer present Electronically Signed On 05-11-2024 7:58:01 CDT by Willie Jorgensen M.D. [email or web address] [email or web address].[employer]/store/NU/[id number] f
--- NOTE | 2024-05-10 18:04 | XRR_ITS ---
PROCEDURE INFORMATION: Exam: XR Chest Exam date and time: 05/10/2024 6:16 PM Age: 78 years old Clinical indication: Chest pressure; Patient HX: Chest pain TECHNIQUE: Imaging protocol: Radiologic exam of the chest. Views: 1 view. COMPARISON: CR XR chest 1V portable [id number] 02/25/2024 2:53 PM FINDINGS: Lungs: Central vascular prominence without overt edema. No focal consolidations. 0.8 cm nodule overlying the right midlung likely representing a granuloma, similar compared to priors. Pleural spaces: Unremarkable. No pleural effusion. No pneumothorax. Heart/Mediastinum: Unremarkable. No cardiomegaly. Bones/joints: Left humeral prosthesis without evidence of hardware failure. Severe degenerative changes of the right shoulder. The acromion is inferiorly subluxed with respect to the right clavicle. XR/XR chest 1V portable [id number] IMPRESSION: 1. Central vascular prominence without overt edema. No focal consolidations. 2. 0.8 cm nodule overlying the right midlung likely representing a granuloma, similar compared to priors. 3. The right acromion is inferiorly subluxed with respect to the clavicle.
--- NOTE | 2024-05-10 18:05 | W.ED.CHESTPA ---
HPI - Chest Pain General: Chief Complaint: Chest Pain Stated Complaint: chest pain Time Seen by Provider: 05/10/24 17:55 Source: patient and EMS Mode of arrival: EMS Limitations: no limitations History of Present Illness: Patient was transferred from [facility] with complaints of chest pain. She apparently developed chest pain when she was headed to dinner this evening and it lasted for approximately an hour duration. States she has no pain now. She was given 325 mg of aspirin and 1 nitroglycerin sublingual prior to arrival by EMS. She has had some mild cough but no fevers. She denies any diaphoresis associated with her chest pain. She states that he did have mild nausea. No cough. No prior history of thromboembolic events. She is currently taking aspirin but no evidence of other antiplatelet or blood thinning medications. MD complaint: chest pain Pain location: substernal Pain radiation: none Associated symptoms: Reports nausea; Deny abdominal pain, dyspnea, fever(s), palpitations, syncope or vomiting Treatment prior to arrival: aspirin and nitroglycerin Review of Systems Const: Denies: fever(s) or chills Eyes: Denies: change in vision ENMT: Denies: odynophagia, nasal discharge or nasal congestion Card: Reports: chest pain; Denies: palpitations, irregular heart rhythm, syncope or pre-syncope Resp: Reports: non-productive cough; Denies: dyspnea or productive cough GI: Reports: nausea; Denies: abdominal pain, vomiting, hematemesis or diarrhea : Denies: flank pain, difficulty voiding, dysuria or urinary frequency Musc: Denies: neck pain, back pain, extremity pain or extremity swelling Skin/Breast: Denies: rash or pruritus Neuro: Denies: headache(s), numbness in extremities or weakness in extremities [facility] ED PFSH: Medical History C7 cervical fracture (10/2020) CVA (cerebral vascular accident) 01/2024 Hyperlipidemia Hypertension Coronary artery disease GERD (gastroesophageal reflux disease) Depression Hypothyroidism Syncope Surgical History H/O rotator cuff surgery H/O: hysterectomy Family History Other No significant family history Social History (Reviewed 05/10/24 @ 18:29 by GREGORY Edwards Smoking and tobacco/nicotine status: never used tobacco/nicotine Alcohol intake: never Substance/Drug Use: never Housing: [facility] Marital status: / Physical Exam Narrative: EXAM NARRATIVE: She is alert and cooperative. He communicates fairly well although she does still have some residual dysarthria from a prior CVA. Const: COMMON NORMALS: no acute distress, average body habitus, patient oriented x3 and alert HENMT: COMMON NORMALS: Normal nasal mucous membranes and turbinates present, moist oral mucous membranes and oropharynx normal HEAD & SCALP: contusion (Appears to be old areas of ecchymosis to the right forehead and some involv); no palpable skull fracture FACE & SINUS: sinuses nontender and face symmetric NOSE: Normal nasal mucous membranes and turbinates present Eye: COMMON NORMALS: Equal, round and reactive pupils present, EOMs intact bilaterally and conjunctivae normal CONJUNCTIVA: Yes conjunctivae normal PUPIL: Yes Equal, round and reactive pupils present Neck/C-Spine: COMMON NORMALS: full ROM, no lymphadenopathy and no JVD CERVICAL SPINE: Yes cervical ROM normal, No Cervical spine tenderness and No step off deformity Chest: COMMONS NORMALS: normal inspection of the chest Resp: COMMON NORMALS: normal respiratory effort and No use of accessory muscles AUSCULTATION: crackles Laterality: right Cardio: COMMON NORMALS: no JVD, regular rate, regular rhythm, No murmurs present (Cardio) and Peripheral pulses 2+ throughout RATE: regular rate RHYTHM: regular rhythm PERIPHERAL PULSES: Peripheral pulses 2+ throughout GI: COMMON NORMALS: Normal to inspection, nondistended, normoactive bowel sounds present, Soft to palpation and non-tender PALPATION: Yes Soft to palpation : COMMON NORMALS: Yes no CVA tenderness BLADDER/KIDNEY EXAM: Yes no CVA tenderness Back/Pelvis: COMMON NORMALS: no CVA tenderness, thoracic and lumbar spine normal to inspection and no thoracic nor lumbar tenderness Extremity: COMMON NORMALS: normal to inspection, capillary refill normal, no clubbing, cyanosis or edema and no calf tenderness NARRATIVE EXTREMITY EXAM: Left upper extremity weakness Neuro: COMMON NORMALS: patient oriented x3 and no sensory deficits noted SENSORIUM/ORIENTATION: Yes alert MOTOR EXAM: Other motor observations present (Left upper extremity weakness) Psych: COMMON NORMALS: mental status grossly normal Skin: COMMON NORMALS: no rashes or lesions noted and turgor normal NARRATIVE SKIN EXAM: Ecchymosis of the forehead and upper face is noted GENERAL SKIN EXAM: no rashes or lesions noted, turgor normal and ecchymosis (Face and forehead no step-off.) Course Reevaluation(s): Reevaluation #1: Patient continues to remain stable. She continues to deny any current chest pain or other symptoms. Her delta troponin is negative for any change that would suggest ongoing ACS etc. Particularly in light of reassuring EKGs and no chest pain at this time. Prior history appears that she has had atrial fibrillation with troponin elevations of mild absolute value but no significant change or no ACS or AMI. A CT scan was obtained of her head due to her medical presentation even though she had a nonfocal neurologic exam to ensure that she did not have any evidence of intracranial hemorrhage etc. She has what appears to be a chronic anemia which is unchanged. At this point there is no evidence of an ongoing emergency medical condition that would require further emergency care and/or admission. She will be discharged back to her [facility] for continued care and return precautions. Time: 20:02 Vital Signs: Vital signs: Vital Signs Temperature 97.8 F 05/10/24 17:50 Pulse Rate 62 05/10/24 19:00 Respiratory Rate 17 05/10/24 19:00 Blood Pressure 106/42 05/10/24 19:00 Pulse Oximetry 93 05/10/24 19:00 Oxygen Delivery Me thod Room Air 05/10/24 17:50 MDM - Chest Pain Medical Decision Making This patient was transferred for chest pain as noted in the HPI. Upon presentation was noted that she had a recent fall with facial ecchymosis. Additional inquiry was made at the long-term [facility] facility and they admitted that she had not had any evaluation for this recent fall. Differential included potential ACS, pneumonia, congestive heart failure etc. Workup included a CT scan because of her trauma without any history of prior imaging, serial biomarkers, serial EKGs, chest x-ray, other laboratories to evaluate potential etiologies of her presentation. She remained pain-free throughout the emergency department stay without any EKG changes, initial troponin was slightly elevated and a repeat was essentially unchanged making ACS less likely. Chest x-ray did not reveal any infiltrates. She does have chronic changes due to prior bilateral shoulder surgeries. She had mild cardiomegaly but no evidence of pulmonary congestion and her BNP was slightly elevated but certainly less than it has been in recent evaluations. Her chronic anemia is unchanged. Current presentation does not suggest an ongoing emergency medical condition. She will be given a dose of diuretic in the emergency department and discharged back to her usual care. Lab Data I reviewed the patient's lab results. 05/10/24 17:37 05/10/24 17:37 Radiology Impressions Chest X-Ray 05/10/24 18:04 IMPRESSION: 1. Central vascular prominence without overt edema. No focal consolidations. 2. 0.8 cm nodule overlying the right midlung likely representing a granuloma, similar compared to priors. 3. The right acromion is inferiorly subluxed with respect to the clavicle. Head CT 05/10/24 18:34 IMPRESSION: No acute intracranial findings. Chronic infarcts involving the bilateral cerebellar hemispheres and vonda. Moderate microangiopathy and global cerebral volume loss. Small hematoma overlying the right frontal scalp. No acute fractures. Laboratory Results WBC 6.91 10^3/uL (3.29-11.43) 05/10/24 17:37 RBC 3.45 10^6/uL (3.85-5.65) L 05/10/24 17:37 Hgb 9.20 g/dL (11.27-16.99) L 05/10/24 17:37 Hct 29.9 % (36-47) L 05/10/24 17:37 MCV 86.7 fl (85-98) 05/10/24 17:37 MCH 26.7 pg (27-33) L 05/10/24 17:37 MCHC 30.8 g/dL (30-55) 05/10/24 17:37 RDW 15.6 % (12.1-15.1) H 05/10/24 17:37 Plt Count 248 10^3/cmm (157-399) 05/10/24 17:37 MPV 11.2 fL (7.4-10.4) H 05/10/24 17:37 Neut % (Auto) 64.0 % 05/10/24 17:37 Lymph % (Auto) 23.4 % 05/10/24 17:37 Perry % (Auto) 8.7 % 05/10/24 17:37 Eos % (Auto) 3.2 % 05/10/24 17:37 Baso % (Auto) 0.3 % 05/10/24 17:37 Neut # (Auto) 4.42 10^3/uL (1.8-7.7) 05/10/24 17:37 Lymph # (Auto) 1.6 10^3/uL (0.8-4.8) 05/10/24 17:37 Perry # (Auto) 0.6 10^3/uL (0.2-0.9) 05/10/24 17:37 Eos # (Auto) 0.2 10^3/uL (0.0-0.8) 05/10/24 17:37 Baso # (Auto) 0.0 10^3/uL (0.0-0.1) 05/10/24 17:37 Nucleated RBC % (auto) 0 % 05/10/24 17:37 Nucleated RBCs # 0.0 /100WBC 05/10/24 17:37 Sodium 141 mmol/L (136-145) 05/10/24 17:37 Potassium 3.7 mmol/L (3.5-5.1) 05/10/24 17:37 Chloride 104 mmol/L (98-107) 05/10/24 17:37 Carbon Dioxide 25 mmol/L (22-29) 05/10/24 17:37 Anion Gap 15.7 (5-19) 05/10/24 17:37 BUN 14 mg/dL (8-23) 05/10/24 17:37 Creatinine 0.7 mg/dL (0.5-0.9) 05/10/24 17:37 GFR Calculation Not Reportable 05/10/24 17:37 Glucose 142 mg/dL (65-115) H 05/10/24 17:37 Calculated Osmolality 295 mOsm/kg (285-295) 05/10/24 17:37 Calcium 9.4 mg/dL (8.5-10.5) 05/10/24 17:37 Total Bilirubin 0.2 mg/dL (0.15-1.2) 05/10/24 17:37 AST 11 U/L (0-32) 05/10/24 17:37 ALT 11 U/L (0-33) 05/10/24 17:37 Alkaline Phosphatase 146 U/L (35-105) H 05/10/24 17:37 Troponin T Baseline 18 ng/L (0-10) H 05/10/24 17:37 Troponin T 120 Minute 18.74 ng/L (0-10) H 05/10/24 19:34 Delta Troponin T 0.74 ABS# (0-10) 05/10/24 19:34 NT-Pro-B Natriuret Pep 714 pg/mL (0-450) H 05/10/24 17:37 Total Protein 7.0 g/dL (6.6-8.7) 05/10/24 17:37 Albumin 4.0 g/dL (3.5-5.2) 05/10/24 17:37 Globulin 3.0 g/dL (1.3-4.6) 05/10/24 17:37 All radiology interpretation(s) finalized by discharge EKG Data EKG 1: I personally reviewed and interpreted this EKG as follows: Interpretation: Review of patient's EKG reveals a ventricular rate of 87 bpm with a normal VA interval, normal QRS duration, normal corrected QT interval. He has a borderline left axis. VA interval is borderline shortened. She has some nonspecific ST-T wave changes noted but no acute ST elevation or depression of concern at this time. Discharge Plan Discharge Patient Disposition: [facility] Clinical Impression: Chronic anemia Chest pain Qualifiers: Chest pain type: unspecified Qualified Code(s): R07.9 - Chest pain, unspecified Contusion of face Qualifiers: Encounter type: initial encounter Qualified Code(s): S00.83XA - Contusion of other part of head, initial encounter Condition: Stable Referrals: David Hannah MD [Primary Care Provider] - Discharge Diet: Usual diet Discharge Activity: Resume usual activity Activity Restrictions/Additional Instructions: The evaluation in the emergency department did not reveal any evidence of a heart attack pneumonia or other serious condition as we discussed. We also took pictures of your head because of your recent fall which did not reveal any evidence that she would skull fracture or head bleeding in your brain. You should continue your usual medications and if you develop any recurrent symptoms such as chest pain fevers chills difficulty breathing you should request reevaluation by your attending physician or at the closest emergency department. Coding Level of Care Code ED Desizing Machine Operator Head End for 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
[2024-05-10 18:29] LABS: Basophils % 0.3 %; Eosinophils # 0.2 10^3/uL (0.0-0.8); Eosinophils % 3.2 %; Hematocrit 29.9 % (36-47); Lymphocytes # 1.6 10^3/uL (0.8-4.8); Lymphocytes % 23.4 %; Mean Corpuscular HGB Conc 30.8 g/dL (30-55); Mean Corpuscular Hemoglobin 26.7 pg (27-33); Mean Corpuscular Volume 86.7 fl (85-98); Mean Platelet Volume 11.2 fL (7.4-10.4); Monocytes # 0.6 10^3/uL (0.2-0.9); Monocytes % 8.7 %; Neutrophils # 4.42 10^3/uL (1.8-7.7); Nucleated Red Blood Cells % 0 %; Platelet Count 248 10^3/cmm (157-399); Red Blood Count 3.45 10^6/uL (3.85-5.65); Red Cell Distribution Width 15.6 % (12.1-15.1); White Blood Count 6.91 10^3/uL (3.29-11.43)
--- NOTE | 2024-05-10 18:34 | CTR_ITS ---
PROCEDURE INFORMATION: Exam: CT Head Without Contrast Exam date and time: 05/10/2024 6:50 PM Age: 78 years old Clinical indication: Injury or trauma; Blunt trauma (contusions or hematomas); Patient HX: EMS arrival from senior living. Patient brought in for chest pain, however PT sustained a fall several days ago and has large contusion to RT frontal and orbits bilaterally. History of CVA. ; Additional info: Fall (several days ago) TECHNIQUE: Imaging protocol: Computed tomography of the head without contrast. Radiation optimization: All CT scans at this facility use at least one of these dose optimization techniques: automated exposure control; mA and/or kV adjustment per patient size (includes targeted exams where dose is matched to clinical indication); or iterative reconstruction. COMPARISON: CT head wo con* [id number] 02/26/2024 11:14 AM RADIATION DOSE METRICS: Total DLP (mGy-cm): 964.58 FINDINGS: Brain: No acute intracranial hemorrhage or territorial infarction. No mass effect or midline shift. Chronic infarcts involving the bilateral cerebellar hemispheres and vonda. Moderate microangiopathy and global cerebral volume loss. Cerebral ventricles: No ventriculomegaly. Paranasal sinuses: Visualized sinuses are unremarkable. No fluid levels. Mastoid air cells: Visualized mastoid air cells are well aerated. Bones: Unremarkable. No acute fracture. Soft tissues: Similar appearance of numerous small partially calcified lesions within the scalp. Small hematoma overlying the right frontal scalp. CT/CT head wo con* [id number] IMPRESSION: No acute intracranial findings. Chronic infarcts involving the bilateral cerebellar hemispheres and vonda. Moderate microangiopathy and global cerebral volume loss. Small hematoma overlying the right frontal scalp. No acute fractures.
[2024-05-10 18:49] LABS: Troponin(5th) Baseline 18 ng/L (0-10)
[2024-05-10 19:22] LABS: Alanine Aminotransferase 11 U/L (0-33); Alkaline Phosphatase 146 U/L (35-105); Anion Gap 15.7 (5-19); Aspartate Amino Transferase 11 U/L (0-32); Blood Urea Nitrogen 14 mg/dL (8-23); Calcium 9.4 mg/dL (8.5-10.5); Carbon Dioxide 25 mmol/L (22-29); Chloride 104 mmol/L (98-107); Creatinine Clr Calc Pharmacy 55.0942; Glucose 142 mg/dL (65-115); NT Pro B Type Natriuretic Pept 714 pg/mL (0-450); Osmolality Calculated 295 mOsm/kg (285-295); Potassium 3.7 mmol/L (3.5-5.1); Sodium 141 mmol/L (136-145); Total Bilirubin 0.2 mg/dL (0.15-1.2)
[2024-05-10 19:55] LABS: Troponin 5 2HR 18.74 ng/L (0-10); Troponin 5 2HR Delta 0.74 ABS# (0-10)
--- NOTE | 2024-05-10 20:15 | ECG_ITS ---
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 Measurements Intervals [place] Rate: 75 P: 66 CO: 124 QRS: -7 QRSD: 100 T: 92 QT: 429 QTc: 482 Interpretive Statements SINUS RHYTHM WITH FREQUENT VENTRICULAR PREMATURE COMPLEXES NONSPECIFIC T-WAVE ABNORMALITY Compared to ECG 05/10/2024 17:59:22 Ventricular premature complex(es) now present Short [place] interval no longer present Possible ischemia no longer present T-wave abnormality still present Electronically Signed On 05-11-2024 8:01:40 CDT by Willie Jorgensen M.D. [email or web address]/store/[id number]
[2024-05-10] MEDS: FUROsemide 10 mg/mL SDV 2mL 20 MG IVP (21:01)
[2024-05-11] VITALS: BP 125/91; PULSE 86; RESP 18; O2SAT 96
== END 2024-05-11 00:29 ==
PROVIDERS: Emergency Provider Emergency Medicine; PCP Family Medicine
DX: R07.9 Chest pain, unspecified (principal); S00.83XA Contusion of other part of head, initial encounter; D64.89 Other specified anemias; E78.5 Hyperlipidemia, unspecified; I10 Essential (primary) hypertension; I25.10 Atherosclerotic heart disease of native coronary artery without angina pectoris; Z86.73 Personal history of transient ischemic attack (TIA), and cerebral infarction without residual deficits; W19.XXXA Unspecified fall, initial encounter
CPT/HCPCS: 36415; 70450; 71045; 80053; 83880; 84484; 85025; 93005; 96374; 99285; J1940

== ENCOUNTER 2024-05-15 18:58 | Emergency (ER) | payer MEDICARE, MEDICAID, SELFPAY ==
[2024-05-15] VITALS (7 sets, daily range): BP systolic 106–126; BP diastolic 44–91; PULSE 57–87; RESP 13–18; TEMP 36.6; O2SAT 90–96; BMI 29.5
--- NOTE | 2024-05-15 18:59 | XRR_ITS ---
PROCEDURE INFORMATION: Exam: XR Chest Exam date and time: 05/15/2024 7:06 PM Age: 78 years old Clinical indication: Pain; Shortness of breath; Chest pressure; Additional info: Chest pain TECHNIQUE: Imaging protocol: Radiologic exam of the chest. Views: 1 view. COMPARISON: CR (CHEST, ) 05/10/2024 6:16 PM FINDINGS: Lungs: The lungs are adequately expanded. No focal consolidations or pulmonary edema. Unchanged 0.8 cm nodular opacity overlying right midlung which may represent a calcified granuloma. Pleural spaces: No pleural effusions or pneumothorax. Heart/Mediastinum: No cardiomegaly. Bones/joints: No acute fractures. Chronic right rib deformities. Degenerative changes of the right shoulder. Left shoulder prosthesis. XR/XR chest 1V portable [id number] IMPRESSION: No acute pulmonary disease. 8 mm opacity in the mid right lung, possibly a calcified granuloma. Consider correlation with CT to exclude a noncalcified nodule.
--- NOTE | 2024-05-15 19:01 | ECG_ITS ---
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 Measurements Intervals [place] Rate: 86 P: 54 VT: 117 QRS: -12 QRSD: 93 T: 99 QT: 389 QTc: 466 Interpretive Statements SINUS RHYTHM WITH SHORT [place] INTERVAL WITH FREQUENT VENTRICULAR PREMATURE COMPLEXES LOW QRS VOLTAGE IN PRECORDIAL LEADS [QRS DEFLECTION < 1.0 mV IN CHEST LEADS] PATTERN CONSISTENT WITH PULMONARY DISEASE MODERATE T-WAVE ABNORMALITY, CONSIDER LATERAL ISCHEMIA [-0.1+ mV T-WAVE IN I/aVL/V5/V6] Compared to ECG 05/10/2024 20:15:08 Short [place] interval now present Low QRS voltage now present Possible ischemia now present Ventricular premature complex(es) no longer present T-wave abnormality still present Electronically Signed On 05-18-2024 9:14:13 CDT by Phuc Moran M.D. [email or web address].[employer]/store/[id number]
--- NOTE | 2024-05-15 19:09 | ED_ITS ---
HPI - Chest Pain 2 General: Chief Complaint: Chest Pain Stated Complaint: Chest Pain Time Seen by Provider: 05/15/24 18:59 History of Present Illness: Patient presents to the ER with substernal chest pain that she rated a 9 out of 10. Patient says started earlier today. Patient was given 3 and 24 mg aspirin and 1 nitro per EMS on arrival patient's pain had much decreased. Patient is a patient of Dr. Marie and she saw him on 05/10/2024, patient does have a history of coronary artery disease and, CVA, Review of Systems 2 General: Reports: 10 or more systems reviewed and unremarkable except in HPI and below PFSH ED 2 PFSH: Medical History C7 cervical fracture (10/2020) CVA (cerebral vascular accident) 01/2024 Hyperlipidemia Hypertension Coronary artery disease GERD (gastroesophageal reflux disease) Depression Hypothyroidism Syncope Surgical History H/O rotator cuff surgery H/O: hysterectomy Family History Other No significant family history Social History Smoking and tobacco/nicotine status: never used tobacco/nicotine Alcohol intake: never Substance/Drug Use: never Housing: [facility] Marital status: / Physical Exam 2 Const: COMMON NORMALS: no acute distress, average body habitus, patient oriented x3, no limitations, healthy appearing, alert and well nourished HENMT: COMMON NORMALS: normocephalic, hearing grossly normal bilaterally, Normal external nose present and moist oral mucous membranes; head/scalp not atraumatic (Bruising in multiple stages of healing from old trauma) HEAD & SCALP: normocephalic; not atraumatic (Bruising in multiple stages of healing from old trauma) NOSE: Normal external nose present Neck/C-Spine: COMMON NORMALS: no JVD Chest: COMMONS NORMALS: normal inspection of the chest and normal palpation of entire chest wall Resp: COMMON NORMALS: normal respiratory effort, No retractions, No use of accessory muscles and clear to auscultation bilaterally AUSCULTATION: clear to auscultation bilaterally Cardio: COMMON NORMALS: no JVD, regular rate, regular rhythm, S1 normal heart sound present, S2 normal heart sound present, No gallops present (Cardio), No clicks present (Cardio), No murmurs present (Cardio) and No rub (Cardio) R ATE: regular rate RHYTHM: regular rhythm HEART SOUNDS: S1 normal heart sound present and S2 normal heart sound present GI: COMMON NORMALS: Normal to inspection, nondistended, normoactive bowel sounds present, Soft to palpation, non-tender, No hepatosplenomegaly present and no masses PALPATION: Yes Soft to palpation and Yes No hepatosplenomegaly present Neuro: COMMON NORMALS: patient oriented x3 SENSORIUM/ORIENTATION: Yes alert Course 2 Vital Signs: Vital signs: Vital Signs Temperature 97.9 F 05/15/24 18:58 Pulse Rate 64 05/15/24 21:40 Respiratory Rate 13 05/15/24 21:40 Blood Pressure 106/91 05/15/24 21:40 Pulse Oximetry 93 05/15/24 21:40 Oxygen Delivery Me thod Room Air 05/15/24 18:58 MDM - Chest Pain Medical Decision Making Patient worked up in standard chest pain fashion with serial EKGs serial enzymes, chest x-ray, all found to be essentially benign when patient was being reevaluated she is found sleeping soundly. Patient be discharged home. Differential Diagnosis Unlikely acute massive pulmonary embolism, acute respiratory failure, acute myocardial infarction, cardiac arrest or sudden cardiac Medical Records I reviewed the patient's medical records. Lab Data I reviewed the patient's lab results. 05/15/24 19:05 05/15/24 19:05 Radiology Impressions Chest X-Ray 05/15/24 18:59 IMPRESSION: No acute pulmonary disease. 8 mm opacity in the mid right lung, possibly a calcified granuloma. Consider correlation with CT to exclude a noncalcified nodule. Laboratory Results WBC 5.89 10^3/uL (3.29-11.43) 05/15/24 19:05 RBC 3.42 10^6/uL (3.85-5.65) L 05/15/24 19:05 Hgb 9.10 g/dL (11.27-16.99) L 05/15/24 19:05 Hct 29.4 % (36-47) L 05/15/24 19:05 MCV 86.0 fl (85-98) 05/15/24 19:05 MCH 26.6 pg (27-33) L 05/15/24 19:05 MCHC 31.0 g/dL (30-55) 05/15/24 19:05 RDW 15.1 % (12.1-15.1) 05/15/24 19:05 Plt Count 239 10^3/cmm (157-399) 05/15/24 19:05 MPV 11.1 fL (7.4-10.4) H 05/15/24 19:05 Neut % (Auto) 57.6 % 05/15/24 19:05 Lymph % (Auto) 31.1 % 05/15/24 19:05 [place] % (Auto) 7.5 % 05/15/24 19:05 Eos % (Auto) 3.1 % 05/15/24 19:05 Baso % (Auto) 0.5 % 05/15/24 19:05 Neut # (Auto) 3.40 10^3/uL (1.8-7.7) 05/15/24 19:05 Lymph # (Auto) 1.8 10^3/uL (0.8-4.8) 05/15/24 19:05 [place] # (Auto) 0.4 10^3/uL (0.2-0.9) 05/15/24 19:05 Eos # (Auto) 0.2 10^3/uL (0.0-0.8) 05/15/24 19:05 Baso # (Auto) 0.0 10^3/uL (0.0-0.1) 05/15/24 19:05 Nucleated RBC % (auto) 0 % 05/15/24 19:05 Nucleated RBCs # 0.0 /100WBC 05/15/24 19:05 Sodium 142 mmol/L (136-145) 05/15/24 19:05 Potassium 3.9 mmol/L (3.5-5.1) 05/15/24 19:05 Chloride 105 mmol/L (98-107) 05/15/24 19:05 Carbon Dioxide 25 mmol/L (22-29) 05/15/24 19:05 Anion Gap 15.9 (5-19) 05/15/24 19:05 BUN 15 mg/dL (8-23) 05/15/24 19:05 Creatinine 0.7 mg/dL (0.5-0.9) 05/15/24 19:05 GFR Calculation Not Reportable 05/15/24 19:05 Glucose 114 mg/dL (65-115) 05/15/24 19:05 Calculated Osmolality 296 mOsm/kg (285-295) H 05/15/24 19:05 Calcium 9.3 mg/dL (8.5-10.5) 05/15/24 19:05 Phosphorus 3.9 mg/dL (2.5-4.5) 05/15/24 19:05 Magnesium 2.0 mg/dL (1.7-2.3) 05/15/24 19:05 Total Bilirubin 0.2 mg/dL (0.15-1.2) 05/15/24 19:05 AST 11 U/L (0-32) 05/15/24 19:05 ALT 11 U/L (0-33) 05/15/24 19:05 Alkaline Phosphatase 149 U/L (35-105) H 05/15/24 19:05 Troponin T Baseline 21 ng/L (0-10) H 05/15/24 19:05 Troponin T 120 Minute 23.01 ng/L (0-10) H 05/15/24 21:00 Delta Troponin T 2.01 ABS# (0-10) 05/15/24 21:00 Total Protein 6.6 g/dL (6.6-8.7) 05/15/24 19:05 Albumin 4.0 g/dL (3.5-5.2) 05/15/24 19:05 Globulin 2.6 g/dL (1.3-4.6) 05/15/24 19:05 All radiology interpretation(s) finalized by discharge Discharge Plan Discharge Patient Disposition: Home Clinical Impression: Chest pain Qualifiers: Chest pain type: unspecified Qualified Code(s): R07.9 - Chest pain, unspecified Condition: Stable Prescriptions: No Action bupropion HCl 150 mg tablet extended release 24 hr 150 mg PO BEDTIME Qty: 30 11RF citalopram 20 mg tablet 20 mg PO BEDTIME Qty: 30 11RF Euthyrox 200 mcg tablet 200 mcg PO QAM Qty: 30 11RF omeprazole 20 mg capsule,delayed release(DR/EC) 20 mg PO QPM Qty: 30 11RF (DME) off the shelf ulnar gutter splint, right See Rx Instructions .Route .MEDSUPPLY Qty: 1 0RF Rx Instructions: As directed fluticasone propionate 50 mcg/actuation spray,suspension 2 spray INTRANASAL DAILY atorvastatin 40 mg tablet 40 mg PO BEDTIME lisinopril 2.5 mg tablet 2.5 mg PO DAILY quetiapine 25 mg Tablet 25 mg PO BID hydrocodone-acetaminophen 5-325 mg tablet 1 tab PO Q8H PRN (Reason: Pain) aspirin 81 mg Tablet,Delayed Release (Dr/Ec) 81 mg PO DAILY Milk of Magnesia 400 mg/5 mL Suspension 30 ml PO DAILY PRN (Reason: Constipation) bisacodyl 10 mg Suppository 10 mg CO DAILY PRN (Reason: Constipation) Fleet Enema 19-7 gram/118 mL Enema 118 ml CO DAILY PRN (Reason: Constipation) Probiotic 3 billion cell Capsule 3,000 mmu cells PO DAILY PRN (Reason: ANTIBIOTICS) Rx Instructions: administer with a meal tamsulosin 0.4 mg Capsule 0.4 mg PO DAILY Qty: 30 0RF Imodium A-D 2 mg Tablet 2 mg PO QID PRN (Reason: Loose Stool) Qty: 30 0RF Discharge Orders: Discharge ED (Routine); Ordered 05/15/24 Ordered By: Arun Ayala Referrals: David Hannah MD [Primary Care Provider] - 1 week Patient Instructions: Chest Pain (ED) Activity Restrictions/Additional Instructions: Your evaluation ER for your chest pain did not show any acute cardiac cause. Your chest pain is thought to be noncardiac in nature. Please follow-up with your family practice physician within next 7 to 10 days for further evaluation and treatment. Coding Level of Care Code ED Manager Of Creative Services for 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
[2024-05-15 19:27] LABS: Basophils % 0.5 %; Eosinophils # 0.2 10^3/uL (0.0-0.8); Eosinophils % 3.1 %; Hematocrit 29.4 % (36-47); Lymphocytes # 1.8 10^3/uL (0.8-4.8); Lymphocytes % 31.1 %; Mean Corpuscular Hemoglobin 26.6 pg (27-33); Mean Platelet Volume 11.1 fL (7.4-10.4); Monocytes # 0.4 10^3/uL (0.2-0.9); Monocytes % 7.5 %; Neutrophils % 57.6 %; Nucleated Red Blood Cells % 0 %; Platelet Count 239 10^3/cmm (157-399); Red Blood Count 3.42 10^6/uL (3.85-5.65); Red Cell Distribution Width 15.1 % (12.1-15.1); White Blood Count 5.89 10^3/uL (3.29-11.43)
[2024-05-15 19:36] LABS: Troponin(5th) Baseline 21 ng/L (0-10)
[2024-05-15 19:37] LABS: Alanine Aminotransferase 11 U/L (0-33); Alkaline Phosphatase 149 U/L (35-105); Anion Gap 15.9 (5-19); Aspartate Amino Transferase 11 U/L (0-32); Blood Urea Nitrogen 15 mg/dL (8-23); Calcium 9.3 mg/dL (8.5-10.5); Carbon Dioxide 25 mmol/L (22-29); Chloride 105 mmol/L (98-107); Creatinine Clr Calc Pharmacy 58.5804; Globulin 2.6 g/dL (1.3-4.6); Glucose 114 mg/dL (65-115); Osmolality Calculated 296 mOsm/kg (285-295); Phosphorus 3.9 mg/dL (2.5-4.5); Potassium 3.9 mmol/L (3.5-5.1); Sodium 142 mmol/L (136-145); Total Bilirubin 0.2 mg/dL (0.15-1.2); Total Protein 6.6 g/dL (6.6-8.7)
--- NOTE | 2024-05-15 20:59 | ECG_ITS ---
[facility] Test Date: 2024-05-15 Pat Name: Chip Guerrero Department: Room: Gender: Female Jack Setter: : 1945 Requested By: Arun Ayala Order Number: [id number] Charmaine MD: Phuc Moran M.D. Measurements Intervals [place] Rate: 66 P: 56 RI: 121 QRS: -15 QRSD: 100 T: 101 QT: 438 QTc: 462 Interpretive Statements SINUS RHYTHM WITH FREQUENT VENTRICULAR PREMATURE COMPLEXES WITH OCCASIONAL SUPRAVENTRICULAR PREMATURE COMPLEXES LOW QRS VOLTAGE IN PRECORDIAL LEADS [QRS DEFLECTION < 1.0 mV IN CHEST LEADS] PATTERN CONSISTENT WITH PULMONARY DISEASE NONSPECIFIC ST & T-WAVE ABNORMALITY Compared to ECG 05/10/2024 20:15:08 Low QRS voltage now present T-wave abnormality still present Electronically Signed On 05-16-2024 11:58:11 CDT by Phuc Moran M.D. [id number]
[2024-05-15 21:30] LABS: Troponin 5 2HR 23.01 ng/L (0-10); Troponin 5 2HR Delta 2.01 ABS# (0-10)
== END 2024-05-15 23:05 | disposition home or self-care (01) ==
PROVIDERS: Emergency Provider Emergency Medicine; PCP Family Medicine
DX: R07.9 Chest pain, unspecified (principal); Z79.82 Long term (current) use of aspirin; Z86.73 Personal history of transient ischemic attack (TIA), and cerebral infarction without residual deficits; E78.5 Hyperlipidemia, unspecified; I10 Essential (primary) hypertension
CPT/HCPCS: 71045; 80053; 83735; 84100; 84484; 85025; 93005; 99285

== ENCOUNTER → 2024-05-26 08:38 | Outpatient (BNVA) | payer MEDICARE, MEDICAID, SELFPAY | PROVIDERS: PCP Family Medicine; Visit Provider Nurse Practitioner | DX: S62.616D Displaced fracture of proximal phalanx of right little finger, subsequent encounter for fracture with routine healing (principal); X58.XXXD Exposure to other specified factors, subsequent encounter | CPT/HCPCS: 73130; 99024 ==

== ENCOUNTER → 2024-06-30 08:05 | Outpatient (BNVA) | payer MEDICARE, MEDICAID, SELFPAY | PROVIDERS: PCP Family Medicine; Visit Provider Nurse Practitioner | DX: S62.616D Displaced fracture of proximal phalanx of right little finger, subsequent encounter for fracture with routine healing (principal); X58.XXXD Exposure to other specified factors, subsequent encounter | CPT/HCPCS: 73130; 99213 ==

== ENCOUNTER 2024-07-10 09:28 | Inpatient (IN) | payer MEDICARE, MEDICAID, SELFPAY ==
[2024-07-10] VITALS (31 sets, daily range): BP systolic 87–176; BP diastolic 40–92; PULSE 65–112; RESP 12–24; TEMP 36.8–36.9; O2SAT 90–100; BMI 29.2; BMI 25.3
--- NOTE | 2024-07-10 09:37 | XR_ITS ---
WS: [id number] Exam: XR knee LT 3V* [id number] Date/Time of Exam: 07/10/2024 9:47 AM Reason For Exam: fall The exam is suboptimal due to the patient's inability to fully cooperate for the usual views. There is an avulsion fracture of the lateral femoral condyle which extends into the lateral compartme nt of the knee. Detail of the upper tibia is very limited especially the lateral plateau region. Smal l joint effusion. XR/XR knee LT 3V* [id number] IMPRESSION: 1. Avulsion fracture of the lateral femoral condyle which extends into the late ral compartment of the knee. 2. Suboptimal visualization of the proximal tibia. Additional views or CT could be considered for more complete evaluation.
--- NOTE | 2024-07-10 09:37 | CT_ITS ---
WS: [id number] CT CERVICAL SPINE HISTORY: trauma TECHNIQUE: Contiguous 2.0 mm axial imaging performed through the entire cervical spine. Sagittal and coronal reformats also performed. All CT scans at [facility] use at least one of these dose o ptimization techniques: automated exposure control; mA and/or kV adjustment per patient size (include s targeted exams where dose is matched to clinical indication); or iterative reconstruction. DLP: 2129.79 mGy.cm COMPARISON: 01/21/2024 Advanced levoscoliosis. Patient's head is tilted to the RIGHT. Known C7 burst compression fracture wi th mild retropulsion is stable. Craniocervical junction is normally aligned. Facet joints are normall y aligned. No acute fracture or subluxation. Slight anterolisthesis of C3 and C4. Multilevel facet joint arthropathy. Moderate RIGHT foraminal stenosis at C3-4. Mild bilateral foramin al stenosis at C5-6 and C6-7. No acute appearing central disc protrusions. Lung apices are clear. Mild atherosclerosis aorta. CT/CT cervical spin wo con* [id number] IMPRESSION: 1. No acute cervical spine fracture. 2. Chronic burst fracture at C7 is unchanged. 3. No facet joint malalignment or subluxation.
--- NOTE | 2024-07-10 09:38 | CT_ITS ---
WS: [id number] CT HEAD NONCONTRAST HISTORY: trauma TECHNIQUE: Contiguous axial imaging performed through the brain. Bone and soft tissue windows. Sagitt al and coronal reformats reviewed. All CT scans at [facility] use at least one of these dose optimization techniques: automated exposure control; mA and/or kV adjustment per patient size (includ es targeted exams where dose is matched to clinical indication); or iterative reconstruction. DLP: 2129.79 mGy.cm COMPARISON: 05/10/2024 No acute intracranial hemorrhage, midline shift or mass effect. Mild atrophy with moderate small vessel disease. Numerous lacunar infarcts bilaterally in the cerebel lum with volume loss. Additional lacunar infarcts in the vonda. Ventricles: Normal size with no hydrocephalus. No inferior displacement of the cerebellar tonsils. Paranasal sinuses: As visualized are clear. Mastoid air cells: Well pneumatized. Calvarium and scalp: No acute skull fracture. Large acute hematoma centered over the central frontal bone. There are additional scalp nodules which contain calcification. These are probably sebaceous cy sts. CT/CT head wo con* [id number] IMPRESSION: 1. No acute intracranial hemorrhage or edema. 2. Moderate small vessel ischemic disease with multiple lacunar infarcts in th e posterior fossa and vonda. 3. Large acute scalp hematoma centered over the forehead. 4. No skull fracture.
[2024-07-10 09:44] LABS: Basophils % 0.2 %; Eosinophils % 0.1 %; Hematocrit 28.5 % (36-47); Lymphocytes # 0.8 10^3/uL (0.8-4.8); Lymphocytes % 6.7 %; Mean Corpuscular HGB Conc 31.2 g/dL (30-55); Mean Corpuscular Hemoglobin 24.9 pg (27-33); Mean Corpuscular Volume 79.8 fl (85-98); Mean Platelet Volume 10.3 fL (7.4-10.4); Monocytes # 0.6 10^3/uL (0.2-0.9); Monocytes % 4.8 %; Neutrophils # 11.01 10^3/uL (1.8-7.7); Neutrophils % 87.7 %; Nucleated Red Blood Cells % 0 %; Platelet Count 245 10^3/cmm (157-399); Red Blood Count 3.57 10^6/uL (3.85-5.65); Red Cell Distribution Width 15.6 % (12.1-15.1); White Blood Count 12.55 10^3/uL (3.29-11.43)
--- NOTE | 2024-07-10 09:47 | ED_ITS ---
HPI - Fall 2 General: Chief Complaint: Fall Stated Complaint: forehead hematoma, left knee pain Time Seen by Provider: 07/10/24 09:37 History of Present Illness: 78-year-old female presents the emergenc y room via EMS. [facility] was brought in by EMS after she threw herself on the floor because she was angry that she did not get coffee. She does take Eliquis she is complaining of left knee pain has her knee fully flexed and refuses to move it. She was given Haldol and Xanax earlier today the Haldol at 345 and Xanax at 08 100. She is also complaining of low back pain. Related Data Home Medications Medication Instructions Recorded Confirmed fluticasone propionate 50 2 spray intranasal DAILY 10/14/20 07/10/24 mcg/actuation nasal spray,suspension atorvastatin 40 mg tablet 40 mg PO BEDTIME 01/23/24 07/10/24 lisinopril 2.5 mg tablet 2.5 mg PO DAILY 01/23/24 07/10/24 aspirin 81 mg tablet,delayed 81 mg PO DAILY 02/25/24 07/10/24 release bisacodyl 10 mg rectal suppository [address] PRN PRN Constipation 02/25/24 07/10/24 hydrocodone 5 mg-acetaminophen 325 1 tab PO Q6H PRN Pain 02/25/24 07/10/24 mg tablet lactobacillus combination no.4 3 3,000 mmu cells PO DAILY PRN 02/25/24 07/10/24 billion cell capsule (Probiotic) ANTIBIOTICS magnesium hydroxide 400 mg/5 mL 30 ml PO DAILY PRN Constipation 02/25/24 07/10/24 oral suspension (Milk of Magnesia) quetiapine 25 mg tablet 25 mg PO BID 02/25/24 07/10/24 sodium phosphates 19 gram-[address] DAILY PRN Constipation 02/25/24 07/10/24 gram/118 mL enema (Fleet Enema) acetaminophen 325 mg capsule 325 mg PO QID PRN Pain 05/26/24 07/10/24 (Tylenol) alprazolam 0.25 mg tablet (Xanax) 0.25 mg PO BID 05/26/24 07/10/24 apixaban 5 mg tablet (Eliquis) 5 mg PO BID 05/26/24 07/10/24 citalopram 20 mg tablet 20 mg PO DAILY 07/10/24 07/10/24 omeprazole 40 mg capsule,delayed 40 mg PO DAILY 07/10/24 07/10/24 release Previous Rx's Medication Instructions Recorded levothyroxine 200 mcg tablet 200 mcg PO QAM #30 tabs 08/02/23 (Euthyrox) loperamide 2 mg tablet (Imodium 2 mg PO QID PRN Loose Stool #30 03/02/24 A-D) tabs tamsulosin 0.4 mg capsule 0.4 mg PO DAILY #30 caps 03/02/24 off the shelf ulnar gutter splint, #1 ea 05/05/24 right Allergies Allergy/AdvReac Type Severity Reaction Status Date / Time No Known Allergies Allergy Verified 06/30/24 08:07 Review of Systems 2 General: Reports: ROS unobtainable due to mental status PFSH ED 2 PFSH: Medical History C7 cervical fracture (10/2020) CVA (cerebral vascular accident) 01/2024 Hyperlipidemia Hypertension Coronary artery disease GERD (gastroesophageal reflux disease) Depression Hypothyroidism Syncope Surgical History H/O rotator cuff surgery H/O: hysterectomy Family History Other No significant family history Social History Smoking and tobacco/nicotine status: never used tobacco/nicotine Alcohol intake: never Substance/Drug Use: never Housing: Longterm Marital status: / Physical Exam 2 Const: COMMON NORMALS: no acute distress GENERAL APPEARANCE: comfortable ORIENTATION/CONSCIOUSNESS: Yes awake HENMT: COMMON NORMALS: normocephalic and atraumatic HEAD & SCALP: n ormocephalic and atraumatic Resp: COMMON NORMALS: normal respiratory effort, No retractions, No use of accessory muscles and clear to auscultation bilaterally AUSCULTATION: clear to auscultation bilaterally Cardio: COMMON NORMALS: regular rate, regular rhythm and No murmurs present (Cardio) RATE: regular rate RHYTHM: regular rhythm GI: COMMON NORMALS: Soft to palpation and No hepatosplenomegaly present A USCULTATION: Yes normoactive bowel sounds PALPATION: Yes Soft to palpation, No Tenderness to palpation present (GI), No Guarding due to palpation present (GI) and Yes No hepatosplenomegaly present Skin: COMMON NORMALS: no rashes or lesions noted GENERAL SKIN EXAM: no rashes or lesions noted Course 2 Vital Signs: Vital signs: Vital Signs Temperature 98.4 F 07/11/24 08:45 Pulse Rate 89 07/11/24 12:00 Respiratory Rate 19 H 07/11/24 13:24 Blood Pressure 115/56 07/11/24 12:00 Pulse Oximetry 98 07/11/24 13:24 Oxygen Delivery Me thod Nasal Cannula 07/11/24 05:56 Oxygen Flow Rate 1 07/11/24 05:56 MDM - Fall Medical Decision Making Distal femur fracture discussed with hospitalist orders written. Admit. Patient really could not give us much for history she is moderately anemic. But appears to be at her about at her usual baseline. Discussed with hospitalist for consultation for medical management. Patient is on Eliquis. Has a history of atrial fibrillation history of coronary artery disease hypothyroidism. Previous CVA earlier this year. Medical Records I reviewed the patient's medical records. Lab Data I reviewed the patient's lab results. 07/11/24 13:40 07/11/24 03:27 Radiology Impressions Cervical Spine CT 07/10/24 09:37 IMPRESSION: 1. No acute cervical spine fracture. 2. Chronic burst fracture at C7 is unchanged. 3. No facet joint malalignment or subluxation. Knee X-Ray 07/10/24 09:37 IMPRESSION: 1. Avulsion fracture of the lateral femoral condyle which extends into the lateral compartment of the knee. 2. Suboptimal visualization of the proximal tibia. Additional views or CT could be considered for more complete evaluation. Head CT 07/10/24 09:38 IMPRESSION: 1. No acute intracranial hemorrhage or edema. 2. Moderate small vessel ischemic disease with multiple lacunar infarcts in the posterior fossa and vonda. 3. Large acute scalp hematoma centered over the forehead. 4. No skull fracture. Lumbar Spine CT 07/10/24 09:48 IMPRESSION: 1. Status post L5-S1 fusion. Lucency surrounding the L5 pedicle screws can be seen with loosening. 2. Severe L1 compression fracture with 5 mm of retropulsion, stable since 2020. 3. No acute lumbar spine fracture. 4. L4-5: Moderate central, bilateral subarticular recess and foraminal stenosis. 5. L5-S1: Severe bilateral foraminal stenosis. Large posterior laminectomy defect. 6. L3-4: Mild central, bilateral subarticular recess and foraminal stenosis. Knee CT 07/10/24 10:19 IMPRESSION: 1. Limited evaluation of the LEFT knee due to difficulty positioning the patient. 2. There is a vertical fracture extending through the distal femur which extends intra-articular and along the anterior surface. No significant displacement. Chest X-Ray 07/10/24 19:24 IMPRESSION: 1. Cardiomegaly. 2. Pulmonary vascular congestion. 3. Emphysematous changes. 4. Left shoulder arthroplasty changes. 5. Right upper lobe calcified granuloma. 6. Bilateral hilar to lower lobe atelectasis versus infiltrate. Laboratory Results WBC 12.55 10^3/uL (3.29-11.43) H 07/10/24 09:15 RBC 3.57 10^6/uL (3.85-5.65) L 07/10/24 09:15 Hgb 8.90 g/dL (11.27-16.99) L 07/10/24 09:15 Hct 28.5 % (36-47) L 07/10/24 09:15 MCV 79.8 fl (85-98) L 07/10/24 09:15 MCH 24.9 pg (27-33) L 07/10/24 09:15 MCHC 31.2 g/dL (30-55) 07/10/24 09:15 RDW 15.6 % (12.1-15.1) H 07/10/24 09:15 Plt Count 250 10^3/cmm (157-399) 07/10/24 14:32 MPV 10.3 fL (7.4-10.4) 07/10/24 09:15 Neut % (Auto) 87.7 % 07/10/24 09:15 Lymph % (Auto) 6.7 % 07/10/24 09:15 [place] % (Auto) 4.8 % 07/10/24 09:15 Eos % (Auto) 0.1 % 07/10/24 09:15 Baso % (Auto) 0.2 % 07/10/24 09:15 Neut # (Auto) 11.01 10^3/uL (1.8-7.7) H 07/10/24 09:15 Lymph # (Auto) 0.8 10^3/uL (0.8-4.8) 07/10/24 09:15 [place] # (Auto) 0.6 10^3/uL (0.2-0.9) 07/10/24 09:15 Eos # (Auto) 0.0 10^3/uL (0.0-0.8) 07/10/24 09:15 Baso # (Auto) 0.0 10^3/uL (0.0-0.1) 07/10/24 09:15 Nucleated RBC % (auto) 0 % 07/10/24 09:15 Nucleated RBCs # 0.0 /100WBC 07/10/24 09:15 PT 14.80 SECONDS (12.1-14.9) 07/10/24 14:32 INR 1.13 (0.8-1.2) 07/10/24 14:32 APTT 34.0 SECONDS (23.9-36.7) 07/10/24 14:32 Sodium 140 mmol/L (136-145) 07/10/24 09:15 Potassium 4.5 mmol/L (3.5-5.1) 07/10/24 09:15 Chloride 103 mmol/L (98-107) 07/10/24 09:15 Carbon Dioxide 26 mmol/L (22-29) 07/10/24 09:15 Anion Gap 15.5 (5-19) 07/10/24 09:15 BUN 20 mg/dL (8-23) 07/10/24 09:15 Creatinine 0.6 mg/dL (0.5-0.9) 07/10/24 09:15 GFR Calculation Not Reportable 07/10/24 09:15 Glucose 154 mg/dL (65-115) H 07/10/24 09:15 Estimat Average Glucose 151 07/10/24 14:32 Hemoglobin A1c 6.9 % (4.0-6.0) H 07/10/24 14:32 Calculated Osmolality 296 mOsm/kg (285-295) H 07/10/24 09:15 Lactic Acid 2.0 mmol/L (0.5-2.2) 07/10/24 14:32 Calcium 9.1 mg/dL (8.5-10.5) 07/10/24 09:15 Iron 21 ug/dL (37-145) L 07/10/24 14:32 TIBC 291 mcg/dl 07/10/24 14:32 % Saturation 7.2 % (20-50) L 07/10/24 14:32 Unsat Iron Binding 270 ug/dL (112-347) 07/10/24 14:32 Ferritin 24 ng/mL (15-150) 07/10/24 14:32 Total Bilirubin 0.2 mg/dL (0.15-1.2) 07/10/24 09:15 AST 15 U/L (0-32) 07/10/24 09:15 ALT 16 U/L (0-33) 07/10/24 09:15 Alkaline Phosphatase 126 U/L (35-105) H 07/10/24 09:15 Troponin T Baseline 120 ng/L (0-10) H* 07/10/24 14:32 Troponin T 120 Minute 162.3 ng/L (0-10) H 07/10/24 16:32 Delta Troponin T 42.3 ABS# (0-10) H* 07/10/24 16:32 NT-Pro-B Natriuret Pep 1616 pg/mL (0-450) H 07/10/24 14:32 Total Protein 7.1 g/dL (6.6-8.7) 07/10/24 09:15 Albumin 3.9 g/dL (3.5-5.2) 07/10/24 09:15 Globulin 3.2 g/dL (1.3-4.6) 07/10/24 09:15 Procalcitonin 0.04 ng/mL (0-0.5) 07/10/24 14:32 TSH 0.01 uIU/mL (0.27-4.20) L 07/10/24 14:32 Urine Color Yellow (Yellow) 07/10/24 10:10 Urine Appearance Clear (CLEAR) 07/10/24 10:10 Urine pH 5.5 (5-7) 07/10/24 10:10 Ur Specific [place] 1.019 (1.005-1.030) 07/10/24 10:10 Urine Protein Negative (Negative) 07/10/24 10:10 Urine Glucose (UA) Negative (Normal) 07/10/24 10:10 Urine Ketones Negative (Negative) 07/10/24 10:10 Urine Blood Negative (Negative) 07/10/24 10:10 Urine Nitrate Negative (Negative) 07/10/24 10:10 Urine Bilirubin Negative (Negative) 07/10/24 10:10 Urine Urobilinogen 1.0 mg/dL (Negative) 07/10/24 10:10 Ur Leukocyte Esterase Negative (Negative) 07/10/24 10:10 Amorphous Sediment Not Reportable 07/10/24 10:10 Blood Type A Negative 07/10/24 14:32 Rho(D) Type Rh negative 07/10/24 14:32 Antibody Screen Negative 07/10/24 14:32 All radiology interpretation(s) finalized by discharge Discharge Plan Discharge Patient Disposition: Admitted As Inpatient Admit Provider: Carlos Alberto [place] Clinical Impression: Intermittent atrial fibrillation Closed fracture of lateral condyle of femur Qualifiers: Encounter type: initial encounter Fracture alignment: displaced Laterality: l eft Qualified Code(s): S72.422A - Displaced fracture of lateral condyle of left femur, initial encounter for closed fracture Hypertension Qualifiers: Hypertension type: primary hypertension Qualified Code(s): I10 - Essential (primary) hypertension Condition: Stable Coding Level of Care Code ED Sous [employer] Kitchen Manager for 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
--- NOTE | 2024-07-10 09:48 | CT_ITS ---
WS: [id number] CT LUMBAR SPINE, noncontrast. HISTORY: pain TECHNIQUE: Contiguous 2.0 mm axial imaging are performed. Sagittal and coronal reformats are submitte d and reviewed. All CT scans at [facility] use at least one of these dose optimization techni ques: automated exposure control; mA and/or kV adjustment per patient size (includes targeted exams w here dose is matched to clinical indication); or iterative reconstruction. IV contrast: None DLP: 613.13 mGy.cm COMPARISON: 10/14/2020 Review scoliosis lumbar spine with increased lumbar lordosis. Prior L5-S1 fusion. L5 anterolisthesis by 10 mm with severe degenerative disc space disease. Severe L1 compression fracture with 5 mm of ret ropulsion of the posterior vertebral body, no change since 10/14/2020. Mild lucency around the L5 pedic le screws. L1-2: Facet joint arthritis. No stenosis. Retropulsion of L1 with mild encroachment upon the ventral thecal sac and subarticular recesses. L2-3: Mild osteophytic ridging and disc bulging. L3-4: Diffuse annular disc bulging encroaching upon the ventral thecal sac and foramina. Mild central , bilateral subarticular recess and foraminal stenosis. L4-5: Diffuse annular disc bulging with osteophytic ridging. Marked facet joint arthropathy. At least moderate central and bilateral subarticular recess and foraminal stenosis. L5-S1: Poorly visualized disc space. There is a large posterior laminectomy defect. No central stenos is. Severe bilateral foraminal stenosis. LEFT lower lobe pulmonary granuloma. No adrenal mass. Atherosclerosis aorta. Osteopenia. CT/CT lumbar spine wo con* [id number] IMPRESSION: 1. Status post L5-S1 fusion. Lucency surrounding the L5 pedicle screws can be seen with loosening. 2. Severe L1 compression fracture with 5 mm of retropulsion, stable since 2020 . 3. No acute lumbar spine fracture. 4. L4-5: Moderate central, bilateral subarticular recess and foraminal stenosi s. 5. L5-S1: Severe bilateral foraminal stenosis. Large posterior laminectomy def ect. 6. L3-4: Mild central, bilateral subarticular recess and foraminal stenosis.
[2024-07-10 09:56] LABS: Alanine Aminotransferase 16 U/L (0-33); Albumin Level 3.9 g/dL (3.5-5.2); Alkaline Phosphatase 126 U/L (35-105); Anion Gap 15.5 (5-19); Aspartate Amino Transferase 15 U/L (0-32); Blood Urea Nitrogen 20 mg/dL (8-23); Calcium 9.1 mg/dL (8.5-10.5); Carbon Dioxide 26 mmol/L (22-29); Chloride 103 mmol/L (98-107); Creatinine Clr Calc Pharmacy 58.2485; Globulin 3.2 g/dL (1.3-4.6); Glucose 154 mg/dL (65-115); Osmolality Calculated 296 mOsm/kg (285-295); Potassium 4.5 mmol/L (3.5-5.1); Sodium 140 mmol/L (136-145); Total Bilirubin 0.2 mg/dL (0.15-1.2); Total Protein 7.1 g/dL (6.6-8.7)
[2024-07-10] MEDS: ketorolac 30 mg/mL INJ IVP (10:09)
--- NOTE | 2024-07-10 10:19 | CT_ITS ---
WS: [id number] CT LEFT KNEE, NONCONTRAST HISTORY: distal femur fracture Technique: All CT scans at [facility] use at least one of these dose optimization techniques: automated exposure control; mA and/or kV adjustment per patient size (includes targeted exams where dose is matched to clinical indication); or iterative reconstruction. DLP: 633.75 mGy.cm COMPARISON: Radiograph 07/10/2024 Complex fracture involving the distal LEFT femur. There is a vertical component of the fracture exten ding over a length of 7.5 cm with extends to the intra-articular surface. Fracture extends obliquely through the distal femur through the metaphysis and exits anterolaterally. Additional component of th e fracture extends anterior to posterior. Proximal tibia and fibula appear intact. No patellar fractu re. Moderate amount of soft tissue edema. CT/CT knee LT wo con* [id number] IMPRESSION: 1. Limited evaluation of the LEFT knee due to difficulty positioning the patie nt. 2. There is a vertical fracture extending through the distal femur which exten ds intra-articular and along the anterior surface. No significant displacement.
[2024-07-10 10:20] LABS: Add Urine Microscopic? NO
[2024-07-10 10:22] LABS: Bilirubin Urine Negative (Negative); Blood Urine Negative (Negative); Glucose Urine UA Negative (Normal); Ketones Urine Negative (Negative); Leukocyte Esterase Urine Negative (Negative); Nitrate Urine Negative (Negative); Protein Urine Negative (Negative); Specific Gravity, Urine 1.019 (1.005-1.030); Urine Appearance Clear (CLEAR); Urine Color Yellow (Yellow); pH Urine 5.5 (5-7)
[2024-07-10 10:24] LABS: Add Urine Culture? No; Charge for UA Resulting for Rev
[2024-07-10] MEDS: morphine 4 mg/mL SDV 1 mL IVP (10:40)
[2024-07-10] MEDS: ondansetron 2 mg/ML SDV 2 mL 4 MG IVP (10:51)
[2024-07-10] MEDS: haloperidol inj 5 mg/mL INJ 1 mL 2.5 MG IVP (10:58)
[2024-07-10] MEDS: LORazepam 2 mg/mL INJ 1 mL 1 MG IVP (10:58)
--- NOTE | 2024-07-10 14:07 | ECG_ITS ---
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 Measurements Intervals [place] Rate: 99 P: 67 [place]: 125 QRS: -23 QRSD: 105 T: 38 QT: 359 QTc: 462 Interpretive Statements SINUS RHYTHM BORDERLINE LEFT AXIS DEVIATION [QRS AXIS < -20] MODERATE ST DEPRESSION [0.05+ mV ST DEPRESSION] Compared to ECG 05/15/2024 21:02:02 ST (T wave) deviation now present Ventricular premature complex(es) no longer present T-wave abnormality no longer present Electronically Signed On 07-10-2024 18:15:17 CDT by Phuc Moran M.D. [id number]
--- NOTE | 2024-07-10 14:14 | P.ANESASSM_ITS ---
Pre-Anesthetic Assessment Height/Weight: Height 5 ft 4 in Weight 170 lb Temp Pulse Resp BP Pulse Ox O2 Del Method O2 Flow Rate 98.3 F 103 H 16 119/75 98 Nasal Cannula 2 07/10/24 09:28 07/10/24 13:04 07/10/24 13:04 07/10/24 13:04 07/10/24 13:04 07/10/24 13:04 07/10/24 13:04 Operation Date: 07/10/24 17:00 Proposed Procedures p ORIF Femur(Left) - Marie Castro MD Anesthetic Plan ASA status: 3 Anesthesia: General Other: Spoke with patient's daughter, Jenae. She states patient has never had any issues with anesthesia in the past Patient is listed as a DNR but will be full code during the perioperative period. Patient's daughter is aware NPO status unknown, patient arrived around 10 AM to the ED Patient with chronic A-fib on daily Eliquis. Most recent dose taken today Patient has had a stroke in the past year, currently not responding to questions Patient reportedly does not use any oxygen at home but is currently on 3 L nasal cannula History of hypertension on lisinopril Hypothyroidism on Synthroid GERD on omeprazole Labs reviewed 07/10/2024, WBC 12.5, hemoglobin 8.9, platelet 245., CMP WNL Type and screen performed EKG showing sinus rhythm with a left axis deviation. Moderate ST depression, appears similar to previous Oral exam unable to be performed but appears to be edentulous Plan for GETA Medications/Allergies Home Medications Medication Instructions Recorded Confirmed Last Taken Type fluticasone propionate 50 2 spray intranasal DAILY 10/14/20 07/10/24 07/10/24 08:00 History mcg/actuation nasal spray,suspension levothyroxine 200 mcg tablet 200 mcg PO QAM #30 tabs 08/02/23 07/10/24 07/10/24 07:00 Rx (Euthyrox) atorvastatin 40 mg tablet 40 mg PO BEDTIME 01/23/24 07/10/24 07/09/24 20:00 History lisinopril 2.5 mg tablet 2.5 mg PO DAILY 01/23/24 07/10/24 07/10/24 08:00 History aspirin 81 mg tablet,delayed 81 mg PO DAILY 02/25/24 07/10/24 07/10/24 08:00 History release bisacodyl 10 mg rectal suppository 10 mg OR PRN PRN Constipation 02/25/24 07/10/24 01/29/24 History hydrocodone 5 mg-acetaminophen 325 1 tab PO Q6H PRN Pain 02/25/24 07/10/24 07/10/24 08:00 History mg tablet lactobacillus combination no.4 3 3,000 mmu cells PO DAILY PRN 02/25/24 07/10/24 Unknown History billion cell capsule (Probiotic) ANTIBIOTICS magnesium hydroxide 400 mg/5 mL 30 ml PO DAILY PRN Constipation 02/25/24 07/10/24 Unknown History oral suspension (Milk of Magnesia) quetiapine 25 mg tablet 25 mg PO BID 02/25/24 07/10/24 07/10/24 08:00 History sodium phosphates 19 gram-7 118 ml OR DAILY PRN Constipation 02/25/24 07/10/24 Unknown History gram/118 mL enema (Fleet Enema) loperamide 2 mg tablet (Imodium 2 mg PO QID PRN Loose Stool #30 03/02/24 07/10/24 Unknown Rx A-D) tabs tamsulosin 0.4 mg capsule 0.4 mg PO DAILY #30 caps 03/02/24 07/10/24 07/10/24 08:00 Rx off the shelf ulnar gutter splint, #1 ea 05/05/24 07/10/24 Unknown Rx right acetaminophen 325 mg capsule 325 mg PO QID PRN Pain 05/26/24 07/10/24 07/10/24 08:30 History (Tylenol) alprazolam 0.25 mg tablet (Xanax) 0.25 mg PO BID 05/26/24 07/10/24 07/10/24 03:40 History apixaban 5 mg tablet (Eliquis) 5 mg PO BID 05/26/24 07/10/24 07/10/24 08:00 History citalopram 20 mg tablet 20 mg PO DAILY 07/10/24 07/10/24 07/09/24 20:00 History omeprazole 40 mg capsule,delayed 40 mg PO DAILY 07/10/24 07/10/24 07/10/24 History release Allergies Allergy/AdvReac Type Severity Reaction Status Date / Time No Known Allergies Allergy Verified 06/30/24 08:07 [facility] Anesthesia Medical History C7 cervical fracture (10/2020) CVA (cerebral vascular accident) 01/2024 Hyperlipidemia Hypertension Coronary artery disease GERD (gastroesophageal reflux disease) Depression Hypothyroidism Syncope Surgical History H/O rotator cuff surgery H/O: hysterectomy Family History Other No significant family history Social History Smoking and tobacco/nicotine status: never used tobacco/nicotine Alcohol intake: never Substance/Drug Use: never Housing: [facility] Marital status: / Data Anesthesia 07/10/24 09:15 07/10/24 09:15 Short CBC 07/10/24 Range/Units 09:15 WBC 12.55 H (3.29-11.43) 10^3/uL Hgb 8.90 L (11.27-16.99) g/dL Hct 28.5 L (36-47) % MCV 79.8 L (85-98) fl Plt Count 245 (157-399) 10^3/cmm Neut % (Auto) 87.7 % Neut # (Auto) 11.01 H (1.8-7.7) 10^3/uL BMP 07/10/24 09:15 Sodium 140 Potassium 4.5 Chloride 103 Carbon Dioxide 26 BUN 20 Creatinine 0.6 Glucose 154 H Calcium 9.1 Liver Function 07/10/24 Range/Units 09:15 Total Bilirubin 0.2 (0.15-1.2) mg/dL AST 15 (0-32) U/L ALT 16 (0-33) U/L Alkaline Phosphatase 126 H (35-105) U/L Albumin 3.9 (3.5-5.2) g/dL Urine 07/10/24 Range/Units 10:10 Urine Color Yellow (Yellow) Urine Appearance Clear (CLEAR) Urine pH 5.5 (5-7) Ur Specific [place] 1.019 (1.005-1.030) Urine Protein Negative (Negative) Urine Glucose (UA) Negative (Normal) Urine Ketones Negative (Negative) Urine Nitrate Negative (Negative) Urine Bilirubin Negative (Negative) Ur Leukocyte Esterase Negative (Negative) Cardiac Studies: 2 Echocardiogram 01/21/24 Echocardiogram Ultrasound 10/15/20
[2024-07-10 15:20] LABS: INR 1.13 (0.8-1.2)
--- NOTE | 2024-07-10 15:22 | PM.HP ---
Providers/Chief Complaint Primary Care Provider: David Hannah MD Chief Complaint: forehead hematoma, left knee pain History of Present Illness Chip Guerrero is a 78 year old female recent hospitalization for septic shock secondary to colitis, history of CKD, atrial fibrillation on Eliquis, history of NSTEMI, history of CVA with posterior circulation stroke January 2024 with residual word finding difficulties and gait instability, multi-infarct dementia, history of multiple fractures, hypertension hyperlipidemia, CAD, hypothyroidism, depression who presents to [facility] for a follow-up. Currently patient is alert to person, not to place, not to time, she has received Haldol, morphine, she does awaken but easily falls asleep, currently blood pressure 109/67 pulse 100, respirate 16, temperature 98.4, she is on 2 L. According to ER physician, patient had a fall at [facility], it was reported that patient threw herself to the ground,, she was complaining of low back pain. I cannot get significant history from patient, she has no complaints currently I spoke to [facility], according to [place], patient has a history of a stroke, residual left-sided deficits, but she can ambulate with assistance with a walker, does have residual left-sided deficits, according to [facility], she carry out conversations, she can feed herself. Yesterday evening she had combative behaviors, and again this morning had combative behaviors, and she threw herself on the ground. No recent history of infections, no recent history of UTIs, no recent history of complaints. Review of Systems General: Reports: ROS unobtainable due to mental status Medications/Allergies Home Medications Medication Instructions Recorded Confirmed Last Taken Type fluticasone propionate 50 2 spray intranasal DAILY 10/14/20 07/10/24 07/10/24 08:00 History mcg/actuation nasal spray,suspension levothyroxine 200 mcg tablet 200 mcg PO QAM #30 tabs 08/02/23 07/10/24 07/10/24 07:00 Rx (Euthyrox) atorvastatin 40 mg tablet 40 mg PO BEDTIME 01/23/24 07/10/24 07/09/24 20:00 History lisinopril 2.5 mg tablet 2.5 mg PO DAILY 01/23/24 07/10/24 07/10/24 08:00 History aspirin 81 mg tablet,delayed 81 mg PO DAILY 02/25/24 07/10/24 07/10/24 08:00 History release bisacodyl 10 mg rectal suppository 10 mg NJ PRN PRN Constipation 02/25/24 07/10/24 01/29/24 History hydrocodone 5 mg-acetaminophen 325 1 tab PO Q6H PRN Pain 02/25/24 07/10/24 07/10/24 08:00 History mg tablet lactobacillus combination no.4 3 3,000 mmu cells PO DAILY PRN 02/25/24 07/10/24 Unknown History billion cell capsule (Probiotic) ANTIBIOTICS magnesium hydroxide 400 mg/5 mL 30 ml PO DAILY PRN Constipation 02/25/24 07/10/24 Unknown History oral suspension (Milk of Magnesia) quetiapine 25 mg tablet 25 mg PO BID 02/25/24 07/10/24 07/10/24 08:00 History sodium phosphates 19 gram-7 118 ml [place] DAILY PRN Constipation 02/25/24 07/10/24 Unknown History gram/118 mL enema (Fleet Enema) loperamide 2 mg tablet (Imodium 2 mg PO QID PRN Loose Stool #30 03/02/24 07/10/24 Unknown Rx A-D) tabs tamsulosin 0.4 mg capsule 0.4 mg PO DAILY #30 caps 03/02/24 07/10/24 07/10/24 08:00 Rx off the shelf ulnar gutter splint, #1 ea 05/05/24 07/10/24 Unknown Rx right acetaminophen 325 mg capsule 325 mg PO QID PRN Pain 05/26/24 07/10/24 07/10/24 08:30 History (Tylenol) alprazolam 0.25 mg tablet (Xanax) 0.25 mg PO BID 05/26/24 07/10/24 07/10/24 03:40 History apixaban 5 mg tablet (Eliquis) 5 mg PO BID 05/26/24 07/10/24 07/10/24 08:00 History citalopram 20 mg tablet 20 mg PO DAILY 07/10/24 07/10/24 07/09/24 20:00 History omeprazole 40 mg capsule,delayed 40 mg PO DAILY 07/10/24 07/10/24 07/10/24 History release Allergies Allergy/AdvReac Type Severity Reaction Status Date / Time No Known Allergies Allergy Verified 06/30/24 08:07 PFSH Acute PFSH: Medical History C7 cervical fracture (10/2020) CVA (cerebral vascular accident) 01/2024 Hyperlipidemia Hypertension Coronary artery disease GERD (gastroesophageal reflux disease) Depression Hypothyroidism Syncope Surgical History H/O rotator cuff surgery H/O: hysterectomy Family History Other No significant family history Social History Smoking and tobacco/nicotine status: never used tobacco/nicotine Alcohol intake: never Substance/Drug Use: never Housing: Skilled Nursing Marital status: / Vitals/I&O/Wt Last Vital Signs Temp 98.4 F 07/10/24 14:55 Pulse 100 07/10/24 14:55 Resp 16 07/10/24 14:55 BP 109/67 07/10/24 14:55 Pulse Ox 98 07/10/24 14:55 O2 Del Method Nasal Cannula 07/10/24 14:55 O2 Flow Rate 2 07/10/24 14:55 Weight last 48 hrs Weight 77.111 kg Physical Exam Const: COMMON NORMALS: no acute distress EXAM LIMITATIONS: altered mental status ORIENTATION/CONSCIOUSNESS: Yes awake; not oriented to person, not oriented to place and not oriented to time HENMT: COMMON NORMALS: normocephalic HEAD & SCALP: normocephalic OTHER: Frontal hematoma Eye: COMMON NORMALS: Equal, round and reactive pupils present Neck/C-Spine: COMMON NORMALS: no JVD Resp: COMMON NORMALS: normal respiratory effort, No retractions, No use of accessory muscles and clear to auscultation bilaterally AUSCULTATION: clear to auscultation bilaterally Cardio: COMMON NORMALS: no JVD, regular rate, regular rhythm, S1 normal heart sound present and S2 normal heart sound present RATE: regular rate RHYTHM: regular rhythm HEART SOUNDS: S1 normal heart sound present and S2 normal heart sound present GI: COMMON NORMALS: Normal to inspection, nondistended, normoactive bowel sounds present, Soft to palpation and non-tender Extremity: COMMON NORMALS: no pedal edema Neuro: OTHER: Does not follow neurologic testing Data 07/10/24 09:15 07/10/24 09:15 A&P Assessment and plan (1) Fall: Qualifiers: Encounter type: initial encounter Qualified Code(s): W19.XXXA - Unspecified fall, initial encounter (2) CVA (cerebral vascular accident): (3) Hypertension: (4) NSTEMI (non-ST elevated myocardial infarction): (5) Acute on chronic anemia: (6) Fracture, femur, distal: Plan Fall -CT left knee 1. Limited evaluation of the LEFT knee due to difficulty positioning the patient. 2. There is a vertical fracture extending through the distal femur which extends intra-articular and along the anterior surface. No significant displacement. Plan -Currently n.p.o. for surgical intervention -Morphine for pain control -Will start Eliquis for DVT prophylaxis for home dose 5 mg twice daily tomorrow -Zofran for nausea Scalp hematoma -Associated with fall -CT head CT/CT head wo con* [id number] IMPRESSION: 1. No acute intracranial hemorrhage or edema. 2. Moderate small vessel ischemic disease with multiple lacunar infarcts in the posterior fossa and vonda. 3. Large acute scalp hematoma centered over the forehead. 4. No skull fracture. -Will hold Eliquis for DVT prophylaxis for tonight monitor scalp hematoma, resume tomorrow morning Back pain CT lumbar spine CT/CT lumbar spine wo con* [id number] IMPRESSION: 1. Status post L5-S1 fusion. Lucency surrounding the L5 pedicle screws can be seen with loosening. 2. Severe L1 compression fracture with 5 mm of retropulsion, stable since 2020. 3. No acute lumbar spine fracture. 4. L4-5: Moderate central, bilateral subarticular recess and foraminal stenosis. 5. L5-S1: Severe bilateral foraminal stenosis. Large posterior laminectomy defect. 6. L3-4: Mild central, bilateral subarticular recess and foraminal stenosis. CT cervical spine CT/CT cervical spin wo con* [id number] IMPRESSION: 1. No acute cervical spine fracture. 2. Chronic burst fracture at C7 is unchanged. 3. No facet joint malalignment or subluxation. NSTEMI -No chest pain complaints -Baseline troponin 120, slight ST depressions in lateral leads -Serial EKGs, serial troponins, telemetry monitoring -Continue aspirin, statin -Cardiac echo Leukocytosis, possibly reactive, follow UA, chest x-ray ordered Acute on chronic anemia, iron studies, monitor CODE STATUS, reviewed CODE STATUS, paperwork patient has a DNR on file, no family members at bedside to help with CODE STATUS, patient cannot make informed decision, Attestations Medical Necessity Statement*: Patient requires hospitalization for fall, distal femur fracture, scalp hematoma, acute chronic anemia, NSTEMI, inpatient, greater than 2 midnights Diagnoses Fall W19.XXXA Encounter type: initial encounter CVA (cerebral vascular accident) I63.9 Hypertension I10 NSTEMI (non-ST elevated myocardial infarction) I21.4 Acute on chronic anemia D64.9 Fracture, femur, distal S72.409A
[2024-07-10 15:36] LABS: Troponin(5th) Baseline 120 ng/L (0-10)
[2024-07-10 15:38] LABS: Estmated Average Glucose 151; Hemoglobin A1C 6.9 % (4.0-6.0)
[2024-07-10 15:39] LABS: NT Pro B Type Natriuretic Pept 1616 pg/mL (0-450); Procalcitonin 0.04 ng/mL (0-0.5); Thyroid Stimulating Hormone 0.01 uIU/mL (0.27-4.20)
[2024-07-10] MEDS: sodium chloride 0.9% 1,000 ML 75 ML IV (15:46)
[2024-07-10] MEDS: acetaminophen 1,000 MG/100 ML PIGGYBACK 400 MG IV (15:47)
[2024-07-10 15:50] LABS: Ferritin 24 ng/mL (15-150); Iron 21 ug/dL (37-145); Percent Saturation 7.2 % (20-50); Total Iron Binding Capacity 291 mcg/dl; Unsaturated Iron Binding 270 ug/dL (112-347)
--- NOTE | 2024-07-10 16:07 | ECG_ITS ---
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 Measurements Intervals [place] Rate: 94 P: 74 AR: 125 QRS: -23 QRSD: 99 T: 62 QT: 363 QTc: 454 Interpretive Statements SINUS RHYTHM BORDERLINE LEFT AXIS DEVIATION [QRS AXIS < -20] INCOMPLETE RIGHT BUNDLE BRANCH BLOCK [90+ ms QRS DURATION, TERMINAL R IN V1/V2, 40+ ms S IN I/aVL/V4/V5/V6] MODERATE ST DEPRESSION [0.05+ mV ST DEPRESSION] Compared to ECG 07/10/2024 14:23:43 Incomplete right bundle-branch block now present ST (T wave) deviation still present Electronically Signed On 07-10-2024 18:17:49 CDT by Phuc Moran M.D. [id number]
--- NOTE | 2024-07-10 17:12 | P.CONIM_ITS ---
Providers/Reason For Consult 2 Consulting Physician/Specialty*: Marie Castro MD Reason for Consult*: Left distal femur fracture, lateral condyle, comminuted Requesting Physician: Bill Walton MD Attending Physician: Carlos Alberto Birmingham MD Primary Care Provider: David Hannah MD History of Present Illness History of Present Illness Chip Guerrero is a 78 year old female who was recently hospitalized for septic shock secondary to colitis. She also has a history of atrial fibrillation, recent cerebrovascular accident, and multiple other medical issues which are well outlined in Dr. Birmingham's admission history and physical. According to the patient's sister, the patient was awakened in the middle of the night, and she wanted to have breakfast. Since it was approximately 3 AM, she was told she needed to go back to sleep. She then threw herself on the floor in protest. This caused the injury to her left knee. She also has ecchymosis on her anterior forehead as well as her left eye. I spoke with her sister to obtain surgical consent, and she understands and agrees to the surgical procedure. Review of Systems 2 General: Reports: ROS unobtainable due to mental status Eyes: Denies: photophobia Medications/Allergies Home Medications Medication Instructions Recorded Confirmed Last Taken Type fluticasone propionate 50 2 spray intranasal DAILY 10/14/20 07/10/24 07/10/24 08:00 History mcg/actuation nasal spray,suspension levothyroxine 200 mcg tablet 200 mcg PO QAM #30 tabs 08/02/23 07/10/24 07/10/24 07:00 Rx (Euthyrox) atorvastatin 40 mg tablet 40 mg PO BEDTIME 01/23/24 07/10/24 07/09/24 20:00 History lisinopril 2.5 mg tablet 2.5 mg PO DAILY 01/23/24 07/10/24 07/10/24 08:00 History aspirin 81 mg tablet,delayed 81 mg PO DAILY 02/25/24 07/10/24 07/10/24 08:00 History release bisacodyl 10 mg rectal suppository 10 mg AL PRN PRN Constipation 02/25/24 07/10/24 01/29/24 History hydrocodone 5 mg-acetaminophen 325 1 tab PO Q6H PRN Pain 02/25/24 07/10/2407/10/24 08:00 History mg tablet lactobacillus combination no.4 3 3,000 mmu cells PO DAILY PRN 02/25/24 07/10/24 Unknown History billion cell capsule (Probiotic) ANTIBIOTICS magnesium hydroxide 400 mg/5 mL 30 ml PO DAILY PRN Constipation 02/25/24 07/10/24 Unknown History oral suspension (Milk of Magnesia) quetiapine 25 mg tablet 25 mg PO BID 02/25/24 07/10/24 07/10/24 08:00 History sodium phosphates 19 gram-7 118 ml AL DAILY PRN Constipation 02/25/24 07/10/24 Unknown History gram/118 mL enema (Fleet Enema) loperamide 2 mg tablet (Imodium 2 mg PO QID PRN Loose Stool #30 03/02/24 07/10/24 Unknown Rx A-D) tabs tamsulosin 0.4 mg capsule 0.4 mg PO DAILY #30 caps 03/02/24 07/10/24 07/10/24 08:00 Rx off the shelf ulnar gutter splint, #1 ea 05/05/24 07/10/24 Unknown Rx right acetaminophen 325 mg capsule 325 mg PO QID PRN Pain 05/26/24 07/10/24 07/10/24 08:30 History (Tylenol) alprazolam 0.25 mg tablet (Xanax) 0.25 mg PO BID 05/26/24 07/10/24 07/10/24 03:40 History apixaban 5 mg tablet (Eliquis) 5 mg PO BID 05/26/24 07/10/24 07/10/24 08:00 History citalopram 20 mg tablet 20 mg PO DAILY 07/10/24 07/10/24 07/09/24 20:00 History omeprazole 40 mg capsule,delayed 40 mg PO DAILY 07/10/24 07/10/24 07/10/24 History release Allergies Allergy/AdvReac Type Severity Reaction Status Date / Time No Known Allergies Allergy Verified 06/30/24 08:07 Current Medications Generic Name Dose Route Start Last Admin Trade Name Freq PRN Reason Stop Dose Admin Sodium Chloride 1,000 mls @ 75 mls/hr 07/10/24 14:15 07/10/24 15:46 Sodium Chloride 0.9% IV 75 mls/hr .[id number] JUAN ANTONIO Administration PFSH Acute 2 PFSH: Medical History C7 cervical fracture (10/2020) CVA (cerebral vascular accident) 01/2024 Hyperlipidemia Hypertension Coronary artery disease GERD (gastroesophageal reflux disease) Depression Hypothyroidism Syncope Surgical History H/O rotator cuff surgery H/O: hysterectomy Family History Other No significant family history Social History Smoking and tobacco/nicotine status: never used tobacco/nicotine Alcohol intake: never Substance/Drug Use: never Housing: Care Home Marital status: / Vitals/I&O/Wt Last Vital Signs Temp 98.4 F 07/10/24 14:55 Pulse 105 H 07/10/24 15:37 Resp 18 07/10/24 15:37 BP 176/79 07/10/24 15:37 Pulse Ox 96 07/10/24 15:37 O2 Del Method Nasal Cannula 07/10/24 14:55 O2 Flow Rate 2 07/10/24 14:55 Weight last 48 hrs Weight 170 lb Physical Exam 2 Narrative: Patient is seen in the preop holding area. She has a large ecchymosis anteriorly on her head as well as involving her left eye. She also lays on her left side with her left knee bent. She refuses to straighten this knee as is seen by x-ray and her CT scan. Const: COMMON NORMALS: no acute distress and average body habitus O RIENTATION/CONSCIOUSNESS: Yes Other orientation findings (Patient had sedative medication in the ED.) HENMT: HEAD & SCALP: hematoma (Anterior forehead) Eye: OTHER: Bruising of the left eye Chest: COMMONS NORMALS: normal inspection of the chest Resp: COMMON NORMALS: normal respiratory effort EFFORT & INSPECTION: Yes able to speak in complete sentences and Yes symmetric chest movement Extremity: LEFT LOWER EXTREMITY: Yes knee joint (Patient holds the leg bent, and will not straighten it) Left knee: Yes ROM (Not evaluated) Psych: ATTITUDE: Yes calm Skin: COMMON NORMALS: no rashes or lesions noted GENERAL SKIN EXAM: no rashes or lesions noted Data 07/10/24 09:15 07/10/24 09:15 Other Imaging: My impression: CT and x-ray are both reviewed. The patient has what appears to be a lateral condyle fracture which is comminuted. It is difficult to assess secondary to the patient being unwilling to straighten her knee. A&P Assessment and plan (1) Closed fracture of lateral condyle of femur: Patient presents today through the emergency department after a fall where she is currently residing in a long-term. X-rays were obtained, but the patient would not straighten her leg. CT was also obtained. There is what appears to be a comminuted left lateral condyle fracture which is displaced. The patient is sedated when she is seen, but also, she suffers with early dementia. Discussion was undertaken with the sister who provided approval for the surgical procedure. Consents were signed verbally, and questions were answered. Qualifiers: Encounter type: initial encounter Fracture alignment: displaced L aterality: left Qualified Code(s): S72.422A - Displaced fracture of lateral condyle of left femur, initial encounter for closed fracture Coding Level of Care Code Acute Code for Chg Fwd Diagnoses Closed displaced fracture of lateral condyle of left femur, initial encounter S72.422A Encounter type: initial encounter Fracture alignment: displaced Laterality: left
--- NOTE | 2024-07-10 17:13 | SUR.PREOP ---
critical labs received on PT from [facility]
[2024-07-10 17:15] LABS: Troponin 5 2HR 162.3 ng/L (0-10); Troponin 5 2HR Delta 42.3 ABS# (0-10)
--- NOTE | 2024-07-10 17:41 | USCV_ITS ---
Chip Guerrero Age: 78 Gender: F : 1945 Exam Date: 07/10/2024 21:20 Ordering Phys: Carlos Alberto Birmingham MD Technologist: AROLDO Exam Location: [facility] [place] Indication: nstemi, pending ORIF HIP FX, patient is non- responsive in ICU-2 BP: 176 / 79 HR: 79 Rhythm: Sinus Technical Quality: Adequate MEASUREMENTS (Male / Female) Normal Values 2D ECHO LV Diastolic Diameter PLAX 4.5 cm 4.2 - 5.9 / 3.9 - 5.3 cm IVS Diastolic Thickness 0.9 cm 0.6 - 1.0 / 0.6 - 0.9 cm IVS Systolic Thickness 1.4 cm LVPW Diastolic Thickness 0.9 cm 0.6 - 1.0 / 0.6 - 0.9 cm LVPW Systolic Thickness 1.1 cm LVOT Diameter 1.7 cm LV Ejection Fraction 2D Teich 72.9 % LV Ejection Fraction MOD 4C 55.2 % LV Ejection Fraction MOD 2C 56.2 % LV Ejection Fraction 2C AL 56.0 % LA Diameter 3.3 cm Aorta at Sinotubular Diameter 2.8 cm IVC Diameter 2.1 cm M-MODE LA Ao Ratio MM 0.9 AV Cusp Separation MM 1.6 cm DOPPLER AV Peak Velocity 143.0 cm/s LVOT Peak Velocity 90.0 cm/s AV Area Cont Eq vti 1.9 cm squared AV Area Cont Eq pk 1.4 cm squared MV Peak Velocity 155.0 cm/s MV Area PHT 4.0 cm squared Mitral E to A Ratio 0.9 TR Peak Velocity 207.0 cm/s TR Peak Gradient 17.1 mmHg TV Peak E Velocity 75.0 cm/s Right Atrial Pressure 3.0 mmHg Pulmonary Artery Systolic Pressu 20.1 mmHg PV Peak Velocity 89.0 cm/s FINDINGS Left Ventricle Normal left ventricular size and systolic function, EF 55%. No regional wall motion abnormalities. Grade I/IV diastolic dysfunction (abnormal relaxation filling pattern), normal to mildly elevated filling pressures. Right Ventricle The right ventricle is normal in size and function. Right Atrium The right atrium is normal in size. Left Atrium The left atrium is normal in size. Mitral Valve Mild mitral annular calcification. Thickened mitral valve. Trace to mild mitral valve regurgitation. Aortic Valve No gross abnormalities noted Tricuspid Valve No gross abnormalities noted.trace tricuspid valve regurgitation. Pulmonic Valve Trace pulmonary valve regurgitation. Pericardium Normal pericardium without effusion. Aorta Normal ascending aorta dimension. IVC The inferior vena cava appears normal. CONCLUSIONS Normal left ventricular size and systolic function, EF 55%. No regional wall motion abnormalities. Grade I/IV diastolic dysfunction (abnormal relaxation filling pattern), normal to mildly elevated filling pressures. Estimated pulmonary artery peak systolic pressure 20 mmHg Trace pulmonary valve regurgitation. Mild mitral annular calcification. Thickened mitral valve. Trace to mild mitral valve regurgitation. There is no pericardial effusion. There are no intracardiac masses. Dr Jesenia Fischer MD FACC (Electronically Signed) Final Date: 10 July 2024 22:54 S
--- NOTE | 2024-07-10 18:08 | PM.MISC ---
Miscellaneous Note Purpose of Documentation: Postponement of surgery Note: The patient demonstrated rising troponins, and the decision was made to postpone surgery until she was able to have full cardiac workup. Dr. Fischer will be consulted and determine when she is felt safe for surgical intervention.
--- NOTE | 2024-07-10 18:21 | P.CONIM_ITS ---
Providers/Reason For Consult 2 Consulting Physician/Specialty*: ANGELITA Fischer MD/cardiology Reason for Consult*: Patient with acute fracture of the femur, found to have elevated troponin T with a significant delta Requesting Physician: Dr. Birmingham Attending Physician: Carlos Alberto Birmingham MD Primary Care Provider: David Hannah MD History of Present Illness History of Present Illness Chip Guerrero is a 78 year old female with a history of atrial fibrillation, CVA,? ASHD/myocardial infarction is admitted to the hospital through the emergency room where she presented complaints of a left knee pain. She was found to have fracture of the left distal femur. She also was found to elevated troponin T. Cardiology consult is requested for a preop cardiac evaluation and recommendations. 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 Apparently she is a care home resident. Earlier this morning she got up from bed and ended up in the floor, sustaining fracture of the femur. The patient is not able to give any history. Most of the information is on the medical records and also partly from her daughter who lives in [place]. This patient had a fracture of the elbow 5 to 6 months ago. At that time, she was found to have? Elevated troponin T. She was taken to the [facility] in [place] where she had? A cardiac catheterization and was told to have a 98% blockage. The details are not available. This is all from the daughter's recollection. The surgery to the elbow was postponed for a month. Apparently the patient developed CVA around this time. She carries a diagnosis atrial fibrillation and is on oral anticoagulation. It is not known at this point as to how long this patient had atrial fibrillation. She has not been complaining of chest pain. She has no unusual shortness of breath or orthopnea Review of Systems 2 Narrative: CONSTITUTIONAL: No fever or chills. EYES: No blurring of vision or other visual disturbances lately. ENT: No hoarseness of voice, auditory disturbances or sore throat. CARDIOVASCULAR: As mentioned above. RESPIRATORY: No significant cough. GASTROINTESTINAL: No hematemesis or melena. GENITOURINARY: No dysuria or hematuria. INTEGUMENTARY: No skin rashes or history of skin cancer. NEURO: History of CVA and dementia PSYCHIATRIC: No history of psychosis or major depression. HEMATOLOGIC: Chronic anemia ENDOCRINE: No history of polyuria or polydipsia. MUSCULOSKELETAL: As mentioned above ALLERGY/IMMUNOLOGY: As mentioned above. Medications/Allergies Home Medications Medication Instructions Recorded Confirmed Last Taken Type fluticasone propionate 50 2 spray intranasal DAILY 10/14/20 07/10/24 07/10/24 08:00 History mcg/actuation nasal spray,suspension levothyroxine 200 mcg tablet 200 mcg PO QAM #30 tabs 08/02/23 07/10/24 07/10/24 07:00 Rx (Euthyrox) atorvastatin 40 mg tablet 40 mg PO BEDTIME 01/23/24 07/10/24 07/09/24 20:00 History lisinopril 2.5 mg tablet 2.5 mg PO DAILY 01/23/24 07/10/24 07/10/24 08:00 History aspirin 81 mg tablet,delayed 81 mg PO DAILY 02/25/24 07/10/24 07/10/24 08:00 History release bisacodyl 10 mg rectal suppository 10 mg MN PRN PRN Constipation 02/25/24 07/10/24 01/29/24 History hydrocodone 5 mg-acetaminophen 325 1 tab PO Q6H PRN Pain 02/25/24 07/10/24 07/10/24 08:00 History mg tablet lactobacillus combination no.4 3 3,000 mmu cells PO DAILY PRN 02/25/24 07/10/24 Unknown History billion cell capsule (Probiotic) ANTIBIOTICS magnesium hydroxide 400 mg/5 mL 30 ml PO DAILY PRN Constipation 02/25/24 07/10/24 Unknown History oral suspension (Milk of Magnesia) quetiapine 25 mg tablet 25 mg PO BID 02/25/24 07/10/24 07/10/24 08:00 History sodium phosphates 19 gram-7 118 ml MN DAILY PRN Constipation 02/25/24 07/10/24 Unknown History gram/118 mL enema (Fleet Enema) loperamide 2 mg tablet (Imodium 2 mg PO QID PRN Loose Stool #30 03/02/24 07/10/24 Unknown Rx A-D) tabs tamsulosin 0.4 mg capsule 0.4 mg PO DAILY #30 caps 03/02/24 07/10/24 07/10/24 08:00 Rx off the shelf ulnar gutter splint, #1 ea 05/05/24 07/10/24 Unknown Rx right acetaminophen 325 mg capsule 325 mg PO QID PRN Pain 05/26/24 07/10/24 07/10/24 08:30 History (Tylenol) alprazolam 0.25 mg tablet (Xanax) 0.25 mg PO BID 05/26/24 07/10/24 07/10/24 03:40 History apixaban 5 mg tablet (Eliquis) 5 mg PO BID 05/26/24 07/10/24 07/10/24 08:00 History citalopram 20 mg tablet 20 mg PO DAILY 07/10/24 07/10/24 07/09/24 20:00 History omeprazole 40 mg capsule,delayed 40 mg PO DAILY 07/10/24 07/10/24 07/10/24 History release Allergies Allergy/AdvReac Type Severity Reaction Status Date / Time No Known Allergies Allergy Verified 06/30/24 08:07 Current Medications Generic Name Dose Route Start Last Admin Trade Name Freq PRN Reason Stop Dose Admin Sodium Chloride 1,000 mls @ 75 mls/hr 07/10/24 14:15 07/10/24 15:46 Sodium Chloride 0.9% IV 75 mls/hr .[id number] JUAN ANTONIO Administration PFSH Acute 2 PFSH: Medical History C7 cervical fracture (10/2020) CVA (cerebral vascular accident) 01/2024 Hyperlipidemia Hypertension Coronary artery disease GERD (gastroesophageal reflux disease) Depression Hypothyroidism Syncope Surgical History H/O rotator cuff surgery H/O: hysterectomy Family History Other No significant family history Social History Smoking and tobacco/nicotine status: never used tobacco/nicotine Alcohol intake: never Substance/Drug Use: never Housing: Halfway Marital status: / Vitals/I&O/Wt Last Vital Signs Temp 98.4 F 07/10/24 14:55 Pulse 85 07/10/24 18:03 Resp 16 07/10/24 18:03 BP 119/75 07/10/24 18:03 Pulse Ox 98 07/10/24 18:03 O2 Del Method Nasal Cannula 07/10/24 18:03 O2 Flow Rate 2 07/10/24 18:03 07/10/24 07/10/24 07/10/24 06:59 14:59 22:59 Intake Total 100 / 100 Balance 100 / 100 Weight last 48 hrs Weight 170 lb Physical Exam 2 Narrative: GENERAL: The patient is very drowsy and keeps her eyes closed. She will respond to questions with yes or no. HEENT: Moderate pallor with no icterus or lymphadenopathy.Oral cavity: There are no mucous membrane lesions. NECK: Trachea appears to be central. No masses noted. No JVD or thyromegaly appreciated. RESPIRATORY: Chest is symmetrical. No intercostals muscle retraction or any accessory muscle activation. There is no chest wall tenderness. Breath sounds are heard bilaterally. No rales or rhonchi heard. No evidence of any consolidation. BREASTS: Deferred. HEART: The heart sounds are normal. No S3 or S4. No significant murmurs. No pericardial rub ABDOMEN: No vessel pulsations or distention. No tenderness. No organomegaly appreciated. Bowel sounds are normally heard. : Deferred. RECTAL: Deferred. LYMPHATIC: No lymphadenopathy noted in the neck. EXTREMITIES: No edema or cyanosis. No clubbing. MUSCULOSKELETAL: Left knee is flexed and somewhat extroverted. Tenderness with movements. SKIN: There are no significant rashes or ecchymosis NEUROPSYCHIATRIC: The patient is sedated. Responds at times to the questions by yes or no Data 07/10/24 09:15 07/10/24 09:15 Other Labs: Laboratory Last Values WBC 12.55 10^3/uL (3.29-11.43) H 07/10/24 09:15 RBC 3.57 10^6/uL (3.85-5.65) L 07/10/24 09:15 Hgb 8.90 g/dL (11.27-16.99) L 07/10/24 09:15 Hct 28.5 % (36-47) L 07/10/24 09:15 MCV 79.8 fl (85-98) L 07/10/24 09:15 MCH 24.9 pg (27-33) L 07/10/24 09:15 MCHC 31.2 g/dL (30-55) 07/10/24 09:15 RDW 15.6 % (12.1-15.1) H 07/10/24 09:15 Plt Count 250 10^3/cmm (157-399) 07/10/24 14:32 MPV 10.3 fL (7.4-10.4) 07/10/24 09:15 Neut % (Auto) 87.7 % 07/10/24 09:15 Lymph % (Auto) 6.7 % 07/10/24 09:15 [place] % (Auto) 4.8 % 07/10/24 09:15 Eos % (Auto) 0.1 % 07/10/24 09:15 Baso % (Auto) 0.2 % 07/10/24 09:15 Neut # (Auto) 11.01 10^3/uL (1.8-7.7) H 07/10/24 09:15 Lymph # (Auto) 0.8 10^3/uL (0.8-4.8) 07/10/24 09:15 [place] # (Auto) 0.6 10^3/uL (0.2-0.9) 07/10/24 09:15 Eos # (Auto) 0.0 10^3/uL (0.0-0.8) 07/10/24 09:15 Baso # (Auto) 0.0 10^3/uL (0.0-0.1) 07/10/24 09:15 Nucleated RBC % (auto) 0 % 07/10/24 09:15 Nucleated RBCs # 0.0 /100WBC 07/10/24 09:15 PT 14.80 SECONDS (12.1-14.9) 07/10/24 14:32 INR 1.13 (0.8-1.2) 07/10/24 14:32 APTT 34.0 SECONDS (23.9-36.7) 07/10/24 14:32 Sodium 140 mmol/L (136-145) 07/10/24 09:15 Potassium 4.5 mmol/L (3.5-5.1) 07/10/24 09:15 Chloride 103 mmol/L (98-107) 07/10/24 09:15 Carbon Dioxide 26 mmol/L (22-29) 07/10/24 09:15 Anion Gap 15.5 (5-19) 07/10/24 09:15 BUN 20 mg/dL (8-23) 07/10/24 09:15 Creatinine 0.6 mg/dL (0.5-0.9) 07/10/24 09:15 GFR Calculation Not Reportable 07/10/24 09:15 Glucose 154 mg/dL (65-115) H 07/10/24 09:15 Estimat Average Glucose 151 07/10/24 14:32 Hemoglobin A1c 6.9 % (4.0-6.0) H 07/10/24 14:32 Calculated Osmolality 296 mOsm/kg (285-295) H 07/10/24 09:15 Lactic Acid 2.0 mmol/L (0.5-2.2) 07/10/24 14:32 Calcium 9.1 mg/dL (8.5-10.5) 07/10/24 09:15 Iron 21 ug/dL (37-145) L 07/10/24 14:32 TIBC 291 mcg/dl 07/10/24 14:32 % Saturation 7.2 % (20-50) L 07/10/24 14:32 Unsat Iron Binding 270 ug/dL (112-347) 07/10/24 14:32 Ferritin 24 ng/mL (15-150) 07/10/24 14:32 Total Bilirubin 0.2 mg/dL (0.15-1.2) 07/10/24 09:15 AST 15 U/L (0-32) 07/10/24 09:15 ALT 16 U/L (0-33) 07/10/24 09:15 Alkaline Phosphatase 126 U/L (35-105) H 07/10/24 09:15 Troponin T Baseline 120 ng/L (0-10) H* 07/10/24 14:32 Troponin T 120 Minute 162.3 ng/L (0-10) H 07/10/24 16:32 Delta Troponin T 42.3 ABS# (0-10) H* 07/10/24 16:32 NT-Pro-B Natriuret Pep 1616 pg/mL (0-450) H 07/10/24 14:32 Total Protein 7.1 g/dL (6.6-8.7) 07/10/24 09:15 Albumin 3.9 g/dL (3.5-5.2) 07/10/24 09:15 Globulin 3.2 g/dL (1.3-4.6) 07/10/24 09:15 Procalcitonin 0.04 ng/mL (0-0.5) 07/10/24 14:32 TSH 0.01 uIU/mL (0.27-4.20) L 07/10/24 14:32 Urine Color Yellow (Yellow) 07/10/24 10:10 Urine Appearance Clear (CLEAR) 07/10/24 10:10 Urine pH 5.5 (5-7) 07/10/24 10:10 Ur Specific [place] 1.019 (1.005-1.030) 07/10/24 10:10 Urine Protein Negative (Negative) 07/10/24 10:10 Urine Glucose (UA) Negative (Normal) 07/10/24 10:10 Urine Ketones Negative (Negative) 07/10/24 10:10 Urine Blood Negative (Negative) 07/10/24 10:10 Urine Nitrate Negative (Negative) 07/10/24 10:10 Urine Bilirubin Negative (Negative) 07/10/24 10:10 Urine Urobilinogen 1.0 mg/dL (Negative) 07/10/24 10:10 Ur Leukocyte Esterase Negative (Negative) 07/10/24 10:10 Amorphous Sediment Not Reportable 07/10/24 10:10 Blood Type A Negative 07/10/24 14:32 Rho(D) Type Rh negative 07/10/24 14:32 Antibody Screen Negative 07/10/24 14:32 A&P Assessment and plan (1) Elevated troponin: Elevated troponin T, could be related to a type I myocardial infarction. However because of the history of intermittent atrial fibrillation, a type II OR also is a consideration. This patient has a history of? Atherosclerotic heart diseas and previous myocardial infarction?. The details are not available. (2) Intermittent atrial fibrillation: Patient is on oral anticoagulation. Currently she seems to be in sinus rhythm. (3) Hypertension: Currently the blood pressure is under control. Qualifiers: Hypertension type: primary hypertension Qualified Code(s): I10 - Essential (primary) hypertension (4) Hyperlipidemia: May continue on the current medications. 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 Plan Other problems are Anemia Leukocytosis, possibly related to acute phase reactant An echocardiogram would be helpful to evaluate LV function and rule out any other pathology. I also would like to get the medical records from [place] regarding the recent angiogram and? Intervention. Patient apparently has a DNR status. After reviewing her medical records and the echocardiogram, I will discuss the management options with her daughter and then may make decision on further management. In the meanwhile, patient may be treated with IV heparin. Michael is on hold. Based on the clinical progress and the results of the above, further recommendations will be made. Thank you for the opportunity to evaluate this patient and make these recommendations Coding Level of Care Code Acute Code for Chg Fwd Diagnoses Elevated troponin R79.89 Intermittent atrial fibrillation I48.0 Primary hypertension I10 Hypertension type: primary hypertension Mixed hyperlipidemia E78.2 Hyperlipidemia type: mixed hyperlipidemia 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 Z86.73
[2024-07-10] MEDS: morphine 4 mg/mL SDV 1 mL 2 MG IVP (18:23)
--- NOTE | 2024-07-10 18:29 | SUR.PREOP ---
Report called to RN in ICU for patient transfer. All questions answered.
--- NOTE | 2024-07-10 18:30 | SUR.PREOP ---
Jack was RN report was called to
--- NOTE | 2024-07-10 19:24 | XRR_ITS ---
PROCEDURE INFORMATION: Exam: XR Chest Exam date and time: 07/10/2024 8:44 PM Age: 78 years old Clinical indication: Shortness of breath; Additional info: SOB TECHNIQUE: Imaging protocol: Radiologic exam of the chest. Views: 1 view. COMPARISON: CR (CHEST, ) 05/15/2024 7:06 PM FINDINGS: Lungs: Pulmonary vascular congestion. Emphysematous changes. Right upper lobe calcified granuloma. Bilateral hilar to lower lobe atelectasis versus infiltrate. Pleural spaces: Unremarkable. No pleural effusion. No pneumothorax. Heart/Mediastinum: Cardiomegaly. Bones/joints: Left shoulder arthroplasty changes. XR/XR chest 1V portable [id number] IMPRESSION: 1. Cardiomegaly. 2. Pulmonary vascular congestion. 3. Emphysematous changes. 4. Left shoulder arthroplasty changes. 5. Right upper lobe calcified granuloma. 6. Bilateral hilar to lower lobe atelectasis versus infiltrate.
[2024-07-10 19:32] LABS: Platelet Count 250 10^3/cmm (157-399)
--- NOTE | 2024-07-10 20:07 | ECG_ITS ---
[facility] Test Date: 2024-07-10 Pat Name: Chip Guerrero Department: Room: [facility] Gender: Female [employer]: : 1945 Requested By: Carlos Alberto Birmingham Order Number: [id number] Reading MD: Jesenia Fischer M.D. Measurements Intervals [place] Rate: 79 P: 68 SD: 124 QRS: -12 QRSD: 105 T: -3 QT: 400 QTc: 460 Interpretive Statements SINUS RHYTHM LOW QRS VOLTAGE IN PRECORDIAL LEADS [QRS DEFLECTION < 1.0 mV IN CHEST LEADS] MODERATE ST DEPRESSION [0.05+ mV ST DEPRESSION] Compared to ECG 07/10/2024 17:14:09 Low QRS voltage now present Incomplete right bundle-branch block no longer present ST (T wave) deviation still present Electronically Signed On 07-12-2024 21:08:54 CDT by Jesenia Fischer M.D. [id number]
[2024-07-10] MEDS: ALPRAZolam 0.5 mg Tablet 0.25 MG PO (20:17)
[2024-07-10] MEDS: atorvastatin 40 mg Tablet PO (20:20)
[2024-07-10] MEDS: quetiapine 25 mg Tablet PO (20:21)
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
--- NOTE | 2024-07-10 21:30 | PC.NURSE ---
Carvedilol held due to low BP. Dr. Fischer at bedside shortly after was notified.
[2024-07-10] MEDS: heparin drip 25,000 UNIT/500 ML PREMIX 19 UNIT IV (21:40)
[2024-07-10] MEDS: heparin 5,000 unit/mL INJ 1 mL IVP (21:42)
[2024-07-10] MEDS: pantoprazole 40 mg SDV IVP (22:04)
[2024-07-10 22:40] LABS: Troponin 5 6HR Delta 42.3 ng/L (0-12)
[2024-07-10 22:41] LABS: Troponin 5 6HR 162.3 ng/L (0-10)
[2024-07-11] VITALS (54 sets, daily range): BP systolic 85–153; BP diastolic 1–106; PULSE 10–106; RESP 11–21; TEMP 36.3–37.2; O2SAT 86–100
--- NOTE | 2024-07-11 00:07 | PC.NURSE ---
Spoke with Dr. Hein in reference to patients downward trending MAP. Received orders to start levophed drip.
[2024-07-11] MEDS: norepinephrine 4 MG/250 ML BAG 7.5 MG IV (00:40)
[2024-07-11] MEDS: sodium chloride 0.9% 1,000 ML 75 ML IV ×2 (03:10→16:36)
[2024-07-11] MEDS: morphine 4 mg/mL SDV 1 mL 2 MG IVP ×2 (03:10→13:24)
[2024-07-11 03:39] LABS: Basophils % 0.2 %; Eosinophils # 0.1 10^3/uL (0.0-0.8); Hematocrit 25.6 % (36-47); Lymphocytes # 1.4 10^3/uL (0.8-4.8); Lymphocytes % 20.7 %; Mean Corpuscular HGB Conc 30.1 g/dL (30-55); Mean Corpuscular Hemoglobin 24.7 pg (27-33); Mean Corpuscular Volume 82.1 fl (85-98); Mean Platelet Volume 9.9 fL (7.4-10.4); Monocytes # 0.8 10^3/uL (0.2-0.9); Monocytes % 11.7 %; Neutrophils # 4.25 10^3/uL (1.8-7.7); Neutrophils % 65.1 %; Nucleated Red Blood Cells % 0 %; Platelet Count 209 10^3/cmm (157-399); Red Blood Count 3.12 10^6/uL (3.85-5.65); Red Cell Distribution Width 15.8 % (12.1-15.1); White Blood Count 6.52 10^3/uL (3.29-11.43)
[2024-07-11 04:01] LABS: Anion Gap 12.2 (5-19); Blood Urea Nitrogen 21 mg/dL (8-23); Calcium 8.8 mg/dL (8.5-10.5); Carbon Dioxide 25 mmol/L (22-29); Chloride 108 mmol/L (98-107); Creatinine Clr Calc Pharmacy 54.5482; Glucose 147 mg/dL (65-115); Magnesium 1.9 mg/dL (1.7-2.3); Osmolality Calculated 298 mOsm/kg (285-295); Phosphorus 4.2 mg/dL (2.5-4.5); Potassium 4.2 mmol/L (3.5-5.1); Sodium 141 mmol/L (136-145)
[2024-07-11 04:02] LABS: Partial Thromboplastin Time 136.7 SECONDS (23.9-36.7)
[2024-07-11] MEDS: HYDROcodone-acetaminophen 5-325 mg Tablet 1 TAB PO ×3 (04:17→22:37)
[2024-07-11] MEDS: ALPRAZolam 0.5 mg Tablet 0.25 MG PO ×2 (08:06→17:03)
[2024-07-11] MEDS: citalopram 20 mg Tablet PO (08:07)
[2024-07-11] MEDS: carvedilol 3.125 mg Tablet PO ×2 (08:07→17:03)
[2024-07-11] MEDS: quetiapine 25 mg Tablet PO ×2 (08:07→17:03)
[2024-07-11] MEDS: tamsulosin 0.4 mg Capsule PO (08:07)
[2024-07-11] MEDS: aspirin 81 mg EC Tablet PO (08:07)
--- NOTE | 2024-07-11 12:16 | P.PN_ITS ---
Subjective 2 Subjective: - Patient was examined earlier this morn ing -She is currently alert to person, place , not to time -She can follow commands -She is a bit encephalopathic, is dazed at times, easily redirectable -She denies any active chest pain -She does tell me that she had a heart t est in [place] she does not remember when, for her heart -Denies any heart surgeries -Denies any shortness of breath -Her only complaint is left knee pain -I had a discussion with her about her d istal femur fracture requiring surgical intervention -The concern is with her elevated tropon ins, cardiac risk associate with surgery, discussed options available including proceeding with surgery without coronary angiography, risks and benefits discussed versus doing coronary angiography risks of coronary angiography including but limited to contrast- induced nephropathy, cardiovascular risk, risk of stroke, and then proceeding to surgery of her knee, bleeding risks discussed, after discussing this with the patient I was unable to get a clear indication that she understood what I told her, no questions asked, I can get an informed decision from her -But she was adamant to me that she is a DNR, this was repeated to me with nursing staff at bedside multiple times -I did also ask if wanted to be put on a ventilator, she tells me no she does not want to put on life support, confirmed with patient, nursing staff at bedside -Reviewing her records, back in November 2023, patient had a distal humeral fracture, with elevated troponins, transferred out to [facility] as we did not have the equipment available, -Reviewed records from [facility], p murtazaient did have a coronary angiogram during that hospitalization, was found to have 70% RCA lesion, 50% LAD lesion, no acute intervention, she was managed on aspirin, Eliquis -She had a hospitalization 03/02/2024, fo r septic shock with colitis and elevated troponins at that time -She did have an ER visit on 05/15/2024 fo r chest pain complaints, no significant delta troponin, was discharged to the senior living -Here she denies chest pain -Cardiac echocardiogram CONCLUSIONS Normal left ventricular size and systolic function, EF 55%. No regional wall motion abnormalities. Grade I/IV diastolic dysfunction (abnormal relaxation filling pattern), normal to mildly elevated filling pressures. Estimated pulmonary artery peak systolic pressure 20 mmHg Trace pulmonary valve regurgitation. Mild mitral annular calcification. Thickened mitral valve. Trace to mild mitral valve regurgitation. There is no pericardial effusion. There are no intracardiac masses. -Spoke to Dr. Fischer, reviewed records w ith Dr. Fischer -Dr. Fischer to speak to family -Will have Dr. Fischer and Dr. Gloria whitman about together about the case Vitals/I&O/Wt Last Vital Signs Temp 98.4 F 07/11/24 08:45 Pulse 89 07/11/24 12:00 Resp 16 07/11/24 07:15 BP 115/56 07/11/24 12:00 Pulse Ox 96 07/11/24 12:00 O2 Del Method Nasal Cannula 07/11/24 05:56 O2 Flow Rate 1 07/11/24 05:56 07/10/24 07/11/24 07/11/24 22:59 06:59 14:59 Intake Total 100 / 100 1011.208 / 1111.208 Balance 100 / 100 1011.208 / 1111.208 Weight last 48 hrs Weight 67.186 kg Weight 67 kg Weight 77.111 kg Physical Exam 2 Const: COMMON NORMALS: no acute distress ORIENTATION/CONSCIOUSNESS: Yes awake, Yes oriented to person and Yes oriented to place; not oriented to time Eye: COMMON NORMALS: Equal, round and reactive pupils present PUPIL: Yes Equal, round and reactive pupils present Resp: COMMON NORMALS: normal respiratory effort, No retractions, No use of accessory muscles and clear to auscultation bilaterally AUSCULTATION: clear to auscultation bilaterally Cardio: COMMON NORMALS: regular rate, regular rhythm, S1 normal heart sound present and S2 normal heart sound present RATE: regular rate RHYTHM: r egular rhythm HEART SOUNDS: S1 normal heart sound present and S2 normal heart sound present GI: COMMON NORMALS: Normal to inspection, nondistended, normoactive bowel sounds present and non-tender Extremity: COMMON NORMALS: no pedal edema Neuro: SENSORIUM/ORIENTATION: Yes oriented to person, Yes oriented to place and No oriented to time Skin: NARRATIVE SKIN EXAM: Scalp hematoma measuring 2 x 3 cm ? Bruising orbit -Has bilateral conjunctival injection Data 07/11/24 03:27 07/11/24 03:27 A&P Assessment and plan (1) Fall: Qualifiers: Encounter type: initial encounter Qualified Code(s): W19.XXXA - Unspecified fall, initial encounter (2) CVA (cerebral vascular accident): (3) Hypertension: Qualifiers: Hypertension type: primary hypertension Qualified Code(s): I10 - Essential (primary) hypertension (4) NSTEMI (non-ST elevated myocardial infarction): (5) Acute on chronic anemia: (6) Fracture, femur, distal: Plan Fall -CT left knee 1. Limited evaluation of the LEFT knee due to difficulty positioning the patient. 2. There is a vertical fracture extending through the distal femur which extends intra-articular and along the anterior surface. No significant displacement. Plan -Currently n.p.o. for surgical intervention -Morphine for pain control -Continue heparin for DVT prophylaxis -Zofran for nausea Scalp hematoma -Associated with fall -CT head CT/CT head wo con* [id number] IMPRESSION: 1. No acute intracranial hemorrhage or edema. 2. Moderate small vessel ischemic disease with multiple lacunar infarcts in the posterior fossa and vonda. 3. Large acute scalp hematoma centered over the forehead. 4. No skull fracture. -Monitor as patient is on heparin drip Back pain CT lumbar spine CT/CT lumbar spine wo con* [id number] IMPRESSION: 1. Status post L5-S1 fusion. Lucency surrounding the L5 pedicle screws can be seen with loosening. 2. Severe L1 compression fracture with 5 mm of retropulsion, stable since 2020. 3. No acute lumbar spine fracture. 4. L4-5: Moderate central, bilateral subarticular recess and foraminal stenosis. 5. L5-S1: Severe bilateral foraminal stenosis. Large posterior laminectomy defect. 6. L3-4: Mild central, bilateral subarticular recess and foraminal stenosis. CT cervical spine CT/CT cervical spin wo con* [id number] IMPRESSION: 1. No acute cervical spine fracture. 2. Chronic burst fracture at C7 is unchanged. 3. No facet joint malalignment or subluxation. NSTEMI -No chest pain complaints -Baseline troponin 120, positive delta troponin, 6-hour troponin [address] depressions in lateral leads -Serial EKGs, serial troponins, telemetry monitoring -Continue aspirin, statin -Cardiac echo CONCLUSIONS Normal left ventricular size and systolic function, EF 55%. No regional wall motion abnormalities. Grade I/IV diastolic dysfunction (abnormal relaxation filling pattern), normal to mildly elevated filling pressures. Estimated pulmonary artery peak systolic pressure 20 mmHg Trace pulmonary valve regurgitation. Mild mitral annular calcification. Thickened mitral valve. Trace to mild mitral valve regurgitation. There is no pericardial effusion. There are no intracardiac masses. -Recent history of cardiac cath November 2023 at [facility], was found to have proximal LAD is 30% stenosed, mid LAD 30% stenosis, mid circumflex 30% stenosed, distal circumflex 50% stenosis, RCA 70% stenosed with small vessel -Cardiology to speak to family -Cardiology and Dr. Castro will speak Leukocytosis, possibly reactive, follow UA, chest x-ray ordered Acute on chronic anemia, iron studies, monitor -Ferritin 24, iron 21, evidence of early iron deficiency anemia -Hemoglobin 7.7, -Will order Hemoccult stool -Monitor hemoglobin, transfuse based on clinical progress repeat hemoglobin in the afternoon CODE STATUS, DNR/DNI based upon paperwork in the chart, my discussion with the patient Attestations 2 Medical Necessity Statement*: Patient requires hospitalization for distal femur fracture, anemia, NSTEMI Diagnoses Fall W19.XXXA Encounter type: initial encounter CVA (cerebral vascular accident) I63.9 Primary hypertension I10 Hypertension type: primary hypertension NSTEMI (non-ST elevated myocardial infarction) I21.4 Acute on chronic anemia D64.9 Fracture, femur, distal S72.409A
--- NOTE | 2024-07-11 13:52 | PC.SOCIAL ---
IMM Updated Updated pt on IMM. No questions voiced. Provided pt a copy. Initialed, dated, & timed a copy & placed in chart.
[2024-07-11 14:07] LABS: Basophils % 0.4 %; Eosinophils # 0.2 10^3/uL (0.0-0.8); Eosinophils % 3.2 %; Hematocrit 23.1 % (36-47); Lymphocytes % 17.9 %; Mean Corpuscular HGB Conc 30.3 g/dL (30-55); Mean Corpuscular Hemoglobin 24.7 pg (27-33); Mean Corpuscular Volume 81.6 fl (85-98); Mean Platelet Volume 11.8 fL (7.4-10.4); Monocytes # 0.5 10^3/uL (0.2-0.9); Neutrophils # 3.83 10^3/uL (1.8-7.7); Neutrophils % 69.1 %; Nucleated Red Blood Cells % 0 %; Platelet Count 177 10^3/cmm (157-399); Red Blood Count 2.83 10^6/uL (3.85-5.65); Red Cell Distribution Width 15.8 % (12.1-15.1); White Blood Count 5.54 10^3/uL (3.29-11.43)
[2024-07-11 14:23] LABS: Partial Thromboplastin Time 44.5 SECONDS (23.9-36.7)
--- NOTE | 2024-07-11 16:23 | PC.NURSE ---
patient not wanting to keep leads on due to not getting out of bed due to fx leg and severe contracture
--- NOTE | 2024-07-11 17:30 | P.PN_ITS ---
Subjective 2 Subjective: Patient seems to be little more alert today but still is not very communicative and seems to be somewhat sleepy. Denies any chest pain. Telemetry shows sinus rhythm. We got some medical records from [facility] When she had the angiogram in November of this year. She was found to have mild diffuse disease in the left anterior descending and circumflex artery. There was a 70% lesion in the mid RCA. The artery was relatively of small caliber. Apparently it was decided to treat her medically at that time. She presented to the emergency room of our hospital in May with chest pain. The workup in the ER was unremarkable. In February of this year when she presented with history of for with the fracture of the elbow, her troponin was elevated with that positive delta. Medications: Medication Review Details: Current Medications Acetaminophen (Acetaminophen 325 Mg Tablet) 650 mg PO Q6H PRN PRN Reason: Mild/Mod Pain Or Temp >/= 101 Hydrocodone Bitart/Acetaminophen (Hydrocodone-Acetaminophen 5-325 Mg Tablet) 1 tab PO Q6H PRN PRN Reason: Pain Last Admin: 07/11/24 14:46 Dose: 1 tab Alprazolam (Alprazolam 0.5 Mg Tablet) 0.25 mg PO BID [facility] Last Admin: 07/11/24 17:03 Dose: 0.25 mg Aspirin (Aspirin 81 Mg Ec Tablet) 81 mg PO DAILY [facility] Last Admin: 07/11/24 08:07 Dose: 81 mg Atorvastatin Calcium (Atorvastatin 40 Mg Tablet) 40 mg PO BEDTIME [facility] Last Admin: 07/10/24 20:20 Dose: 40 mg Carvedilol (Carvedilol 3.125 Mg Tablet) 3.125 mg PO BID [facility] Last Admin: 07/11/24 17:03 Dose: 3.125 mg Citalopram Hydrobromide (Citalopram 20 Mg Tablet) 20 mg PO DAILY [facility] Last Admin: 07/11/24 08:07 Dose: 20 mg Heparin Sodium (Porcine) (Heparin 5,000 Unit/Ml Inj 1 Ml) 0 unit IVP PRN PRN; Protocol PRN Reason: Heparin Weight Based Protocol -Subsequent Bolus Sodium Chloride (Sodium Chloride 0.9%) 1,000 mls @ 75 mls/hr IV .[id number] [facility] Last Admin: 07/11/24 16:36 Dose: 75 mls/hr Heparin Sodium/Sodium Chloride (Heparin Drip) 25,000 unit in 500 mls @ 0 mls/hr IV CONT [facility]; Protocol Last Titration: 07/11/24 14:48 Dose: 11.67 unit/kg/hr, 18 mls/hr Norepinephrine Bitartrate (Levophed) 4 mg in 250 mls @ 0 mls/hr IV .Q0M [facility]; Protocol Last Titration: 07/11/24 04:11 Dose: 0 mcg/min, 0 mls/hr Levothyroxine Sodium (Levothyroxine 200 Mcg Tablet) 200 mcg PO QAM [facility] Last Admin: 07/11/24 07:04 Dose: Not Given Morphine Sulfate (Morphine 4 Mg/Ml Sdv 1 Ml) 2 mg IVP Q4H PRN PRN Reason: SEVERE PAIN Last Admin: 07/11/24 13:24 Dose: 2 mg Ondansetron HCl (Ondansetron 2 Mg/Ml Sdv 2 Ml) 4 mg IVP Q8H PRN PRN Reason: vomiting, or N/V if npo Pantoprazole Sodium (Pantoprazole 40 Mg Sdv) 40 mg IVP Q24H [facility] Last Admin: 07/10/24 22:04 Dose: 40 mg Quetiapine Fumarate (Quetiapine 25 Mg Tablet) 25 mg PO BID [facility] Last Admin: 07/11/24 17:03 Dose: 25 mg Sodium Chloride (Sodium Chloride 0.9% 100 Ml Bag) 50 ml IV PRN PRN PRN Reason: Blood transfusion prime and flush Stop: 07/12/24 15:17 Sodium Chloride (Sodium Chloride 0.9% 100 Ml Bag) 50 ml IV PRN PRN PRN Reason: Blood transfusion prime and flush Stop: 07/12/24 15:18 Tamsulosin HCl (Tamsulosin 0.4 Mg Capsule) 0.4 mg PO DAILY [facility] Last Admin: 07/11/24 08:07 Dose: 0.4 mg Vitals/I&O/Wt Last Vital Signs Temp 98.9 F 07/11/24 16:49 Pulse 94 07/11/24 16:49 Resp 14 07/11/24 16:49 BP 116/55 07/11/24 16:49 Pulse Ox 96 07/11/24 16:49 O2 Del Method Nasal Cannula 07/11/24 05:56 O2 Flow Rate 1 07/11/24 05:56 07/11/24 07/11/24 07/11/24 06:59 14:59 22:59 Intake Total 1011.208 / 1111.208 154.5 / 154.5 1000 / 1154.5 Output Total 1000 / 1000 Balance 1011.208 / 1111.208 154.5 / 154.5 0 / 154.5 Weight last 48 hrs Weight 148 lb 1.903 oz Weight 147 lb 11.355 oz Weight 170 lb Physical Exam 2 Narrative: GENERAL: The patient seems sleepy all the time with very limited communication. HEENT: Moderate pallor with no icterus or lymphadenopathy.Oral cavity: There are no mucous membrane lesions. NECK: Trachea appears to be central. No masses noted. No JVD or thyromegaly appreciated. RESPIRATORY: Chest is symmetrical. No intercostals muscle retraction or any accessory muscle activation. There is no chest wall tenderness. Breath sounds are heard bilaterally. No rales or rhonchi heard. No evidence of any consolidation. BREASTS: Deferred. HEART: The heart sounds are normal. No S3 or S4. No significant murmurs. No pericardial rub ABDOMEN: No vessel pulsations or distention. No tenderness. No organomegaly appreciated. Bowel sounds are normally heard. : Deferred. RECTAL: Deferred. LYMPHATIC: No lymphadenopathy noted in the neck. EXTREMITIES: No edema or cyanosis. No clubbing. MUSCULOSKELETAL: Left knee is flexed and somewhat extroverted. Tenderness with movements. SKIN: There are no significant rashes or ecchymosis NEUROPSYCHIATRIC: The patient is sedated. Responds at times to the questions by yes or no Urinary Catheter Management: Harper: Cath Placed During This Visit: yes Urinary Catheter Date of Insertion: 07/11/24 Urinary Catheter Time of Insertion: 13:07 Data 07/11/24 13:40 07/11/24 03:27 Other Labs: Laboratory Last Values WBC 5.54 10^3/uL (3.29-11.43) 07/11/24 13:40 RBC 2.83 10^6/uL (3.85-5.65) L 07/11/24 13:40 Hgb 7.00 g/dL (11.27-16.99) L 07/11/24 13:40 Hct 23.1 % (36-47) L 07/11/24 13:40 MCV 81.6 fl (85-98) L 07/11/24 13:40 MCH 24.7 pg (27-33) L 07/11/24 13:40 MCHC 30.3 g/dL (30-55) 07/11/24 13:40 RDW 15.8 % (12.1-15.1) H 07/11/24 13:40 Plt Count 177 10^3/cmm (157-399) 07/11/24 13:40 MPV 11.8 fL (7.4-10.4) H 07/11/24 13:40 Neut % (Auto) 69.1 % 07/11/24 13:40 Lymph % (Auto) 17.9 % 07/11/24 13:40 [place] % (Auto) 9.0 % 07/11/24 13:40 Eos % (Auto) 3.2 % 07/11/24 13:40 Baso % (Auto) 0.4 % 07/11/24 13:40 Neut # (Auto) 3.83 10^3/uL (1.8-7.7) 07/11/24 13:40 Lymph # (Auto) 1.0 10^3/uL (0.8-4.8) 07/11/24 13:40 [place] # (Auto) 0.5 10^3/uL (0.2-0.9) 07/11/24 13:40 Eos # (Auto) 0.2 10^3/uL (0.0-0.8) 07/11/24 13:40 Baso # (Auto) 0.0 10^3/uL (0.0-0.1) 07/11/24 13:40 Nucleated RBC % (auto) 0 % 07/11/24 13:40 Nucleated RBCs # 0.0 /100WBC 07/11/24 13:40 PT 14.80 SECONDS (12.1-14.9) 07/10/24 14:32 INR 1.13 (0.8-1.2) 07/10/24 14:32 APTT 44.5 SECONDS (23.9-36.7) H D 07/11/24 13:40 Sodium 141 mmol/L (136-145) 07/11/24 03:27 Potassium 4.2 mmol/L (3.5-5.1) 07/11/24 03:27 Chloride 108 mmol/L (98-107) H 07/11/24 03:27 Carbon Dioxide 25 mmol/L (22-29) 07/11/24 03:27 Anion Gap 12.2 (5-19) 07/11/24 03:27 BUN 21 mg/dL (8-23) 07/11/24 03:27 Creatinine 0.7 mg/dL (0.5-0.9) 07/11/24 03:27 GFR Calculation Not Reportable 07/11/24 03:27 Glucose 147 mg/dL (65-115) H 07/11/24 03:27 Estimat Average Glucose 151 07/10/24 14:32 Hemoglobin A1c 6.9 % (4.0-6.0) H 07/10/24 14:32 Calculated Osmolality 298 mOsm/kg (285-295) H 07/11/24 03:27 Lactic Acid 2.0 mmol/L (0.5-2.2) 07/10/24 14:32 Calcium 8.8 mg/dL (8.5-10.5) 07/11/24 03:27 Phosphorus 4.2 mg/dL (2.5-4.5) 07/11/24 03:27 Magnesium 1.9 mg/dL (1.7-2.3) 07/11/24 03:27 Iron 21 ug/dL (37-145) L 07/10/24 14:32 TIBC 291 mcg/dl 07/10/24 14:32 % Saturation 7.2 % (20-50) L 07/10/24 14:32 Unsat Iron Binding 270 ug/dL (112-347) 07/10/24 14:32 Ferritin 24 ng/mL (15-150) 07/10/24 14:32 Total Bilirubin 0.2 mg/dL (0.15-1.2) 07/10/24 09:15 AST 15 U/L (0-32) 07/10/24 09:15 ALT 16 U/L (0-33) 07/10/24 09:15 Alkaline Phosphatase 126 U/L (35-105) H 07/10/24 09:15 Troponin T Baseline 120 ng/L (0-10) H* 07/10/24 14:32 Troponin T 120 Minute 162.3 ng/L (0-10) H 07/10/24 16:32 Delta Troponin T 42.3 ABS# (0-10) H* 07/10/24 16:32 Troponin T Hi Sens 6Hr 162.3 ng/L (0-10) H 07/10/24 21:39 Troponin T Hi Sens 6Hr Delta 42.3 ng/L (0-12) H* 07/10/24 21:39 NT-Pro-B Natriuret Pep 1616 pg/mL (0-450) H 07/10/24 14:32 Total Protein 7.1 g/dL (6.6-8.7) 07/10/24 09:15 Albumin 3.9 g/dL (3.5-5.2) 07/10/24 09:15 Globulin 3.2 g/dL (1.3-4.6) 07/10/24 09:15 Procalcitonin 0.04 ng/mL (0-0.5) 07/10/24 14:32 TSH 0.01 uIU/mL (0.27-4.20) L 07/10/24 14:32 Urine Color Yellow (Yellow) 07/10/24 10:10 Urine Appearance Clear (CLEAR) 07/10/24 10:10 Urine pH 5.5 (5-7) 07/10/24 10:10 Ur Specific [place] 1.019 (1.005-1.030) 07/10/24 10:10 Urine Protein Negative (Negative) 07/10/24 10:10 Urine Glucose (UA) Negative (Normal) 07/10/24 10:10 Urine Ketones Negative (Negative) 07/10/24 10:10 Urine Blood Negative (Negative) 07/10/24 10:10 Urine Nitrate Negative (Negative) 07/10/24 10:10 Urine Bilirubin Negative (Negative) 07/10/24 10:10 Urine Urobilinogen 1.0 mg/dL (Negative) 07/10/24 10:10 Ur Leukocyte Esterase Negative (Negative) 07/10/24 10:10 Amorphous Sediment Not Reportable 07/10/24 10:10 Blood Type A Negative 07/10/24 14:32 Rho(D) Type Rh negative 07/10/24 14:32 Antibody Screen Negative 07/10/24 14:32 Crossmatch See Detail 07/10/24 14:32 A&P Assessment and plan (1) Elevated troponin: Elevated troponin T, could be related to a type I myocardial infarction. However because of the history of intermittent atrial fibrillation, a type II DE also is a consideration. This patient has a history of? Atherosclerotic heart diseas and previous myocardial infarction?. The details are not available. We reviewed the medical records from [facility]. Patient had the cardiac catheterization in November. She was found to have multiple lesions ranging anywhere from 30 to 50% in the left anterior descending and circumflex arteries. There is a 70% lesion in the mid RCA which was relatively small caliber vessel. It was opted to treat her medically at that time. (2) Intermittent atrial fibrillation: Patient is on oral anticoagulation. Currently she seems to be in sinus rhythm. Patient had the last dose of Eliquis yesterday morning. (3) Hypertension: Currently the blood pressure is under control. Qualifiers: Hypertension type: primary hypertension Qualified Code(s): I10 - Essential (primary) hypertension (4) Hyperlipidemia: May continue on the current medications. 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 Plan Other problems are Dementia Previous history of CVA with left-sided residual weakness Anemia Leukocytosis, possibly related to acute phase reactant Had discussions with her daughter who lives in [place], yesterday and today. Apparently she is the only living close relative. According to the daughter, she would like to have everything done for the mother.. Her echocardiogram is unremarkable. EKG does not show any acute ischemic changes. At this point, it might be appropriate to do a Myocardial perfusion imaging to evaluate for any underlying coronary ischemia/assess the ischemic burden as part of the preop evaluation. Because of her anemia and multiple other comorbidities, she carries a higher risk for any invasive or interventional procedures. So the goal is to avoid these unless there is a strong indication. I discussed with Dr. [place]. So it was decided to go ahead with a Myocardial perfusion imaging on Sunday. Based on the results, further recommendations will be made. Patient may be kept on the current medications for the time being. I also discussed with Dr. Castro. It was thought to be appropriate to stabilize her medical condition as much as we can, before proceeding with the orthopedic surgery. Attestations 2 Medical Necessity Statement*: Patient requires continued hospital stay for close monitoring and further management Coding Level of Care Code 75485 Diagnoses Elevated troponin R79.89 Intermittent atrial fibrillation I48.0 Primary hypertension I10 Hypertension type: primary hypertension Mixed hyperlipidemia E78.2 Hyperlipidemia type: mixed hyperlipidemia 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 Z86.73 Time Spent (min) 50
[2024-07-11 20:21] LABS: Partial Thromboplastin Time 49.7 SECONDS (23.9-36.7)
[2024-07-11] MEDS: atorvastatin 40 mg Tablet PO (21:29)
[2024-07-11] MEDS: pantoprazole 40 mg SDV IVP (21:30)
[2024-07-11] MEDS: heparin 5,000 unit/mL INJ 1 mL IVP (21:30)
--- NOTE | 2024-07-11 22:06 | PC.NURSE ---
Heparin gtt titration: Upon arrival to shift, patient's heparin gtt was running at 15mL/hr. MAR updated to reflect dose.
[2024-07-11] MEDS: sodium chloride 0.9% 100 mL Bag 50 ML IV (22:07)
[2024-07-12] VITALS (31 sets, daily range): BP systolic 130–166; BP diastolic 67–122; PULSE 67–100; RESP 13–22; TEMP 36.7–37.2; O2SAT 92–100; BMI 27.0
[2024-07-12] MEDS: lanolin oint 7 gm 1 APPLIC TOPICAL ×2 (02:51→22:19)
[2024-07-12 03:42] LABS: Basophils % 0.3 %; Eosinophils # 0.2 10^3/uL (0.0-0.8); Eosinophils % 3.7 %; Hematocrit 30.5 % (36-47); Lymphocytes # 1.4 10^3/uL (0.8-4.8); Mean Corpuscular HGB Conc 31.8 g/dL (30-55); Mean Corpuscular Hemoglobin 26.1 pg (27-33); Mean Platelet Volume 10.4 fL (7.4-10.4); Monocytes # 0.6 10^3/uL (0.2-0.9); Monocytes % 8.8 %; Neutrophils # 4.01 10^3/uL (1.8-7.7); Neutrophils % 63.9 %; Nucleated Red Blood Cells % 0 %; Platelet Count 162 10^3/cmm (157-399); Red Blood Count 3.72 10^6/uL (3.85-5.65); Red Cell Distribution Width 15.2 % (12.1-15.1); White Blood Count 6.27 10^3/uL (3.29-11.43)
[2024-07-12 03:58] LABS: Partial Thromboplastin Time 71.2 SECONDS (23.9-36.7)
[2024-07-12 04:05] LABS: Anion Gap 13.9 (5-19); Blood Urea Nitrogen 17 mg/dL (8-23); Calcium 8.6 mg/dL (8.5-10.5); Carbon Dioxide 23 mmol/L (22-29); Chloride 109 mmol/L (98-107); Creatinine Clr Calc Pharmacy 54.6162; Glucose 112 mg/dL (65-115); Magnesium 1.7 mg/dL (1.7-2.3); Osmolality Calculated 296 mOsm/kg (285-295); Phosphorus 3.5 mg/dL (2.5-4.5); Potassium 3.9 mmol/L (3.5-5.1); Sodium 142 mmol/L (136-145)
[2024-07-12] MEDS: HYDROcodone-acetaminophen 5-325 mg Tablet 1 TAB PO ×2 (05:11→20:17)
[2024-07-12] MEDS: levothyroxine 200 mcg Tablet PO (05:12)
[2024-07-12] MEDS: heparin drip 25,000 UNIT/500 ML PREMIX 16 UNIT IV (05:16)
[2024-07-12] MEDS: sodium chloride 0.9% 1,000 ML 75 ML IV (09:11)
[2024-07-12] MEDS: citalopram 20 mg Tablet PO (09:12)
[2024-07-12] MEDS: FUROsemide 10 mg/mL SDV 4mL 40 MG IVP (09:12)
[2024-07-12] MEDS: quetiapine 25 mg Tablet PO ×2 (09:12→17:07)
[2024-07-12] MEDS: ALPRAZolam 0.5 mg Tablet 0.25 MG PO (09:12)
[2024-07-12] MEDS: carvedilol 3.125 mg Tablet PO ×2 (09:12→17:07)
[2024-07-12] MEDS: aspirin 81 mg EC Tablet PO (09:12)
[2024-07-12] MEDS: tamsulosin 0.4 mg Capsule PO (09:12)
[2024-07-12 10:10] LABS: Hematocrit 32.9 % (36-47)
--- NOTE | 2024-07-12 10:20 | P.PN_ITS ---
Subjective 2 Subjective: The patient has no chest pain. No arrhythmias on the monitor. Medications: Medication Review Details: Current Medications Acetaminophen (Acetaminophen 325 Mg Tablet) 650 mg PO Q6H PRN PRN Reason: Mild/Mod Pain Or Temp >/= 101 Hydrocodone Bitart/Acetaminophen (Hydrocodone-Acetaminophen 5-325 Mg Tablet) 1 tab PO Q6H PRN PRN Reason: Pain Last Admin: 07/12/24 05:11 Dose: 1 tab Alprazolam (Alprazolam 0.5 Mg Tablet) 0.25 mg PO BID [facility] Last Admin: 07/12/24 09:12 Dose: 0.25 mg Aspirin (Aspirin 81 Mg Ec Tablet) 81 mg PO DAILY [facility] Last Admin: 07/12/24 09:12 Dose: 81 mg Atorvastatin Calcium (Atorvastatin 40 Mg Tablet) 40 mg PO BEDTIME [facility] Last Admin: 07/11/24 21:29 Dose: 40 mg Carvedilol (Carvedilol 3.125 Mg Tablet) 3.125 mg PO BID [facility] Last Admin: 07/12/24 09:12 Dose: 3.125 mg Citalopram Hydrobromide (Citalopram 20 Mg Tablet) 20 mg PO DAILY [facility] Last Admin: 07/12/24 09:12 Dose: 20 mg Heparin Sodium (Porcine) (Heparin 5,000 Unit/Ml Inj 1 Ml) 0 unit IVP PRN PRN; Protocol PRN Reason: Heparin Weight Based Protocol -Subsequent Bolus Last Admin: 07/11/24 21:30 Dose: 1,400 unit Sodium Chloride (Sodium Chloride 0.9%) 1,000 mls @ 75 mls/hr IV .[id number] [facility] Last Admin: 07/12/24 09:11 Dose: 75 mls/hr Heparin Sodium/Sodium Chloride (Heparin Drip) 25,000 unit in 500 mls @ 0 mls/hr IV CONT [facility]; Protocol Last Admin: 07/12/24 05:16 Dose: 11.91 unit/kg/hr, 16 mls/hr Norepinephrine Bitartrate (Levophed) 4 mg in 250 mls @ 0 mls/hr IV .Q0M [facility]; Protocol Last Titration: 07/11/24 04:11 Dose: 0 mcg/min, 0 mls/hr Lanolin (Lanolin Oint 7 Gm) 1 applic TOPICAL PRN PRN PRN Reason: DRYNESS Last Admin: 07/12/24 02:51 Dose: 1 applic Levothyroxine Sodium (Levothyroxine 200 Mcg Tablet) 200 mcg PO QAM [facility] Last Admin: 07/12/24 05:12 Dose: 200 mcg Morphine Sulfate (Morphine 4 Mg/Ml Sdv 1 Ml) 2 mg IVP Q4H PRN PRN Reason: SEVERE PAIN Last Admin: 07/11/24 13:24 Dose: 2 mg Ondansetron HCl (Ondansetron 2 Mg/Ml Sdv 2 Ml) 4 mg IVP Q8H PRN PRN Reason: vomiting, or N/V if npo Pantoprazole Sodium (Pantoprazole 40 Mg Sdv) 40 mg IVP Q24H [facility] Last Admin: 07/11/24 21:30 Dose: 40 mg Quetiapine Fumarate (Quetiapine 25 Mg Tablet) 25 mg PO BID [facility] Last Admin: 07/12/24 09:12 Dose: 25 mg Sodium Chloride (Sodium Chloride 0.9% 100 Ml Bag) 50 ml IV PRN PRN PRN Reason: Blood transfusion prime and flush Stop: 07/12/24 15:17 Last Admin: 07/11/24 22:07 Dose: 50 ml Sodium Chloride (Sodium Chloride 0.9% 100 Ml Bag) 50 ml IV PRN PRN PRN Reason: Blood transfusion prime and flush Stop: 07/12/24 15:18 Tamsulosin HCl (Tamsulosin 0.4 Mg Capsule) 0.4 mg PO DAILY [facility] Last Admin: 07/12/24 09:12 Dose: 0.4 mg Vitals/I&O/Wt Last Vital Signs Temp 98.1 F 07/12/24 05:00 Pulse 85 07/12/24 08:00 Resp 18 07/12/24 08:00 BP 153/91 07/12/24 09:00 Pulse Ox 98 07/12/24 09:00 O2 Del Method Room Air 07/12/24 09:00 O2 Flow Rate 1 07/11/24 05:56 07/11/24 07/12/24 07/12/24 22:59 06:59 14:59 Intake Total 1460.6 / 1615.1 1415.734 / 3030.834 400 / 400 Output Total 1000 / 1000 550 / 1550 Balance 460.6 / 615.1 865.734 / 1480.834 400 / 400 Weight last 48 hrs Weight 157 lb 10.088 oz Weight 148 lb 1.903 oz Weight 147 lb 11.355 oz Physical Exam 2 Narrative: GENERAL: The patient seems sleepy all the time with very limited communication. HEENT: Moderate pallor with no icterus or lymphadenopathy.Oral cavity: There are no mucous membrane lesions. NECK: Trachea appears to be central. No masses noted. No JVD or thyromegaly appreciated. RESPIRATORY: Chest is symmetrical. No intercostals muscle retraction or any accessory muscle activation. There is no chest wall tenderness. Breath sounds are heard bilaterally. No rales or rhonchi heard. No evidence of any consolidation. BREASTS: Deferred. HEART: The heart sounds are normal. No S3 or S4. No significant murmurs. No pericardial rub ABDOMEN: No vessel pulsations or distention. No tenderness. No organomegaly appreciated. Bowel sounds are normally heard. : Deferred. RECTAL: Deferred. LYMPHATIC: No lymphadenopathy noted in the neck. EXTREMITIES: No edema or cyanosis. No clubbing. MUSCULOSKELETAL: Left knee is flexed and somewhat extroverted. Tenderness with movements. SKIN: There are no significant rashes or ecchymosis NEUROPSYCHIATRIC: The patient is sedated. Responds at times to the questions by yes or no Urinary Catheter Management: Harper: Cath Placed During This Visit: yes Reason for Continuing Indwelling Catheter: Accurate Measurement of Urinary Output in Critically Ill Patients Urinary Catheter Date of Insertion: 07/11/24 Urinary Catheter Time of Insertion: 13:07 Data 07/12/24 09:44 07/12/24 03:18 Other Labs: Laboratory Last Values WBC 6.27 10^3/uL (3.29-11.43) 07/12/24 03:18 RBC 3.72 10^6/uL (3.85-5.65) L 07/12/24 03:18 Hgb 10.40 g/dL (11.27-16.99) L 07/12/24 09:44 Hct 32.9 % (36-47) L 07/12/24 09:44 MCV 82.0 fl (85-98) L 07/12/24 03:18 MCH 26.1 pg (27-33) L 07/12/24 03:18 MCHC 31.8 g/dL (30-55) 07/12/24 03:18 RDW 15.2 % (12.1-15.1) H 07/12/24 03:18 Plt Count 162 10^3/cmm (157-399) 07/12/24 03:18 MPV 10.4 fL (7.4-10.4) 07/12/24 03:18 Neut % (Auto) 63.9 % 07/12/24 03:18 Lymph % (Auto) 23.0 % 07/12/24 03:18 Parker % (Auto) 8.8 % 07/12/24 03:18 Eos % (Auto) 3.7 % 07/12/24 03:18 Baso % (Auto) 0.3 % 07/12/24 03:18 Neut # (Auto) 4.01 10^3/uL (1.8-7.7) 07/12/24 03:18 Lymph # (Auto) 1.4 10^3/uL (0.8-4.8) 07/12/24 03:18 Parker # (Auto) 0.6 10^3/uL (0.2-0.9) 07/12/24 03:18 Eos # (Auto) 0.2 10^3/uL (0.0-0.8) 07/12/24 03:18 Baso # (Auto) 0.0 10^3/uL (0.0-0.1) 07/12/24 03:18 Nucleated RBC % (auto) 0 % 07/12/24 03:18 Nucleated RBCs # 0.0 /100WBC 07/12/24 03:18 PT 14.80 SECONDS (12.1-14.9) 07/10/24 14:32 INR 1.13 (0.8-1.2) 07/10/24 14:32 APTT 71.2 SECONDS (23.9-36.7) H 07/12/24 03:18 Sodium 142 mmol/L (136-145) 07/12/24 03:18 Potassium 3.9 mmol/L (3.5-5.1) 07/12/24 03:18 Chloride 109 mmol/L (98-107) H 07/12/24 03:18 Carbon Dioxide 23 mmol/L (22-29) 07/12/24 03:18 Anion Gap 13.9 (5-19) 07/12/24 03:18 BUN 17 mg/dL (8-23) 07/12/24 03:18 Creatinine 0.6 mg/dL (0.5-0.9) 07/12/24 03:18 GFR Calculation Not Reportable 07/12/24 03:18 Glucose 112 mg/dL (65-115) 07/12/24 03:18 Estimat Average Glucose 151 07/10/24 14:32 Hemoglobin A1c 6.9 % (4.0-6.0) H 07/10/24 14:32 Calculated Osmolality 296 mOsm/kg (285-295) H 07/12/24 03:18 Lactic Acid 2.0 mmol/L (0.5-2.2) 07/10/24 14:32 Calcium 8.6 mg/dL (8.5-10.5) 07/12/24 03:18 Phosphorus 3.5 mg/dL (2.5-4.5) 07/12/24 03:18 Magnesium 1.7 mg/dL (1.7-2.3) 07/12/24 03:18 Iron 21 ug/dL (37-145) L 07/10/24 14:32 TIBC 291 mcg/dl 07/10/24 14:32 % Saturation 7.2 % (20-50) L 07/10/24 14:32 Unsat Iron Binding 270 ug/dL (112-347) 07/10/24 14:32 Ferritin 24 ng/mL (15-150) 07/10/24 14:32 Total Bilirubin 0.2 mg/dL (0.15-1.2) 07/10/24 09:15 AST 15 U/L (0-32) 07/10/24 09:15 ALT 16 U/L (0-33) 07/10/24 09:15 Alkaline Phosphatase 126 U/L (35-105) H 07/10/24 09:15 Troponin T Baseline 120 ng/L (0-10) H* 07/10/24 14:32 Troponin T 120 Minute 162.3 ng/L (0-10) H 07/10/24 16:32 Delta Troponin T 42.3 ABS# (0-10) H* 07/10/24 16:32 Troponin T Hi Sens 6Hr 162.3 ng/L (0-10) H 07/10/24 21:39 Troponin T Hi Sens 6Hr Delta 42.3 ng/L (0-12) H* 07/10/24 21:39 NT-Pro-B Natriuret Pep 1616 pg/mL (0-450) H 07/10/24 14:32 Total Protein 7.1 g/dL (6.6-8.7) 07/10/24 09:15 Albumin 3.9 g/dL (3.5-5.2) 07/10/24 09:15 Globulin 3.2 g/dL (1.3-4.6) 07/10/24 09:15 Procalcitonin 0.04 ng/mL (0-0.5) 07/10/24 14:32 TSH 0.01 uIU/mL (0.27-4.20) L 07/10/24 14:32 Urine Color Yellow (Yellow) 07/10/24 10:10 Urine Appearance Clear (CLEAR) 07/10/24 10:10 Urine pH 5.5 (5-7) 07/10/24 10:10 Ur Specific [place] 1.019 (1.005-1.030) 07/10/24 10:10 Urine Protein Negative (Negative) 07/10/24 10:10 Urine Glucose (UA) Negative (Normal) 07/10/24 10:10 Urine Ketones Negative (Negative) 07/10/24 10:10 Urine Blood Negative (Negative) 07/10/24 10:10 Urine Nitrate Negative (Negative) 07/10/24 10:10 Urine Bilirubin Negative (Negative) 07/10/24 10:10 Urine Urobilinogen 1.0 mg/dL (Negative) 07/10/24 10:10 Ur Leukocyte Esterase Negative (Negative) 07/10/24 10:10 Amorphous Sediment Not Reportable 07/10/24 10:10 Blood Type A Negative 07/10/24 14:32 Rho(D) Type Rh negative 07/10/24 14:32 Antibody Screen Negative 07/10/24 14:32 Crossmatch See Detail 07/10/24 14:32 A&P Assessment and plan (1) Elevated troponin: Elevated troponin T, could be related to a type I myocardial infarction. However because of the history of intermittent atrial fibrillation, a type II DC also is a consideration. This patient has a history of Atherosclerotic heart disease and elevated troponin T in the past. We reviewed the medical records from [facility]. Patient had the cardiac catheterization in November of 2023. She was found to have multiple lesions ranging anywhere from 30 to 50% in the left anterior descending and circumflex arteries. There is a 70% lesion in the mid RCA which was relatively small caliber vessel. It was opted to treat her medically at that time. We may go ahead and do a Myocardial perfusion imaging on Sunday. Based on the results of the above tests and the patient's clinical progress, further recommendations will be made. (2) Intermittent atrial fibrillation: Patient is on oral anticoagulation. Currently she seems to be in sinus rhythm. Patient had the last dose of Eliquis yesterday morning. (3) Hypertension: Currently the blood pressure is under control. Qualifiers: Hypertension type: primary hypertension Qualified Code(s): I10 - Essential (primary) hypertension (4) Hyperlipidemia: May continue on the current medications. 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 (6) Anemia: This patient has a history of chronic anemia. Does not look like any active bleed at this point. Apparently it got worse since the admission. She had 2 units of blood transfusion. Currently the hemoglobin is around 10. Qualifiers: Anemia type: other cause Other causes of anemia: other cause, not classified Qualified Code(s): D64.89 - Other specified anemias Plan Other problems are Femoral fracture Dementia Previous history of CVA with left-sided residual weakness Leukocytosis, possibly related to acute phase reactant Had discussions with her daughter who lives in [place], yesterday and today. Apparently she is the only living close relative. According to the daughter, she would like to have everything done for the mother.. Her echocardiogram is unremarkable. EKG does not show any acute ischemic changes. At this point, it might be appropriate to do a Myocardial perfusion imaging to evaluate for any underlying coronary ischemia/assess the ischemic burden as part of the preop evaluation. Because of her anemia and multiple other comorbidities, she carries a higher risk for any invasive or interventional procedures. So the goal is to avoid these unless there is a strong indication. I discussed with Dr. Birmingham. So it was decided to go ahead with a Myocardial perfusion imaging on Sunday. Based on the results, further recommendations will be made. Patient may be kept on the current medications for the time being. I also discussed with Dr. Castro. It was thought to be appropriate to stabilize her medical condition as much as we can, before proceeding with the orthopedic surgery. As of now the patient has no legal guardian. May need to get legal guardianship to make healthcare decisions for the patient. Dr. Birmingham will be discussing with the formula room worker on this. Attestations 2 Medical Necessity Statement*: Patient requires continued hospital stay for close monitoring and further management Coding Level of Care Code 49486 Diagnoses Elevated troponin R79.89 Intermittent atrial fibrillation I48.0 Primary hypertension I10 Hypertension type: primary hypertension Mixed hyperlipidemia E78.2 Hyperlipidemia type: mixed hyperlipidemia 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 Z86.73 Anemia due to other cause, not classified D64.89 Anemia type: other cause Other causes of anemia: other cause, not classified
--- NOTE | 2024-07-12 10:31 | CTR_ITS ---
PROCEDURE INFORMATION: Exam: CT Head Without Contrast Exam date and time: 07/12/2024 1:22 PM Age: 78 years old Clinical indication: Altered mental status/memory loss; Additional info: AMS TECHNIQUE: Imaging protocol: Computed tomography of the head without contrast. Radiation optimization: All CT scans at this facility use at least one of these dose optimization techniques: automated exposure control; mA and/or kV adjustment per patient size (includes targeted exams where dose is matched to clinical indication); or iterative reconstruction. COMPARISON: CT head wo con* [id number] 07/10/2024 11:13 AM RADIATION DOSE METRICS: Total DLP (mGy-cm): 909.08 FINDINGS: Brain: No acute infarct, hemorrhage, mass, or mass effect. Remote small infarcts in the right medulla, central vonda, left midbrain, bilateral cerebellar hemispheres. Moderate chronic white matter microvascular ischemic change. Cerebral ventricles: Normal ventricles. No appreciable extra-axial fluid. Paranasal sinuses: Mucosal thickening in the paranasal sinuses. Mastoid air cells: Clear. Orbital cavities: Orbits are unremarkable. Sella is unremarkable. Bones: Unremarkable. Soft tissues: Mildly decreased size of jeazb-[id number] central forehead soft tissue contusion. Small subcutaneous nodules in the bilateral parietal scalp unchanged. CT/CT head wo con* [id number] IMPRESSION: 1. No acute intracranial abnormality. Chronic changes. 2. Mildly decreased size of pxaby-mv-[id number] central forehead soft tissue contusion.
[2024-07-12] MEDS: morphine 4 mg/mL SDV 1 mL 2 MG IVP (10:49)
[2024-07-12] MEDS: HYDROmorphone 1 mg/mL INJ 1 mL 0.5 MG IVP ×3 (11:20→22:15)
--- NOTE | 2024-07-12 13:26 | PC.NURSE ---
At approximately 1030, Patient calling out in room wanting to get up and go home patient confused believing she is at [facility]. Patient reoriented. Patient reports 9/10 pain left knee, refuses PO pain meds, refuses zyprexa. Dr. Birmingham made aware of confusion, CT head ordered.
[2024-07-12 13:40] LABS: Troponin T (5th) Once 217 ng/L (0-10)
--- NOTE | 2024-07-12 15:32 | PM.PN ---
Subjective Subjective: The patient has no chest pain. No arrhythmias on the monitor. Medications: Medication Review Details: Current Medications Acetaminophen (Acetaminophen 325 Mg Tablet) 650 mg PO Q6H PRN PRN Reason: Mild/Mod Pain Or Temp >/= 101 Hydrocodone Bitart/Acetaminophen (Hydrocodone-Acetaminophen 5-325 Mg Tablet) 1 tab PO Q6H PRN PRN Reason: Pain Last Admin: 07/12/24 05:11 Dose: 1 tab Alprazolam (Alprazolam 0.5 Mg Tablet) 0.25 mg PO BID [facility] Last Admin: 07/12/24 09:12 Dose: 0.25 mg Aspirin (Aspirin 81 Mg Ec Tablet) 81 mg PO DAILY [facility] ANTONIO Last Admin: 07/12/24 09:12 Dose: 81 mg Atorvastatin Calcium (Atorvastatin 40 Mg Tablet) 40 mg PO BEDTIME [facility] Last Admin: 07/11/24 21:29 Dose: 40 mg Carvedilol (Carvedilol 3.125 Mg Tablet) 3.125 mg PO BID [facility] Last Admin: 07/12/24 09:12 Dose: 3.125 mg Citalopram Hydrobromide (Citalopram 20 Mg Tablet) 20 mg PO DAILY [facility] Last Admin: 07/12/24 09:12 Dose: 20 mg Heparin Sodium (Porcine) (Heparin 5,000 Unit/Ml Inj 1 Ml) 0 unit IVP PRN PRN; Protocol PRN Reason: Heparin Weight Based Protocol -Subsequent Bolus Last Admin: 07/11/24 21:30 Dose: 1,400 unit Sodium Chloride (Sodium Chloride 0.9%) 1,000 mls @ 75 mls/hr IV .[id number] [facility] Last Admin: 07/12/24 09:11 Dose: 75 mls/hr Heparin Sodium/Sodium Chloride (Heparin Drip) 25,000 unit in 500 mls @ 0 mls/hr IV CONT [facility]; Protocol Last Admin: 07/12/24 05:16 Dose: 11.91 unit/kg/hr, 16 mls/hr Norepinephrine Bitartrate (Levophed) 4 mg in 250 mls @ 0 mls/hr IV .Q0M [facility]; Protocol Last Titration: 07/11/24 04:11 Dose: 0 mcg/min, 0 mls/hr Lanolin (Lanolin Oint 7 Gm) 1 applic TOPICAL PRN PRN PRN Reason: DRYNESS Last Admin: 07/12/24 02:51 Dose: 1 applic Levothyroxine Sodium (Levothyroxine 200 Mcg Tablet) 200 mcg PO QAM [facility] Last Admin: 07/12/24 05:12 Dose: 200 mcg Morphine Sulfate (Morphine 4 Mg/Ml Sdv 1 Ml) 2 mg IVP Q4H PRN PRN Reason: SEVERE PAIN Last Admin: 07/11/24 13:24 Dose: 2 mg Ondansetron HCl (Ondansetron 2 Mg/Ml Sdv 2 Ml) 4 mg IVP Q8H PRN PRN Reason: vomiting, or N/V if npo Pantoprazole Sodium (Pantoprazole 40 Mg Sdv) 40 mg IVP Q24H [facility] Last Admin: 07/11/24 21:30 Dose: 40 mg Quetiapine Fumarate (Quetiapine 25 Mg Tablet) 25 mg PO BID [facility] Last Admin: 07/12/24 09:12 Dose: 25 mg Sodium Chloride (Sodium Chloride 0.9% 100 Ml Bag) 50 ml IV PRN PRN PRN Reason: Blood transfusion prime and flush Stop: 07/12/24 15:17 Last Admin: 07/11/24 22:07 Dose: 50 ml Sodium Chloride (Sodium Chloride 0.9% 100 Ml Bag) 50 ml IV PRN PRN PRN Reason: Blood transfusion prime and flush Stop: 07/12/24 15:18 Tamsulosin HCl (Tamsulosin 0.4 Mg Capsule) 0.4 mg PO DAILY [facility] Last Admin: 07/12/24 09:12 Dose: 0.4 mg Vitals/I&O/Wt Last Vital Signs Temp 98.1 F 07/12/24 05:00 Pulse 99 07/12/24 15:06 Resp 22 H 07/12/24 11:20 BP 135/78 07/12/24 12:00 Pulse Ox 94 07/12/24 12:00 O2 Del Method Room Air 07/12/24 12:00 O2 Flow Rate 1 07/11/24 05:56 07/12/24 07/12/24 07/12/24 06:59 14:59 22:59 Intake Total 1415.734 / 3030.834 684.8 / 684.8 Output Total 550 / 1550 2750 / 2750 Balance 865.734 / 1480.834 -2065.2 / -2065.2 Weight last 48 hrs Weight 157 lb 10.088 oz Weight 148 lb 1.903 oz Weight 147 lb 11.355 oz Physical Exam Narrative: Patient is seen in the intensive care unit. She is sleeping and is not easily away couple.. She has a large ecchymosis anteriorly on her head as well as involving her left eye. She also lays on her left side with her left knee bent. She refuses to straighten this knee as is seen by x-ray and her CT scan. Const: COMMON NORMALS: no acute distress and average body habitus ORIENTATION/CONSCIOUSNESS: Yes Other orientation findings (Patient had sedative medication in the ED.) HENMT: HEAD & SCALP: hematoma (Anterior forehead) Eye: OTHER: Bruising of the left eye Chest: COMMONS NORMALS: normal inspection of the chest Resp: COMMON NORMALS: normal respiratory effort EFFORT & INSPECTION: Yes able to speak in complete sentences and Yes symmetric chest movement Extremity: LEFT LOWER EXTREMITY: Yes knee joint (Patient holds the leg bent, and will not straighten it) Left knee: Yes ROM (Not evaluated) Psych: ATTITUDE: Yes calm Skin: COMMON NORMALS: no rashes or lesions noted GENERAL SKIN EXAM: no rashes or lesions noted Urinary Catheter Management: Harper: Cath Placed During This Visit: yes Reason for Continuing Indwelling Catheter: Accurate Measurement of Urinary Output in Critically Ill Patients Urinary Catheter Date of Insertion: 07/11/24 Urinary Catheter Time of Insertion: 13:07 Data 07/12/24 09:44 07/12/24 03:18 A&P Assessment and plan (1) Closed fracture of lateral condyle of femur: Patient remains under workup from the medical service for clearance to proceed with open reduction internal fixation of her right distal femur fracture. This will require a larger lateral incision from the knee to approximately mid thigh. There is concern regarding anticoagulation, but this will be further determined after cardiology has finished their workup. At this point, orthopedics is in a holding pattern regarding fixation of the fracture. Qualifiers: Encounter type: initial encounter Fracture alignment: displaced Laterality: left Qualified Code(s): S72.422A - Displaced fracture of lateral condyle of left femur, initial encounter for closed fracture Attestations Medical Necessity Statement*: Per hospitalist and cardiac teams Coding Level of Care Code Acute Code for [facility] Fwd Diagnoses Closed displaced fracture of lateral condyle of left femur, initial encounter S72.422A Encounter type: initial encounter Fracture alignment: displaced Laterality: left
--- NOTE | 2024-07-12 15:35 | P.PN_ITS ---
Subjective 2 Subjective: Patient was seen this morning, she is alert to person, not to place, not to time, this morning she does not follow commands, easily becomes agitated, compared to yesterday much more easily agitated, increasingly confused -Has a history of a CVA history of dysa rthria, mild, pupils equal round reactive to light, moves bilateral upper lower extremities, strength difficult to assess given her altered mental status, -Events yesterday, patient's hemoglobin dropped to 7, given her NSTEMI, history of CAD she was given 2 units of blood, no reported bloody black stools overnight, hemodynamics have remained stable, hemoglobin 10.4, continue to monitor maintain hemoglobin greater than 8-9 -Remains on the heparin drip for NSTEMI morning troponin 217 - Vitals/I&O/Wt Last Vital Signs Temp 98.1 F 07/12/24 05:00 Pulse 99 07/12/24 15:06 Resp 22 H 07/12/24 11:20 BP 135/78 07/12/24 12:00 Pulse Ox 94 07/12/24 12:00 O2 Del Method Room Air 07/12/24 12:00 O2 Flow Rate 1 07/11/24 05:56 07/12/24 07/12/24 07/12/24 06:59 14:59 22:59 Intake Total 1415.734 / 3030.834 684.8 / 684.8 Output Total 550 / 1550 2750 / 2750 Balance 865.734 / 1480.834 -2065.2 / -2065.2 Weight last 48 hrs Weight 71.5 kg Weight 67.186 kg Weight 67 kg Physical Exam 2 Const: COMMON NORMALS: no acute distress ORIENTATION/CONSCIOUSNESS: Yes awake, Yes oriented to person and Yes oriented to place Resp: COMMON NORMALS: normal respiratory effort, No retractions, No use of accessory muscles and clear to auscultation bilaterally AUSCULTATION: clear to auscultation bilaterally Cardio: COMMON NORMALS: regular rate, regular rhythm, S1 normal heart sound present and S2 normal heart sound present RATE: regular rate RHYTHM: r egular rhythm HEART SOUNDS: S1 normal heart sound present and S2 normal heart sound present GI: COMMON NORMALS: Normal to inspection, nondistended, normoactive bowel sounds present and non-tender Extremity: COMMON NORMALS: no calf tenderness and no pedal edema Neuro: SENSORIUM/ORIENTATION: Yes oriented to person and Yes oriented to place Psych: COMMON NORMALS: mental status grossly normal Urinary Catheter Management: Harper: Cath Placed During This Visit: yes Reason for Continuing Indwelling Catheter: Accurate Measurement of Urinary Output in Critically Ill Patients Urinary Catheter Date of Insertion: 07/11/24 Urinary Catheter Time of Insertion: 13:07 Data 07/12/24 09:44 07/12/24 03:18 A&P Assessment and plan (1) Fall: Qualifiers: Encounter type: initial encounter Qualified Code(s): W19.XXXA - Unspecified fall, initial encounter (2) CVA (cerebral vascular accident): (3) Hypertension: Qualifiers: Hypertension type: primary hypertension Qualified Code(s): I10 - Essential (primary) hypertension (4) NSTEMI (non-ST elevated myocardial infarction): (5) Acute on chronic anemia: (6) Fracture, femur, distal: (7) Fluid overload: (8) Acute encephalopathy: Plan Fall -CT left knee 1. Limited evaluation of the LEFT knee due to difficulty positioning the patient. 2. There is a vertical fracture extending through the distal femur which extends intra-articular and along the anterior surface. No significant displacement. Plan -Orthopedic service on consult -Morphine for pain control -Continue heparin for DVT prophylaxis -Zofran for nausea Scalp hematoma -Associated with fall -CT head CT/CT head wo con* [id number] IMPRESSION: 1. No acute intracranial hemorrhage or edema. 2. Moderate small vessel ischemic disease with multiple lacunar infarcts in the posterior fossa and vonda. 3. Large acute scalp hematoma centered over the forehead. 4. No skull fracture. -Monitor as patient is on heparin drip Back pain CT lumbar spine CT/CT lumbar spine wo con* [id number] IMPRESSION: 1. Status post L5-S1 fusion. Lucency surrounding the L5 pedicle screws can be seen with loosening. 2. Severe L1 compression fracture with 5 mm of retropulsion, stable since 2020. 3. No acute lumbar spine fracture. 4. L4-5: Moderate central, bilateral subarticular recess and foraminal stenosis. 5. L5-S1: Severe bilateral foraminal stenosis. Large posterior laminectomy defect. 6. L3-4: Mild central, bilateral subarticular recess and foraminal stenosis. CT cervical spine CT/CT cervical spin wo con* [id number] IMPRESSION: 1. No acute cervical spine fracture. 2. Chronic burst fracture at C7 is unchanged. 3. No facet joint malalignment or subluxation. NSTEMI -No chest pain complaints -Baseline troponin 120, positive delta troponin, 6-hour troponin [address] depressions in lateral leads -Serial EKGs, serial troponins, telemetry monitoring -Continue aspirin, statin -Cardiac echo CONCLUSIONS Normal left ventricular size and systolic function, EF 55%. No regional wall motion abnormalities. Grade I/IV diastolic dysfunction (abnormal relaxation filling pattern), normal to mildly elevated filling pressures. Estimated pulmonary artery peak systolic pressure 20 mmHg Trace pulmonary valve regurgitation. Mild mitral annular calcification. Thickened mitral valve. Trace to mild mitral valve regurgitation. There is no pericardial effusion. There are no intracardiac masses. -Recent history of cardiac cath November 2023 at [facility], was found to have proximal LAD is 30% stenosed, mid LAD 30% stenosis, mid circumflex 30% stenosed, distal circumflex 50% stenosis, RCA 70% stenosed with small vessel -Spoke with cardiology, plan on cardiac stress testing on Sunday -This morning troponins 217 -Continue heparin drip Leukocytosis, likely reactive, resolved Acute on chronic anemia, -Show evidence of iron deficiency anemia -Ferritin 24, iron 21, evidence of early iron deficiency anemia -Hemoglobin 7.0, status post 2 units PRBC, hemoglobin 10.4 -Will order Hemoccult stool -Monitor hemoglobin every 6 hours as patient is on a heparin drip -Protonix, Carafate Acute encephalopathy -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 -Patient is much more encephalopathic this morning, easily agitated -Does not follow commands -Repeat head CT -Zyprexa scheduled for agitation -Increase pain medication to Dilaudid -Neurochecks, aspiration precautions, History of CVA -Multi-infarct dementia -History of cerebellar stroke, right hemispheric stroke -Residual left-sided deficits, residual dysarthria -Monitor History of multiple falls Atrial fibrillation, currently on heparin drip Fluid overload Does have wheezing on examination this morning, will give 1 dose of Lasix CODE STATUS, DNR/DNI based upon paperwork in the chart, my discussion with the patient 07/12/2024 Attestations 2 Medical Necessity Statement*: Patient requires hospitalization for acute anemia, requiring PRBC, NSTEMI, acute encephalopathy, fluid overload requiring Lasix Diagnoses Fall W19.XXXA Encounter type: initial encounter CVA (cerebral vascular accident) I63.9 Primary hypertension I10 Hypertension type: primary hypertension NSTEMI (non-ST elevated myocardial infarction) I21.4 Acute on chronic anemia D64.9 Fracture, femur, distal S72.409A Fluid overload E87.70 Acute encephalopathy G93.40
[2024-07-12 16:08] LABS: Hematocrit 35.7 % (36-47)
[2024-07-12 18:23] LABS: Partial Thromboplastin Time 53.8 SECONDS (23.9-36.7)
[2024-07-12] MEDS: atorvastatin 40 mg Tablet PO (20:18)
[2024-07-12 21:29] LABS: Hematocrit 29.6 % (36-47)
[2024-07-12] MEDS: OLANZapine 5 mg ODT PO (22:12)
[2024-07-12] MEDS: pantoprazole 40 mg SDV IVP (22:15)
[2024-07-13] VITALS (33 sets, daily range): BP systolic 105–158; BP diastolic 53–106; PULSE 53–99; RESP 12–24; TEMP 36.8–37.1; O2SAT 90–100
[2024-07-13 01:42] LABS: Basophils % 0.3 %; Eosinophils # 0.3 10^3/uL (0.0-0.8); Eosinophils % 4.6 %; Hematocrit 32.5 % (36-47); Lymphocytes # 1.5 10^3/uL (0.8-4.8); Lymphocytes % 23.9 %; Mean Corpuscular HGB Conc 31.7 g/dL (30-55); Mean Corpuscular Hemoglobin 25.9 pg (27-33); Mean Corpuscular Volume 81.9 fl (85-98); Mean Platelet Volume 10.8 fL (7.4-10.4); Monocytes # 0.6 10^3/uL (0.2-0.9); Monocytes % 9.7 %; Neutrophils # 3.83 10^3/uL (1.8-7.7); Neutrophils % 61.2 %; Nucleated Red Blood Cells % 0 %; Platelet Count 184 10^3/cmm (157-399); Red Blood Count 3.97 10^6/uL (3.85-5.65); Red Cell Distribution Width 15.6 % (12.1-15.1); White Blood Count 6.27 10^3/uL (3.29-11.43)
[2024-07-13 02:02] LABS: Partial Thromboplastin Time 61.3 SECONDS (23.9-36.7)
[2024-07-13 02:03] LABS: Anion Gap 12.5 (5-19); Blood Urea Nitrogen 18 mg/dL (8-23); Calcium 8.9 mg/dL (8.5-10.5); Carbon Dioxide 27 mmol/L (22-29); Chloride 104 mmol/L (98-107); Glucose 124 mg/dL (65-115); Magnesium 1.6 mg/dL (1.7-2.3); Osmolality Calculated 293 mOsm/kg (285-295); Phosphorus 3.9 mg/dL (2.5-4.5); Potassium 3.5 mmol/L (3.5-5.1); Sodium 140 mmol/L (136-145)
[2024-07-13] MEDS: HYDROcodone-acetaminophen 5-325 mg Tablet 1 TAB PO ×3 (02:55→20:30)
[2024-07-13] MEDS: HYDROmorphone 1 mg/mL INJ 1 mL 0.5 MG IVP ×4 (03:00→21:37)
[2024-07-13] MEDS: heparin drip 25,000 UNIT/500 ML PREMIX 17 UNIT IV (07:19)
[2024-07-13] MEDS: levothyroxine 200 mcg Tablet PO (07:20)
[2024-07-13] MEDS: carvedilol 3.125 mg Tablet PO ×2 (09:10→17:02)
[2024-07-13] MEDS: aspirin 81 mg EC Tablet PO (09:10)
[2024-07-13] MEDS: citalopram 20 mg Tablet PO (09:10)
[2024-07-13] MEDS: tamsulosin 0.4 mg Capsule PO (09:10)
[2024-07-13] MEDS: quetiapine 25 mg Tablet PO ×2 (09:10→17:02)
[2024-07-13] MEDS: OLANZapine 5 mg ODT PO ×2 (09:26→20:26)
--- NOTE | 2024-07-13 11:11 | P.PN_ITS ---
Subjective 2 Subjective: Patient is seen in her room. She is more alert than she was yesterday. She is still unable to straighten her left knee, and is unwilling to try. We are awaiting cardiac and further medical clearance prior to proceeding with open reduction internal fixation. Medications: Medication Review Details: Current Medications Acetaminophen (Acetaminophen 325 Mg Tablet) 650 mg PO Q6H PRN PRN Reason: Mild/Mod Pain Or Temp >/= 101 Hydrocodone Bitart/Acetaminophen (Hydrocodone-Acetaminophen 5-325 Mg Tablet) 1 tab PO Q6H PRN PRN Reason: Pain Last Admin: 07/12/24 05:11 Dose: 1 tab Alprazolam (Alprazolam 0.5 Mg Tablet) 0.25 mg PO BID JUAN ANTONIO Last Admin: 07/12/24 09:12 Dose: 0.25 mg Aspirin (Aspirin 81 Mg Ec Tablet) 81 mg PO DAILY JUAN ANTONIO Last Admin: 07/12/24 09:12 Dose: 81 mg Atorvastatin Calcium (Atorvastatin 40 Mg Tablet) 40 mg PO BEDTIME JUAN ANTONIO Last Admin: 07/11/24 21:29 Dose: 40 mg Carvedilol (Carvedilol 3.125 Mg Tablet) 3.125 mg PO BID JUAN ANTONIO Last Admin: 07/12/24 09:12 Dose: 3.125 mg Citalopram Hydrobromide (Citalopram 20 Mg Tablet) 20 mg PO DAILY JUAN ANTONIO Last Admin: 07/12/24 09:12 Dose: 20 mg Heparin Sodium (Porcine) (Heparin 5,000 Unit/Ml Inj 1 Ml) 0 unit IVP PRN PRN; Protocol PRN Reason: Heparin Weight Based Protocol -Subsequent Bolus Last Admin: 07/11/24 21:30 Dose: 1,400 unit Sodium Chloride (Sodium Chloride 0.9%) 1,000 mls @ 75 mls/hr IV .[id number] JUAN ANTONIO Last Admin: 07/12/24 09:11 Dose: 75 mls/hr Heparin Sodium/Sodium Chloride (Heparin Drip) 25,000 unit in 500 mls @ 0 mls/hr IV CONT JUAN ANTONIO; Protocol Last Admin: 07/12/24 05:16 Dose: 11.91 unit/kg/hr, 16 mls/hr Norepinephrine Bitartrate (Levophed) 4 mg in 250 mls @ 0 mls/hr IV .Q0M JUAN ANTONIO; Protocol Last Titration: 07/11/24 04:11 Dose: 0 mcg/min, 0 mls/hr Lanolin (Lanolin Oint 7 Gm) 1 applic TOPICAL PRN PRN PRN Reason: DRYNESS Last Admin: 07/12/24 02:51 Dose: 1 applic Levothyroxine Sodium (Levothyroxine 200 Mcg Tablet) 200 mcg PO QAM [facility] Last Admin: 07/12/24 05:12 Dose: 200 mcg Morphine Sulfate (Morphine 4 Mg/Ml Sdv 1 Ml) 2 mg IVP Q4H PRN PRN Reason: SEVERE PAIN Last Admin: 07/11/24 13:24 Dose: 2 mg Ondansetron HCl (Ondansetron 2 Mg/Ml Sdv 2 Ml) 4 mg IVP Q8H PRN PRN Reason: vomiting, or N/V if npo Pantoprazole Sodium (Pantoprazole 40 Mg Sdv) 40 mg IVP Q24H [facility] Last Admin: 07/11/24 21:30 Dose: 40 mg Quetiapine Fumarate (Quetiapine 25 Mg Tablet) 25 mg PO BID [facility] Last Admin: 07/12/24 09:12 Dose: 25 mg Sodium Chloride (Sodium Chloride 0.9% 100 Ml Bag) 50 ml IV PRN PRN PRN Reason: Blood transfusion prime and flush Stop: 07/12/24 15:17 Last Admin: 07/11/24 22:07 Dose: 50 ml Sodium Chloride (Sodium Chloride 0.9% 100 Ml Bag) 50 ml IV PRN PRN PRN Reason: Blood transfusion prime and flush Stop: 07/12/24 15:18 Tamsulosin HCl (Tamsulosin 0.4 Mg Capsule) 0.4 mg PO DAILY [facility] Last Admin: 07/12/24 09:12 Dose: 0.4 mg Vitals/I&O/Wt Last Vital Signs Temp 98.8 F 07/13/24 10:36 Pulse 77 07/13/24 10:00 Resp 13 07/13/24 10:00 BP 147/77 07/13/24 10:00 Pulse Ox 99 07/13/24 10:00 O2 Del Method Room Air 07/13/24 10:00 O2 Flow Rate 1 07/11/24 05:56 07/12/24 07/13/24 07/13/24 22:59 06:59 14:59 Intake Total 1394.733 / 2079.533 128.633 / 2208.166 539.4 / 539.4 Output Total 850 / 850 Balance 1394.733 / -670.467 128.633 / -541.834 -310.6 / -310.6 Weight last 48 hrs Weight 157 lb 10.088 oz Physical Exam 2 Narrative: Patient is seen in the intensive care unit. She is sleeping and is not easily away couple.. She has a large ecchymosis anteriorly on her head as well as involving her left eye. She also lays on her left side with her left knee bent. She refuses to straighten this knee as is seen by x-ray and her CT scan. Const: COMMON NORMALS: no acute distress and average body habitus O RIENTATION/CONSCIOUSNESS: Yes Other orientation findings (Patient had sedative medication in the ED.) HENMT: HEAD & SCALP: hematoma (Anterior forehead) Eye: OTHER: Bruising of the left eye Chest: COMMONS NORMALS: normal inspection of the chest Resp: COMMON NORMALS: normal respiratory effort EFFORT & INSPECTION: Yes able to speak in complete sentences and Yes symmetric chest movement Extremity: LEFT LOWER EXTREMITY: Yes knee joint (Flex to approximately 130 degrees, and the patient will not allow movement.) Left knee: Yes ROM (Unable to evaluate) and Yes neurovascular exam (Able to wiggle her toes) Psych: ATTITUDE: Yes calm Skin: COMMON NORMALS: no rashes or lesions noted GENERAL SKIN EXAM: no rashes or lesions noted Urinary Catheter Management: Harper: Cath Placed During This Visit: yes Reason for Continuing Indwelling Catheter: Accurate Measurement of Urinary Output in Critically Ill Patients Urinary Catheter Date of Insertion: 07/11/24 Urinary Catheter Time of Insertion: 13:07 Data 07/13/24 01:35 07/13/24 01:35 A&P Assessment and plan (1) Closed fracture of lateral condyle of femur: Patient remains under workup from the medical service for clearance to proceed with open reduction internal fixation of her right distal femur fracture. This will require a larger lateral incision from the knee to approximately mid thigh. There is concern regarding anticoagulation, but this will be further determined after cardiology has finished their workup. At this point, orthopedics is in a holding pattern regarding fixation of the fracture. Patient is more alert today, and understands that we will not be proceeding with surgery today. Qualifiers: Encounter type: initial encounter Fracture alignment: displaced L aterality: left Qualified Code(s): S72.422A - Displaced fracture of lateral condyle of left femur, initial encounter for closed fracture Attestations 2 Medical Necessity Statement*: Per hospitalist team and medical service. Coding Level of Care Code Acute Code for [facility] Diagnoses Closed displaced fracture of lateral condyle of left femur, initial encounter S72.422A Encounter type: initial encounter Fracture alignment: displaced Laterality: left
--- NOTE | 2024-07-13 13:30 | PM.PN ---
Subjective Subjective: Patient was seen this morning, she is alert to person, not to place, not to time, she is much more calm this morning, she is being fed dysphagia level 4 diet by nursing staff, she does follow commands, but is quite confused this morning her only complaint is left lower extremity pain Vitals/I&O/Wt Last Vital Signs Temp 98.8 F 07/13/24 10:36 Pulse 77 07/13/24 13:00 Resp 19 H 07/13/24 13:00 BP 153/79 07/13/24 13:00 Pulse Ox 98 07/13/24 13:00 O2 Del Method Room Air 07/13/24 13:00 O2 Flow Rate 1 07/11/24 05:56 07/12/24 07/13/24 07/13/24 22:59 06:59 14:59 Intake Total 1394.733 / 2079.533 128.633 / 2208.166 739.4 / 739.4 Output Total 850 / 850 Balance 1394.733 / -670.467 128.633 / -541.834 -110.6 / -110.6 Weight last 48 hrs Weight 71.5 kg Physical Exam Const: COMMON NORMALS: no acute distress ORIENTATION/CONSCIOUSNESS: Yes awake and Yes confused; not oriented to person and not oriented to time HENMT: OTHER: Hematoma just above the glabella, with bilateral orbital swelling, conjunctival injection Resp: COMMON NORMALS: normal respiratory effort, No retractions, No use of accessory muscles and clear to auscultation bilaterally AUSCULTATION: clear to auscultation bilaterally Cardio: COMMON NORMALS: regular rate, regular rhythm, S1 normal heart sound present and S2 normal heart sound present RATE: regular rate RHYTHM: regular rhythm HEART SOUNDS: S1 normal heart sound present and S2 normal heart sound present GI: COMMON NORMALS: Normal to inspection, nondistended, normoactive bowel sounds present Extremity: OTHER: Left lower extremity, pain in tenderness at distal femur, DP PT pulses palpable bilateral extremity Neuro: SENSORIUM/ORIENTATION: No oriented to person and No oriented to time Psych: COMMON NORMALS: mental status grossly normal Urinary Catheter Management: Harper: Cath Placed During This Visit: yes Reason for Continuing Indwelling Catheter: Accurate Measurement of Urinary Output in Critically Ill Patients Urinary Catheter Date of Insertion: 07/11/24 Urinary Catheter Time of Insertion: 13:07 Data 07/13/24 01:35 07/13/24 01:35 A&P Assessment and plan (1) Fall: Qualifiers: Encounter type: initial encounter Qualified Code(s): W19.XXXA - Unspecified fall, initial encounter (2) CVA (cerebral vascular accident): (3) Hypertension: Qualifiers: Hypertension type: primary hypertension Qualified Code(s): I10 - Essential (primary) hypertension (4) NSTEMI (non-ST elevated myocardial infarction): (5) Acute on chronic anemia: (6) Fracture, femur, distal: (7) Fluid overload: (8) Acute encephalopathy: Plan Fall -CT left knee 1. Limited evaluation of the LEFT knee due to difficulty positioning the patient. 2. There is a vertical fracture extending through the distal femur which extends intra-articular and along the anterior surface. No significant displacement. Plan -Orthopedic service on consult -Morphine for pain control -Continue heparin for DVT prophylaxis -Zofran for nausea Scalp hematoma, periorbital hematoma -Associated with fall -CT head CT/CT head wo con* [id number] IMPRESSION: 1. No acute intracranial hemorrhage or edema. 2. Moderate small vessel ischemic disease with multiple lacunar infarcts in the posterior fossa and vonda. 3. Large acute scalp hematoma centered over the forehead. 4. No skull fracture. -Monitor as patient is on heparin drip Back pain CT lumbar spine CT/CT lumbar spine wo con* [id number] IMPRESSION: 1. Status post L5-S1 fusion. Lucency surrounding the L5 pedicle screws can be seen with loosening. 2. Severe L1 compression fracture with 5 mm of retropulsion, stable since 2020. 3. No acute lumbar spine fracture. 4. L4-5: Moderate central, bilateral subarticular recess and foraminal stenosis. 5. L5-S1: Severe bilateral foraminal stenosis. Large posterior laminectomy defect. 6. L3-4: Mild central, bilateral subarticular recess and foraminal stenosis. CT cervical spine CT/CT cervical spin wo con* [id number] IMPRESSION: 1. No acute cervical spine fracture. 2. Chronic burst fracture at C7 is unchanged. 3. No facet joint malalignment or subluxation. NSTEMI -No chest pain complaints -Baseline troponin 120, positive delta troponin, 6-hour troponin [address] depressions in lateral leads, troponins as high as 217 -Serial EKGs, serial troponins, telemetry monitoring -Continue aspirin, statin -Cardiac echo CONCLUSIONS Normal left ventricular size and systolic function, EF 55%. No regional wall motion abnormalities. Grade I/IV diastolic dysfunction (abnormal relaxation filling pattern), normal to mildly elevated filling pressures. Estimated pulmonary artery peak systolic pressure 20 mmHg Trace pulmonary valve regurgitation. Mild mitral annular calcification. Thickened mitral valve. Trace to mild mitral valve regurgitation. There is no pericardial effusion. There are no intracardiac masses. -Recent history of cardiac cath November 2023 at [facility], was found to have proximal LAD is 30% stenosed, mid LAD 30% stenosis, mid circumflex 30% stenosed, distal circumflex 50% stenosis, RCA 70% stenosed with small vessel -Spoke with cardiology, plan on cardiac stress testing on Sunday -Hemoglobin stable -Continue heparin drip Leukocytosis, likely reactive, resolved Acute on chronic anemia, -Show evidence of iron deficiency anemia -Ferritin 24, iron 21, evidence of early iron deficiency anemia -Hemoglobin 7.0, status post 2 units PRBC, hemoglobin 10.3 -No bloody black stools -Monitor hemoglobin every 6 hours as patient is on a heparin drip -Protonix, Carafate Acute encephalopathy -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 Is more calm this morning, remains confused, -Does follow commands -Repeat head CT no acute findings -Zyprexa scheduled for agitation -Increase pain medication to Dilaudid -Neurochecks, aspiration precautions, History of CVA -Multi-infarct dementia -History of cerebellar stroke, right hemispheric stroke -Residual left-sided deficits, residual dysarthria -Monitor History of multiple falls Atrial fibrillation, currently on heparin drip Fluid overload CODE STATUS, DNR/DNI based upon paperwork in the chart, my discussion with the patient 07/12/2024 Attestations Medical Necessity Statement*: Plan for today keep n.p.o. over midnight cardiac stress test tomorrow morning monitor mentation, continue heparin drip Diagnoses Fall W19.XXXA Encounter type: initial encounter CVA (cerebral vascular accident) I63.9 Primary hypertension I10 Hypertension type: primary hypertension NSTEMI (non-ST elevated myocardial infarction) I21.4 Acute on chronic anemia D64.9 Fracture, femur, distal S72.409A Fluid overload E87.70 Acute encephalopathy G93.40
--- NOTE | 2024-07-13 14:04 | PM.PN ---
Subjective Subjective: Patient seems to be more alert today. Denies any chest pain or chest tightness. No unusual shortness of breath. Vital signs seems to be stable. No significant arrhythmias on the monitor. Medications: Medication Review Details: Current Medications Acetaminophen (Acetaminophen 325 Mg Tablet) 650 mg PO Q6H PRN PRN Reason: Mild/Mod Pain Or Temp >/= 101 Hydrocodone Bitart/Acetaminophen (Hydrocodone-Acetaminophen 5-325 Mg Tablet) 1 tab PO Q6H PRN PRN Reason: Pain Last Admin: 07/13/24 02:55 Dose: 1 tab Aspirin (Aspirin 81 Mg Ec Tablet) 81 mg PO DAILY [facility] Last Admin: 07/13/24 09:10 Dose: 81 mg Atorvastatin Calcium (Atorvastatin 40 Mg Tablet) 40 mg PO BEDTIME JUAN ANTONIO Last Admin: 07/12/24 20:18 Dose: 40 mg Carvedilol (Carvedilol 3.125 Mg Tablet) 3.125 mg PO BID [facility] Last Admin: 07/13/24 09:10 Dose: 3.125 mg Citalopram Hydrobromide (Citalopram 20 Mg Tablet) 20 mg PO DAILY [facility] Last Admin: 07/13/24 09:10 Dose: 20 mg Heparin Sodium (Porcine) (Heparin 5,000 Unit/Ml Inj 1 Ml) 0 unit IVP PRN PRN; Protocol PRN Reason: Heparin Weight Based Protocol -Subsequent Bolus Last Admin: 07/11/24 21:30 Dose: 1,400 unit Hydromorphone HCl (Hydromorphone 1 Mg/Ml Inj 1 Ml) 0.5 mg IVP Q4H PRN PRN Reason: PAIN Last Admin: 07/13/24 09:39 Dose: 0.5 mg Heparin Sodium/Sodium Chloride (Heparin Drip) 25,000 unit in 500 mls @ 0 mls/hr IV CONT JUAN ANTONIO; Protocol Last Titration: 07/13/24 10:19 Dose: 13.4 unit/kg/hr, 18 mls/hr Lanolin (Lanolin Oint 7 Gm) 1 applic TOPICAL PRN PRN PRN Reason: DRYNESS Last Admin: 07/12/24 22:19 Dose: 1 applic Levothyroxine Sodium (Levothyroxine 200 Mcg Tablet) 200 mcg PO QAM [facility] Last Admin: 07/13/24 07:20 Dose: 200 mcg Lorazepam (Lorazepam 2 Mg/Ml Inj 1 Ml) 1 mg IVP Q4H PRN PRN Reason: ANXIETY Olanzapine (Olanzapine 5 Mg Odt) 5 mg PO Q12H [facility] Last Admin: 07/13/24 09:26 Dose: 5 mg Ondansetron HCl (Ondansetron 2 Mg/Ml Sdv 2 Ml) 4 mg IVP Q8H PRN PRN Reason: vomiting, or N/V if npo Pantoprazole Sodium (Pantoprazole 40 Mg Sdv) 40 mg IVP Q24H [facility] Last Admin: 07/12/24 22:15 Dose: 40 mg Quetiapine Fumarate (Quetiapine 25 Mg Tablet) 25 mg PO BID [facility] Last Admin: 07/13/24 09:10 Dose: 25 mg Tamsulosin HCl (Tamsulosin 0.4 Mg Capsule) 0.4 mg PO DAILY [facility] Last Admin: 07/13/24 09:10 Dose: 0.4 mg Vitals/I&O/Wt Last Vital Signs Temp 98.8 F 07/13/24 10:36 Pulse 77 07/13/24 13:00 Resp 19 H 07/13/24 13:00 BP 153/79 07/13/24 13:00 Pulse Ox 98 07/13/24 13:00 O2 Del Method Room Air 07/13/24 13:00 O2 Flow Rate 1 07/11/24 05:56 07/12/24 07/13/24 07/13/24 22:59 06:59 14:59 Intake Total 1394.733 / 2079.533 128.633 / 2208.166 739.4 / 739.4 Output Total 850 / 850 Balance 1394.733 / -670.467 128.633 / -541.834 -110.6 / -110.6 Weight last 48 hrs Weight 157 lb 10.088 oz Physical Exam Narrative: GENERAL: The patient seems sleepy all the time with very limited communication. HEENT: Moderate pallor with no icterus or lymphadenopathy.Oral cavity: There are no mucous membrane lesions. NECK: Trachea appears to be central. No masses noted. No JVD or thyromegaly appreciated. RESPIRATORY: Chest is symmetrical. No intercostals muscle retraction or any accessory muscle activation. There is no chest wall tenderness. Breath sounds are heard bilaterally. No rales or rhonchi heard. No evidence of any consolidation. BREASTS: Deferred. HEART: The heart sounds are normal. No S3 or S4. No significant murmurs. No pericardial rub ABDOMEN: No vessel pulsations or distention. No tenderness. No organomegaly appreciated. Bowel sounds are normally heard. : Deferred. RECTAL: Deferred. LYMPHATIC: No lymphadenopathy noted in the neck. EXTREMITIES: No edema or cyanosis. No clubbing. MUSCULOSKELETAL: Left knee is flexed and somewhat extroverted. Tenderness with movements. SKIN: There are no significant rashes or ecchymosis NEUROPSYCHIATRIC: The patient is sedated. Responds at times to the questions by yes or no Urinary Catheter Management: Harper: Cath Placed During This Visit: yes Reason for Continuing Indwelling Catheter: Accurate Measurement of Urinary Output in Critically Ill Patients Urinary Catheter Date of Insertion: 07/11/24 Urinary Catheter Time of Insertion: 13:07 Data 07/13/24 01:35 07/13/24 01:35 Other Labs: Laboratory Last Values WBC 6.27 10^3/uL (3.29-11.43) 07/13/24 01:35 RBC 3.97 10^6/uL (3.85-5.65) 07/13/24 01:35 Hgb 10.30 g/dL (11.27-16.99) L 07/13/24 01:35 Hct 32.5 % (36-47) L 07/13/24 01:35 MCV 81.9 fl (85-98) L 07/13/24 01:35 MCH 25.9 pg (27-33) L 07/13/24 01:35 MCHC 31.7 g/dL (30-55) 07/13/24 01:35 RDW 15.6 % (12.1-15.1) H 07/13/24 01:35 Plt Count 184 10^3/cmm (157-399) 07/13/24 01:35 MPV 10.8 fL (7.4-10.4) H 07/13/24 01:35 Neut % (Auto) 61.2 % 07/13/24 01:35 Lymph % (Auto) 23.9 % 07/13/24 01:35 [place] % (Auto) 9.7 % 07/13/24 01:35 Eos % (Auto) 4.6 % 07/13/24 01:35 Baso % (Auto) 0.3 % 07/13/24 01:35 Neut # (Auto) 3.83 10^3/uL (1.8-7.7) 07/13/24 01:35 Lymph # (Auto) 1.5 10^3/uL (0.8-4.8) 07/13/24 01:35 [place] # (Auto) 0.6 10^3/uL (0.2-0.9) 07/13/24 01:35 Eos # (Auto) 0.3 10^3/uL (0.0-0.8) 07/13/24 01:35 Baso # (Auto) 0.0 10^3/uL (0.0-0.1) 07/13/24 01:35 Nucleated RBC % (auto) 0 % 07/13/24 01:35 Nucleated RBCs # 0.0 /100WBC 07/13/24 01:35 PT 14.80 SECONDS (12.1-14.9) 07/10/24 14:32 INR 1.13 (0.8-1.2) 07/10/24 14:32 APTT 48.0 SECONDS (23.9-36.7) H 07/13/24 08:55 Sodium 140 mmol/L (136-145) 07/13/24 01:35 Potassium 3.5 mmol/L (3.5-5.1) 07/13/24 01:35 Chloride 104 mmol/L (98-107) 07/13/24 01:35 Carbon Dioxide 27 mmol/L (22-29) 07/13/24 01:35 Anion Gap 12.5 (5-19) 07/13/24 01:35 BUN 18 mg/dL (8-23) 07/13/24 01:35 Creatinine 0.7 mg/dL (0.5-0.9) 07/13/24 01:35 GFR Calculation Not Reportable 07/13/24 01:35 Glucose 124 mg/dL (65-115) H 07/13/24 01:35 Estimat Average Glucose 151 07/10/24 14:32 Hemoglobin A1c 6.9 % (4.0-6.0) H 07/10/24 14:32 Calculated Osmolality 293 mOsm/kg (285-295) 07/13/24 01:35 Lactic Acid 2.0 mmol/L (0.5-2.2) 07/10/24 14:32 Calcium 8.9 mg/dL (8.5-10.5) 07/13/24 01:35 Phosphorus 3.9 mg/dL (2.5-4.5) 07/13/24 01:35 Magnesium 1.6 mg/dL (1.7-2.3) L 07/13/24 01:35 Iron 21 ug/dL (37-145) L 07/10/24 14:32 TIBC 291 mcg/dl 07/10/24 14:32 % Saturation 7.2 % (20-50) L 07/10/24 14:32 Unsat Iron Binding 270 ug/dL (112-347) 07/10/24 14:32 Ferritin 24 ng/mL (15-150) 07/10/24 14:32 Total Bilirubin 0.2 mg/dL (0.15-1.2) 07/10/24 09:15 AST 15 U/L (0-32) 07/10/24 09:15 ALT 16 U/L (0-33) 07/10/24 09:15 Alkaline Phosphatase 126 U/L (35-105) H 07/10/24 09:15 Troponin T 5th Gen ng/L 217 ng/L (0-10) H* 07/12/24 03:18 Troponin T Baseline 120 ng/L (0-10) H* 07/10/24 14:32 Troponin T 120 Minute 162.3 ng/L (0-10) H 07/10/24 16:32 Delta Troponin T 42.3 ABS# (0-10) H* 07/10/24 16:32 Troponin T Hi Sens 6Hr 162.3 ng/L (0-10) H 07/10/24 21:39 Troponin T Hi Sens 6Hr Delta 42.3 ng/L (0-12) H* 07/10/24 21:39 NT-Pro-B Natriuret Pep 1616 pg/mL (0-450) H 07/10/24 14:32 Total Protein 7.1 g/dL (6.6-8.7) 07/10/24 09:15 Albumin 3.9 g/dL (3.5-5.2) 07/10/24 09:15 Globulin 3.2 g/dL (1.3-4.6) 07/10/24 09:15 Procalcitonin 0.04 ng/mL (0-0.5) 07/10/24 14:32 TSH 0.01 uIU/mL (0.27-4.20) L 07/10/24 14:32 Urine Color Yellow (Yellow) 07/10/24 10:10 Urine Appearance Clear (CLEAR) 07/10/24 10:10 Urine pH 5.5 (5-7) 07/10/24 10:10 Ur Specific [place] 1.019 (1.005-1.030) 07/10/24 10:10 Urine Protein Negative (Negative) 07/10/24 10:10 Urine Glucose (UA) Negative (Normal) 07/10/24 10:10 Urine Ketones Negative (Negative) 07/10/24 10:10 Urine Blood Negative (Negative) 07/10/24 10:10 Urine Nitrate Negative (Negative) 07/10/24 10:10 Urine Bilirubin Negative (Negative) 07/10/24 10:10 Urine Urobilinogen 1.0 mg/dL (Negative) 07/10/24 10:10 Ur Leukocyte Esterase Negative (Negative) 07/10/24 10:10 Amorphous Sediment Not Reportable 07/10/24 10:10 Blood Type A Negative 07/10/24 14:32 Rho(D) Type Rh negative 07/10/24 14:32 Antibody Screen Negative 07/10/24 14:32 Crossmatch See Detail 07/10/24 14:32 A&P Assessment and plan (1) Elevated troponin: Elevated troponin T, could be related to a type I myocardial infarction. However because of the history of intermittent atrial fibrillation, a type II DE also is a consideration. This patient has a history of Atherosclerotic heart disease and elevated troponin T in the past. We reviewed the medical records from [facility]. Patient had the cardiac catheterization in November of 2023. She was found to have multiple lesions ranging anywhere from 30 to 50% in the left anterior descending and circumflex arteries. There is a 70% lesion in the mid RCA which was relatively small caliber vessel. It was opted to treat her medically at that time. We may go ahead and do a Myocardial perfusion imaging on Sunday. Based on the results of the above tests and the patient's clinical progress, further recommendations will be made. (2) Intermittent atrial fibrillation: Patient currently is on heparin. No bleeding complications so far. (3) Hypertension: Currently the blood pressure is under control. Qualifiers: Hypertension type: primary hypertension Qualified Code(s): I10 - Essential (primary) hypertension (4) Hyperlipidemia: May continue on the current medications. 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 (6) Anemia: this patient has a history of chronic anemia. Does not look like any active bleed at this point. Apparently it got worse since the admission. She had 2 units of blood transfusion. Currently the hemoglobin is around 10. The hemoglobin seems to be stable. No evidence of active bleed Qualifiers: Anemia type: other cause Other causes of anemia: other cause, not classified Qualified Code(s): D64.89 - Other specified anemias Plan Other problems are Femoral fracture Dementia Previous history of CVA with left-sided residual weakness Leukocytosis, possibly related to acute phase reactant Will continue on the current management. Lexiscan/sestamibi/sestamibi stress test tomorrow. Based on the results of the above tests and the patient's clinical progress, further recommendations will be made. Attestations Medical Necessity Statement*: Patient requires continued hospital stay for close monitoring and further management Coding Level of Care Code 43525 Diagnoses Elevated troponin R79.89 Intermittent atrial fibrillation I48.0 Primary hypertension I10 Hypertension type: primary hypertension Mixed hyperlipidemia E78.2 Hyperlipidemia type: mixed hyperlipidemia 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 Z86.73 Anemia due to other cause, not classified D64.89 Anemia type: other cause Other causes of anemia: other cause, not classified
[2024-07-13 15:13] LABS: Partial Thromboplastin Time 50.4 SECONDS (23.9-36.7)
--- NOTE | 2024-07-13 16:49 | PC.NURSE ---
Patient frequently removing foot pumps believing they are shoes. Reapplied, patient agreeable to wearing device.
[2024-07-13] MEDS: lanolin oint 7 gm 1 APPLIC TOPICAL (19:23)
[2024-07-13] MEDS: LORazepam 2 mg/mL INJ 1 mL 1 MG IVP (19:26)
[2024-07-13] MEDS: acetaminophen 325 mg Tablet 650 MG PO (19:35)
[2024-07-13] MEDS: atorvastatin 40 mg Tablet PO (20:26)
[2024-07-13] MEDS: pantoprazole 40 mg SDV IVP (21:41)
[2024-07-13 22:29] LABS: Partial Thromboplastin Time 43.7 SECONDS (23.9-36.7)
[2024-07-13] MEDS: heparin 5,000 unit/mL INJ 1 mL IVP (22:37)
[2024-07-14] VITALS (35 sets, daily range): BP systolic 104–173; BP diastolic 53–114; PULSE 52–101; RESP 13–24; TEMP 36.4–37; O2SAT 90–100; BMI 26.4
[2024-07-14 05:24] LABS: Partial Thromboplastin Time 98.8 SECONDS (23.9-36.7)
[2024-07-14] MEDS: levothyroxine 200 mcg Tablet PO (05:48)
[2024-07-14] MEDS: OLANZapine 5 mg ODT PO ×2 (07:32→19:58)
[2024-07-14] MEDS: LORazepam 2 mg/mL INJ 1 mL 1 MG IVP ×2 (07:41→16:24)
[2024-07-14] MEDS: HYDROmorphone 1 mg/mL INJ 1 mL 0.5 MG IVP ×3 (08:30→16:37)
[2024-07-14 08:39] LABS: Basophils % 0.3 %; Eosinophils # 0.2 10^3/uL (0.0-0.8); Eosinophils % 3.7 %; Hematocrit 34.6 % (36-47); Lymphocytes # 1.6 10^3/uL (0.8-4.8); Lymphocytes % 25.3 %; Mean Corpuscular HGB Conc 28.9 g/dL (30-55); Mean Corpuscular Volume 90.1 fl (85-98); Mean Platelet Volume 10.8 fL (7.4-10.4); Monocytes # 0.8 10^3/uL (0.2-0.9); Monocytes % 12.5 %; Neutrophils # 3.61 10^3/uL (1.8-7.7); Neutrophils % 57.7 %; Nucleated Red Blood Cells % 0 %; Platelet Count 197 10^3/cmm (157-399); Red Blood Count 3.84 10^6/uL (3.85-5.65); Red Cell Distribution Width 16.4 % (12.1-15.1); White Blood Count 6.25 10^3/uL (3.29-11.43)
[2024-07-14 09:02] LABS: Alanine Aminotransferase 9 U/L (0-33); Albumin Level 3.2 g/dL (3.5-5.2); Alkaline Phosphatase 90 U/L (35-105); Anion Gap 13.7 (5-19); Aspartate Amino Transferase 11 U/L (0-32); Blood Urea Nitrogen 16 mg/dL (8-23); Calcium 8.4 mg/dL (8.5-10.5); Carbon Dioxide 23 mmol/L (22-29); Chloride 105 mmol/L (98-107); Creatinine Clr Calc Pharmacy 55.5923; Globulin 3.1 g/dL (1.3-4.6); Glucose 116 mg/dL (65-115); Osmolality Calculated 288 mOsm/kg (285-295); Potassium 3.7 mmol/L (3.5-5.1); Sodium 138 mmol/L (136-145); Total Bilirubin 0.5 mg/dL (0.15-1.2); Total Protein 6.3 g/dL (6.6-8.7)
--- NOTE | 2024-07-14 09:05 | PC.NURSE ---
Patient in care of [facility] 0904, Patient transported via bed on room air.
--- NOTE | 2024-07-14 09:28 | PC.SOCIAL ---
IMM Update pg 2 of IMM Updated and reviewed w/ patient. Copy provided and copy dated, initialed and placed in chart.
[2024-07-14] MEDS: carvedilol 3.125 mg Tablet PO ×2 (09:40→19:59)
[2024-07-14] MEDS: heparin drip 25,000 UNIT/500 ML PREMIX 18 UNIT IV (09:40)
[2024-07-14] MEDS: tamsulosin 0.4 mg Capsule PO (09:40)
[2024-07-14] MEDS: aspirin 81 mg EC Tablet PO (09:40)
[2024-07-14] MEDS: quetiapine 25 mg Tablet PO ×2 (09:40→19:59)
[2024-07-14] MEDS: citalopram 20 mg Tablet PO (09:40)
--- NOTE | 2024-07-14 10:30 | XRR_ITS ---
PROCEDURE INFORMATION: Exam: XR Left Hip Exam date and time: 07/14/2024 10:58 AM Age: 78 years old Clinical indication: Injury or trauma; Fall; Blunt trauma (contusions or hematomas); Left; Hip; Additional info: Fall at snf TECHNIQUE: Imaging protocol: Radiologic exam of the left hip. Views: 2 or 3 views hip with pelvis when performed. COMPARISON: CT kidney stone [id number] 02/26/2024 11:18 AM FINDINGS: Bones/joints: No definite fracture or dislocation is appreciated. Bony mineralization is decreased. There is mild joint space narrowing. No large osteophytes are appreciated. Soft tissues: Unremarkable. XR/XR hip LT 2-3V wo/w pel* [id number] IMPRESSION: 1. No definite fracture identified.
[2024-07-14 12:20] LABS: Partial Thromboplastin Time 50.4 SECONDS (23.9-36.7)
--- NOTE | 2024-07-14 13:50 | PM.PN ---
Subjective Subjective: Patient is doing okay. Attempted the Myocardial perfusion imaging today. Because of the patient's leg position, she could not be positioned under the camera properly. For this reason, the test had to be canceled. Medications: Medication Review Details: Current Medications Acetaminophen (Acetaminophen 325 Mg Tablet) 650 mg PO Q6H PRN PRN Reason: Mild/Mod Pain Or Temp >/= 101 Last Admin: 07/13/24 19:35 Dose: 650 mg Hydrocodone Bitart/Acetaminophen (Hydrocodone-Acetaminophen 5-325 Mg Tablet) 1 tab PO Q6H PRN PRN Reason: Pain Last Admin: 07/13/24 20:30 Dose: 1 tab Aminophylline (Aminophylline 25 Mg/Ml Sdv 10 Ml) 25 mg IVP Q2M PRN PRN Reason: see dose instructions Stop: 07/15/24 08:40 Aspirin (Aspirin 81 Mg Ec Tablet) 81 mg PO DAILY JUAN ANTONIO Last Admin: 07/14/24 09:40 Dose: 81 mg Atorvastatin Calcium (Atorvastatin 40 Mg Tablet) 40 mg PO BEDTIME JUAN ANTONIO Last Admin: 07/13/24 20:26 Dose: 40 mg Carvedilol (Carvedilol 3.125 Mg Tablet) 3.125 mg PO BID JUAN ANTONIO Last Admin: 07/14/24 09:40 Dose: 3.125 mg Citalopram Hydrobromide (Citalopram 20 Mg Tablet) 20 mg PO DAILY JUAN ANTONIO Last Admin: 07/14/24 09:40 Dose: 20 mg Heparin Sodium (Porcine) (Heparin 5,000 Unit/Ml Inj 1 Ml) 0 unit IVP PRN PRN; Protocol PRN Reason: Heparin Weight Based Protocol -Subsequent Bolus Last Admin: 07/13/24 22:37 Dose: 2,700 unit Hydromorphone HCl (Hydromorphone 1 Mg/Ml Inj 1 Ml) 0.5 mg IVP Q4H PRN PRN Reason: PAIN Last Admin: 07/14/24 13:08 Dose: 0.5 mg Heparin Sodium/Sodium Chloride (Heparin Drip) 25,000 unit in 500 mls @ 0 mls/hr IV CONT JUAN ANTONIO; Protocol Last Titration: 07/14/24 12:25 Dose: 14.14 unit/kg/hr, 19 mls/hr Lanolin (Lanolin Oint 7 Gm) 1 applic TOPICAL PRN PRN PRN Reason: DRYNESS Last Admin: 07/13/24 19:23 Dose: 1 applic Levothyroxine Sodium (Levothyroxine 200 Mcg Tablet) 200 mcg PO QAM [facility] Last Admin: 07/14/24 05:48 Dose: 200 mcg Lorazepam (Lorazepam 2 Mg/Ml Inj 1 Ml) 1 mg IVP Q4H PRN PRN Reason: ANXIETY Last Admin: 07/14/24 07:41 Dose: 1 mg Nitroglycerin (Nitroglycerin 0.4 Mg Sublingual Tablet) 0.4 mg SUBLINGUAL Q5M PRN PRN Reason: CHEST PAIN Stop: 07/15/24 08:40 Olanzapine (Olanzapine 5 Mg Odt) 5 mg PO BID@0800,1999 [facility] Last Admin: 07/14/24 07:32 Dose: 5 mg Ondansetron HCl (Ondansetron 2 Mg/Ml Sdv 2 Ml) 4 mg IVP Q8H PRN PRN Reason: vomiting, or N/V if npo Ondansetron HCl (Ondansetron 2 Mg/Ml Sdv 2 Ml) 4 mg IVP Q2M PRN PRN Reason: NAUSEA Pantoprazole Sodium (Pantoprazole 40 Mg Sdv) 40 mg IVP Q24H [facility] Last Admin: 07/13/24 21:41 Dose: 40 mg Quetiapine Fumarate (Quetiapine 25 Mg Tablet) 25 mg PO BID [facility] Last Admin: 07/14/24 09:40 Dose: 25 mg Regadenoson (Regadenoson 0.4 Mg/5 Ml Syringe) 0.4 mg IVP ONCE PRN PRN Reason: Lexiscan Stress Test Tamsulosin HCl (Tamsulosin 0.4 Mg Capsule) 0.4 mg PO DAILY [facility] Last Admin: 07/14/24 09:40 Dose: 0.4 mg Vitals/I&O/Wt Last Vital Signs Temp 97.6 F 07/14/24 08:00 Pulse 78 07/14/24 12:00 Resp 14 07/14/24 13:08 BP 151/78 07/14/24 12:00 Pulse Ox 100 07/14/24 13:08 O2 Del Method Room Air 07/14/24 12:00 O2 Flow Rate 1 07/11/24 05:56 07/13/24 07/14/24 07/14/24 22:59 06:59 14:59 Intake Total 547.317 / 1286.717 156.933 / 1443.650 114.25 / 114.25 Output Total 1150 / 2000 550 / 2550 550 / 550 Balance -602.683 / -713.283 -393.067 / -1106.350 -435.75 / -435.75 Weight last 48 hrs Weight 154 lb Physical Exam Narrative: GENERAL: The patient seems sleepy all the time with very limited communication. HEENT: Moderate pallor with no icterus or lymphadenopathy.Oral cavity: There are no mucous membrane lesions. NECK: Trachea appears to be central. No masses noted. No JVD or thyromegaly appreciated. RESPIRATORY: Chest is symmetrical. No intercostals muscle retraction or any accessory muscle activation. There is no chest wall tenderness. Breath sounds are heard bilaterally. No rales or rhonchi heard. No evidence of any consolidation. BREASTS: Deferred. HEART: The heart sounds are normal. No S3 or S4. No significant murmurs. No pericardial rub ABDOMEN: No vessel pulsations or distention. No tenderness. No organomegaly appreciated. Bowel sounds are normally heard. : Deferred. RECTAL: Deferred. LYMPHATIC: No lymphadenopathy noted in the neck. EXTREMITIES: No edema or cyanosis. No clubbing. MUSCULOSKELETAL: Left knee is flexed and somewhat extroverted. Tenderness with movements. SKIN: There are no significant rashes or ecchymosis NEUROPSYCHIATRIC: The patient is sedated. Responds at times to the questions by yes or no Urinary Catheter Management: Harper: Cath Placed During This Visit: yes Reason for Continuing Indwelling Catheter: Accurate Measurement of Urinary Output in Critically Ill Patients Urinary Catheter Date of Insertion: 07/11/24 Urinary Catheter Time of Insertion: 13:07 Data 07/14/24 04:49 07/14/24 04:49 Other Labs: Laboratory Last Values WBC 6.25 10^3/uL (3.29-11.43) 07/14/24 04:49 RBC 3.84 10^6/uL (3.85-5.65) L 07/14/24 04:49 Hgb 10.00 g/dL (11.27-16.99) L 07/14/24 04:49 Hct 34.6 % (36-47) L 07/14/24 04:49 MCV 90.1 fl (85-98) 07/14/24 04:49 MCH 26.0 pg (27-33) L 07/14/24 04:49 MCHC 28.9 g/dL (30-55) L D 07/14/24 04:49 RDW 16.4 % (12.1-15.1) H 07/14/24 04:49 Plt Count 197 10^3/cmm (157-399) 07/14/24 04:49 MPV 10.8 fL (7.4-10.4) H 07/14/24 04:49 Neut % (Auto) 57.7 % 07/14/24 04:49 Lymph % (Auto) 25.3 % 07/14/24 04:49 [place] % (Auto) 12.5 % 07/14/24 04:49 Eos % (Auto) 3.7 % 07/14/24 04:49 Baso % (Auto) 0.3 % 07/14/24 04:49 Neut # (Auto) 3.61 10^3/uL (1.8-7.7) 07/14/24 04:49 Lymph # (Auto) 1.6 10^3/uL (0.8-4.8) 07/14/24 04:49 [place] # (Auto) 0.8 10^3/uL (0.2-0.9) 07/14/24 04:49 Eos # (Auto) 0.2 10^3/uL (0.0-0.8) 07/14/24 04:49 Baso # (Auto) 0.0 10^3/uL (0.0-0.1) 07/14/24 04:49 Nucleated RBC % (auto) 0 % 07/14/24 04:49 Nucleated RBCs # 0.0 /100WBC 07/14/24 04:49 PT 14.80 SECONDS (12.1-14.9) 07/10/24 14:32 INR 1.13 (0.8-1.2) 07/10/24 14:32 APTT 50.4 SECONDS (23.9-36.7) H 07/14/24 11:36 Sodium 138 mmol/L (136-145) 07/14/24 04:49 Potassium 3.7 mmol/L (3.5-5.1) 07/14/24 04:49 Chloride 105 mmol/L (98-107) 07/14/24 04:49 Carbon Dioxide 23 mmol/L (22-29) 07/14/24 04:49 Anion Gap 13.7 (5-19) 07/14/24 04:49 BUN 16 mg/dL (8-23) 07/14/24 04:49 Creatinine 0.6 mg/dL (0.5-0.9) 07/14/24 04:49 GFR Calculation Not Reportable 07/14/24 04:49 Glucose 116 mg/dL (65-115) H 07/14/24 04:49 Estimat Average Glucose 151 07/10/24 14:32 Hemoglobin A1c 6.9 % (4.0-6.0) H 07/10/24 14:32 Calculated Osmolality 288 mOsm/kg (285-295) 07/14/24 04:49 Lactic Acid 2.0 mmol/L (0.5-2.2) 07/10/24 14:32 Calcium 8.4 mg/dL (8.5-10.5) L 07/14/24 04:49 Phosphorus 3.9 mg/dL (2.5-4.5) 07/13/24 01:35 Magnesium 1.6 mg/dL (1.7-2.3) L 07/13/24 01:35 Iron 21 ug/dL (37-145) L 07/10/24 14:32 TIBC 291 mcg/dl 07/10/24 14:32 % Saturation 7.2 % (20-50) L 07/10/24 14:32 Unsat Iron Binding 270 ug/dL (112-347) 07/10/24 14:32 Ferritin 24 ng/mL (15-150) 07/10/24 14:32 Total Bilirubin 0.5 mg/dL (0.15-1.2) 07/14/24 04:49 AST 11 U/L (0-32) 07/14/24 04:49 ALT 9 U/L (0-33) 07/14/24 04:49 Alkaline Phosphatase 90 U/L (35-105) 07/14/24 04:49 Troponin T 5th Gen ng/L 217 ng/L (0-10) H* 07/12/24 03:18 Troponin T Baseline 120 ng/L (0-10) H* 07/10/24 14:32 Troponin T 120 Minute 162.3 ng/L (0-10) H 07/10/24 16:32 Delta Troponin T 42.3 ABS# (0-10) H* 07/10/24 16:32 Troponin T Hi Sens 6Hr 162.3 ng/L (0-10) H 07/10/24 21:39 Troponin T Hi Sens 6Hr Delta 42.3 ng/L (0-12) H* 07/10/24 21:39 NT-Pro-B Natriuret Pep 1616 pg/mL (0-450) H 07/10/24 14:32 Total Protein 6.3 g/dL (6.6-8.7) L 07/14/24 04:49 Albumin 3.2 g/dL (3.5-5.2) L 07/14/24 04:49 Globulin 3.1 g/dL (1.3-4.6) 07/14/24 04:49 Procalcitonin 0.04 ng/mL (0-0.5) 07/10/24 14:32 TSH 0.01 uIU/mL (0.27-4.20) L 07/10/24 14:32 Urine Color Yellow (Yellow) 07/10/24 10:10 Urine Appearance Clear (CLEAR) 07/10/24 10:10 Urine pH 5.5 (5-7) 07/10/24 10:10 Ur Specific [place] 1.019 (1.005-1.030) 07/10/24 10:10 Urine Protein Negative (Negative) 07/10/24 10:10 Urine Glucose (UA) Negative (Normal) 07/10/24 10:10 Urine Ketones Negative (Negative) 07/10/24 10:10 Urine Blood Negative (Negative) 07/10/24 10:10 Urine Nitrate Negative (Negative) 07/10/24 10:10 Urine Bilirubin Negative (Negative) 07/10/24 10:10 Urine Urobilinogen 1.0 mg/dL (Negative) 07/10/24 10:10 Ur Leukocyte Esterase Negative (Negative) 07/10/24 10:10 Amorphous Sediment Not Reportable 07/10/24 10:10 Blood Type A Negative 07/10/24 14:32 Rho(D) Type Rh negative 07/10/24 14:32 Antibody Screen Negative 07/10/24 14:32 Crossmatch See Detail 07/10/24 14:32 A&P Assessment and plan (1) Elevated troponin: Elevated troponin T, could be related to a type I myocardial infarction. However because of the history of intermittent atrial fibrillation, a type II RI also is a consideration. This patient has a history of Atherosclerotic heart disease and elevated troponin T in the past. We reviewed the medical records from [facility]. Patient had the cardiac catheterization in November of 2023. She was found to have multiple lesions ranging anywhere from 30 to 50% in the left anterior descending and circumflex arteries. There is a 70% lesion in the mid RCA which was relatively small caliber vessel. It was opted to treat her medically at that time. In view of the non-ST elevation myocardial infarction and the fact that we could not do the stress test, it may be appropriate to go ahead with an angiogram. This was discussed with the patient's daughter who consented for the patient. Verbal consent was obtained (2) Intermittent atrial fibrillation: Patient currently is on heparin. No bleeding complications so far. (3) Hypertension: Currently the blood pressure is under control. Qualifiers: Hypertension type: primary hypertension Qualified Code(s): I10 - Essential (primary) hypertension (4) Hyperlipidemia: May continue on the current medications. 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 (6) Anemia: this patient has a history of chronic anemia. Does not look like any active bleed at this point. Apparently it got worse since the admission. She had 2 units of blood transfusion. Currently the hemoglobin is around 10. The hemoglobin seems to be stable. No evidence of active bleed Qualifiers: Anemia type: other cause Other causes of anemia: other cause, not classified Qualified Code(s): D64.89 - Other specified anemias Plan Other problems are Femoral fracture Dementia Previous history of CVA with left-sided residual weakness Leukocytosis, improved Patient was somewhat agitated earlier today. Dr. [place] prescribed some sedation. Patient seems to be calm at this time. Will plan to do the angiogram this evening. Based on the angiogram findings, further recommendations will be made. Attestations Medical Necessity Statement*: Patient need to stay in the hospital for further evaluation and management Coding Level of Care Code 35094 Diagnoses Elevated troponin R79.89 Intermittent atrial fibrillation I48.0 Primary hypertension I10 Hypertension type: primary hypertension Mixed hyperlipidemia E78.2 Hyperlipidemia type: mixed hyperlipidemia 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 Z86.73 Anemia due to other cause, not classified D64.89 Anemia type: other cause Other causes of anemia: other cause, not classified
[2024-07-14] MEDS: HYDROcodone-acetaminophen 5-325 mg Tablet 1 TAB PO ×2 (15:12→22:58)
--- NOTE | 2024-07-14 16:13 | P.PN_ITS ---
Subjective 2 Subjective: - Patient was seen this morning -Patient is alert to person, not to plac e, not to time, she follows commands, -Patient was unable to tolerate her stre ss test, after an attempts, she did receive sedating medications such as Dilaudid for pain, her morning Zyprexa, -Spoke to cardiology about the next opti ons available, plans on coronary angiography hopefully today, attempts are being made to reach out to patient's daughter for consent -Patient was reexamined, in ICU in the a [facility], she alert to person, not to place, to time she has no complaints, she is normotensive, on room air, she is pleasant, she can follow commands at times and at the time she is confused, had a detailed discussion with her about coronary angiography, but I cannot gauge that she understands the significance of this information will have to get consent from patient's next of kin, daughter Vitals/I&O/Wt Last Vital Signs Temp 97.6 F 07/14/24 08:00 Pulse 91 07/14/24 14:41 Resp 19 H 07/14/24 14:00 BP 157/114 07/14/24 14:00 Pulse Ox 100 07/14/24 13:08 O2 Del Method Room Air 07/14/24 13:00 O2 Flow Rate 1 07/11/24 05:56 07/14/24 07/14/24 07/14/24 06:59 14:59 22:59 Intake Total 156.933 / 1443.650 114.25 / 114.25 Output Total 550 / 2550 550 / 550 Balance -393.067 / -1106.350 -435.75 / -435.75 Weight last 48 hrs Weight 69.853 kg Physical Exam 2 Const: COMMON NORMALS: no acute distress ORIENTATION/CONSCIOUSNESS: Yes awake and Yes oriented to person; not oriented to place and not oriented to time Eye: COMMON NORMALS: Equal, round and reactive pupils present PUPIL: Yes Equal, round and reactive pupils present Resp: COMMON NORMALS: normal respiratory effort, No retractions, No use of accessory muscles and clear to auscultation bilaterally AUSCULTATION: clear to auscultation bilaterally Cardio: COMMON NORMALS: regular rate, regular rhythm, S1 normal heart sound present and S2 normal heart sound present RATE: regular rate RHYTHM: r egular rhythm HEART SOUNDS: S1 normal heart sound present and S2 normal heart sound present GI: COMMON NORMALS: Normal to inspection, nondistended, normoactive bowel sounds present and non-tender Extremity: COMMON NORMALS: no pedal edema NARRATIVE EXTREMITY EXAM: Left knee slightly swollen, DP PT pulses palpable Neuro: SENSORIUM/ORIENTATION: Yes oriented to person, No oriented to place and No oriented to time Urinary Catheter Management: Harper: Cath Placed During This Visit: yes Reason for Continuing Indwelling Catheter: Accurate Measurement of Urinary Output in Critically Ill Patients Urinary Catheter Date of Insertion: 07/11/24 Urinary Catheter Time of Insertion: 13:07 Data 07/14/24 04:49 07/14/24 04:49 A&P Assessment and plan (1) Fall: Qualifiers: Encounter type: initial encounter Qualified Code(s): W19.XXXA - Unspecified fall, initial encounter (2) CVA (cerebral vascular accident): (3) Hypertension: Qualifiers: Hypertension type: primary hypertension Qualified Code(s): I10 - Essential (primary) hypertension (4) NSTEMI (non-ST elevated myocardial infarction): (5) Acute on chronic anemia: (6) Fracture, femur, distal: (7) Fluid overload: (8) Acute encephalopathy: Plan Fall -CT left knee 1. Limited evaluation of the LEFT knee due to difficulty positioning the patient. 2. There is a vertical fracture extending through the distal femur which extends intra-articular and along the anterior surface. No significant displacement. Plan -Orthopedic service on consult -Morphine for pain control -Continue heparin for DVT prophylaxis -Zofran for nausea Scalp hematoma, periorbital hematoma -Associated with fall -CT head CT/CT head wo con* [id number] IMPRESSION: 1. No acute intracranial hemorrhage or edema. 2. Moderate small vessel ischemic disease with multiple lacunar infarcts in the posterior fossa and vonda. 3. Large acute scalp hematoma centered over the forehead. 4. No skull fracture. -Monitor as patient is on heparin drip Back pain CT lumbar spine CT/CT lumbar spine wo con* [id number] IMPRESSION: 1. Status post L5-S1 fusion. Lucency surrounding the L5 pedicle screws can be seen with loosening. 2. Severe L1 compression fracture with 5 mm of retropulsion, stable since 2020. 3. No acute lumbar spine fracture. 4. L4-5: Moderate central, bilateral subarticular recess and foraminal stenosis. 5. L5-S1: Severe bilateral foraminal stenosis. Large posterior laminectomy defect. 6. L3-4: Mild central, bilateral subarticular recess and foraminal stenosis. CT cervical spine CT/CT cervical spin wo con* [id number] IMPRESSION: 1. No acute cervical spine fracture. 2. Chronic burst fracture at C7 is unchanged. 3. No facet joint malalignment or subluxation. NSTEMI -No chest pain complaints -Baseline troponin 120, positive delta troponin, 6-hour troponin [address] depressions in lateral leads, troponins as high as 217 -Serial EKGs, serial troponins, telemetry monitoring -Continue aspirin, statin -Cardiac echo CONCLUSIONS Normal left ventricular size and systolic function, EF 55%. No regional wall motion abnormalities. Grade I/IV diastolic dysfunction (abnormal relaxation filling pattern), normal to mildly elevated filling pressures. Estimated pulmonary artery peak systolic pressure 20 mmHg Trace pulmonary valve regurgitation. Mild mitral annular calcification. Thickened mitral valve. Trace to mild mitral valve regurgitation. There is no pericardial effusion. There are no intracardiac masses. -Recent history of cardiac cath November [address] [facility], was found to have proximal LAD is 30% stenosed, mid LAD 30% stenosis, mid circumflex 30% stenosed, distal circumflex 50% stenosis, RCA 70% stenosed with small vessel -Spoke with cardiology, could not tolerate cardiac stress testing today, will proceed with coronary angiography once consent is obtained from patient's daughter -Hemoglobin stable -Continue heparin drip Leukocytosis, likely reactive, resolved Acute on chronic anemia, -Show evidence of iron deficiency anemia -Ferritin 24, iron 21, evidence of early iron deficiency anemia -Hemoglobin 7.0, status post 2 units PRBC, hemoglobin 10. 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 Is more calm this morning, remains confused, -Does follow commands, is pleasant this morning -Repeat head CT no acute findings -Zyprexa scheduled for agitation -Increase pain medication to Dilaudid -Neurochecks, aspiration precautions, History of CVA -Multi-infarct dementia -History of cerebellar stroke, right hemispheric stroke -Residual left-sided deficits, residual dysarthria -Monitor History of multiple falls Atrial fibrillation, currently on heparin drip Fluid overload CODE STATUS, DNR/DNI based upon paperwork in the chart, my discussion with the patient 07/12/2024 Plan for today, stress testing unsuccessful, spoke to cardiology, plan on cardiac catheterization Attestations 2 Medical Necessity Statement*: Patient requires hospitalization for NSTEMI, left distal femur fracture proceeding with coronary angiography Diagnoses Fall W19.XXXA Encounter type: initial encounter CVA (cerebral vascular accident) I63.9 Primary hypertension I10 Hypertension type: primary hypertension NSTEMI (non-ST elevated myocardial infarction) I21.4 Acute on chronic anemia D64.9 Fracture, femur, distal S72.409A Fluid overload E87.70 Acute encephalopathy G93.40
--- NOTE | 2024-07-14 16:54 | XACV_ITS ---
Exam Room: 2 Ht: 163 cm Wt: 70 kg BSA: 1.79 m2 Gender: Female : 1945 Any Known Allergies: No known allergies Exam Priority: Routine Procedure(s): Procedure Description: Diagnostic procedure Procedure Description: PCI procedure Procedure Description: Left Heart Catheterization Procedure Description: Drug Eluting Coronary Stent Procedure Description: PTCA Procedure Description: Miscellaneous Procedure Description: ACT Procedure Description: Coronary Angiography Amado [place]; Diagnostic Cath Status: Urgent Diagnostic Findings * Left main is extremely short vessel which appears to have almost separate ostia for the left artery descending artery and circumflex artery. * The left anterior descending artery is a medium caliber vessel which appears to wraparound the LV apex memory. The proximal LAD was found around 40% tubular narrowing involving the ostium. 20 to 30% diffuse irregular narrowing was noted in the midsegment at the takeoff of the first and second diagonal and the first septal planning management it specialist. The mid and distal segment of the artery was found to have mild diffuse intimal irregularities. The first diagonal branch was found to have around 70 to 80% tubular narrowing proximally. The vessel appears to be of small to medium caliber. * The circumflex artery is a medium caliber vessel which appears to have mild diffuse disease proximally. The first obtuse marginal artery was found to be of equal caliber with no significant stenotic lesions. The mid left circumflex artery bifurcates terminally, giving off 2 PLV branches. Just before the bifurcation, the artery was found to have a 99% segmental lesion. One of the bifurcation branches was found to have around 60 to 70% stenotic lesions. * The right coronary artery is a nondominant, small caliber vessel with a high-grade lesion in the midsegment. PCI Status: Urgent PCI Indication: NSTE - ACS Interventional Findings * Procedure detail: We engaged left main artery with XB 3.5 guide catheter. IV heparin was administered to maintain anticoagulation. Run-through wire was used to cross the stenosis. We predilated the stenosis with 2.25 x 12 mm semicompliant balloon. This was followed by placement of 2.5 x 22 mm resolute [place] drug-eluting stent from mid left circumflex artery into OM 2/PLV. Small sized side branch has ostial narrowing. Will be treated medically.. * Mid Circumflex: 95-99 % stenosis treated with a AB TREK 2.25X12 RX BALLOON, and CHARLIE Singh COBY 2.5X22 HAN. 0% residual stenosis, DARIELA: 3 flow. Conclusions 1. 78-year-old female with a history of atherosclerotic heart diseas, presenting with a fall sustaining fracture of the left knee/femur. She had features of bhe-CR-[id number] myocardial infarction. A cardiac catheterization was recommended as part of the preop evaluation. Patient underwent left heart catheterization with left and right coronary angiogram today. The findings are as follows. 2. Extremely short left main with almost separate ostia for the left anterior descending artery and circumflex artery. Mild diffuse disease in the left anterior descending artery especially in the proximal to mid segment. Moderate to high-grade edition in a small to medium caliber diagonal vessel. LAD 9% lesion in the mid circumflex artery. 60 to 70% gnosis in one of the PLV branches at the ostium. Nondominant right coronary artery with a high-grade lesion of the mid segment. 3. I reviewed and discussed the cardiac catheterization data with Dr. Moran. It was thought to be appropriate to consider PCI of the circumflex artery lesions. Dr. Moran took over further management of this patient at this point. 4. S/p successful revascularization of mid left circumflex artery with 1 stent. 5. Mid Circumflex was treated with a Balloon, and Drug Eluting Stent. Recommendations * Dual antiplatelet therapy with aspirin and Plavix. * High intensity statin therapy. Interventional RX Recommendation: PCI w/o planned CABG Diagnostic RX Recommendation: PCI w/o planned CABG Anticoagulation: Heparin LV EDP: 14 mmHg Left Ventriculography Findings: * LV gram was not performed because they are concerned about dye overload. The LVEDP was 14 mmHg. Pressures Phase:Rest AO : 151 / 62 ( 102 ) @ 1:49:29 PM 145 / 60 ( 97 ) @ 1:49:29 PM 143 / 53 ( 84 ) @ 1:49:29 PM 132 / 64 ( 95 ) @ 1:49:29 PM 158 / 70 ( 111 ) @ 1:49:29 PM 126 / 55 ( 84 ) @ 6:55:00 PM LV : 138 / -5 / 14 @ 1:49:29 PM 150 / -6 / 17 @ 1:49:29 PM Valves Phase:DefaultPhase AV : 0.0 @ 6:49:29 PM AV Mean Gradient: 0.0 @ 6:49:29 PM 0.0 @ 6:49:29 PM Clinical Evaluation EBL: 5mL-10mL Procedural Details Procedure Consent Obtained. Admit Source: In Patient. Pre-Procedure Time Out. Identified patient by full name and date of as verbalized by the patient/guarantor. Does the consent match the physician's order: Yes. Accurate & Complete Informed Consent: Yes. Inpatient/Outpatient History & Physical on Chart: Yes. If H&P is completed, is and addenduem needed: No; If yes, is the addendum complete: N/A. Visualize and Verify Site with Patient/Guarantor: N/A. Relevant Radiology Images available: N/A. The risks, benefits, and alternatives of sedation and/or procedure were discussed by physician. The patient agrees to continue. Procedure started. [facility] Clinical Fraility Score: 7: Severely Frail. Correct patient, site and procedure confirmed by cath team. Current diagnosis: Pre-op clearance, Elevated troponin. Pt confused on arrival to electronic lab technician. Abnormal flexion and rotation of left hip due to fracture. Anesthesia called to electronic lab technician to assist with sedation of patient. IV Site on Arrival: 22 gauge in the right wrist. IV Site on Arrival: 18 gauge in the right anticubital. IV Fluids: 0.9% NaCl at KVO. 0 mL infused prior to electronic lab technician. Oxygen started at 4liters/min via nasal canula. right groin was prepped with chloroprep then draped in the usual sterile fashion. Physician notified. Baseline sample Acquired. HR: 77 BPM. Physician arrived. Physician scrubbed in. Immediate Pre-Procedure Time Out. Dr. Black administered 30mcg propofol and 1mg Versed for deeper sedation of patient. Correct Patient: Yes; Correct Procedure: Yes; Correct Site: Yes; Correct Patient Position: Yes; Correct Supplies: Yes; Dried Flammable Prep: Yes; Blood Products Available: No;. Lidocaine 1% infiltrated to the right groin. Arterial access obtained with micropuncture set. A 5 belizean JL4 catheter in over wire. Multiple views taken of left coronary artery. Catheter removed over the exchange wire. A 5 belizean JR4 catheter in over wire. EDP Sample taken: LV 138/-6,14; HR: 82 BPM; SpO2: 99%. Pullback taken: LV 150/-7,17; AO 151/62(102); Mean: 0mmHg, Peak to Peak: 0mmHg, SEP: 17sec/min; HR: 81 BPM; SpO2: 100%. Multiple views taken of right coronary artery. Catheter removed over the exchange wire. Dr. Moran arrived to lab to review cine films. Side port of sheath attached to Normal Saline flush at KVO to maintain patency. Patient's family updated. Dr. Moran scrubbed in to perform intervention. ACT drawn. Results 154 seconds. Therapeutic limits - pre-heparin administration 90-150 seconds and monitoring heparin during a vascular procedure >250 seconds. 6 belizean CLS 3 guide catheter was inserted over the wire. Runthrough guidewire was advanced through the guide catheter to lesion in the mid Circ. Balloon inserted to lesion in the mid Circ. Inflation number : 1 A AB TREK 2.25X12 RX BALLOON was prepped and advanced across the Mid CX , then inflated to 8 QUEENIE for 0:10 seconds. Inflation number: 2 The AB TREK 2.25X12 RX BALLOON was reinflated across the Mid CX, to 0 QUEENIE for 0:10 seconds. Inflation number: 3 The AB TREK 2.25X12 RX BALLOON was reinflated across the Mid CX, to 12 QUEENIE for 0:14 seconds. Balloon out. Results checked. Stent inserted to lesion in the mid Circ. Unable to advance stent. Undeployed stent out over wire. 6Fr Guideliner in over runthrough wire. Stent inserted to lesion in the mid Circ. Inflation Number : 4 A CHARILE Francisco COBY 2.5X22 HAN -Lot Number# [id number] EXP 12-28-2026 was prepped and advanced across the Mid CX. The stent was deployed at 12 QUEENIE for 0:15 seconds. Stent balloon out over wire. Guideliner out. Results checked. 2nd runthrough wire in through guide catheter to lesion in the distal circumflex. Unable to cross with wire. Both runthrough wires out. ACT drawn. Results 287 seconds. Therapeutic limits - pre-heparin administration 90-150 seconds and monitoring heparin during a vascular procedure >250 seconds. Guide catheter out over wire. A Right femoral angiogram was performed to determine safe placement of closure device. A Angio-Seal VIP ([facility]) was successful obtaining hemostatsis at the Right Femoral artery insertion site. EXP 01-28-2025. LOT # [id number]. Post Procedure: Pulses reassessed and unchanged. PERRLA. Strong, equal hand human capital manager bilaterally. No VTE prophylaxis required. Medication's Wasted: Heparin = 1,000 unit. Total IV fluids: 30 mL. Post-op diagnosis: Severe mid circumflex stenosis, status post PCI placement of 1 stent. Complications: None. Estimated blood loss: 5mL-10mL. Responsiveness - Normal response to verbal stimuli; alert and oriented, PERRLA. Airway - Unaffected, no intervention required; spontaneous ventilation. Circulation: W/N/L, pulses unchanged. Nausea/Vomiting: No. Procedure completed. Patient transferred by bed to ICU. Vital chart was stopped. Access Site Site: Right Femoral artery Sheath Size: 6 Fr Hemostasis Method: Angio-Seal VIP ([facility]) Hemostasis Success: Successful Procedure Medications Start: 6:03 PM Stop: 6:03 PM Medication: Fentanyl Amount: 25 mcg Route: I.V. Start: 6:15 PM Stop: 6:15 PM Medication: Heparin Amount: 5000 units Route: I.V. Start: 6:21 PM Stop: 6:21 PM Medication: Fentanyl Amount: 25 mcg Route: I.V. Start: 6:32 PM Stop: 6:32 PM Medication: Fentanyl Amount: 25 mcg Route: I.V. Start: 6:43 PM Stop: 6:43 PM Medication: Fentanyl Amount: 25 mcg Route: I.V. Start: 6:23 PM Stop: 6:23 PM Medication: Versed Amount: 1 mg Route: I.V. Start: 6:46 PM Stop: 6:46 PM Medication: Plavix Amount: 600 mg Route: P.O. I, the attending physician, have reviewed and verified all procedure medications. Yes, all medications given per verbal order History/Risk Factors Hypertension: Yes Dyslipidemia: Yes Peripheral Arterial Disease (PAD): No Myocardial Infarction (HI): No Obesity: No Renal Disease: No Tobacco Use: Never Prior Interventions PCI: No CABG: No Valve Surgery: No Report Signatures Interventional Workflow Finalized by Phuc Moran MD on 07/15/2024 01:05 PM Diagnostic Workflow Finalized by Dr Jesenia Fischer MD [facility] on 07/14/2024 11:59 PM
[2024-07-14] MEDS: haloperidol inj 5 mg/mL INJ 1 mL 1 MG IM ×2 (17:01→19:32)
--- NOTE | 2024-07-14 18:00 | P.MISC_ITS ---
Miscellaneous Note Purpose of Documentation: Sedation Assistance Note: Called to cathode ray tube salvage processor for assistance because staff was having difficulty positioning patient for a cardiac cath. She was not straightening her R leg to allow arterial access. She was already attached to EKG, BP, and Pulse ox. Nasal cannula O2 at 4 L per min. A single propofol 30 mg IV bolus and midazolam 1 mg IV was administered and patient immediately relaxed the leg down. Patient continued to stay in this position for the next several minutes and tolerated incision with no airway obstruciton. Management of sedation was then passed back to cardiac cath staff.
--- NOTE | 2024-07-14 19:17 | PC.NURSE ---
Addendum entered by Henna Garland RN 07/14/24 19:26: Dr. 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 leg straight. New order for 1mg Haldol IM ONCE NOW. Original Note: Back from Former Hand: Pt arrived from packing house laborer @1903. Continuos cardiac monitoring continued.
[2024-07-14] MEDS: atorvastatin 40 mg Tablet PO (19:59)
[2024-07-14 20:43] LABS: Partial Thromboplastin Time 159.8 SECONDS (23.9-36.7)
--- NOTE | 2024-07-14 20:52 | PC.NURSE ---
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 Critical ptt called @[address] Moran called @2045, new order to d/c heparin drip.
[2024-07-14] MEDS: pantoprazole 40 mg SDV IVP (23:06)
[2024-07-15] VITALS (53 sets, daily range): BP systolic 108–183; BP diastolic 51–117; PULSE 57–110; RESP 7–31; TEMP 36.7–37.1; O2SAT 87–100
--- NOTE | 2024-07-15 | XR_ITS ---
WS: [id number] XR femur LT min 2V* [id number] REASON FOR EXAM: OR PICS FINDINGS: Plate and screw fixation of lateral femoral condyle fracture. The surgical appliances are intact and in proper position and alignment. Fracture fragments are in good position and alignment. XR/XR femur LT min 2V* [id number] IMPRESSION: Distal left femur fracture with internal fixation as above.
[2024-07-15] MEDS: HYDROmorphone 1 mg/mL INJ 1 mL 0.5 MG IVP ×2 (02:33→19:50)
[2024-07-15 04:48] LABS: Basophils % 0.4 %; Eosinophils # 0.1 10^3/uL (0.0-0.8); Eosinophils % 1.6 %; Hematocrit 29.4 % (36-47); Lymphocytes # 1.1 10^3/uL (0.8-4.8); Lymphocytes % 14.8 %; Mean Corpuscular HGB Conc 31.3 g/dL (30-55); Mean Corpuscular Volume 83.1 fl (85-98); Mean Platelet Volume 10.3 fL (7.4-10.4); Monocytes # 0.8 10^3/uL (0.2-0.9); Monocytes % 11.5 %; Neutrophils # 5.21 10^3/uL (1.8-7.7); Neutrophils % 71.3 %; Nucleated Red Blood Cells % 0 %; Platelet Count 200 10^3/cmm (157-399); Red Blood Count 3.54 10^6/uL (3.85-5.65); Red Cell Distribution Width 16.4 % (12.1-15.1); White Blood Count 7.31 10^3/uL (3.29-11.43)
[2024-07-15 05:03] LABS: Anion Gap 13.6 (5-19); Blood Urea Nitrogen 14 mg/dL (8-23); Calcium 8.2 mg/dL (8.5-10.5); Carbon Dioxide 25 mmol/L (22-29); Chloride 105 mmol/L (98-107); Creatinine Clr Calc Pharmacy 55.5923; Glucose 118 mg/dL (65-115); Osmolality Calculated 292 mOsm/kg (285-295); Potassium 3.6 mmol/L (3.5-5.1); Sodium 140 mmol/L (136-145)
--- NOTE | 2024-07-15 09:28 | ECG_ITS ---
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
[2024-07-15] MEDS: aspirin 81 mg EC Tablet PO (09:29)
[2024-07-15] MEDS: OLANZapine 5 mg ODT PO ×2 (09:29→20:31)
[2024-07-15] MEDS: carvedilol 3.125 mg Tablet PO (09:30)
[2024-07-15] MEDS: quetiapine 25 mg Tablet PO (09:30)
[2024-07-15] MEDS: citalopram 20 mg Tablet PO (09:30)
[2024-07-15] MEDS: HYDROcodone-acetaminophen 5-325 mg Tablet 1 TAB PO (09:31)
[2024-07-15] MEDS: clopidogrel 75 mg Tablet PO (09:31)
[2024-07-15] MEDS: tamsulosin 0.4 mg Capsule PO (09:31)
--- NOTE | 2024-07-15 12:45 | P.PN_ITS ---
Subjective 2 Subjective: Patient underwent a cardiac catheterization yesterday. She was found to have a high-grade lesion in the mid circumflex artery for which she underwent PCI by Dr. Moran. Currently she is doing okay with no chest pain. Medications: Medication Review Details: Current Medications Acetaminophen (Acetaminophen 325 Mg Tablet) 650 mg PO Q6H PRN PRN Reason: Mild/Mod Pain Or Temp >/= 101 Last Admin: 07/13/24 19:35 Dose: 650 mg Hydrocodone Bitart/Acetaminophen (Hydrocodone-Acetaminophen 5-325 Mg Tablet) 1 tab PO Q6H PRN PRN Reason: Pain Last Admin: 07/15/24 09:31 Dose: 1 tab Aspirin (Aspirin 81 Mg Ec Tablet) 81 mg PO DAILY [facility] Last Admin: 07/15/24 09:29 Dose: 81 mg Atorvastatin Calcium (Atorvastatin 40 Mg Tablet) 40 mg PO BEDTIME [facility] Last Admin: 07/14/24 19:59 Dose: 40 mg Carvedilol (Carvedilol 3.125 Mg Tablet) 3.125 mg PO BID [facility] Last Admin: 07/15/24 09:30 Dose: 3.125 mg Citalopram Hydrobromide (Citalopram 20 Mg Tablet) 20 mg PO DAILY [facility] Last Admin: 07/15/24 09:30 Dose: 20 mg Clopidogrel Bisulfate (Clopidogrel 75 Mg Tablet) 75 mg PO DAILY [facility] Last Admin: 07/15/24 09:31 Dose: 75 mg Haloperidol Lactate (Haloperidol Inj 5 Mg/Ml Inj 1 Ml) 1 mg IM Q4H PRN PRN Reason: AGITATION Last Admin: 07/14/24 17:01 Dose: 1 mg Hydromorphone HCl (Hydromorphone 1 Mg/Ml Inj 1 Ml) 0.5 mg IVP Q4H PRN PRN Reason: PAIN Last Admin: 07/15/24 02:33 Dose: 0.5 mg Lanolin (Lanolin Oint 7 Gm) 1 applic TOPICAL PRN PRN PRN Reason: DRYNESS Last Admin: 07/13/24 19:23 Dose: 1 applic Levothyroxine Sodium (Levothyroxine 200 Mcg Tablet) 200 mcg PO QAM [facility] Last Admin: 07/15/24 06:19 Dose: Not Given Lorazepam (Lorazepam 2 Mg/Ml Inj 1 Ml) 1 mg IVP Q4H PRN PRN Reason: ANXIETY Last Admin: 07/14/24 16:24 Dose: 1 mg Olanzapine (Olanzapine 5 Mg Odt) 5 mg PO BID@08,1999 [facility] Last Admin: 07/15/24 09:29 Dose: 5 mg Ondansetron HCl (Ondansetron 2 Mg/Ml Sdv 2 Ml) 4 mg IVP Q8H PRN PRN Reason: vomiting, or N/V if npo Ondansetron HCl (Ondansetron 2 Mg/Ml Sdv 2 Ml) 4 mg IVP Q2M PRN PRN Reason: NAUSEA Pantoprazole Sodium (Pantoprazole 40 Mg Sdv) 40 mg IVP Q24H [facility] Last Admin: 07/14/24 23:06 Dose: 40 mg Quetiapine Fumarate (Quetiapine 25 Mg Tablet) 25 mg PO BID [facility] Last Admin: 07/15/24 09:30 Dose: 25 mg Regadenoson (Regadenoson 0.4 Mg/5 Ml Syringe) 0.4 mg IVP ONCE PRN PRN Reason: Lexiscan Stress Test Tamsulosin HCl (Tamsulosin 0.4 Mg Capsule) 0.4 mg PO DAILY [facility] Last Admin: 07/15/24 09:31 Dose: 0.4 mg Vitals/I&O/Wt Last Vital Signs Temp 98.8 F 07/15/24 07:00 Pulse 75 07/15/24 10:00 Resp 19 H 07/15/24 10:00 BP 150/81 07/15/24 10:00 Pulse Ox 93 07/15/24 10:00 O2 Del Method Nasal Cannula 07/15/24 10:00 O2 Flow Rate 3 07/15/24 10:00 07/14/24 07/15/24 07/15/24 22:59 06:59 14:59 Intake Total 125.5 / 239.75 Output Total 550 / 1100 300 / 1400 50 / 50 Balance -424.5 / -860.25 -300 / -1160.25 -50 / -50 Weight last 48 hrs Weight 145 lb 3.2 oz Weight 154 lb Physical Exam 2 Narrative: GENERAL: The patient seems sleepy all the time with very limited communication. HEENT: Moderate pallor with no icterus or lymphadenopathy.Oral cavity: There are no mucous membrane lesions. NECK: Trachea appears to be central. No masses noted. No JVD or thyromegaly appreciated. RESPIRATORY: Chest is symmetrical. No intercostals muscle retraction or any accessory muscle activation. There is no chest wall tenderness. Breath sounds are heard bilaterally. No rales or rhonchi heard. No evidence of any consolidation. BREASTS: Deferred. HEART: The heart sounds are normal. No S3 or S4. No significant murmurs. No pericardial rub ABDOMEN: No vessel pulsations or distention. No tenderness. No organomegaly appreciated. Bowel sounds are normally heard. : Deferred. RECTAL: Deferred. LYMPHATIC: No lymphadenopathy noted in the neck. EXTREMITIES: No edema or cyanosis. No clubbing. MUSCULOSKELETAL: Left knee is flexed and somewhat extroverted. Tenderness with movements. SKIN: There are no significant rashes or ecchymosis NEUROPSYCHIATRIC: The patient is sedated. Responds at times to the questions by yes or no Urinary Catheter Management: Harper: Cath Placed During This Visit: yes Reason for Continuing Indwelling Catheter: Accurate Measurement of Urinary Output in Critically Ill Patients Urinary Catheter Date of Insertion: 07/11/24 Urinary Catheter Time of Insertion: 13:07 Data 07/15/24 04:34 07/15/24 04:34 Other Labs: Laboratory Last Values WBC 7.31 10^3/uL (3.29-11.43) 07/15/24 04:34 RBC 3.54 10^6/uL (3.85-5.65) L 07/15/24 04:34 Hgb 9.20 g/dL (11.27-16.99) L 07/15/24 04:34 Hct 29.4 % (36-47) L 07/15/24 04:34 MCV 83.1 fl (85-98) L D 07/15/24 04:34 MCH 26.0 pg (27-33) L 07/15/24 04:34 MCHC 31.3 g/dL (30-55) D 07/15/24 04:34 RDW 16.4 % (12.1-15.1) H 07/15/24 04:34 Plt Count 200 10^3/cmm (157-399) 07/15/24 04:34 MPV 10.3 fL (7.4-10.4) 07/15/24 04:34 Neut % (Auto) 71.3 % 07/15/24 04:34 Lymph % (Auto) 14.8 % 07/15/24 04:34 [place] % (Auto) 11.5 % 07/15/24 04:34 Eos % (Auto) 1.6 % 07/15/24 04:34 Baso % (Auto) 0.4 % 07/15/24 04:34 Neut # (Auto) 5.21 10^3/uL (1.8-7.7) 07/15/24 04:34 Lymph # (Auto) 1.1 10^3/uL (0.8-4.8) 07/15/24 04:34 [place] # (Auto) 0.8 10^3/uL (0.2-0.9) 07/15/24 04:34 Eos # (Auto) 0.1 10^3/uL (0.0-0.8) 07/15/24 04:34 Baso # (Auto) 0.0 10^3/uL (0.0-0.1) 07/15/24 04:34 Nucleated RBC % (auto) 0 % 07/15/24 04:34 Nucleated RBCs # 0.0 /100WBC 07/15/24 04:34 PT 14.80 SECONDS (12.1-14.9) 07/10/24 14:32 INR 1.13 (0.8-1.2) 07/10/24 14:32 APTT 159.8 SECONDS (23.9-36.7) H* D 07/14/24 19:29 Sodium 140 mmol/L (136-145) 07/15/24 04:34 Potassium 3.6 mmol/L (3.5-5.1) 07/15/24 04:34 Chloride 105 mmol/L (98-107) 07/15/24 04:34 Carbon Dioxide 25 mmol/L (22-29) 07/15/24 04:34 Anion Gap 13.6 (5-19) 07/15/24 04:34 BUN 14 mg/dL (8-23) 07/15/24 04:34 Creatinine 0.6 mg/dL (0.5-0.9) 07/15/24 04:34 GFR Calculation Not Reportable 07/15/24 04:34 Glucose 118 mg/dL (65-115) H 07/15/24 04:34 Estimat Average Glucose 151 07/10/24 14:32 Hemoglobin A1c 6.9 % (4.0-6.0) H 07/10/24 14:32 Calculated Osmolality 292 mOsm/kg (285-295) 07/15/24 04:34 Lactic Acid 2.0 mmol/L (0.5-2.2) 07/10/24 14:32 Calcium 8.2 mg/dL (8.5-10.5) L 07/15/24 04:34 Phosphorus 3.9 mg/dL (2.5-4.5) 07/13/24 01:35 Magnesium 1.6 mg/dL (1.7-2.3) L 07/13/24 01:35 Iron 21 ug/dL (37-145) L 07/10/24 14:32 TIBC 291 mcg/dl 07/10/24 14:32 % Saturation 7.2 % (20-50) L 07/10/24 14:32 Unsat Iron Binding 270 ug/dL (112-347) 07/10/24 14:32 Ferritin 24 ng/mL (15-150) 07/10/24 14:32 Total Bilirubin 0.5 mg/dL (0.15-1.2) 07/14/24 04:49 AST 11 U/L (0-32) 07/14/24 04:49 ALT 9 U/L (0-33) 07/14/24 04:49 Alkaline Phosphatase 90 U/L (35-105) 07/14/24 04:49 Troponin T 5th Gen ng/L 217 ng/L (0-10) H* 07/12/24 03:18 Troponin T Baseline 120 ng/L (0-10) H* 07/10/24 14:32 Troponin T 120 Minute 162.3 ng/L (0-10) H 07/10/24 16:32 Delta Troponin T 42.3 ABS# (0-10) H* 07/10/24 16:32 Troponin T Hi Sens 6Hr 162.3 ng/L (0-10) H 07/10/24 21:39 Troponin T Hi Sens 6Hr Delta 42.3 ng/L (0-12) H* 07/10/24 21:39 NT-Pro-B Natriuret Pep 1616 pg/mL (0-450) H 07/10/24 14:32 Total Protein 6.3 g/dL (6.6-8.7) L 07/14/24 04:49 Albumin 3.2 g/dL (3.5-5.2) L 07/14/24 04:49 Globulin 3.1 g/dL (1.3-4.6) 07/14/24 04:49 Procalcitonin 0.04 ng/mL (0-0.5) 07/10/24 14:32 TSH 0.01 uIU/mL (0.27-4.20) L 07/10/24 14:32 Urine Color Yellow (Yellow) 07/10/24 10:10 Urine Appearance Clear (CLEAR) 07/10/24 10:10 Urine pH 5.5 (5-7) 07/10/24 10:10 Ur Specific [place] 1.019 (1.005-1.030) 07/10/24 10:10 Urine Protein Negative (Negative) 07/10/24 10:10 Urine Glucose (UA) Negative (Normal) 07/10/24 10:10 Urine Ketones Negative (Negative) 07/10/24 10:10 Urine Blood Negative (Negative) 07/10/24 10:10 Urine Nitrate Negative (Negative) 07/10/24 10:10 Urine Bilirubin Negative (Negative) 07/10/24 10:10 Urine Urobilinogen 1.0 mg/dL (Negative) 07/10/24 10:10 Ur Leukocyte Esterase Negative (Negative) 07/10/24 10:10 Amorphous Sediment Not Reportable 07/10/24 10:10 Blood Type A Negative 07/10/24 14:32 Rho(D) Type Rh negative 07/10/24 14:32 Antibody Screen Negative 07/10/24 14:32 Crossmatch See Detail 07/10/24 14:32 A&P Assessment and plan (1) Elevated troponin: Patient had a cardiac catheterization yesterday. She was found to have 99% stenosis of the mid to distal circumflex artery. She underwent PCI by Dr. Moran. She had an uneventful postprocedure course. Please refer to the PCI report by Dr. Moran for details. The categorization revealed mild disease in the left and descending artery. The right coronary artery was nondominant with a high-grade lesion of the mid segment.. Please refer to the cardiac catheter report by me from yesterday (2) Intermittent atrial fibrillation: Currently she is remaining in sinus rhythm. (3) Hypertension: Currently the blood pressure is under control. Qualifiers: Hypertension type: primary hypertension Qualified Code(s): I10 - Essential (primary) hypertension (4) Hyperlipidemia: May continue on the current medications. 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 (6) Anemia: The hemoglobin seems to be stable Qualifiers: Anemia type: other cause Other causes of anemia: other cause, not classified Qualified Code(s): D64.89 - Other specified anemias Plan Other problems are Femoral fracture Dementia Previous history of CVA with left-sided residual weakness Leukocytosis, improved Patient seems to be stable of myocardial standpoint. She may go ahead with the proposed surgery, if it can be done without stopping the Plavix. Discussed with Dr. [place] Attestations 2 Medical Necessity Statement*: Deferred to the primary attending Coding Level of Care Code Acute Code for [facility] Fwd Diagnoses Elevated troponin R79.89 Intermittent atrial fibrillation I48.0 Primary hypertension I10 Hypertension type: primary hypertension Mixed hyperlipidemia E78.2 Hyperlipidemia type: mixed hyperlipidemia 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 Z86.73 Anemia due to other cause, not classified D64.89 Anemia type: other cause Other causes of anemia: other cause, not classified
--- NOTE | 2024-07-15 12:51 | P.ANESUD_ITS ---
Pre-Anesthetic Update Pre-Anesthetic Assessment: Date of Surgery/Procedure: 07/15/24 Proposed Procedure: Operation Date: 07/10/24 17:00 Proposed Procedures p ORIF Femur(Left) - Marie Castro MD Operation Date: 07/14/24 17:00 Proposed Procedures p Cardiac Catheterization(Not Applicable) - Jesenia Fischer MD Operation Date: 07/15/24 17:40 Proposed Procedures p ORIF Left Distal Femur(Left) - Marie Castro MD Any changes to Pre-Anesthetic Assessment?: Yes Changes from Pre- Anesthetic Assessment: Patient found to have high grade coronary leesion, stent placed last night Last Intake: > 8 hrs Labs Last 48hrs: Short CBC 07/14/24 07/15/24 Range/Units 04:49 04:34 WBC 6.25 7.31 (3.29-11.43) 10^ 3/uL Hgb 10.00 L 9.20 L (11.27-16.99) g/ dL Hct 34.6 L 29.4 L (36-47) % MCV 90.1 83.1 L D (85-98) fl Plt Count 197 200 (157-399) 10^3/c mm Neut % (Auto) 57.7 71.3 % Neut # (Auto) 3.61 5.21 (1.8-7.7) 10^3/u L BMP 07/14/24 07/15/24 04:49 04:34 Sodium 138 140 Potassium 3.7 3.6 Chloride 105 105 Carbon Dioxide 23 25 BUN 16 14 Creatinine 0.6 0.6 Glucose 116 H 118 H Calcium 8.4 L 8.2 L Liver Function 07/14/24 Range/Units 04:49 Total Bilirubin 0.5 (0.15-1.2) mg/dL AST 11 (0-32) U/L ALT 9 (0-33) U/L Alkaline Phosphata se 90 (35-105) U/L Albumin 3.2 L (3.5-5.2) g/dL Coags 07/13/24 07/13/24 07/14/24 14:51 21:56 04:49 APTT 50.4 H 43.7 H 98.8 H D 07/14/24 07/14/24 11:36 19:29 APTT 50.4 H 159.8 H* D Vitals: Temperature 98.8 F 07/15/24 07:00 Temperature Source Axillary 07/15/24 07:00 Pulse Rate 75 07/15/24 10:00 Pulse Rhythm Regular 07/14/24 20:00 Pulse Strength 3+ Normal 07/15/24 08:00 Respiratory Rate 19 H 07/15/24 10:00 Respiratory Effort Spontaneous, Non- Labored 07/15/24 08:00 Respiratory Depth Normal 07/15/24 08:00 Respiratory Patter n Normal 07/14/24 16:37 Blood Pressure 150/81 07/15/24 10:00 Blood Pressure Gisell n 104 07/15/24 10:00 Blood Pressure Pos ition Semi Fowlers 07/15/24 10:00 Pulse Oximetry 93 07/15/24 10:00 Oxygen Delivery Me thod Nasal Cannula 07/15/24 10:00 Oxygen Flow Rate 3 07/15/24 10:00 Sepsis Recent Feve r Within 48 Hours No 07/10/24 09:28 Exam: Pre-Anes Outpt Exam: alert, clear to auscultation bilaterally and regular rate & rhythm Cardiac Studies: Echocardiogram 07/10/24 Echocardiogram Ultrasound 10/15/20
--- NOTE | 2024-07-15 14:15 | PM.MISC ---
Miscellaneous Note Purpose of Documentation: Preop Note: The patient has been scheduled for open reduction internal fixation left distal femur fracture. She has been in the intensive care unit. I spoke at length with her daughter today once again getting consent. I also spoke with the cardiology service and the hospitalist team, and she is ready to proceed.
[2024-07-15] MEDS: ceFAZolin 2,000 mg SDV 2000 MG IVP (14:37)
[2024-07-15] MEDS: ceFAZolin 1,000 mg SDV 1000 MG IRRIGATION (15:27)
--- NOTE | 2024-07-15 16:25 | P.PN_ITS ---
Vitals/I&O/Wt Last Vital Signs Temp 98.5 F 07/15/24 13:00 Pulse 71 07/15/24 14:15 Resp 20 H 07/15/24 14:15 BP 129/84 07/15/24 14:15 Pulse Ox 97 07/15/24 14:15 O2 Del Method Room Air 07/15/24 14:15 O2 Flow Rate 3 07/15/24 10:00 07/15/24 07/15/24 07/15/24 06:59 14:59 22:59 Output Total 300 / 1400 200 / 200 Balance -300 / -1160.25 -200 / -200 Weight last 48 hrs Weight 65.862 kg Weight 69.853 kg Physical Exam 2 Const: COMMON NORMALS: alert EXAM LIMITATIONS: altered mental status O RIENTATION/CONSCIOUSNESS: Yes awake and Yes oriented to person; not oriented to place and not oriented to time Resp: COMMON NORMALS: normal respiratory effort, No retractions, No use of accessory muscles and clear to auscultation bilaterally AUSCULTATION: clear to auscultation bilaterally Cardio: COMMON NORMALS: regular rate, regular rhythm, S1 normal heart sound present and S2 normal heart sound present RATE: regular rate RHYTHM: r egular rhythm HEART SOUNDS: S1 normal heart sound present and S2 normal heart sound present GI: COMMON NORMALS: Normal to inspection, nondistended, normoactive bowel sounds present and non-tender Extremity: COMMON NORMALS: no pedal edema Neuro: SENSORIUM/ORIENTATION: Yes alert, Yes oriented to person, No oriented to place and No oriented to time Psych: COMMON NORMALS: mental status grossly normal Urinary Catheter Management: Harper: Cath Placed During This Visit: yes Reason for Continuing Indwelling Catheter: Accurate Measurement of Urinary Output in Critically Ill Patients Urinary Catheter Date of Insertion: 07/11/24 Urinary Catheter Time of Insertion: 13:07 Data 07/15/24 04:34 07/15/24 04:34 A&P Assessment and plan (1) Fall: Qualifiers: Encounter type: initial encounter Qualified Code(s): W19.XXXA - Unspecified fall, initial encounter (2) CVA (cerebral vascular accident): (3) Hypertension: Qualifiers: Hypertension type: primary hypertension Qualified Code(s): I10 - Essential (primary) hypertension (4) NSTEMI (non-ST elevated myocardial infarction): (5) Acute on chronic anemia: (6) Fracture, femur, distal: (7) Fluid overload: (8) Acute encephalopathy: Plan Fall -CT left knee 1. Limited evaluation of the LEFT knee due to difficulty positioning the patient. 2. There is a vertical fracture extending through the distal femur which extends intra-articular and along the anterior surface. No significant displacement. Plan -Orthopedic service on consult, plan surgical intervention today -Morphine for pain control -Continue heparin for DVT prophylaxis -Zofran for nausea Scalp hematoma, periorbital hematoma -Associated with fall -CT head CT/CT head wo con* [id number] IMPRESSION: 1. No acute intracranial hemorrhage or edema. 2. Moderate small vessel ischemic disease with multiple lacunar infarcts in the posterior fossa and vonda. 3. Large acute scalp hematoma centered over the forehead. 4. No skull fracture. -Monitor as patient is on heparin drip Back pain CT lumbar spine CT/CT lumbar spine wo con* [id number] IMPRESSION: 1. Status post L5-S1 fusion. Lucency surrounding the L5 pedicle screws can be seen with loosening. 2. Severe L1 compression fracture with 5 mm of retropulsion, stable since 2020. 3. No acute lumbar spine fracture. 4. L4-5: Moderate central, bilateral subarticular recess and foraminal stenosis. 5. L5-S1: Severe bilateral foraminal stenosis. Large posterior laminectomy defect. 6. L3-4: Mild central, bilateral subarticular recess and foraminal stenosis. CT cervical spine CT/CT cervical spin wo con* [id number] IMPRESSION: 1. No acute cervical spine fracture. 2. Chronic burst fracture at C7 is unchanged. 3. No facet joint malalignment or subluxation. NSTEMI -No chest pain complaints -Baseline troponin 120, positive delta troponin, 6-hour troponin [address] depressions in lateral leads, troponins as high as 217 -Serial EKGs, serial troponins, telemetry monitoring -Continue aspirin, statin -Cardiac echo CONCLUSIONS Normal left ventricular size and systolic function, EF 55%. No regional wall motion abnormalities. Grade I/IV diastolic dysfunction (abnormal relaxation filling pattern), normal to mildly elevated filling pressures. Estimated pulmonary artery peak systolic pressure 20 mmHg Trace pulmonary valve regurgitation. Mild mitral annular calcification. Thickened mitral valve. Trace to mild mitral valve regurgitation. There is no pericardial effusion. There are no intracardiac masses. -Recent history of cardiac cath November 2023 at [facility], was found to have proximal LAD is 30% stenosed, mid LAD 30% stenosis, mid circumflex 30% stenosed, distal circumflex 50% stenosis, RCA 70% stenosed with small vessel -Status post cardiac cath, stenting to left circumflex -Hemoglobin stable -Continue aspirin, Plavix, statin Leukocytosis, likely reactive, resolved Acute on chronic anemia, -Show evidence of iron deficiency anemia -Ferritin 24, iron 21, evidence of early iron deficiency anemia -Hemoglobin 7.0, status post 2 units PRBC, hemoglobin 10. 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 Is more calm this morning, remains confused, -Does follow commands, is pleasant this morning -Repeat head CT no acute findings -Zyprexa scheduled for agitation -Increase pain medication to Dilaudid -Neurochecks, aspiration precautions, History of CVA -Multi-infarct dementia -History of cerebellar stroke, right hemispheric stroke -Residual left-sided deficits, residual dysarthria -Monitor History of multiple falls Atrial fibrillation, currently on heparin drip Fluid overload CODE STATUS, DNR/DNI based upon paperwork in the chart, my discussion with the patient 07/12/2024 Plan for today, surgical intervention for patient's left distal femur fracture monitor hemoglobin and is on aspirin, Plavix as required to units PRBC, will consider anticoagulation therapy such has heparin drip given her atrial fibrillation versus Eliquis, depending on how she does postsurgically what her hemoglobin trend is, risk of bleeding, her hematoma of her scalp is looking a little bit more prominent today, bilateral and maxillary and periorbital and swelling, bruising, slightly worse today, this morning patient remains encephalopathic, she is alert to person, not to place, to time, she is pleasant this morning, her only complaint is left knee pain, she is n.p.o. over midnight, Attestations 2 Medical Necessity Statement*: Patient requires hospitalization, inpatient, greater than 2 midnights, for a left distal femur fracture, NSTEMI, status post stenting, acute encephalopathy Diagnoses Fall W19.XXXA Encounter type: initial encounter CVA (cerebral vascular accident) I63.9 Primary hypertension I10 Hypertension type: primary hypertension NSTEMI (non-ST elevated myocardial infarction) I21.4 Acute on chronic anemia D64.9 Fracture, femur, distal S72.409A Fluid overload E87.70 Acute encephalopathy G93.40
--- NOTE | 2024-07-15 16:43 | P.OP_ITS ---
Operative Report Date of procedure: July 15, 2024 Pre-op diagnosis: Left lateral femoral condylar fracture with displacement Post-op diagnosis: Left lateral femoral condylar fracture with displacement Post-op findings: Displaced left lateral femoral condylar fracture with early flexion contracture. Procedure done: Open reduction internal fixation left lateral femoral condyle fracture Implants: Chris distal femoral plate, 4-hole with locking and nonlocking screws Specimens removed/disposition: None Pathology: None Surgeon: Marie Castro MD Solvent Plant Treater: Summer Welch Solvent Plant Treater: Whose services were required for distraction, reduction of the fracture, positio sanchez, closure, and completion of the surgical procedure Anesthesia: General (Intubated, ASA 3) Estimated blood loss (mL): 10 Tourniquet time (min): 69 (At 250 mmHg) IV fluids (mL): 800 Urine output (mL): 50 Complications: None Findings: Displaced left lateral femoral condyle fracture with extension intra-articular and with significant preoperative valgus deformity and flexion contracture of the knee Condition: stable Disposition: PACU (Then return to the floor/ICU for postoperative rehabilitation) Brief History: This 78-year-old woman presented initially on July 10, 2020 for with diagnosis of a left femur lateral displaced condylar fracture. The patient initially was scheduled for surgery on the day of admission, however, she had cardiac issues including a change in troponins. For this reason, the patient was delayed from surgical procedure on July 10. Since that time, she has been awaiting cardiac clearance, and she has been in the intensive care unit. Risks and complications and plans for the surgery were discussed with the patient's daughter. Verbal consent was obtained. Consents were signed and questions were answered. Procedure: The patient was brought to the operating theater, and after undergoing adequate general anesthesia, intubated, ASA 3, the left lower extremity was prepped and draped in usual fashion following placement of a tourniquet high on the leg. The leg was then draped free with the prepping accomplished with DuraPrep. Following prepping and draping, the leg was exsanguinated, and the tourniquet was elevated to 250 mmHg for total tourniquet time of 69 minutes. Prior to elevation of the tourniquet the following exposure of the site of surgery, a surgical pause was performed. At the time of the surgical pause we confirmed the site and side of surgery. Additionally, we confirmed the appropriate and timely administration of preoperative antibiotics. The availability of equipment was confirmed, and the patient's identity was verbalized as well. Following the surgical pause, fluoroscopy was utilized to determine appropriate placement of the incision. Proximal distal aspects of the fracture were identified. Distal femur was identified, and the chosen plate was placed in position so that we could lucio the proximal extent of the plate. Once this was accomplished, the leg was exsanguinated as noted above. Tourniquet was elevated. During the surgical procedure, we were able to remove the valgus deformity that the patient presented with and also extend the leg fully as the flexion contracture became less prominent. Incision was made in appropriate position for placement of the distal femoral plate. Dissection continued to skin and soft tissue using a scalpel hemostasis was obtained using electrocautery. The lateral tibial band was incised longi tudinally. Soft tissues were retracted anteriorly and posteriorly. The fracture was identified. A curette was utilized to clear the hematoma from the fracture site. With manual traction as well as varus deformity to the femur, we were able to reduce the fracture. Clamps were placed in position, and the plate was laid along the lateral border of the distal femur. These clamps were then closed on the plate and the plate was manipulated both by palpation and with fluoroscopic guidance until it was felt to be in appropriate position. Once the plate was in appropriate position, screws were placed proximally and distally to the fracture site. Once we had 2 screws proximally and 3 distally, clamps were removed and the fracture was found to be stable. Completion of screw fixation was accomplished uneventfully. Fluoroscopy was used during this process both in AP and lateral planes. When it was felt that the 3 screws proximal and distal screws were appropriately in position, all clamps were removed. The leg was flexed and extended without difficulty. Fluoroscopy was utilized to show the screws were of appropriate length and in appropriate position. At that point, the wound was copiously irrigated. It was suctioned dry. The lateral tibial band was closed with 0 Vicryl in an interrupted fashion. Subcutaneous tissues were closed with 2-0 Monocryl, and the skin was closed with a 3-0 running Monocryl in a subcuticular fashion. This was followed by Tayeabond and Prineo. The tourniquet was released after 69 minutes. The sterile dressing consisted of the Prineo followed by Silverlon dressing. Patient was then returned to the intensive care unit in a satisfactory condition. Family was notified. Related Problem List Diagnoses (1) Closed fracture of lateral condyle of femur: (2) Fracture, femur, distal:
--- NOTE | 2024-07-15 17:14 | PC.NURSE ---
Received patient from Surgery staff at 1657. Patient is lethargic, but is protecting her own airway and will follow commands while keeping eyes closed. HR: 87, BP: 160/86. SPO2: 100% on 2 L. RR: 12, Temp: 97.7.
--- NOTE | 2024-07-15 18:03 | PC.NURSE ---
Patient has been slowly waking up since surgery, but still having trouble swallowing pills. Unable to administer carvedilol and seroquel. Blood pressure is currently 183/105. Nurse alerted Dr Birmingham, he will order an alternative IV medication for blood pressure, waiting on order.
[2024-07-15] MEDS: hyDRALAzine 20 mg/mL INJ 1 mL 10 MG IVP (18:32)
--- NOTE | 2024-07-15 19:10 | PC.NURSE ---
SHift SUmmary: Uneventful shift. Rested in bed throughout the day. Surgery completed on left femur. Pedal pulses intact. Patient is still groggy from surgery sedation at the time of this note, but is rouseable and will follow commands. Unable to take PO meds due to mental status at this time, prn hydralazine available since she was unable to take evening po blood pressure meds.
--- NOTE | 2024-07-15 19:15 | ANE.PACU2 ---
Inpatient post-anesthesia follow up: Airway intact: Yes Vital signs: Temperature 98.6 F Pulse Rate 86 Respiratory Rate 20 Blood Pressure 129/62 Pulse Oximetry 98 Oxygen Delivery Me thod [ Room Air Current Rate & Del tee] Oxygen Delivery Me thod Room Air Oxygen Flow Rate 3 Fraction of Inspir ed Oxygen Hydration adequate: Yes Nausea and vomiting: No Pain level: 1 Mental status: Baseline
[2024-07-15] MEDS: atorvastatin 40 mg Tablet PO (20:31)
[2024-07-15] MEDS: pantoprazole 40 mg SDV IVP (21:22)
[2024-07-16] VITALS (56 sets, daily range): BP systolic 85–155; BP diastolic 53–95; PULSE 84–115; RESP 10–33; TEMP 36.9–37.8; O2SAT 88–100; BMI 25.7
[2024-07-16] MEDS: HYDROcodone-acetaminophen 5-325 mg Tablet 1 TAB PO ×3 (01:24→22:59)
[2024-07-16] MEDS: HYDROmorphone 1 mg/mL INJ 1 mL 0.5 MG IVP (04:20)
[2024-07-16] MEDS: levothyroxine 200 mcg Tablet PO (05:49)
[2024-07-16 05:54] LABS: Basophils % 0.1 %; Lymphocytes # 0.8 10^3/uL (0.8-4.8); Lymphocytes % 10.1 %; Mean Corpuscular HGB Conc 31.4 g/dL (30-55); Mean Corpuscular Hemoglobin 26.1 pg (27-33); Mean Corpuscular Volume 83.1 fl (85-98); Mean Platelet Volume 10.7 fL (7.4-10.4); Monocytes # 1.1 10^3/uL (0.2-0.9); Monocytes % 12.7 %; Neutrophils # 6.41 10^3/uL (1.8-7.7); Neutrophils % 76.9 %; Nucleated Red Blood Cells % 0 %; Platelet Count 230 10^3/cmm (157-399); Red Blood Count 3.37 10^6/uL (3.85-5.65); Red Cell Distribution Width 16.8 % (12.1-15.1); White Blood Count 8.34 10^3/uL (3.29-11.43)
[2024-07-16 06:28] LABS: Alanine Aminotransferase 8 U/L (0-33); Albumin Level 3.2 g/dL (3.5-5.2); Alkaline Phosphatase 80 U/L (35-105); Anion Gap 16.7 (5-19); Aspartate Amino Transferase 11 U/L (0-32); Blood Urea Nitrogen 17 mg/dL (8-23); Calcium 8.1 mg/dL (8.5-10.5); Carbon Dioxide 24 mmol/L (22-29); Chloride 106 mmol/L (98-107); Creatinine Clr Calc Pharmacy 54.9141; Globulin 2.9 g/dL (1.3-4.6); Glucose 113 mg/dL (65-115); Osmolality Calculated 298 mOsm/kg (285-295); Potassium 3.7 mmol/L (3.5-5.1); Sodium 143 mmol/L (136-145); Total Bilirubin 0.6 mg/dL (0.15-1.2); Total Protein 6.1 g/dL (6.6-8.7)
[2024-07-16] MEDS: tamsulosin 0.4 mg Capsule PO (09:14)
[2024-07-16] MEDS: OLANZapine 5 mg ODT PO ×2 (09:14→20:15)
[2024-07-16] MEDS: aspirin 81 mg EC Tablet PO (09:15)
[2024-07-16] MEDS: carvedilol 3.125 mg Tablet PO ×2 (09:15→17:31)
[2024-07-16] MEDS: enoxaparin 40 mg/0.4 mL Syringe SUBCUT (09:15)
[2024-07-16] MEDS: clopidogrel 75 mg Tablet PO (09:15)
[2024-07-16] MEDS: quetiapine 25 mg Tablet PO ×2 (09:15→17:30)
[2024-07-16] MEDS: citalopram 20 mg Tablet PO (09:16)
--- NOTE | 2024-07-16 09:30 | PC.SOCIAL ---
IMM Update Pg. 2 of IMM Updated. Copy provided to patient.
--- NOTE | 2024-07-16 13:37 | P.PN_ITS ---
Subjective 2 Subjective: Patient was seen in the ICU with her niece. She is status post open reduction internal fixation left distal femur. She is complaining of no significant pain. She has not been ambulated as yet. She remains in her Kamini brace. Medications: Medication Review Details: Current Medications Acetaminophen (Acetaminophen 325 Mg Tablet) 650 mg PO Q6H PRN PRN Reason: Mild/Mod Pain Or Temp >/= 101 Last Admin: 07/13/24 19:35 Dose: 650 mg Hydrocodone Bitart/Acetaminophen (Hydrocodone-Acetaminophen 5-325 Mg Tablet) 1 tab PO Q6H PRN PRN Reason: Pain Last Admin: 07/16/24 01:24 Dose: 1 tab Aspirin (Aspirin 81 Mg Ec Tablet) 81 mg PO DAILY [facility] Last Admin: 07/16/24 09:15 Dose: 81 mg Atorvastatin Calcium (Atorvastatin 40 Mg Tablet) 40 mg PO BEDTIME JUAN ANTONIO Last Admin: 07/15/24 20:31 Dose: 40 mg Carvedilol (Carvedilol 3.125 Mg Tablet) 3.125 mg PO BID [facility] Last Admin: 07/16/24 09:15 Dose: 3.125 mg Citalopram Hydrobromide (Citalopram 20 Mg Tablet) 20 mg PO DAILY JUAN ANTONIO Last Admin: 07/16/24 09:16 Dose: 20 mg Clopidogrel Bisulfate (Clopidogrel 75 Mg Tablet) 75 mg PO DAILY [facility] Last Admin: 07/16/24 09:15 Dose: 75 mg Enoxaparin Sodium (Enoxaparin 40 Mg/0.4 Ml Syringe) 40 mg SUBCUT Q24H JUAN ANTONIO Last Admin: 07/16/24 09:15 Dose: 40 mg Hydralazine HCl (Hydralazine 20 Mg/Ml Inj 1 Ml) 10 mg IVP Q4H PRN PRN Reason: sbp>180 or dbP>100 Last Admin: 07/15/24 18:32 Dose: 10 mg Hydromorphone HCl (Hydromorphone 1 Mg/Ml Inj 1 Ml) 0.5 mg IVP Q4H PRN PRN Reason: PAIN Last Admin: 07/16/24 04:20 Dose: 0.5 mg Lanolin (Lanolin Oint 7 Gm) 1 applic TOPICAL PRN PRN PRN Reason: DRYNESS Last Admin: 07/13/24 19:23 Dose: 1 applic Levothyroxine Sodium (Levothyroxine 200 Mcg Tablet) 200 mcg PO QAM [facility] Last Admin: 07/16/24 05:49 Dose: 200 mcg Lorazepam (Lorazepam 2 Mg/Ml Inj 1 Ml) 1 mg IVP Q4H PRN PRN Reason: ANXIETY Last Admin: 07/14/24 16:24 Dose: 1 mg Olanzapine (Olanzapine 5 Mg Odt) 5 mg PO BID@0800,2000 [facility] Last Admin: 07/16/24 09:14 Dose: 5 mg Ondansetron HCl (Ondansetron 2 Mg/Ml Sdv 2 Ml) 4 mg IVP Q8H PRN PRN Reason: vomiting, or N/V if npo Pantoprazole Sodium (Pantoprazole 40 Mg Sdv) 40 mg IVP Q24H [facility] Last Admin: 07/15/24 21:22 Dose: 40 mg Quetiapine Fumarate (Quetiapine 25 Mg Tablet) 25 mg PO BID [facility] Last Admin: 07/16/24 09:15 Dose: 25 mg Tamsulosin HCl (Tamsulosin 0.4 Mg Capsule) 0.4 mg PO DAILY [facility] Last Admin: 07/16/24 09:14 Dose: 0.4 mg Vitals/I&O/Wt Last Vital Signs Temp 100.1 F H 07/16/24 08:00 Pulse 115 H 07/16/24 10:00 Resp 21 H 07/16/24 10:00 BP 155/95 07/16/24 10:00 Pulse Ox 98 07/16/24 09:30 O2 Del Method Room Air 07/16/24 06:15 O2 Flow Rate 3 07/15/24 10:00 07/15/24 07/16/24 07/16/24 22:59 06:59 14:59 Intake Total 120 / 120 Output Total 50 / 250 550 / 800 Balance -50 / -250 -550 / -800 120 / 120 Weight last 48 hrs Weight 149 lb 14.629 oz Weight 145 lb 3.2 oz Physical Exam 2 Narrative: Patient is seen in the intensive care unit. She has a large ecchymosis anteriorly on her head as well as involving her left eye. The leg is straight in the knee immobilizer. She is not complaining of any acute distress. Const: COMMON NORMALS: no acute distress and average body habitus O RIENTATION/CONSCIOUSNESS: Yes Other orientation findings (Patient had sedative medication in the ED.) HENMT: HEAD & SCALP: hematoma (Anterior forehead) Eye: OTHER: Bruising of the left eye Chest: COMMONS NORMALS: normal inspection of the chest Resp: COMMON NORMALS: normal respiratory effort EFFORT & INSPECTION: Yes able to speak in complete sentences and Yes symmetric chest movement Extremity: LEFT LOWER EXTREMITY: Yes knee joint (The knee remains in the [place] brace in a straight position) Left knee: Yes ROM (Not evaluated) and Yes neurovascular exam (Able to wiggle her toes) Psych: ATTITUDE: Yes calm Skin: COMMON NORMALS: no rashes or lesions noted GENERAL SKIN EXAM: no rashes or lesions noted Urinary Catheter Management: Harper: Cath Placed During This Visit: yes Reason for Continuing Indwelling Catheter: Accurate Measurement of Urinary Output in Critically Ill Patients Urinary Catheter Date of Insertion: 07/11/24 Urinary Catheter Time of Insertion: 13:07 Data 07/16/24 04:55 07/16/24 04:55 A&P Assessment and plan (1) Closed fracture of lateral condyle of femur: Patient underwent open reduction internal fixation of her displaced closed left condylar fracture of the femur distally. This was accomplished uneventfully. The reduction is nearly anatomic. The patient was placed in a Kamini brace at the time of surgery, and she continues to wear this. Dressings are not changed. The patient appears neurologically intact distally. She is to be touchdown weightbearing and should be mobilized with physical therapy. Qualifiers: Encounter type: initial encounter Fracture alignment: displaced L aterality: left Qualified Code(s): S72.422A - Displaced fracture of lateral condyle of left femur, initial encounter for closed fracture (2) Fracture, femur, distal: Qualifiers: Encounter type: initial encounter Fracture type: closed Fracture morphology: other fracture Laterality: left Qualified Code(s): S72.492A - Other fracture of lower end of left femur, initial encounter for closed fracture Attestations 2 Medical Necessity Statement*: Per hospitalist team Coding Level of Care Code Acute Code for Chg Fwd Diagnoses Closed displaced fracture of lateral condyle of left femur, initial encounter S72.422A Encounter type: initial encounter Fracture alignment: displaced Laterality: left Other closed fracture of distal end of left femur, initial encounter S72.492A Encounter type: initial encounter Fracture type: closed Fracture morphology: other fracture Laterality: left
--- NOTE | 2024-07-16 15:25 | XR_ITS ---
WS: [id number] XR chest 1V portable [id number] REASON FOR EXAM: sob FINDINGS: Moderate tortuosity and ectasia of the thoracic aorta. Mild cardiac enlargement. Compared to the previous examination of 07/10/2024 there appears to be some subtle interval changes. T here is peribronchial cuffing and increased interstitial opacities in the central and mid lungs. Ther e appears to be a small amount of fluid in the minor fissure. No other significant interval change. XR/XR chest 1V portable [id number] IMPRESSION: Possible early congestive heart failure.
--- NOTE | 2024-07-16 15:25 | P.PN_ITS ---
Subjective 2 Subjective: - Patient was seen this morning she is a lert to person, not to place, to time, she does follow commands, she is pleasant this morning has no specific complaints, left lower extremity in a binder Vitals/I&O/Wt Last Vital Signs Temp 100.1 F H 07/16/24 08:00 Pulse 115 H 07/16/24 10:00 Resp 21 H 07/16/24 10:00 BP 155/95 07/16/24 10:00 Pulse Ox 98 07/16/24 09:30 O2 Del Method Room Air 07/16/24 06:15 O2 Flow Rate 3 07/15/24 10:00 07/16/24 07/16/24 07/16/24 06:59 14:59 22:59 Intake Total 120 / 120 Output Total 550 / 800 Balance -550 / -800 120 / 120 Weight last 48 hrs Weight 68 kg Weight 65.862 kg Physical Exam 2 Const: COMMON NORMALS: no acute distress ORIENTATION/CONSCIOUSNESS: Yes awake and Yes oriented to person; not oriented to place and not oriented to time OTHER: Frontal, hematoma, with surrounding skin discoloration and more purple in color, with periorbital skin changes, pupils equal round reactive to light Resp: COMMON NORMALS: normal respiratory effort, No retractions, No use of accessory muscles and clear to auscultation bilaterally AUSCULTATION: clear to auscultation bilaterally Cardio: COMMON NORMALS: regular rate, regular rhythm, S1 normal heart sound present and S2 normal heart sound present RATE: regular rate RHYTHM: r egular rhythm HEART SOUNDS: S1 normal heart sound present and S2 normal heart sound present GI: COMMON NORMALS: Normal to inspection, nondistended, normoactive bowel sounds present and non-tender Extremity: COMMON NORMALS: no pedal edema Neuro: SENSORIUM/ORIENTATION: Yes oriented to person, No oriented to place and No oriented to time Urinary Catheter Management: Harper: Cath Placed During This Visit: yes Reason for Continuing Indwelling Catheter: Accurate Measurement of Urinary Output in Critically Ill Patients Urinary Catheter Date of Insertion: 07/11/24 Urinary Catheter Time of Insertion: 13:07 Data 07/16/24 04:55 07/16/24 04:55 A&P Assessment and plan (1) Fall: Qualifiers: Encounter type: initial encounter Qualified Code(s): W19.XXXA - Unspecified fall, initial encounter (2) CVA (cerebral vascular accident): (3) Hypertension: Qualifiers: Hypertension type: primary hypertension Qualified Code(s): I10 - Essential (primary) hypertension (4) NSTEMI (non-ST elevated myocardial infarction): (5) Acute on chronic anemia: (6) Fracture, femur, distal: (7) Fluid overload: (8) Acute encephalopathy: Plan Fall -CT left knee 1. Limited evaluation of the LEFT knee due to difficulty positioning the patient. 2. There is a vertical fracture extending through the distal femur which extends intra-articular and along the anterior surface. No significant displacement. Plan -Orthopedic service on consult, status post surgical intervention -Morphine for pain control -Continue Lovenox for DVT prophylaxis -Zofran for nausea Scalp hematoma, periorbital hematoma -Associated with fall -CT head CT/CT head wo con* [id number] IMPRESSION: 1. No acute intracranial hemorrhage or edema. 2. Moderate small vessel ischemic disease with multiple lacunar infarcts in the posterior fossa and vonda. 3. Large acute scalp hematoma centered over the forehead. 4. No skull fracture. -Monitor as patient is on heparin drip Back pain CT lumbar spine CT/CT lumbar spine wo con* [id number] IMPRESSION: 1. Status post L5-S1 fusion. Lucency surrounding the L5 pedicle screws can be seen with loosening. 2. Severe L1 compression fracture with 5 mm of retropulsion, stable since 2020. 3. No acute lumbar spine fracture. 4. L4-5: Moderate central, bilateral subarticular recess and foraminal stenosis. 5. L5-S1: Severe bilateral foraminal stenosis. Large posterior laminectomy defect. 6. L3-4: Mild central, bilateral subarticular recess and foraminal stenosis. CT cervical spine CT/CT cervical spin wo con* [id number] IMPRESSION: 1. No acute cervical spine fracture. 2. Chronic burst fracture at C7 is unchanged. 3. No facet joint malalignment or subluxation. NSTEMI -No chest pain complaints -Baseline troponin 120, positive delta troponin, 6-hour troponin [address] depressions in lateral leads, troponins as high as 217 -Serial EKGs, serial troponins, telemetry monitoring -Continue aspirin, statin -Cardiac echo CONCLUSIONS Normal left ventricular size and systolic function, EF 55%. No regional wall motion abnormalities. Grade I/IV diastolic dysfunction (abnormal relaxation filling pattern), normal to mildly elevated filling pressures. Estimated pulmonary artery peak systolic pressure 20 mmHg Trace pulmonary valve regurgitation. Mild mitral annular calcification. Thickened mitral valve. Trace to mild mitral valve regurgitation. There is no pericardial effusion. There are no intracardiac masses. -Recent history of cardiac cath November 2023 at [facility], was found to have proximal LAD is 30% stenosed, mid LAD 30% stenosis, mid circumflex 30% stenosed, distal circumflex 50% stenosis, RCA 70% stenosed with small vessel -Status post cardiac cath, stenting to left circumflex -Hemoglobin stable -Continue aspirin, Plavix, statin Leukocytosis, likely reactive, resolved Acute on chronic anemia, -Show evidence of iron deficiency anemia -Ferritin 24, iron 21, evidence of early iron deficiency anemia -Hemoglobin 7.0, status post 2 units PRBC, hemoglobin 8.8. 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 Is more calm this morning, remains confused, -Does follow commands, is pleasant this morning -Repeat head CT no acute findings -Zyprexa scheduled for agitation -Increase pain medication to Dilaudid -Neurochecks, aspiration precautions, History of CVA -Multi-infarct dementia -History of cerebellar stroke, right hemispheric stroke -Residual left-sided deficits, residual dysarthria -Monitor History of multiple falls Atrial fibrillation, currently off anticoagulant therapy due to acute anemia, will consider full dose anticoagulant therapy based on clinical progress and hemoglobin Fluid overload CODE STATUS, DNR/DNI based upon paperwork in the chart, my discussion with the patient 07/12/2024 Plan for today, patient's hemoglobin is 8.8, will hold off on placing her on full dose anticoagulant therapy ? Her bruising, around her scalp, and her periorbital region looks more pronounced today monitor hemoglobin, in the afternoon, she did develop a temperature 100.1, will repeat a UA, Pro-Fernando, CRP, chest x-ray, respiratory viral panel, plan orders placed to move her to [facility], Attestations 2 Medical Necessity Statement*: Patient requires hospitalization for acute anemia monitor hemoglobin postoperatively, PT OT from her left distal femur fracture status post surgery, Diagnoses Fall W19.XXXA Encounter type: initial encounter CVA (cerebral vascular accident) I63.9 Primary hypertension I10 Hypertension type: primary hypertension NSTEMI (non-ST elevated myocardial infarction) I21.4 Acute on chronic anemia D64.9 Fracture, femur, distal S72.409A Fluid overload E87.70 Acute encephalopathy G93.40
[2024-07-16 16:03] LABS: Procalcitonin 0.08 ng/mL (0-0.5)
--- NOTE | 2024-07-16 17:22 | P.PN_ITS ---
Subjective 2 Subjective: Patient underwent open reduction internal fixation of the femoral fracture yesterday by Dr. Barlow. She had an uneventful postprocedure course so far. Her vital signs remaining stable. Denies any chest pain or any specific cardiac symptoms. Telemetry shows normal sinus rhythm. Medications: Medication Review Details: Current Medications Acetaminophen (Acetaminophen 325 Mg Tablet) 650 mg PO Q6H PRN PRN Reason: Mild/Mod Pain Or Temp >/= 101 Last Admin: 07/13/24 19:35 Dose: 650 mg Hydrocodone Bitart/Acetaminophen (Hydrocodone-Acetaminophen 5-325 Mg Tablet) 1 tab PO Q6H PRN PRN Reason: Pain Last Admin: 07/16/24 01:24 Dose: 1 tab Aspirin (Aspirin 81 Mg Ec Tablet) 81 mg PO DAILY [facility] Last Admin: 07/16/24 09:15 Dose: 81 mg Atorvastatin Calcium (Atorvastatin 40 Mg Tablet) 40 mg PO BEDTIME [facility] Last Admin: 07/15/24 20:31 Dose: 40 mg Carvedilol (Carvedilol 3.125 Mg Tablet) 3.125 mg PO BID [facility] Last Admin: 07/16/24 09:15 Dose: 3.125 mg Citalopram Hydrobromide (Citalopram 20 Mg Tablet) 20 mg PO DAILY [facility] Last Admin: 07/16/24 09:16 Dose: 20 mg Clopidogrel Bisulfate (Clopidogrel 75 Mg Tablet) 75 mg PO DAILY [facility] Last Admin: 07/16/24 09:15 Dose: 75 mg Enoxaparin Sodium (Enoxaparin 40 Mg/0.4 Ml Syringe) 40 mg SUBCUT Q24H [facility] Last Admin: 07/16/24 09:15 Dose: 40 mg Hydralazine HCl (Hydralazine 20 Mg/Ml Inj 1 Ml) 10 mg IVP Q4H PRN PRN Reason: sbp>180 or dbP>100 Last Admin: 07/15/24 18:32 Dose: 10 mg Hydromorphone HCl (Hydromorphone 1 Mg/Ml Inj 1 Ml) 0.5 mg IVP Q4H PRN PRN Reason: PAIN Last Admin: 07/16/24 04:20 Dose: 0.5 mg Lanolin (Lanolin Oint 7 Gm) 1 applic TOPICAL PRN PRN PRN Reason: DRYNESS Last Admin: 07/13/24 19:23 Dose: 1 applic Levothyroxine Sodium (Levothyroxine 200 Mcg Tablet) 200 mcg PO QAM [facility] Last Admin: 07/16/24 05:49 Dose: 200 mcg Lorazepam (Lorazepam 2 Mg/Ml Inj 1 Ml) 1 mg IVP Q4H PRN PRN Reason: ANXIETY Last Admin: 07/14/24 16:24 Dose: 1 mg Olanzapine (Olanzapine 5 Mg Odt) 5 mg PO BID@0800,2000 [facility] Last Admin: 07/16/24 09:14 Dose: 5 mg Ondansetron HCl (Ondansetron 2 Mg/Ml Sdv 2 Ml) 4 mg IVP Q8H PRN PRN Reason: vomiting, or N/V if npo Pantoprazole Sodium (Pantoprazole 40 Mg Sdv) 40 mg IVP Q24H [facility] Last Admin: 07/15/24 21:22 Dose: 40 mg Quetiapine Fumarate (Quetiapine 25 Mg Tablet) 25 mg PO BID [facility] Last Admin: 07/16/24 09:15 Dose: 25 mg Tamsulosin HCl (Tamsulosin 0.4 Mg Capsule) 0.4 mg PO DAILY [facility] Last Admin: 07/16/24 09:14 Dose: 0.4 mg Vitals/I&O/Wt Last Vital Signs Temp 100.1 F H 07/16/24 08:00 Pulse 115 H 07/16/24 10:00 Resp 21 H 07/16/24 10:00 BP 155/95 07/16/24 10:00 Pulse Ox 98 07/16/24 09:30 O2 Del Method Room Air 07/16/24 06:15 O2 Flow Rate 3 07/15/24 10:00 07/16/24 07/16/24 07/16/24 06:59 14:59 22:59 Intake Total 120 / 120 Output Total 550 / 800 Balance -550 / -800 120 / 120 Weight last 48 hrs Weight 149 lb 14.629 oz Weight 145 lb 3.2 oz Physical Exam 2 Narrative: GENERAL: The patient seems sleepy all the time with very limited communication. HEENT: Moderate pallor with no icterus or lymphadenopathy.Oral cavity: There are no mucous membrane lesions. NECK: Trachea appears to be central. No masses noted. No JVD or thyromegaly appreciated. RESPIRATORY: Chest is symmetrical. No intercostals muscle retraction or any accessory muscle activation. There is no chest wall tenderness. Breath sounds are heard bilaterally. No rales or rhonchi heard. No evidence of any consolidation. BREASTS: Deferred. HEART: The heart sounds are normal. No S3 or S4. No significant murmurs. No pericardial rub ABDOMEN: No vessel pulsations or distention. No tenderness. No organomegaly appreciated. Bowel sounds are normally heard. : Deferred. RECTAL: Deferred. LYMPHATIC: No lymphadenopathy noted in the neck. EXTREMITIES: No edema or cyanosis. No clubbing. MUSCULOSKELETAL: Left knee is flexed and somewhat extroverted. Tenderness with movements. SKIN: There are no significant rashes or ecchymosis NEUROPSYCHIATRIC: The patient is sedated. Responds at times to the questions by yes or no Urinary Catheter Management: Harper: Cath Placed During This Visit: yes Reason for Continuing Indwelling Catheter: Accurate Measurement of Urinary Output in Critically Ill Patients Urinary Catheter Date of Insertion: 07/11/24 Urinary Catheter Time of Insertion: 13:07 Data 07/16/24 04:55 07/16/24 04:55 Other Labs: Laboratory Last Values WBC 8.34 10^3/uL (3.29-11.43) 07/16/24 04:55 RBC 3.37 10^6/uL (3.85-5.65) L 07/16/24 04:55 Hgb 8.80 g/dL (11.27-16.99) L 07/16/24 04:55 Hct 28.0 % (36-47) L 07/16/24 04:55 MCV 83.1 fl (85-98) L 07/16/24 04:55 MCH 26.1 pg (27-33) L 07/16/24 04:55 MCHC 31.4 g/dL (30-55) 07/16/24 04:55 RDW 16.8 % (12.1-15.1) H 07/16/24 04:55 Plt Count 230 10^3/cmm (157-399) 07/16/24 04:55 MPV 10.7 fL (7.4-10.4) H 07/16/24 04:55 Neut % (Auto) 76.9 % 07/16/24 04:55 Lymph % (Auto) 10.1 % 07/16/24 04:55 [place] % (Auto) 12.7 % 07/16/24 04:55 Eos % (Auto) 0.0 % 07/16/24 04:55 Baso % (Auto) 0.1 % 07/16/24 04:55 Neut # (Auto) 6.41 10^3/uL (1.8-7.7) 07/16/24 04:55 Lymph # (Auto) 0.8 10^3/uL (0.8-4.8) 07/16/24 04:55 [place] # (Auto) 1.1 10^3/uL (0.2-0.9) H 07/16/24 04:55 Eos # (Auto) 0.0 10^3/uL (0.0-0.8) 07/16/24 04:55 Baso # (Auto) 0.0 10^3/uL (0.0-0.1) 07/16/24 04:55 Nucleated RBC % (auto) 0 % 07/16/24 04:55 Nucleated RBCs # 0.0 /100WBC 07/16/24 04:55 PT 14.80 SECONDS (12.1-14.9) 07/10/24 14:32 INR 1.13 (0.8-1.2) 07/10/24 14:32 APTT 159.8 SECONDS (23.9-36.7) H* D 07/14/24 19:29 Sodium 143 mmol/L (136-145) 07/16/24 04:55 Potassium 3.7 mmol/L (3.5-5.1) 07/16/24 04:55 Chloride 106 mmol/L (98-107) 07/16/24 04:55 Carbon Dioxide 24 mmol/L (22-29) 07/16/24 04:55 Anion Gap 16.7 (5-19) 07/16/24 04:55 BUN 17 mg/dL (8-23) 07/16/24 04:55 Creatinine 0.7 mg/dL (0.5-0.9) 07/16/24 04:55 GFR Calculation Not Reportable 07/16/24 04:55 Glucose 113 mg/dL (65-115) 07/16/24 04:55 Estimat Average Glucose 151 07/10/24 14:32 Hemoglobin A1c 6.9 % (4.0-6.0) H 07/10/24 14:32 Calculated Osmolality 298 mOsm/kg (285-295) H 07/16/24 04:55 Lactic Acid 2.0 mmol/L (0.5-2.2) 07/10/24 14:32 Calcium 8.1 mg/dL (8.5-10.5) L 07/16/24 04:55 Phosphorus 3.9 mg/dL (2.5-4.5) 07/13/24 01:35 Magnesium 1.6 mg/dL (1.7-2.3) L 07/13/24 01:35 Iron 21 ug/dL (37-145) L 07/10/24 14:32 TIBC 291 mcg/dl 07/10/24 14:32 % Saturation 7.2 % (20-50) L 07/10/24 14:32 Unsat Iron Binding 270 ug/dL (112-347) 07/10/24 14:32 Ferritin 24 ng/mL (15-150) 07/10/24 14:32 Total Bilirubin 0.6 mg/dL (0.15-1.2) 07/16/24 04:55 AST 11 U/L (0-32) 07/16/24 04:55 ALT 8 U/L (0-33) 07/16/24 04:55 Alkaline Phosphatase 80 U/L (35-105) 07/16/24 04:55 Troponin T 5th Gen ng/L 217 ng/L (0-10) H* 07/12/24 03:18 Troponin T Baseline 120 ng/L (0-10) H* 07/10/24 14:32 Troponin T 120 Minute 162.3 ng/L (0-10) H 07/10/24 16:32 Delta Troponin T 42.3 ABS# (0-10) H* 07/10/24 16:32 Troponin T Hi Sens 6Hr 162.3 ng/L (0-10) H 07/10/24 21:39 Troponin T Hi Sens 6Hr Delta 42.3 ng/L (0-12) H* 07/10/24 21:39 C-Reactive Protein 117.0 mg/L (0.0-4.9) H 07/16/24 04:55 NT-Pro-B Natriuret Pep 1616 pg/mL (0-450) H 07/10/24 14:32 Total Protein 6.1 g/dL (6.6-8.7) L 07/16/24 04:55 Albumin 3.2 g/dL (3.5-5.2) L 07/16/24 04:55 Globulin 2.9 g/dL (1.3-4.6) 07/16/24 04:55 Procalcitonin 0.08 ng/mL (0-0.5) 07/16/24 04:55 TSH 0.01 uIU/mL (0.27-4.20) L 07/10/24 14:32 Urine Color Yellow (Yellow) 07/10/24 10:10 Urine Appearance Clear (CLEAR) 07/10/24 10:10 Urine pH 5.5 (5-7) 07/10/24 10:10 Ur Specific [place] 1.019 (1.005-1.030) 07/10/24 10:10 Urine Protein Negative (Negative) 07/10/24 10:10 Urine Glucose (UA) Negative (Normal) 07/10/24 10:10 Urine Ketones Negative (Negative) 07/10/24 10:10 Urine Blood Negative (Negative) 07/10/24 10:10 Urine Nitrate Negative (Negative) 07/10/24 10:10 Urine Bilirubin Negative (Negative) 07/10/24 10:10 Urine Urobilinogen 1.0 mg/dL (Negative) 07/10/24 10:10 Ur Leukocyte Esterase Negative (Negative) 07/10/24 10:10 Amorphous Sediment Not Reportable 07/10/24 10:10 Blood Type A Negative 07/10/24 14:32 Rho(D) Type Rh negative 07/10/24 14:32 Antibody Screen Negative 07/10/24 14:32 Crossmatch See Detail 07/10/24 14:32 Other data: The EKG from yesterday revealed normal sinus rhythm with a known specific ST-T changes. Essentially unchanged from the previous EKGs. A&P Assessment and plan (1) Elevated troponin: Patient had a cardiac catheterization yesterday. She was found to have 99% stenosis of the mid to distal circumflex artery. She underwent PCI by Dr. Moran. She had an uneventful postprocedure course. Please refer to the PCI report by Dr. Moran for details. The cardiac catheterization revealed mild disease in the left anterior descending artery. The right coronary artery was nondominant with a high-grade lesion of the mid segment.. Please refer to the cardiac catheter report by me from yesterday (2) Intermittent atrial fibrillation: Currently she is remaining in sinus rhythm. May continue on the current management (3) Hypertension: Currently the blood pressure is under control. Will continue on the current medications Qualifiers: Hypertension type: primary hypertension Qualified Code(s): I10 - Essential (primary) hypertension (4) Hyperlipidemia: May continue on the current medications. 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 (6) Anemia: There is some drop in the hemoglobin. This needs to be closely monitored. No evidence of any active bleed. Qualifiers: Anemia type: other cause Other causes of anemia: other cause, not classified Qualified Code(s): D64.89 - Other specified anemias Plan Other problems are Femoral fracture Dementia Previous history of CVA with left-sided residual weakness Overall cardiovascular status seems to be stable. May continue on the current management Attestations 2 Medical Necessity Statement*: Deferred to the primary Coding Level of Care Code Acute Code for Chg Fwd Diagnoses Elevated troponin R79.89 Intermittent atrial fibrillation I48.0 Primary hypertension I10 Hypertension type: primary hypertension Mixed hyperlipidemia E78.2 Hyperlipidemia type: mixed hyperlipidemia 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 Z86.73 Anemia due to other cause, not classified D64.89 Anemia type: other cause Other causes of anemia: other cause, not classified
[2024-07-16 18:29] LABS: Adenovirus Not Detected (NOT DETECT); Chlamydia Pneumoniae Not Detected (NOT DETECT); Coronavirus 229E,HKU1,NL63,OC4 Not Detected (NOT DETECT); Human Metapneumovirus Not Detected (NOT DETECT); Human Rhinovirus/Enterovirus Not Detected (NOT DETECT); Influenza A Not Detected (NOT DETECT); Influenza A H1 Not Detected (NOT DETECT); Influenza A H1-2009 Not Detected (NOT DETECT); Influenza A H3 Not Detected (NOT DETECT); Influenza B Not Detected (NOT DETECT); Mycoplasma Pneumoniae Not Detected (NOT DETECT); Parainfluenza Virus Type 1 Not Detected (NOT DETECT); Parainfluenza Virus Type 2 Not Detected (NOT DETECT); Parainfluenza Virus Type 3 Not Detected (NOT DETECT); Parainfluenza Virus Type 4 Not Detected (NOT DETECT); Respiratory Syncytial Virus A Not Detected (NOT DETECT); Respiratory Syncytial Virus B Not Detected (NOT DETECT); SARS-COV-2 Not Detected (NOT DETECT)
[2024-07-16 19:17] LABS: Bilirubin Urine Negative (Negative); Blood Urine Non-haemolysed trace (Negative); Glucose Urine UA Negative (Normal); Ketones Urine Trace (Negative); Leukocyte Esterase Urine 3+ (Negative); Nitrate Urine Negative (Negative); Protein Urine 1+ (Negative); Specific Gravity, Urine 1.025 (1.005-1.030); Urine Appearance Cloudy (CLEAR); Urine Color Dark Yellow (Yellow); pH Urine 8.5 (5-7)
[2024-07-16 19:19] LABS: Add Urine Microscopic? YES; Bacteria Urine 1+ /hpf; Hyaline Casts Urine 19.83 /lpf; WBC Urine 51-100 /hpf (0-5)
[2024-07-16 19:46] LABS: Add Urine Culture? Yes; Triple Phosphate Crystal Urine 0-4 /hpf; UA Slide Review UA Slide Review Perf
[2024-07-16] MEDS: atorvastatin 40 mg Tablet PO (20:15)
[2024-07-16] MEDS: pantoprazole 40 mg SDV IVP (22:59)
--- NOTE | 2024-07-16 23:19 | PC.NURSE ---
pt yelling out wanting to go home, when nurse began explaining that pt has had surgery recently and she is in the hospital to recover, pt told nurse oh shut up, you dumbass at the same time taking a swing toward nurse. pt becomes more agitated when being asked questions, pain med administered
[2024-07-16] MEDS: LORazepam 2 mg/mL INJ 1 mL 1 MG IVP (23:37)
[2024-07-17] VITALS (16 sets, daily range): BP systolic 100–130; BP diastolic 49–71; PULSE 79–95; RESP 17–19; TEMP 36.9–38; O2SAT 90–97
[2024-07-17] MEDS: levothyroxine 200 mcg Tablet PO (05:12)
[2024-07-17 05:24] LABS: Basophils % 0.3 %; Eosinophils % 0.3 %; Hematocrit 24.6 % (36-47); Lymphocytes # 1.3 10^3/uL (0.8-4.8); Lymphocytes % 17.9 %; Mean Corpuscular HGB Conc 30.9 g/dL (30-55); Mean Corpuscular Volume 84.2 fl (85-98); Mean Platelet Volume 10.7 fL (7.4-10.4); Monocytes # 1.1 10^3/uL (0.2-0.9); Monocytes % 14.7 %; Neutrophils # 4.95 10^3/uL (1.8-7.7); Neutrophils % 66.3 %; Nucleated Red Blood Cells % 0 %; Platelet Count 192 10^3/cmm (157-399); Red Blood Count 2.92 10^6/uL (3.85-5.65); Red Cell Distribution Width 17.5 % (12.1-15.1); White Blood Count 7.47 10^3/uL (3.29-11.43)
[2024-07-17 05:51] LABS: Alanine Aminotransferase 6 U/L (0-33); Albumin Level 3.2 g/dL (3.5-5.2); Alkaline Phosphatase 69 U/L (35-105); Anion Gap 13.3 (5-19); Aspartate Amino Transferase 11 U/L (0-32); Blood Urea Nitrogen 25 mg/dL (8-23); Calcium 7.9 mg/dL (8.5-10.5); Carbon Dioxide 26 mmol/L (22-29); Chloride 109 mmol/L (98-107); Creatinine Clr Calc Pharmacy 55.3226; Globulin 2.8 g/dL (1.3-4.6); Glucose 135 mg/dL (65-115); Osmolality Calculated 306 mOsm/kg (285-295); Potassium 3.3 mmol/L (3.5-5.1); Sodium 145 mmol/L (136-145); Total Bilirubin 0.5 mg/dL (0.15-1.2)
[2024-07-17] MEDS: quetiapine 25 mg Tablet PO ×2 (09:35→17:34)
[2024-07-17] MEDS: potassium chloride ER 20 mEq Tablet PO (09:35)
[2024-07-17] MEDS: tamsulosin 0.4 mg Capsule PO (09:35)
[2024-07-17] MEDS: aspirin 81 mg EC Tablet PO (09:37)
[2024-07-17] MEDS: clopidogrel 75 mg Tablet PO (09:37)
[2024-07-17] MEDS: carvedilol 3.125 mg Tablet PO ×2 (09:37→17:34)
[2024-07-17] MEDS: citalopram 20 mg Tablet PO (09:37)
[2024-07-17] MEDS: OLANZapine 5 mg ODT PO (09:37)
[2024-07-17] MEDS: enoxaparin 40 mg/0.4 mL Syringe SUBCUT (09:55)
[2024-07-17] MEDS: cefTRIAXone 1,000 mg SDV 1000 MG IVP (09:55)
--- NOTE | 2024-07-17 15:37 | P.PN_ITS ---
Subjective 2 Subjective: The patient is feeling okay. No chest pain or shortness of breath. Vitals are stable. No arrhythmias on the monitor. Medications: Medication Review Details: Current Medications Acetaminophen (Acetaminophen 325 Mg Tablet) 650 mg PO Q6H PRN PRN Reason: Mild/Mod Pain Or Temp >/= 101 Last Admin: 07/13/24 19:35 Dose: 650 mg Hydrocodone Bitart/Acetaminophen (Hydrocodone-Acetaminophen 5-325 Mg Tablet) 1 tab PO Q6H PRN PRN Reason: Pain Last Admin: 07/16/24 22:59 Dose: 1 tab Aspirin (Aspirin 81 Mg Ec Tablet) 81 mg PO DAILY [facility] Last Admin: 07/17/24 09:37 Dose: 81 mg Atorvastatin Calcium (Atorvastatin 40 Mg Tablet) 40 mg PO BEDTIME [facility] Last Admin: 07/16/24 20:15 Dose: 40 mg Carvedilol (Carvedilol 3.125 Mg Tablet) 3.125 mg PO BID [facility] Last Admin: 07/17/24 09:37 Dose: 3.125 mg Ceftriaxone Sodium (Ceftriaxone 1,000 Mg Sdv) 1,000 mg IVP Q24H [facility]; Protocol Last Admin: 07/17/24 09:55 Dose: 1,000 mg Citalopram Hydrobromide (Citalopram 20 Mg Tablet) 20 mg PO DAILY [facility] Last Admin: 07/17/24 09:37 Dose: 20 mg Clopidogrel Bisulfate (Clopidogrel 75 Mg Tablet) 75 mg PO DAILY [facility] Last Admin: 07/17/24 09:37 Dose: 75 mg Enoxaparin Sodium (Enoxaparin 40 Mg/0.4 Ml Syringe) 40 mg SUBCUT Q24H [facility] Last Admin: 07/17/24 09:55 Dose: 40 mg Hydralazine HCl (Hydralazine 20 Mg/Ml Inj 1 Ml) 10 mg IVP Q4H PRN PRN Reason: sbp>180 or dbP>100 Last Admin: 07/15/24 18:32 Dose: 10 mg Hydromorphone HCl (Hydromorphone 1 Mg/Ml Inj 1 Ml) 0.5 mg IVP Q4H PRN PRN Reason: PAIN Last Admin: 07/16/24 04:20 Dose: 0.5 mg Lanolin (Lanolin Oint 7 Gm) 1 applic TOPICAL PRN PRN PRN Reason: DRYNESS Last Admin: 07/13/24 19:23 Dose: 1 applic Levothyroxine Sodium (Levothyroxine 200 Mcg Tablet) 200 mcg PO QAM [facility] Last Admin: 07/17/24 05:12 Dose: 200 mcg Lorazepam (Lorazepam 2 Mg/Ml Inj 1 Ml) 1 mg IVP Q4H PRN PRN Reason: ANXIETY Last Admin: 07/16/24 23:37 Dose: 1 mg Olanzapine (Olanzapine 5 Mg Odt) 5 mg PO BID@0800,2000 [facility] Last Admin: 07/17/24 09:37 Dose: 5 mg Ondansetron HCl (Ondansetron 2 Mg/Ml Sdv 2 Ml) 4 mg IVP Q8H PRN PRN Reason: vomiting, or N/V if npo Pantoprazole Sodium (Pantoprazole 40 Mg Sdv) 40 mg IVP Q24H [facility] Last Admin: 07/16/24 22:59 Dose: 40 mg Quetiapine Fumarate (Quetiapine 25 Mg Tablet) 25 mg PO BID [facility] Last Admin: 07/17/24 09:35 Dose: 25 mg Sodium Chloride (Sodium Chloride 0.9% 100 Ml Bag) 50 ml IV PRN PRN PRN Reason: Blood transfusion prime and flush Stop: 07/18/24 08:12 Tamsulosin HCl (Tamsulosin 0.4 Mg Capsule) 0.4 mg PO DAILY [facility] Last Admin: 07/17/24 09:35 Dose: 0.4 mg Vitals/I&O/Wt Last Vital Signs Temp 98.4 F 07/17/24 15:30 Pulse 90 07/17/24 15:30 Resp 18 07/17/24 15:30 BP 109/63 07/17/24 15:30 Pulse Ox 97 07/17/24 15:30 O2 Del Method Room Air 07/17/24 15:30 O2 Flow Rate 3 07/16/24 08:00 07/17/24 07/17/24 07/17/24 06:59 14:59 22:59 Intake Total 0 / 0 350 / 350 Output Total 100 / 250 Balance -100 / 50 0 / 0 350 / 350 Weight last 48 hrs Weight 152 lb 6 oz Weight 149 lb 14.629 oz Physical Exam 2 Narrative: GENERAL: The patient seems sleepy all the time with very limited communication. HEENT: Moderate pallor with no icterus or lymphadenopathy.Oral cavity: There are no mucous membrane lesions. NECK: Trachea appears to be central. No masses noted. No JVD or thyromegaly appreciated. RESPIRATORY: Chest is symmetrical. No intercostals muscle retraction or any accessory muscle activation. There is no chest wall tenderness. Breath sounds are heard bilaterally. No rales or rhonchi heard. No evidence of any consolidation. BREASTS: Deferred. HEART: The heart sounds are normal. No S3 or S4. No significant murmurs. No pericardial rub ABDOMEN: No vessel pulsations or distention. No tenderness. No organomegaly appreciated. Bowel sounds are normally heard. : Deferred. RECTAL: Deferred. LYMPHATIC: No lymphadenopathy noted in the neck. EXTREMITIES: No hematoma bleeding of the right groin MUSCULOSKELETAL: Left knee is flexed and somewhat extroverted. Tenderness with movements. SKIN: There are no significant rashes or ecchymosis NEUROPSYCHIATRIC: The patient is sedated. Responds at times to the questions by yes or no Urinary Catheter Management: Harper: Cath Placed During This Visit: yes Reason for Continuing Indwelling Catheter: Acute Urinary Retention or Obstruction Urinary Catheter Date of Insertion: 07/11/24 Urinary Catheter Time of Insertion: 13:07 Data 07/17/24 16:42 07/17/24 04:20 Other Labs: Laboratory Last Values WBC 7.47 10^3/uL (3.29-11.43) 07/17/24 04:20 RBC 2.92 10^6/uL (3.85-5.65) L 07/17/24 04:20 Hgb 7.60 g/dL (11.27-16.99) L 07/17/24 04:20 Hct 24.6 % (36-47) L 07/17/24 04:20 MCV 84.2 fl (85-98) L 07/17/24 04:20 MCH 26.0 pg (27-33) L 07/17/24 04:20 MCHC 30.9 g/dL (30-55) 07/17/24 04:20 RDW 17.5 % (12.1-15.1) H 07/17/24 04:20 Plt Count 192 10^3/cmm (157-399) 07/17/24 04:20 MPV 10.7 fL (7.4-10.4) H 07/17/24 04:20 Neut % (Auto) 66.3 % 07/17/24 04:20 Lymph % (Auto) 17.9 % 07/17/24 04:20 [place] % (Auto) 14.7 % 07/17/24 04:20 Eos % (Auto) 0.3 % 07/17/24 04:20 Baso % (Auto) 0.3 % 07/17/24 04:20 Neut # (Auto) 4.95 10^3/uL (1.8-7.7) 07/17/24 04:20 Lymph # (Auto) 1.3 10^3/uL (0.8-4.8) 07/17/24 04:20 [place] # (Auto) 1.1 10^3/uL (0.2-0.9) H 07/17/24 04:20 Eos # (Auto) 0.0 10^3/uL (0.0-0.8) 07/17/24 04:20 Baso # (Auto) 0.0 10^3/uL (0.0-0.1) 07/17/24 04:20 Nucleated RBC % (auto) 0 % 07/17/24 04:20 Nucleated RBCs # 0.0 /100WBC 07/17/24 04:20 PT 14.80 SECONDS (12.1-14.9) 07/10/24 14:32 INR 1.13 (0.8-1.2) 07/10/24 14:32 APTT 159.8 SECONDS (23.9-36.7) H* D 07/14/24 19:29 Sodium 145 mmol/L (136-145) 07/17/24 04:20 Potassium 3.3 mmol/L (3.5-5.1) L 07/17/24 04:20 Chloride 109 mmol/L (98-107) H 07/17/24 04:20 Carbon Dioxide 26 mmol/L (22-29) 07/17/24 04:20 Anion Gap 13.3 (5-19) 07/17/24 04:20 BUN 25 mg/dL (8-23) H 07/17/24 04:20 Creatinine 0.8 mg/dL (0.5-0.9) 07/17/24 04:20 GFR Calculation Not Reportable 07/17/24 04:20 Glucose 135 mg/dL (65-115) H 07/17/24 04:20 Estimat Average Glucose 151 07/10/24 14:32 Hemoglobin A1c 6.9 % (4.0-6.0) H 07/10/24 14:32 Calculated Osmolality 306 mOsm/kg (285-295) H 07/17/24 04:20 Lactic Acid 2.0 mmol/L (0.5-2.2) 07/10/24 14:32 Calcium 7.9 mg/dL (8.5-10.5) L 07/17/24 04:20 Phosphorus 3.9 mg/dL (2.5-4.5) 07/13/24 01:35 Magnesium 1.6 mg/dL (1.7-2.3) L 07/13/24 01:35 Iron 21 ug/dL (37-145) L 07/10/24 14:32 TIBC 291 mcg/dl 07/10/24 14:32 % Saturation 7.2 % (20-50) L 07/10/24 14:32 Unsat Iron Binding 270 ug/dL (112-347) 07/10/24 14:32 Ferritin 24 ng/mL (15-150) 07/10/24 14:32 Total Bilirubin 0.5 mg/dL (0.15-1.2) 07/17/24 04:20 AST 11 U/L (0-32) 07/17/24 04:20 ALT 6 U/L (0-33) 07/17/24 04:20 Alkaline Phosphatase 69 U/L (35-105) 07/17/24 04:20 Troponin T 5th Gen ng/L 217 ng/L (0-10) H* 07/12/24 03:18 Troponin T Baseline 120 ng/L (0-10) H* 07/10/24 14:32 Troponin T 120 Minute 162.3 ng/L (0-10) H 07/10/24 16:32 Delta Troponin T 42.3 ABS# (0-10) H* 07/10/24 16:32 Troponin T Hi Sens 6Hr 162.3 ng/L (0-10) H 07/10/24 21:39 Troponin T Hi Sens 6Hr Delta 42.3 ng/L (0-12) H* 07/10/24 21:39 C-Reactive Protein 117.0 mg/L (0.0-4.9) H 07/16/24 04:55 NT-Pro-B Natriuret Pep 1616 pg/mL (0-450) H 07/10/24 14:32 Total Protein 6.0 g/dL (6.6-8.7) L 07/17/24 04:20 Albumin 3.2 g/dL (3.5-5.2) L 07/17/24 04:20 Globulin 2.8 g/dL (1.3-4.6) 07/17/24 04:20 Procalcitonin 0.08 ng/mL (0-0.5) 07/16/24 04:55 TSH 0.01 uIU/mL (0.27-4.20) L 07/10/24 14:32 Urine Color Dark yellow (Yellow) A 07/16/24 18:00 Urine Appearance Cloudy (CLEAR) A 07/16/24 18:00 Urine pH 8.5 (5-7) A 07/16/24 18:00 Ur Specific [place] 1.025 (1.005-1.030) 07/16/24 18:00 Urine Protein 1+ (Negative) A 07/16/24 18:00 Urine Glucose (UA) Negative (Normal) 07/16/24 18:00 Urine Ketones Trace (Negative) 07/16/24 18:00 Urine Blood Non-haemolysed trace (Negative) 07/16/24 18:00 Urine Nitrate Negative (Negative) 07/16/24 18:00 Urine Bilirubin Negative (Negative) 07/16/24 18:00 Urine Urobilinogen 1.0 mg/dL (Negative) 07/16/24 18:00 Ur Leukocyte Esterase 3+ (Negative) A 07/16/24 18:00 Urine RBC 3-5 /hpf (0-2) 07/16/24 18:00 Urine WBC 51-100 /hpf (0-5) H 07/16/24 18:00 Ur Squamous Epith Cells 6-10 /hpf (0-5) 07/16/24 18:00 Triple Phos Crystals 0-4 /hpf H 07/16/24 18:00 Amorphous Sediment Not Reportable 07/16/24 18:00 Urine Bacteria 1+ /hpf (NONE) H 07/16/24 18:00 Hyaline Casts 19.83 /lpf 07/16/24 18:00 Adenovirus (PCR) Not detected (NOT DETECT) 07/16/24 16:00 C. pneumoniae DNA (PCR) Not detected (NOT DETECT) 07/16/24 16:00 Coronavirus 229E (PCR) Not detected (NOT DETECT) 07/16/24 16:00 Human Metapneumovir PCR Not detected (NOT DETECT) 07/16/24 16:00 Influenza A (H1) PCR Not detected (NOT DETECT) 07/16/24 16:00 Influ A (H1/09) PCR Not detected (NOT DETECT) 07/16/24 16:00 Influenza A (H3) PCR Not detected (NOT DETECT) 07/16/24 16:00 Influenza Type A (PCR) Not detected (NOT DETECT) 07/16/24 16:00 Influenza Type B (PCR) Not detected (NOT DETECT) 07/16/24 16:00 M. pneumoniae (PCR) Not detected (NOT DETECT) 07/16/24 16:00 Parainfluenza 1 (PCR) Not detected (NOT DETECT) 07/16/24 16:00 Parainfluenza 2 (PCR) Not detected (NOT DETECT) 07/16/24 16:00 Parainfluenza 3 (PCR) Not detected (NOT DETECT) 07/16/24 16:00 Parainfluenza 4 (PCR) Not detected (NOT DETECT) 07/16/24 16:00 RSV Type A (PCR) Not detected (NOT DETECT) 07/16/24 16:00 RSV Type B (PCR) Not detected (NOT DETECT) 07/16/24 16:00 Entero/Rhino (PCR) Not detected (NOT DETECT) 07/16/24 16:00 SARS-CoV-2 (PCR) Not detected (NOT DETECT) 07/16/24 16:00 Blood Type A Negative 07/17/24: Rho(D) Type Rh negative 07/17/24 Antibody Screen Negative 07/17/24 Crossmatch See Detail 07/17/24 A&P Assessment and plan (1) Acute non-ST elevation myocardial infarction (NSTEMI): Patient's status post PCI of the mid circumflex lesion. Currently seems to be stable. May continue on the aspirin, Plavix, beta-mitchell and other current medications (2) Intermittent atrial fibrillation: Currently she is remaining in sinus rhythm. May continue on the current management (3) Hypertension: Currently the blood pressure is under control. Will continue on the current medications Qualifiers: Hypertension type: primary hypertension Qualified Code(s): I10 - Essential (primary) hypertension (4) Hyperlipidemia: May continue on the current medications. 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 (6) Anemia: The hemoglobin seems to be stable Qualifiers: Anemia type: other cause Other causes of anemia: other cause, not classified Qualified Code(s): D64.89 - Other specified anemias Plan Other problems are Femoral fracture Dementia Previous history of CVA with left-sided residual weakness Overall cardiovascular status seems to be stable. May continue on the current management Attestations 2 Medical Necessity Statement*: Deferred to the primary attending Coding Level of Care Code 81159 Diagnoses Acute non-ST elevation myocardial infarction (NSTEMI) I21.4 Intermittent atrial fibrillation I48.0 Primary hypertension I10 Hypertension type: primary hypertension Mixed hyperlipidemia E78.2 Hyperlipidemia type: mixed hyperlipidemia 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 Z86.73 Anemia due to other cause, not classified D64.89 Anemia type: other cause Other causes of anemia: other cause, not classified
--- NOTE | 2024-07-17 16:49 | P.PN_ITS ---
Subjective 2 Subjective: Patient was seen this morning, she awakens, but falls back asleep, overnight she had episodes of confusion, requiring Ativan, afebrile overnight, normotensive, on room air Vitals/I&O/Wt Last Vital Signs Temp 98.4 F 07/17/24 15:30 Pulse 90 07/17/24 15:30 Resp 18 07/17/24 15:30 BP 109/63 07/17/24 15:30 Pulse Ox 97 07/17/24 15:30 O2 Del Method Room Air 07/17/24 15:30 O2 Flow Rate 3 07/16/24 08:00 07/17/24 07/17/24 07/17/24 06:59 14:59 22:59 Intake Total 0 / 0 350 / 350 Output Total 100 / 250 Balance -100 / 50 0 / 0 350 / 350 Weight last 48 hrs Weight 69.116 kg Weight 68 kg Physical Exam 2 Const: COMMON NORMALS: no acute distress OTHER: Frontal hematoma, with surrounding bruising, improving Bilateral periorbital hematoma, with surrounding bruising, improving Resp: COMMON NORMALS: normal respiratory effort, No retractions, No use of accessory muscles and clear to auscultation bilaterally AUSCULTATION: clear to auscultation bilaterally Cardio: COMMON NORMALS: regular rate, regular rhythm, S1 normal heart sound present and S2 normal heart sound present RATE: regular rate RHYTHM: r egular rhythm HEART SOUNDS: S1 normal heart sound present and S2 normal heart sound present GI: COMMON NORMALS: Normal to inspection, nondistended, normoactive bowel sounds present and non-tender Extremity: COMMON NORMALS: no pedal edema Psych: COMMON NORMALS: mental status grossly normal Urinary Catheter Management: Harper: Cath Placed During This Visit: yes, but has since been removed by the nurse Reason for Continuing Indwelling Catheter: Decision to DC Catheter Urinary Catheter Date of Insertion: 07/11/24 Urinary Catheter Time of Insertion: 13:07 Date Urinary Catheter Removed: 07/17/24 Time Urinary Catheter Discontinued: 11:00 Data 07/17/24 04:20 07/17/24 04:20 A&P Assessment and plan (1) Fall: Qualifiers: Encounter type: initial encounter Qualified Code(s): W19.XXXA - Unspecified fall, initial encounter (2) CVA (cerebral vascular accident): (3) Hypertension: Qualifiers: Hypertension type: primary hypertension Qualified Code(s): I10 - Essential (primary) hypertension (4) NSTEMI (non-ST elevated myocardial infarction): (5) Acute on chronic anemia: (6) Fracture, femur, distal: Qualifiers: Encounter type: initial encounter Fracture type: closed Fracture morphology: other fracture Laterality: left Qualified Code(s): S72.492A - Other fracture of lower end of left femur, initial encounter for closed fracture (7) Fluid overload: (8) Acute encephalopathy: Plan Urinary tract infection -Harper catheter removed -Follow urine culture -Continue Rocephin Fall -CT left knee 1. Limited evaluation of the LEFT knee due to difficulty positioning the patient. 2. There is a vertical fracture extending through the distal femur which extends intra-articular and along the anterior surface. No significant displacement. Plan -Orthopedic service on consult, status post surgical intervention -Morphine for pain control -Continue Lovenox for DVT prophylaxis -Zofran for nausea Scalp hematoma, periorbital hematoma -Associated with fall -CT head CT/CT head wo con* [id number] IMPRESSION: 1. No acute intracranial hemorrhage or edema. 2. Moderate small vessel ischemic disease with multiple lacunar infarcts in the posterior fossa and vonda. 3. Large acute scalp hematoma centered over the forehead. 4. No skull fracture. -Monitor as patient is on heparin drip Back pain CT lumbar spine CT/CT lumbar spine wo con* [id number] IMPRESSION: 1. Status post L5-S1 fusion. Lucency surrounding the L5 pedicle screws can be seen with loosening. 2. Severe L1 compression fracture with 5 mm of retropulsion, stable since 2020. 3. No acute lumbar spine fracture. 4. L4-5: Moderate central, bilateral subarticular recess and foraminal stenosis. 5. L5-S1: Severe bilateral foraminal stenosis. Large posterior laminectomy defect. 6. L3-4: Mild central, bilateral subarticular recess and foraminal stenosis. CT cervical spine CT/CT cervical spin wo con* [id number] IMPRESSION: 1. No acute cervical spine fracture. 2. Chronic burst fracture at C7 is unchanged. 3. No facet joint malalignment or subluxation. NSTEMI -No chest pain complaints -Baseline troponin 120, positive delta troponin, 6-hour troponin [address] depressions in lateral leads, troponins as high as 217 -Serial EKGs, serial troponins, telemetry monitoring -Continue aspirin, statin -Cardiac echo CONCLUSIONS Normal left ventricular size and systolic function, EF 55%. No regional wall motion abnormalities. Grade I/IV diastolic dysfunction (abnormal relaxation filling pattern), normal to mildly elevated filling pressures. Estimated pulmonary artery peak systolic pressure 20 mmHg Trace pulmonary valve regurgitation. Mild mitral annular calcification. Thickened mitral valve. Trace to mild mitral valve regurgitation. There is no pericardial effusion. There are no intracardiac masses. -Recent history of cardiac cath November 2023 at [facility], was found to have proximal LAD is 30% stenosed, mid LAD 30% stenosis, mid circumflex 30% stenosed, distal circumflex 50% stenosis, RCA 70% stenosed with small vessel -Status post cardiac cath, stenting to left circumflex -Hemoglobin stable -Continue aspirin, Plavix, statin Leukocytosis, likely reactive, resolved Acute on chronic anemia, -Show evidence of iron deficiency anemia -Ferritin 24, iron 21, evidence of early iron deficiency anemia -Hemoglobin 7.0, status post 2 units PRBC, hemoglobin 7.8, transfuse 1 unit PRBC 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 Is more calm this morning, remains confused, -Does follow commands, is pleasant this morning -Repeat head CT no acute findings -Zyprexa scheduled for agitation -Increase pain medication to Dilaudid -Neurochecks, aspiration precautions, History of CVA -Multi-infarct dementia -History of cerebellar stroke, right hemispheric stroke -Residual left-sided deficits, residual dysarthria -Monitor History of multiple falls Atrial fibrillation, currently off anticoagulant therapy due to acute anemia, will consider full dose anticoagulant therapy based on clinical progress and hemoglobin Fluid overload CODE STATUS, DNR/DNI based upon paperwork in the chart, my discussion with the patient 07/12/2024 Plan for today, continue to monitor mentation, increase Zyprexa to 10 mg at bedtime, transfuse 1 unit PRBC as hemoglobin 7.8 and she recently had a stent placed, continue antibiotic therapy for UTI Attestations 2 Medical Necessity Statement*: Patient requires hospitalization UTI, anemia, CAD, status post cath, Diagnoses Fall W19.XXXA Encounter type: initial encounter CVA (cerebral vascular accident) I63.9 Primary hypertension I10 Hypertension type: primary hypertension NSTEMI (non-ST elevated myocardial infarction) I21.4 Acute on chronic anemia D64.9 Other closed fracture of distal end of left femur, initial encounter S72.492A Encounter type: initial encounter Fracture type: closed Fracture morphology: other fracture Laterality: left Fluid overload E87.70 Acute encephalopathy G93.40
[2024-07-17 16:51] LABS: Hematocrit 29.6 % (36-47)
[2024-07-17] MEDS: HYDROcodone-acetaminophen 5-325 mg Tablet 1 TAB PO (17:34)
--- NOTE | 2024-07-17 20:05 | P.PN_ITS ---
Subjective 2 Subjective: Patient is seen in her room this evening. She is resting comfortably and actually is asleep. Therefore, she is not disturbed. Plans will be made for her discharge per hospitalist team. Medications: Reviewed: Yes Medication Review Details: Current Medications Acetaminophen (Acetaminophen 325 Mg Tablet) 650 mg PO Q6H PRN PRN Reason: Mild/Mod Pain Or Temp >/= 101 Last Admin: 07/13/24 19:35 Dose: 650 mg Hydrocodone Bitart/Acetaminophen (Hydrocodone-Acetaminophen 5-325 Mg Tablet) 1 tab PO Q6H PRN PRN Reason: Pain Last Admin: 07/16/24 22:59 Dose: 1 tab Aspirin (Aspirin 81 Mg Ec Tablet) 81 mg PO DAILY JUAN ANTONIO Last Admin: 07/17/24 09:37 Dose: 81 mg Atorvastatin Calcium (Atorvastatin 40 Mg Tablet) 40 mg PO BEDTIME JUAN ANTONIO Last Admin: 07/16/24 20:15 Dose: 40 mg Carvedilol (Carvedilol 3.125 Mg Tablet) 3.125 mg PO BID JUAN ANTONIO Last Admin: 07/17/24 09:37 Dose: 3.125 mg Ceftriaxone Sodium (Ceftriaxone 1,000 Mg Sdv) 1,000 mg IVP Q24H JUAN ANTONIO; Protocol Last Admin: 07/17/24 09:55 Dose: 1,000 mg Citalopram Hydrobromide (Citalopram 20 Mg Tablet) 20 mg PO DAILY JUAN ANTONIO Last Admin: 07/17/24 09:37 Dose: 20 mg Clopidogrel Bisulfate (Clopidogrel 75 Mg Tablet) 75 mg PO DAILY JUAN ANTONIO Last Admin: 07/17/24 09:37 Dose: 75 mg Enoxaparin Sodium (Enoxaparin 40 Mg/0.4 Ml Syringe) 40 mg SUBCUT Q24H JUAN ANTONIO Last Admin: 07/17/24 09:55 Dose: 40 mg Hydralazine HCl (Hydralazine 20 Mg/Ml Inj 1 Ml) 10 mg IVP Q4H PRN PRN Reason: sbp>180 or dbP>100 Last Admin: 07/15/24 18:32 Dose: 10 mg Hydromorphone HCl (Hydromorphone 1 Mg/Ml Inj 1 Ml) 0.5 mg IVP Q4H PRN PRN Reason: PAIN Last Admin: 07/16/24 04:20 Dose: 0.5 mg Lanolin (Lanolin Oint 7 Gm) 1 applic TOPICAL PRN PRN PRN Reason: DRYNESS Last Admin: 07/13/24 19:23 Dose: 1 applic Levothyroxine Sodium (Levothyroxine 200 Mcg Tablet) 200 mcg PO QAM [facility] Last Admin: 07/17/24 05:12 Dose: 200 mcg Lorazepam (Lorazepam 2 Mg/Ml Inj 1 Ml) 1 mg IVP Q4H PRN PRN Reason: ANXIETY Last Admin: 07/16/24 23:37 Dose: 1 mg Olanzapine (Olanzapine 5 Mg Odt) 5 mg PO BID@0800,2000 [facility] Last Admin: 07/17/24 09:37 Dose: 5 mg Ondansetron HCl (Ondansetron 2 Mg/Ml Sdv 2 Ml) 4 mg IVP Q8H PRN PRN Reason: vomiting, or N/V if npo Pantoprazole Sodium (Pantoprazole 40 Mg Sdv) 40 mg IVP Q24H [facility] Last Admin: 07/16/24 22:59 Dose: 40 mg Quetiapine Fumarate (Quetiapine 25 Mg Tablet) 25 mg PO BID [facility] Last Admin: 07/17/24 09:35 Dose: 25 mg Sodium Chloride (Sodium Chloride 0.9% 100 Ml Bag) 50 ml IV PRN PRN PRN Reason: Blood transfusion prime and flush Stop: 07/18/24 08:12 Tamsulosin HCl (Tamsulosin 0.4 Mg Capsule) 0.4 mg PO DAILY [facility] Last Admin: 07/17/24 09:35 Dose: 0.4 mg Vitals/I&O/Wt Last Vital Signs Temp 98.4 F 07/17/24 15:30 Pulse 90 07/17/24 15:30 Resp 18 07/17/24 15:30 BP 109/63 07/17/24 15:30 Pulse Ox 97 07/17/24 15:30 O2 Del Method Room Air 07/17/24 15:30 O2 Flow Rate 3 07/16/24 08:00 07/17/24 07/17/24 07/17/24 06:59 14:59 22:59 Intake Total 0 / 0 590 / 590 Output Total 100 / 250 Balance -100 / 50 0 / 0 590 / 590 Weight last 48 hrs Weight 152 lb 6 oz Weight 149 lb 14.629 oz Physical Exam 2 Narrative: Patient is seen in the intensive care unit. She has a large ecchymosis anteriorly on her head as well as involving her left eye. The leg is straight in the knee immobilizer. She is not complaining of any acute distress. Const: COMMON NORMALS: no acute distress and average body habitus O RIENTATION/CONSCIOUSNESS: Yes Other orientation findings (Patient had sedative medication in the ED.) HENMT: HEAD & SCALP: hematoma (Anterior forehead) Eye: OTHER: Bruising of the left eye Chest: COMMONS NORMALS: normal inspection of the chest Resp: COMMON NORMALS: normal respiratory effort EFFORT & INSPECTION: Yes able to speak in complete sentences and Yes symmetric chest movement Extremity: LEFT LOWER EXTREMITY: Yes knee joint (Patient is status post ORIF) OTHER: Examination is not accomplished this evening secondary to the patient sleeping at the time of my visit. She is resting comfortably, and per nursing, is doing well. She is to work with physical therapy touchdown weightbearing only. Psych: ATTITUDE: Yes calm Skin: COMMON NORMALS: no rashes or lesions noted GENERAL SKIN EXAM: no rashes or lesions noted Urinary Catheter Management: Harper: Cath Placed During This Visit: yes, but has since been removed by the nurse Reason for Continuing Indwelling Catheter: Decision to DC Catheter Urinary Catheter Date of Insertion: 07/11/24 Urinary Catheter Time of Insertion: 13:07 Date Urinary Catheter Removed: 07/17/24 Time Urinary Catheter Discontinued: 11:00 Data 07/17/24 16:42 07/17/24 04:20 A&P Assessment and plan (1) Closed fracture of lateral condyle of femur: Patient underwent open reduction internal fixation of her displaced closed left condylar fracture of the femur distally. This was accomplished uneventfully. The reduction is nearly anatomic. The patient was placed in a Kamini brace at the time of surgery, and she continues to wear this. Dressings are not changed. The patient appears neurologically intact distally. She is to be touchdown weightbearing and should be mobilized with physical therapy. We are still awaiting plans for placement. Qualifiers: Encounter type: initial encounter Fracture alignment: displaced L aterality: left Qualified Code(s): S72.422A - Displaced fracture of lateral condyle of left femur, initial encounter for closed fracture (2) Fracture, femur, distal: Qualifiers: Encounter type: initial encounter Fracture type: closed Fracture morphology: other fracture Laterality: left Qualified Code(s): S72.492A - Other fracture of lower end of left femur, initial encounter for closed fracture Attestations 2 Medical Necessity Statement*: Per hospitalist team. Coding Level of Care Code Acute Code for Chg Fwd Diagnoses Closed displaced fracture of lateral condyle of left femur, initial encounter S72.422A Encounter type: initial encounter Fracture alignment: displaced Laterality: left Other closed fracture of distal end of left femur, initial encounter S72.492A Encounter type: initial encounter Fracture type: closed Fracture morphology: other fracture Laterality: left
[2024-07-17] MEDS: OLANZapine 10 mg ODT PO (21:10)
[2024-07-17] MEDS: pantoprazole 40 mg SDV IVP (21:10)
[2024-07-17] MEDS: atorvastatin 40 mg Tablet PO (21:10)
[2024-07-18 04:00] VITALS: BP 139/79; PULSE 90; RESP 18; TEMP 37.7; O2SAT 90
[2024-07-18 04:58] LABS: Basophils % 0.4 %; Eosinophils # 0.1 10^3/uL (0.0-0.8); Eosinophils % 0.6 %; Hematocrit 28.4 % (36-47); Lymphocytes # 1.3 10^3/uL (0.8-4.8); Lymphocytes % 15.9 %; Mean Corpuscular Hemoglobin 26.6 pg (27-33); Mean Corpuscular Volume 85.8 fl (85-98); Mean Platelet Volume 10.9 fL (7.4-10.4); Neutrophils # 5.87 10^3/uL (1.8-7.7); Neutrophils % 70.9 %; Nucleated Red Blood Cells % 0 %; Platelet Count 221 10^3/cmm (157-399); Red Blood Count 3.31 10^6/uL (3.85-5.65); Red Cell Distribution Width 17.3 % (12.1-15.1); White Blood Count 8.28 10^3/uL (3.29-11.43)
[2024-07-18 05:16] LABS: Alanine Aminotransferase 7 U/L (0-33); Albumin Level 3.1 g/dL (3.5-5.2); Alkaline Phosphatase 69 U/L (35-105); Anion Gap 14.4 (5-19); Aspartate Amino Transferase 10 U/L (0-32); Blood Urea Nitrogen 22 mg/dL (8-23); Carbon Dioxide 23 mmol/L (22-29); Chloride 107 mmol/L (98-107); Creatinine Clr Calc Pharmacy 55.3226; Globulin 2.9 g/dL (1.3-4.6); Glucose 140 mg/dL (65-115); Osmolality Calculated 298 mOsm/kg (285-295); Potassium 3.4 mmol/L (3.5-5.1); Sodium 141 mmol/L (136-145); Total Bilirubin 0.7 mg/dL (0.15-1.2)
[2024-07-18 06:00] VITALS: PULSE 88
[2024-07-18] MEDS: levothyroxine 200 mcg Tablet PO (06:10)
[2024-07-18 07:20] VITALS: BP 110/48; PULSE 91; RESP 18; TEMP 37.2; O2SAT 92
[2024-07-18 07:29] LABS: SARS Covid-2 Antigen negative (Negative)
[2024-07-18] MEDS: citalopram 20 mg Tablet PO (08:32)
[2024-07-18] MEDS: clopidogrel 75 mg Tablet PO (08:32)
[2024-07-18] MEDS: cefTRIAXone 1,000 mg SDV 1000 MG IVP (08:32)
[2024-07-18] MEDS: tamsulosin 0.4 mg Capsule PO (08:32)
[2024-07-18] MEDS: quetiapine 25 mg Tablet PO (08:32)
[2024-07-18] MEDS: aspirin 81 mg EC Tablet PO (08:33)
[2024-07-18] MEDS: enoxaparin 40 mg/0.4 mL Syringe SUBCUT (08:33)
[2024-07-18] MEDS: carvedilol 3.125 mg Tablet PO (11:00)
[2024-07-18 11:02] VITALS: BP 119/61; PULSE 82; RESP 18; TEMP 37.3; O2SAT 91
--- NOTE | 2024-07-18 11:02 | PM.DCS ---
Discharge Providers Date of Admission: 07/10/24 16:47 Date of Discharge: July 18, 2024 Attending Provider at Admission: Carlos Alberto Birmingham MD Attending Provider at Discharge: Carlos Alberto Birmingham MD Primary Care Provider: David Hannah MD Diagnoses at Discharge Discharge Diagnosis (1) Acute non-ST elevation myocardial infarction (NSTEMI): Status: Acute (2) Intermittent atrial fibrillation: Status: Acute (3) Hypertension: Status: Chronic Qualifiers: Hypertension type: primary hypertension Qualified Code(s): I10 - Essential (primary) hypertension (4) Hyperlipidemia: Status: Chronic Qualifiers: Hyperlipidemia type: mixed hyperlipidemia Qualified Code(s): E78.2 - Mixed hyperlipidemia (5) 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: Status: Acute (6) Anemia: Status: Acute Qualifiers: Anemia type: other cause Other causes of anemia: other cause, not classified Qualified Code(s): D64.89 - Other specified anemias Reason for Visit Reason for Visit: forehead hematoma, left knee pain Hospital Course Hospital Course Chip Guerrero is a 78 year old female recent hospitalization for septic shock secondary to colitis, history of CKD, atrial fibrillation on Eliquis, history of NSTEMI, history 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 Currently patient is alert to person, not to place, not to time, she has received Haldol, morphine, she does awaken but easily falls asleep, currently blood pressure 109/67 pulse 100, respirate 16, temperature 98.4, she is on 2 L. According to ER physician, patient had a fall at [facility], it was reported that patient threw herself to the ground,, she was complaining of low back pain. I cannot get significant history from patient, she has no complaints currently I spoke to [facility], according to [place], patient has a history of a stroke, residual left-sided deficits, but she can ambulate with assistance with a walker, does have residual left-sided deficits, according to [facility], she carry out conversations, she can feed herself. Yesterday evening she had combative behaviors, and again this morning had combative behaviors, and she threw herself on the ground. No recent history of infections, no recent history of UTIs, no recent history of complaints. Patient had a prolonged hospital course, please look at my prior progress note for detail For her NSTEMI, no chest pain complaints, but due to elevated troponin, EKG changes, plans on cardiac stress test patient could not tolerate stress test ultimately had coronary angiography with cardiac stenting to left circumflex, managed on aspirin, statin, Plavix. Will be discharged on this regimen with close follow-up with cardiology as outpatient Full for her fall, proximal distal femur fracture, tolerated surgery well, discharged on aspirin for DVT prophylaxis as above For acute on chronic anemia, she is status post 3 units PRBC, no bloody or black stools, no hemodynamic compromise discharge with aspirin, statin, Plavix as above. Protonix, Carafate for GI prophylaxis. Acute encephalopathy, likely related to multi-infarct dementia, remained stable on discharge, discharged on Zyprexa at bedtime For atrial fibrillation, currently off anticoagulant therapy due to acute anemia requiring unit PRBC as above, nonetheless is on aspirin, and Plavix as above. Discharged with a close follow-up cardiology as outpatient on discharge she is in sinus rhythm Hospitalization was complicated by UTI, discharged on Levaquin manage as inpatient on Rocephin, cultures so far have been pending Physical Exam Const: COMMON NORMALS: no acute distress ORIENTATION/CONSCIOUSNESS: Yes awake, Yes oriented to person and Yes confused; not oriented to place and not oriented to time HENMT: OTHER: Hematoma, frontal region, with bruising, improving Bruising, bilateral periorbital region, improving Resp: COMMON NORMALS: normal respiratory effort, No retractions, No use of accessory muscles and clear to auscultation bilaterally AUSCULTATION: clear to auscultation bilaterally Cardio: COMMON NORMALS: regular rate, regular rhythm, S1 normal heart sound present and S2 normal heart sound present RATE: regular rate RHYTHM: regular rhythm HEART SOUNDS: S1 normal heart sound present and S2 normal heart sound present GI: COMMON NORMALS: Normal to inspection, nondistended, normoactive bowel sounds present and non-tender Extremity: COMMON NORMALS: no pedal edema OTHER: Left lower extremity in a external binder Neuro: SENSORIUM/ORIENTATION: Yes oriented to person, No oriented to place and No oriented to time Urinary Catheter Management: Harper: Cath Placed During This Visit: yes, but has since been removed by the nurse Reason for Continuing Indwelling Catheter: Decision to DC Catheter Urinary Catheter Date of Insertion: 07/11/24 Urinary Catheter Time of Insertion: 13:07 Date Urinary Catheter Removed: 07/17/24 Time Urinary Catheter Discontinued: 11:00 Discharge Data Studies Completed and Pending Completed Studies During Hospitalization Category Date Time Status CT cervical spin wo con* [id number] Stat Cat Scan 07/10/24 09:[address] head wo con* [id number] Routine Cat Scan 07/12/24 10:[address] head wo con* [id number] Stat Cat Scan 07/10/24 09:[address] knee LT wo con* [id number] Stat Cat Scan 07/10/24 10:[address] lumbar spine wo con* [id number] Stat Cat Scan 07/10/24 09:48 Completed [employer] request for service Routine Exams 07/14/24 16:54 Completed XR chest 1V portable [id number] Routine Exams 07/10/24 19:24 Completed XR chest 1V portable [id number] Routine Exams 07/16/24 15:25 Completed XR femur LT min 2V* [id number] Routine Exams 07/15/24 00:00 Completed XR hip LT 2-3V wo/w pel* [id number] Routine Exams 07/14/24 10:30 Completed XR knee LT 3V* [id number] Stat Exams 07/10/24 09:37 Completed CV. echo complete* [id number] Stat Ultrasound 07/10/24 17:41 Completed Pending at discharge Category Date Time Status Sestamibi Stress Test Request Routine Exams 07/13/24 08:31 Stop Req Occult Blood Stool [Immunochemical Fecal OCB] Routine Lab 07/10/24 14:06 Uncollected Occult Blood Stool [Immunochemical Fecal OCB] Stat Lab 07/11/24 15:17 Uncollected Radiology Impressions Cervical Spine CT 07/10/24 09:37 IMPRESSION: 1. No acute cervical spine fracture. 2. Chronic burst fracture at C7 is unchanged. 3. No facet joint malalignment or subluxation. Knee X-Ray 07/10/24 09:37 IMPRESSION: 1. Avulsion fracture of the lateral femoral condyle which extends into the lateral compartment of the knee. 2. Suboptimal visualization of the proximal tibia. Additional views or CT could be considered for more complete evaluation. Lumbar Spine CT 07/10/24 09:48 IMPRESSION: 1. Status post L5-S1 fusion. Lucency surrounding the L5 pedicle screws can be seen with loosening. 2. Severe L1 compression fracture with 5 mm of retropulsion, stable since 2020. 3. No acute lumbar spine fracture. 4. L4-5: Moderate central, bilateral subarticular recess and foraminal stenosis. 5. L5-S1: Severe bilateral foraminal stenosis. Large posterior laminectomy defect. 6. L3-4: Mild central, bilateral subarticular recess and foraminal stenosis. Knee CT 07/10/24 10:19 IMPRESSION: 1. Limited evaluation of the LEFT knee due to difficulty positioning the patient. 2. There is a vertical fracture extending through the distal femur which extends intra-articular and along the anterior surface. No significant displacement. Head CT 07/12/24 10:31 IMPRESSION: 1. No acute intracranial abnormality. Chronic changes. 2. Mildly decreased size of [id number] central forehead soft tissue contusion. Hip/Pelvis X-Ray 07/14/24 10:30 IMPRESSION: 1. No definite fracture identified. Femur X-Ray 07/15/24 00:00 IMPRESSION: Distal left femur fracture with internal fixation as above. Chest X-Ray 07/16/24 15:25 IMPRESSION: Possible early congestive heart failure. Laboratory Results WBC 8.28 10^3/uL (3.29-11.43) 07/18/24 04:15 RBC 3.31 10^6/uL (3.85-5.65) L 07/18/24 04:15 Hgb 8.80 g/dL (11.27-16.99) L 07/18/24 04:15 Hct 28.4 % (36-47) L 07/18/24 04:15 MCV 85.8 fl (85-98) 07/18/24 04:15 MCH 26.6 pg (27-33) L 07/18/24 04:15 MCHC 31.0 g/dL (30-55) 07/18/24 04:15 RDW 17.3 % (12.1-15.1) H 07/18/24 04:15 Plt Count 221 10^3/cmm (157-399) 07/18/24 04:15 MPV 10.9 fL (7.4-10.4) H 07/18/24 04:15 Neut % (Auto) 70.9 % 07/18/24 04:15 Lymph % (Auto) 15.9 % 07/18/24 04:15 Jackson % (Auto) 12.0 % 07/18/24 04:15 Eos % (Auto) 0.6 % 07/18/24 04:15 Baso % (Auto) 0.4 % 07/18/24 04:15 Neut # (Auto) 5.87 10^3/uL (1.8-7.7) 07/18/24 04:15 Lymph # (Auto) 1.3 10^3/uL (0.8-4.8) 07/18/24 04:15 Jackson # (Auto) 1.0 10^3/uL (0.2-0.9) H 07/18/24 04:15 Eos # (Auto) 0.1 10^3/uL (0.0-0.8) 07/18/24 04:15 Baso # (Auto) 0.0 10^3/uL (0.0-0.1) 07/18/24 04:15 Nucleated RBC % (auto) 0 % 07/18/24 04:15 Nucleated RBCs # 0.0 /100WBC 07/18/24 04:15 PT 14.80 SECONDS (12.1-14.9) 07/10/24 14:32 INR 1.13 (0.8-1.2) 07/10/24 14:32 APTT 159.8 SECONDS (23.9-36.7) H* D 07/14/24 19:29 Sodium 141 mmol/L (136-145) 07/18/24 04:15 Potassium 3.4 mmol/L (3.5-5.1) L 07/18/24 04:15 Chloride 107 mmol/L (98-107) 07/18/24 04:15 Carbon Dioxide 23 mmol/L (22-29) 07/18/24 04:15 Anion Gap 14.4 (5-19) 07/18/24 04:15 BUN 22 mg/dL (8-23) 07/18/24 04:15 Creatinine 0.7 mg/dL (0.5-0.9) 07/18/24 04:15 GFR Calculation Not Reportable 07/18/24 04:15 Glucose 140 mg/dL (65-115) H 07/18/24 04:15 Estimat Average Glucose 151 07/10/24 14:32 Hemoglobin A1c 6.9 % (4.0-6.0) H 07/10/24 14:32 Calculated Osmolality 298 mOsm/kg (285-295) H 07/18/24 04:15 Lactic Acid 2.0 mmol/L (0.5-2.2) 07/10/24 14:32 Calcium 8.0 mg/dL (8.5-10.5) L 07/18/24 04:15 Phosphorus 3.9 mg/dL (2.5-4.5) 07/13/24 01:35 Magnesium 1.6 mg/dL (1.7-2.3) L 07/13/24 01:35 Iron 21 ug/dL (37-145) L 07/10/24 14:32 TIBC 291 mcg/dl 07/10/24 14:32 % Saturation 7.2 % (20-50) L 07/10/24 14:32 Unsat Iron Binding 270 ug/dL (112-347) 07/10/24 14:32 Ferritin 24 ng/mL (15-150) 07/10/24 14:32 Total Bilirubin 0.7 mg/dL (0.15-1.2) 07/18/24 04:15 AST 10 U/L (0-32) 07/18/24 04:15 ALT 7 U/L (0-33) 07/18/24 04:15 Alkaline Phosphatase 69 U/L (35-105) 07/18/24 04:15 Troponin T 5th Gen ng/L 217 ng/L (0-10) H* 07/12/24 03:18 Troponin T Baseline 120 ng/L (0-10) H* 07/10/24 14:32 Troponin T 120 Minute 162.3 ng/L (0-10) H 07/10/24 16:32 Delta Troponin T 42.3 ABS# (0-10) H* 07/10/24 16:32 Troponin T Hi Sens 6Hr 162.3 ng/L (0-10) H 07/10/24 21:39 Troponin T Hi Sens 6Hr Delta 42.3 ng/L (0-12) H* 07/10/24 21:39 C-Reactive Protein 117.0 mg/L (0.0-4.9) H 07/16/24 04:55 NT-Pro-B Natriuret Pep 1616 pg/mL (0-450) H 07/10/24 14:32 Total Protein 6.0 g/dL (6.6-8.7) L 07/18/24 04:15 Albumin 3.1 g/dL (3.5-5.2) L 07/18/24 04:15 Globulin 2.9 g/dL (1.3-4.6) 07/18/24 04:15 Procalcitonin 0.08 ng/mL (0-0.5) 07/16/24 04:55 TSH 0.01 uIU/mL (0.27-4.20) L 07/10/24 14:32 Urine Color Dark yellow (Yellow) A 07/16/24 18:00 Urine Appearance Cloudy (CLEAR) A 07/16/24 18:00 Urine pH 8.5 (5-7) A 07/16/24 18:00 Ur Specific Epsom 1.025 (1.005-1.030) 07/16/24 18:00 Urine Protein 1+ (Negative) A 07/16/24 18:00 Urine Glucose (UA) Negative (Normal) 07/16/24 18:00 Urine Ketones Trace (Negative) 07/16/24 18:00 Urine Blood Non-haemolysed trace (Negative) 07/16/24 18:00 Urine Nitrate Negative (Negative) 07/16/24 18:00 Urine Bilirubin Negative (Negative) 07/16/24 18:00 Urine Urobilinogen 1.0 mg/dL (Negative) 07/16/24 18:00 Ur Leukocyte Esterase 3+ (Negative) A 07/16/24 18:00 Urine RBC 3-5 /hpf (0-2) 07/16/24 18:00 Urine WBC 51-100 /hpf (0-5) H 07/16/24 18:00 Ur Squamous Epith Cells 6-10 /hpf (0-5) 07/16/24 18:00 Triple Phos Crystals 0-4 /hpf H 07/16/24 18:00 Amorphous Sediment Not Reportable 07/16/24 18:00 Urine Bacteria 1+ /hpf (NONE) H 07/16/24 18:00 Hyaline Casts 19.83 /lpf 07/16/24 18:00 Adenovirus (PCR) Not detected (NOT DETECT) 07/16/24 16:00 C. pneumoniae DNA (PCR) Not detected (NOT DETECT) 07/16/24 16:00 Coronavirus 229E (PCR) Not detected (NOT DETECT) 07/16/24 16:00 Human Metapneumovir PCR Not detected (NOT DETECT) 07/16/24 16:00 Influenza A (H1) PCR Not detected (NOT DETECT) 07/16/24 16:00 Influ A (H1/09) PCR Not detected (NOT DETECT) 07/16/24 16:00 Influenza A (H3) PCR Not detected (NOT DETECT) 07/16/24 16:00 Influenza Type A (PCR) Not detected (NOT DETECT) 07/16/24 16:00 Influenza Type B (PCR) Not detected (NOT DETECT) 07/16/24 16:00 M. pneumoniae (PCR) Not detected (NOT DETECT) 07/16/24 16:00 Parainfluenza 1 (PCR) Not detected (NOT DETECT) 07/16/24 16:00 Parainfluenza 2 (PCR) Not detected (NOT DETECT) 07/16/24 16:00 Parainfluenza 3 (PCR) Not detected (NOT DETECT) 07/16/24 16:00 Parainfluenza 4 (PCR) Not detected (NOT DETECT) 07/16/24 16:00 RSV Type A (PCR) Not detected (NOT DETECT) 07/16/24 16:00 RSV Type B (PCR) Not detected (NOT DETECT) 07/16/24 16:00 Entero/Rhino (PCR) Not detected (NOT DETECT) 07/16/24 16:00 SARS-CoV-2 (PCR) Not detected (NOT DETECT) 07/16/24 16:00 SARS-CoV-2 Ag (Rapid) negative (Negative) 07/18/24 Unknown Blood Type A Negative 07/17/24: Rho(D) Type Rh negative 07/17/24: Antibody Screen Negative 07/17/24: Crossmatch See Detail 07/17/24: Vitals Last Vital Signs Temp 99.2 F 07/18/24 11:02 Pulse 82 07/18/24 11:02 Resp 18 07/18/24 11:02 BP 119/61 07/18/24 11:02 Pulse Ox 91 07/18/24 11:02 O2 Del Method Room Air 07/18/24 11:02 O2 Flow Rate 3 07/16/24 08:00 Discharge Plan Discharge Patient Disposition: Xfer SNF Condition: Stable Prescriptions: New clopidogrel 75 mg Tablet 75 mg PO DAILY 30 Days Qty: 30 0RF carvedilol 3.125 mg Tablet 3.125 mg PO BID 30 Days Qty: 60 0RF olanzapine 10 mg Tablet,Disintegrating 10 mg PO BEDTIME 30 Days Qty: 30 0RF levofloxacin 750 mg tablet 750 mg PO DAILY 5 Days Qty: 5 0RF pantoprazole [Protonix] 40 mg tablet,delayed release (DR/EC) 40 mg PO BID 30 Days Qty: 60 0RF sucralfate [Carafate] 1 gram tablet 1 g PO BID 28 Days Qty: 56 0RF Continued Euthyrox 200 mcg tablet 200 mcg PO QAM Qty: 30 11RF alprazolam [Xanax] 0.25 mg tablet 0.25 mg PO BID acetaminophen [Tylenol] 325 mg capsule 325 mg PO QID PRN (Reason: Pain) fluticasone propionate 50 mcg/actuation spray,suspension 2 spray INTRANASAL DAILY atorvastatin 40 mg tablet 40 mg PO BEDTIME quetiapine 25 mg Tablet 25 mg PO BID hydrocodone-acetaminophen 5-325 mg tablet 1 tab PO Q6H PRN (Reason: Pain) aspirin 81 mg Tablet,Delayed Release (Dr/Ec) 81 mg PO DAILY magnesium hydroxide [Milk of Magnesia] 400 mg/5 mL Suspension 30 ml PO DAILY PRN (Reason: Constipation) bisacodyl 10 mg Suppository 10 mg ME PRN PRN (Reason: Constipation) Fleet Enema 19-7 gram/118 mL Enema 118 ml ME DAILY PRN (Reason: Constipation) Probiotic 3 billion cell Capsule 3,000 mmu cells PO DAILY PRN (Reason: ANTIBIOTICS) Rx Instructions: administer with a meal tamsulosin 0.4 mg Capsule 0.4 mg PO DAILY Qty: 30 0RF omeprazole 40 mg Capsule,Delayed Release(Dr/Ec) 40 mg PO DAILY citalopram 20 mg tablet 20 mg PO DAILY Discontinued Eliquis 5 mg tablet 5 mg PO BID lisinopril 2.5 mg tablet 2.5 mg PO DAILY loperamide [Imodium A-D] 2 mg Tablet 2 mg PO QID PRN (Reason: Loose Stool) Qty: 30 0RF No Action (DME) off the shelf ulnar gutter splint, right See Rx Instructions .Route .MEDSUPPLY Qty: 1 0RF Rx Instructions: As directed Discharge Orders: Discharge Order (Routine); Ordered 07/18/24 Ordered By: Carlos Alberto Birmingham Referrals: [facility] [Outside] Marie Castro MD [Physician] - 3 weeks David Hannah MD [Primary Care Provider] - Phuc Moran M.D [Physician] - 1 week Discharge Diet: As Directed Discharge Activity: Use walker/crutches as instructed and As per PT/OT instructions Patient Instructions: Opioid Safety Activity Restrictions/Additional Instructions: Touchdown weightbearing ambulation. Wear your brace at all times. Elevate left lower extremity. Ice to left knee. -Please recheck hemoglobin in 1 week -Eliquis currently on hold due to acute anemia Discharge Attestations Time Spent in Discharge Care*: greater than 30 min Status at Discharge: Cognitive status at discharge: cognitively intact, Behavioral status at discharge: cooperative and dependent in ADL's (because of recent humeral fracture), Quality Metrics Clinical Quality Measures [ No reported AMI, CVA or VTE this stay] Coding Level of Care Code 85920 Total time (in minutes) for Discharge: 45 Diagnoses Acute non-ST elevation myocardial infarction (NSTEMI) I21.4 Intermittent atrial fibrillation I48.0 Primary hypertension I10 Hypertension type: primary hypertension Mixed hyperlipidemia E78.2 Hyperlipidemia type: mixed hyperlipidemia 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 Z86.73 Anemia due to other cause, not classified D64.89 Anemia type: other cause Other causes of anemia: other cause, not classified
--- NOTE | 2024-07-18 14:47 | PM.PN ---
Subjective Subjective: Patient is seen in her room. She is ready for discharge. Dressings are changed today and the Kamini was readjusted to fit her more appropriately. Medications: Reviewed: Yes Medication Review Details: Current Medications Acetaminophen (Acetaminophen 325 Mg Tablet) 650 mg PO Q6H PRN PRN Reason: Mild/Mod Pain Or Temp >/= 101 Last Admin: 07/13/24 19:35 Dose: 650 mg Hydrocodone Bitart/Acetaminophen (Hydrocodone-Acetaminophen 5-325 Mg Tablet) 1 tab PO Q6H PRN PRN Reason: Pain Last Admin: 07/16/24 22:59 Dose: 1 tab Aspirin (Aspirin 81 Mg Ec Tablet) 81 mg PO DAILY JUAN ANTONIO Last Admin: 07/17/24 09:37 Dose: 81 mg Atorvastatin Calcium (Atorvastatin 40 Mg Tablet) 40 mg PO BEDTIME JUAN ANTONIO Last Admin: 07/16/24 20:15 Dose: 40 mg Carvedilol (Carvedilol 3.125 Mg Tablet) 3.125 mg PO BID JUAN ANTONOI Last Admin: 07/17/24 09:37 Dose: 3.125 mg Ceftriaxone Sodium (Ceftriaxone 1,000 Mg Sdv) 1,000 mg IVP Q24H [facility]; Protocol Last Admin: 07/17/24 09:55 Dose: 1,000 mg Citalopram Hydrobromide (Citalopram 20 Mg Tablet) 20 mg PO DAILY JUAN ANTONIO Last Admin: 07/17/24 09:37 Dose: 20 mg Clopidogrel Bisulfate (Clopidogrel 75 Mg Tablet) 75 mg PO DAILY JUAN ANTONIO Last Admin: 07/17/24 09:37 Dose: 75 mg Enoxaparin Sodium (Enoxaparin 40 Mg/0.4 Ml Syringe) 40 mg SUBCUT Q24H JUAN ANTONIO Last Admin: 07/17/24 09:55 Dose: 40 mg Hydralazine HCl (Hydralazine 20 Mg/Ml Inj 1 Ml) 10 mg IVP Q4H PRN PRN Reason: sbp>180 or dbP>100 Last Admin: 07/15/24 18:32 Dose: 10 mg Hydromorphone HCl (Hydromorphone 1 Mg/Ml Inj 1 Ml) 0.5 mg IVP Q4H PRN PRN Reason: PAIN Last Admin: 07/16/24 04:20 Dose: 0.5 mg Lanolin (Lanolin Oint 7 Gm) 1 applic TOPICAL PRN PRN PRN Reason: DRYNESS Last Admin: 07/13/24 19:23 Dose: 1 applic Levothyroxine Sodium (Levothyroxine 200 Mcg Tablet) 200 mcg PO QAM [facility] Last Admin: 07/17/24 05:12 Dose: 200 mcg Lorazepam (Lorazepam 2 Mg/Ml Inj 1 Ml) 1 mg IVP Q4H PRN PRN Reason: ANXIETY Last Admin: 07/16/24 23:37 Dose: 1 mg Olanzapine (Olanzapine 5 Mg Odt) 5 mg PO BID@0800,2000 [facility] Last Admin: 07/17/24 09:37 Dose: 5 mg Ondansetron HCl (Ondansetron 2 Mg/Ml Sdv 2 Ml) 4 mg IVP Q8H PRN PRN Reason: vomiting, or N/V if npo Pantoprazole Sodium (Pantoprazole 40 Mg Sdv) 40 mg IVP Q24H [facility] Last Admin: 07/16/24 22:59 Dose: 40 mg Quetiapine Fumarate (Quetiapine 25 Mg Tablet) 25 mg PO BID [facility] Last Admin: 07/17/24 09:35 Dose: 25 mg Sodium Chloride (Sodium Chloride 0.9% 100 Ml Bag) 50 ml IV PRN PRN PRN Reason: Blood transfusion prime and flush Stop: 07/18/24 08:12 Tamsulosin HCl (Tamsulosin 0.4 Mg Capsule) 0.4 mg PO DAILY [facility] Last Admin: 07/17/24 09:35 Dose: 0.4 mg Vitals/I&O/Wt Last Vital Signs Temp 99.2 F 07/18/24 11:02 Pulse 82 07/18/24 11:02 Resp 18 07/18/24 11:02 BP 119/61 07/18/24 11:02 Pulse Ox 91 07/18/24 11:02 O2 Del Method Room Air 07/18/24 11:02 O2 Flow Rate 3 07/16/24 08:00 07/17/24 07/18/24 07/18/24 22:59 06:59 14:59 Intake Total 590 / 590 240 / 240 Balance 590 / 590 240 / 240 Weight last 48 hrs Weight 149 lb 9 oz Weight 152 lb 6 oz Physical Exam Narrative: Patient is seen in the intensive care unit. She has a large ecchymosis anteriorly on her head as well as involving her left eye. The leg is straight in the knee immobilizer. She is not complaining of any acute distress. Const: COMMON NORMALS: no acute distress and average body habitus ORIENTATION/CONSCIOUSNESS: Yes Other orientation findings (Patient had sedative medication in the ED.) HENMT: HEAD & SCALP: hematoma (Anterior forehead) Eye: OTHER: Bruising of the left eye Chest: COMMONS NORMALS: normal inspection of the chest Resp: COMMON NORMALS: normal respiratory effort EFFORT & INSPECTION: Yes able to speak in complete sentences and Yes symmetric chest movement Extremity: LEFT LOWER EXTREMITY: Yes knee joint (Large outer dressing is removed. Silverlon dressing in place) Left knee: Yes inspection (No significant swelling), Yes palpation (No significant pain with manipulation), Yes ROM (Not evaluated.) and Yes neurovascular exam (Intact distally with no evidence of DVT left lower extremity) Psych: ATTITUDE: Yes calm Skin: COMMON NORMALS: no rashes or lesions noted GENERAL SKIN EXAM: no rashes or lesions noted Urinary Catheter Management: Harper: Cath Placed During This Visit: yes, but has since been removed by the nurse Reason for Continuing Indwelling Catheter: Decision to DC Catheter Urinary Catheter Date of Insertion: 07/11/24 Urinary Catheter Time of Insertion: 13:07 Date Urinary Catheter Removed: 07/17/24 Time Urinary Catheter Discontinued: 11:00 Data 07/18/24 04:15 07/18/24 04:15 Micro: Microbiology 07/16/24 18:00 Urine Culture - Final Urine,Clean Catch A&P Assessment and plan (1) Closed fracture of lateral condyle of femur: Patient underwent open reduction internal fixation of her displaced closed left condylar fracture of the femur distally. This was accomplished uneventfully. The reduction is nearly anatomic. The patient was placed in a Kamini brace at the time of surgery, and she continues to wear this. Refugio wrap is removed today, and the leg is evaluated. There is no evidence of DVT and no significant swelling. There is no significant pain to palpation. Plans are that the patient will be discharged to a skilled facility for further rehabilitation. Qualifiers: Encounter type: initial encounter Fracture alignment: displaced Laterality: left Qualified Code(s): S72.422A - Displaced fracture of lateral condyle of left femur, initial encounter for closed fracture (2) Fracture, femur, distal: Qualifiers: Encounter type: initial encounter Fracture type: closed Fracture morphology: other fracture Laterality: left Qualified Code(s): S72.492A - Other fracture of lower end of left femur, initial encounter for closed fracture Attestations Medical Necessity Statement*: Per hospitalist team Coding Level of Care Code Acute Code for Chg Fwd Diagnoses Closed displaced fracture of lateral condyle of left femur, initial encounter S72.422A Encounter type: initial encounter Fracture alignment: displaced Laterality: left Other closed fracture of distal end of left femur, initial encounter S72.492A Encounter type: initial encounter Fracture type: closed Fracture morphology: other fracture Laterality: left
== END 2024-07-18 16:06 | disposition intermediate care facility (04) | DRG 480 ==
LOC: ER 13:33 → OR 14:43 → MEDSURG 16:47 → ICU 18:08 → MEDSURG 07-16 20:39
PROVIDERS: Internal Medicine; Internal Medicine Cardiovascular Disease; Specialist; Student in an Organized Health Care Education/Training Program; Admitting Provider Family Medicine; Emergency Provider Family Medicine; PCP Family Medicine; Visit Provider Family Medicine
PROC: 027034Z Dilation of Coronary Artery, One Artery with Drug-eluting Intraluminal Device, Percutaneous Approach (ICD-10-PCS; 2024-07-14 17:00)
PROC: 0QSC04Z Reposition Left Lower Femur with Internal Fixation Device, Open Approach (ICD-10-PCS; principal; 2024-07-15 17:20)
DX: S72.422A Displaced fracture of lateral condyle of left femur, initial encounter for closed fracture (principal); I21.4 Non-ST elevation (NSTEMI) myocardial infarction; F02.811 Dementia in other diseases classified elsewhere, unspecified severity, with agitation; I69.354 Hemiplegia and hemiparesis following cerebral infarction affecting left non-dominant side; G93.49 Other encephalopathy; N39.0 Urinary tract infection, site not specified; I48.91 Unspecified atrial fibrillation; E78.5 Hyperlipidemia, unspecified; I69.398 Other sequelae of cerebral infarction; I69.320 Aphasia following cerebral infarction; R26.89 Other abnormalities of gait and mobility; I12.9 Hypertensive chronic kidney disease with stage 1 through stage 4 chronic kidney disease, or unspecified chronic kidney disease; N18.9 Chronic kidney disease, unspecified; D64.89 Other specified anemias; E03.9 Hypothyroidism, unspecified; I25.10 Atherosclerotic heart disease of native coronary artery without angina pectoris; F32.A Depression, unspecified; K21.9 Gastro-esophageal reflux disease without esophagitis; S00.03XA Contusion of scalp, initial encounter; Z66 Do not resuscitate; E87.70 Fluid overload, unspecified; M54.50 Low back pain, unspecified; I25.2 Old myocardial infarction; Z79.01 Long term (current) use of anticoagulants; W18.39XA Other fall on same level, initial encounter; Y92.129 Unspecified place in nursing home as the place of occurrence of the external cause; Z79.82 Long term (current) use of aspirin; Z98.1 Arthrodesis status
CPT/HCPCS: 36415; 36430; 51702; 70450; 71045; 72125; 72131; 73502; 73552; 73562; 73700; 76000; 80048; 80053; 81001; 81003; 82728; 83036; 83540; 83550; 83605; 83735; 83880; 84100; 84145; 84443; 84484; 85014; 85018; 85025; 85049; 85347; 85610; 85730; 86140; 86850; 86900; 86920; 87086; 87426; 87486; 87581; 87633; 92507; 92526; 92610; 93005; 93306; 93458; 94664; 96365; 96366; 96372; 96374; 96375; 96376; 97162; 97167; 97530; 97760; 99152; 99153; 99285; C1713; C1725; C1760; C1769; C1874; C1887; C1894; C9600; G0269; J0131; J0360; J0690; J0696; J1100; J1170; J1630; J1644; J1650; J1885; J1940; J2060; J2250; J2270; J2405; J2470; J2704; J3010; J3490; J7030; P9016; Q9967

== ENCOUNTER → 2024-09-15 09:55 | Outpatient (BNVA) | payer MEDICARE, MEDICAID, SELFPAY | PROVIDERS: PCP Family Medicine; Visit Provider Nurse Practitioner | DX: Z98.890 Other specified postprocedural states; S72.412D Displaced unspecified condyle fracture of lower end of left femur, subsequent encounter for closed fracture with routine healing; X58.XXXD Exposure to other specified factors, subsequent encounter | CPT/HCPCS: 73552; 99024 ==

== ENCOUNTER → 2024-10-13 13:54 | Outpatient (BNVA) | payer MEDICARE, MEDICAID, SELFPAY | PROVIDERS: PCP Family Medicine; Visit Provider Nurse Practitioner | DX: Z98.890 Other specified postprocedural states (principal); S72.412D Displaced unspecified condyle fracture of lower end of left femur, subsequent encounter for closed fracture with routine healing; M17.12 Unilateral primary osteoarthritis, left knee; X58.XXXD Exposure to other specified factors, subsequent encounter | CPT/HCPCS: 73552; 99024 ==

== ENCOUNTER → 2025-01-12 13:10 | Outpatient (BNVA) | payer MEDICARE, MEDICAID, SELFPAY | PROVIDERS: PCP Family Medicine; Visit Provider Nurse Practitioner | DX: Z98.890 Other specified postprocedural states (principal); Z87.81 Personal history of (healed) traumatic fracture; M17.12 Unilateral primary osteoarthritis, left knee; Z46.89 Encounter for fitting and adjustment of other specified devices | CPT/HCPCS: 73552; 99213 ==

== ENCOUNTER → 2025-02-10 11:45 | Outpatient (BNVA) | payer MEDICARE, MEDICAID, SELFPAY | PROVIDERS: PCP Family Medicine; Visit Provider Internal Medicine Cardiovascular Disease | DX: I25.10 Atherosclerotic heart disease of native coronary artery without angina pectoris (principal); I48.0 Paroxysmal atrial fibrillation; E78.2 Mixed hyperlipidemia; I10 Essential (primary) hypertension | CPT/HCPCS: 99214 ==

== ENCOUNTER → 2025-07-24 12:47 | Outpatient (BNVA) | payer MEDICARE, MEDICAID, SELFPAY | PROVIDERS: PCP Family Medicine; Visit Provider Nurse Practitioner | DX: Z47.89 Encounter for other orthopedic aftercare (principal); Z87.81 Personal history of (healed) traumatic fracture; M17.12 Unilateral primary osteoarthritis, left knee | CPT/HCPCS: 73552; 99214 ==